=== PATIENT | female | born 1960 | race Caucasian/White ===

== ENCOUNTER 2019-12-29 14:22 | Emergency (ER) | payer MEDICARE, MEDICAID ==
[2019-12-29] MEDS ORDERED: predniSONE 20 MG Tab PO ONE (14:33)
[2019-12-29] MEDS ORDERED: Sodium Chloride 0.9% 10 ML Syringe FLUSH PRN (14:33)
[2019-12-29] MEDS ORDERED: Sodium Chloride 0.9% 1,000 ML IV SCH (14:45)
--- NOTE | 2019-12-29 16:16 | CR ---
INDICATION: Altered level of consciousness. CHEST ONE VIEW: An AP upright portable view of the chest was obtained 12/29/19 - no comparisons. The heart did not appear enlarged. Overlying EKG leads are noted. The aorta is tortuous with calcification in the arch. Somewhat heavy markings are noted at the lung bases which may be accentuated by relatively poor inspiration. No consolidating pneumonia or effusion was seen. The tortuous aorta may be responsible for density behind the heart, but makes it difficult to exclude a fixed hiatal hernia of moderate size in that area. The heavy markings at the lung bases make it difficult to entirely exclude minimal patchy bronchopneumonia. IMPRESSION: No definite acute process. When clinically possible, full inspiration PA and lateral views of the chest may be helpful for further evaluation. Report was called to Dona Morgan NP at 1602 hours. MTDD
[2019-12-29] MEDS ORDERED: Naloxone 0.4 MG/ML SDV IVPUSH STA (17:12)
--- NOTE | 2019-12-29 18:36 | EDM.PDOC ---
ED HPI GENERAL MEDICAL PROBLEM - General Chief Complaint: General Stated Complaint: CONFUSION Time Seen by Provider: 12/29/19 14:50 Source of Information: Reports: Patient, Family History Limitations: Reports: No Limitations - History of Present Illness INITIAL COMMENTS - FREE TEXT/NARRATIVE: Patient presented to the ED because of altered LOC for the past 2 days which is progressively getting worse. Ayana just stays in bed and when she wakes up she is disoriented and confused. According to her Boris, she has been complaining of more numbness, tingling, and pain recently and so she self medicate with marijuana. There is no associated, fever,chills, cough or cold symptoms. There is no focal and neurologic deficits that the noticed. - Related Data Allergies Allergy/AdvReac Type Severity Reaction Status Date / Time gabapentin Allergy Mild Cannot Verified 12/16/19 13:47 Remember ED ROS GENERAL - Review of Systems Review Of Systems: See Below Constitutional: Reports: No Symptoms HEENT: Reports: No Symptoms Respiratory: Reports: No Symptoms Endocrine: Reports: No Symptoms GI/Abdominal: Reports: No Symptoms : Reports: No Symptoms Musculoskeletal: Reports: No Symptoms Skin: Reports: No Symptoms Neurological: Reports: Confusion, Paresthesia. Denies: Headache Psychiatric: Reports: No Symptoms Hematologic/Lymphatic: Reports: No Symptoms ED EXAM, GENERAL - Physical Exam Exam: See Below Exam Limited By: No Limitations General Appearance: Obtunded Ears: Normal External Exam, Normal Canal Nose: Normal Inspection, Normal Mucosa, No Blood Throat/Mouth: Normal Inspection, Normal Lips, Normal Teeth Head: Atraumatic, Normocephalic Neck: Normal Inspection, Supple, Non-Tender, Full Range of Motion Respiratory/Chest: No Respiratory Distress, Lungs Clear, Normal Breath Sounds Cardiovascular: Normal Peripheral Pulses, Regular Rate, Rhythm, No Edema, No Gallop, No JVD, No Murmur, No Rub GI/Abdominal: Normal Bowel Sounds, Soft, Non-Tender, No Organomegaly Back Exam: Normal Inspection, Full Range of Motion Extremities: Normal Inspection, Normal Range of Motion Neurological: Confused, Disoriented. No: Sensory/Motor Deficit Skin Exam: Warm Course - Vital Signs Text/Narrative:: Labs/EKG/CXR/Head Ct was discussed with patient and and her Neuro consult with Dr. Toribio who recommended for patient to be transferred for further evaluation including Video EEG Head CT-no acute changes Last Recorded V/S: Last Vital Signs Temp Pulse 70 12/29/19 14:45 Resp 16 12/29/19 14:45 BP 126/71 12/29/19 14:45 Pulse Ox - Orders/Labs/Meds Orders: Active Orders 24 hr Category Date Time Status Head wo Cont [CT] Stat Exams 12/29/19 18:09 Ordered AMMONIA, PLASMA Stat Lab 12/29/19 18:17 Ordered Sodium Chloride 0.9% [Normal Saline] 1,000 ml Med 12/29/19 14:45 Active IV ASDIRECTED Sodium Chloride 0.9% [Saline Flush] Med 12/29/19 14:33 Active 10 ml FLUSH ASDIRECTED PRN Saline Lock Insert [OM.PC] Routine Oth 12/29/19 14:33 Ordered Medication Orders Sodium Chloride (Normal Saline) 1,000 mls @ 999 mls/hr IV ASDIRECTED ESTELLA Sodium Chloride (Saline Flush) 10 ml FLUSH ASDIRECTED PRN PRN Reason: Keep Vein Open Labs: Laboratory Tests 12/29/19 12/29/19 12/29/19 Range/Units 14:44 14:44 14:44 Sodium 142 (135-145) mmol/L Potassium 3.7 (3.5-5.3) mmol/L Chloride 102 (100-110) mmol/L Carbon Dioxide 32 (21-32) mmol/L BUN 18 (7-18) mg/dL Creatinine 1.0 (0.55-1.02) mg/dL Est Cr Clr Drug Dosing TNP Estimated GFR (MDRD) 57 L (>60) BUN/Creatinine Ratio 18.0 (9-20) Glucose 91 (80-116) mg/dL Lactic Acid 1.4 (0.4-2.0) mmol/L Calcium 9.2 (8.6-10.2) mg/dL Total Bilirubin 0.6 (0.1-1.3) mg/dL AST 20 (5-25) IU/L ALT 31 (12-36) U/L Alkaline Phosphatase 104 (56-112) IU/L Total Protein 7.4 (6.0-8.0) g/dL Albumin 3.9 (3.2-4.6) g/dL Globulin 3.5 g/dL Albumin/Globulin Ratio 1.1 Urine Color (YELLOW) Urine Appearance (CLEAR) Urine pH (5.0-6.5) Ur Specific [place] (1.010-1.025) Urine Protein (NEGATIVE) mg/dL Urine Glucose (UA) (NORMAL) mg/dL Urine Ketones (NEGATIVE) mg/dL Urine Occult Blood (NEGATIVE) Urine Nitrite (NEGATIVE) Urine Bilirubin (NEGATIVE) Urine Urobilinogen (NEGATIVE) mg/dL Ur Leukocyte Esterase (NEGATIVE) Urine RBC (0-5) Urine WBC (0-5) Ur Squamous Epith Cells (NS,R,O) Urine Bacteria (NS) Urine Opiates Screen (NEGATIVE) Ur Oxycodone Screen (NEGATIVE) Ur Propoxyphene Screen (NEGATIVE) Ur Barbituates Screen (NEGATIVE) Ur Tricyclics Screen (NEGATIVE) Ur Phencyclidine Scrn (NEGATIVE) Ur Amphetamine Screen (NEGATIVE) Urine MDMA Screen (NEGATIVE) U Benzodiazepines Scrn (NEGATIVE) U Cocaine Metab Screen (NEGATIVE) U Marijuana (THC) Screen (NEGATIVE) Ethyl Alcohol < 0.03 (<0.03) % 12/29/19 12/29/19 Range/Units 15:50 15:50 Sodium (135-145) mmol/L Potassium (3.5-5.3) mmol/L Chloride (100-110) mmol/L Carbon Dioxide (21-32) mmol/L BUN (7-18) mg/dL Creatinine (0.55-1.02) mg/dL Est Cr Clr Drug Dosing Estimated GFR (MDRD) (>60) BUN/Creatinine Ratio (9-20) Glucose (80-116) mg/dL Lactic Acid (0.4-2.0) mmol/L Calcium (8.6-10.2) mg/dL Total Bilirubin (0.1-1.3) mg/dL AST (5-25) IU/L ALT (12-36) U/L Alkaline Phosphatase (56-112) IU/L Total Protein (6.0-8.0) g/dL Albumin (3.2-4.6) g/dL Globulin g/dL Albumin/Globulin Ratio Urine Color Yellow (YELLOW) Urine Appearance Clear (CLEAR) Urine pH 6.5 (5.0-6.5) Ur Specific [place] 1.010 (1.010-1.025) Urine Protein Negative (NEGATIVE) mg/dL Urine Glucose (UA) Normal (NORMAL) mg/dL Urine Ketones 15 H (NEGATIVE) mg/dL Urine Occult Blood Moderate H (NEGATIVE) Urine Nitrite Negative (NEGATIVE) Urine Bilirubin Negative (NEGATIVE) Urine Urobilinogen Normal (NEGATIVE) mg/dL Ur Leukocyte Esterase Negative (NEGATIVE) Urine RBC 5-10 H (0-5) Urine WBC 0-5 (0-5) Ur Squamous Epith Cells Few H (NS,R,O) Urine Bacteria Few H (NS) Urine Opiates Screen Negative (NEGATIVE) Ur Oxycodone Screen Negative (NEGATIVE) Ur Propoxyphene Screen Negative (NEGATIVE) Ur Barbituates Screen Negative (NEGATIVE) Ur Tricyclics Screen Positive H (NEGATIVE) Ur Phencyclidine Scrn Negative (NEGATIVE) Ur Amphetamine Screen Negative (NEGATIVE) Urine MDMA Screen Negative (NEGATIVE) U Benzodiazepines Scrn Negative (NEGATIVE) U Cocaine Metab Screen Negative (NEGATIVE) U Marijuana (THC) Screen Negative (NEGATIVE) Ethyl Alcohol (<0.03) % Meds: Medications Generic Name Dose Route Start Last Admin Trade Name Freq PRN Reason Stop Dose Admin Sodium Chloride 1,000 mls @ 999 mls/hr 12/29/19 14:45 Normal Saline IV ASDIRECTED ESTELLA Sodium Chloride 10 ml 12/29/19 14:33 Saline Flush FLUSH ASDIRECTED PRN Keep Vein Open Discontinued Medications Generic Name Dose Route Start Last Admin Trade Name Freq PRN Reason Stop Dose Admin Naloxone HCl 0.4 mg 12/29/19 17:12 12/29/19 17:32 Narcan IVPUSH 12/29/19 17:13 0.4 mg NOW STA Administration Prednisone 40 mg 12/29/19 14:33 Prednisone PO 12/29/19 14:34 ONETIME ONE Departure - Departure Time of Disposition: 19:30 Disposition: DC/Tfer to Acute Hospital 02 Condition: Good Clinical Impression: Altered level of consciousness, Encephalopathy acute, Multiple sclerosis, Sarcoidosis - Discharge Information Referrals: Tarsha Putnam NP [Primary Care Provider] - Forms: ED Department Discharge Sepsis Event Note (ED) - Evaluation Sepsis Screening Result: No Definite Risk - Focused Exam Vital Signs: Vital Signs Pulse Resp BP 12/29/19 14:45 70 16 126/71 - My Orders Last 24 Hours: My Active Orders 12/29/19 14:33 Sodium Chloride 0.9% [Saline Flush] 10 ml FLUSH ASDIRECTED PRN Saline Lock Insert [OM.PC] Routine 12/29/19 14:45 Sodium Chloride 0.9% [Normal Saline] 1,000 ml IV ASDIRECTED 12/29/19 18:09 Head wo Cont [CT] Stat 12/29/19 18:17 AMMONIA, PLASMA Stat - Assessment/Plan Last 24 Hours: My Active Orders 12/29/19 14:33 Sodium Chloride 0.9% [Saline Flush] 10 ml FLUSH ASDIRECTED PRN Saline Lock Insert [OM.PC] Routine 12/29/19 14:45 Sodium Chloride 0.9% [Normal Saline] 1,000 ml IV ASDIRECTED 12/29/19 18:09 Head wo Cont [CT] Stat 12/29/19 18:17 AMMONIA, PLASMA Stat
--- NOTE | 2019-12-29 19:36 | CT ---
INDICATION: Altered level of consciousness. CT HEAD WITHOUT CONTRAST: Spiral 3.75 mm axial sections were obtained through the brain without contrast with axial, sagittal and coronal reconstructions 12/29/19 - no comparisons. Total exam DLP was 1270.76 mGy-cm. Moderate degenerative changes are noted at the odontoatlantian joint. Mastoid air cells were well aerated. Small retention cyst is noted in the right maxillary antrum with paranasal sinuses otherwise well aerated. No cranial abnormality was identified. The orbits appear to be intact. No shift of midline structures, ventricular abnormalities, or definite acute intracranial abnormality could be identified - no bleeding site or hematoma was seen. There is some minimal low-density abnormality in the white matter, compatible with minimal microvascular disease, slightly more prominent in the left frontal area where an ongoing thrombotic process could be present. Other cause of leukoencephalopathy cannot be excluded, especially in this patient with history of MS. No old examinations are available for comparison. IMPRESSION: 1. No definite acute intracranial abnormality. No bleeding site or hematoma. 2. However, there are some areas of decreased density in the white matter and 1 is indistinctly marginated and could represent an evolving thrombotic CVA, which appears to be almost entirely in the white matter in the right frontal area. It should be correlated clinically. Follow-up studies may be helpful in 3-5 days versus MRI for that area. Report was called to Dr. Rivas at 1852 hours. [facility]
== END 2019-12-29 20:20 ==
LOC: FB.ED 14:22
DX: R40.0 Somnolence (principal); G35 Multiple sclerosis; G93.40 Encephalopathy, unspecified; D86.9 Sarcoidosis, unspecified; Z88.8 Allergy status to other drugs, medicaments and biological substances
CPT/HCPCS: 36415; 70450; 71045; 80053; 80305-QW; 80307; 81001; 83605; 96374; 99285; 99285-25; J2310

== ENCOUNTER 2020-02-08 08:29 | Observation (INO) | payer MEDICARE, MEDICAID ==
[2020-02-08] MEDS ORDERED: Sodium Chloride 0.9% 10 ML Syringe FLUSH PRN (08:56)
[2020-02-08] MEDS ORDERED: Dextrose 5%-Lactated Ringers 1,000 ML IV SCH (09:00)
--- NOTE | 2020-02-08 09:18 | EDM.PDOC ---
ED HPI GENERAL MEDICAL PROBLEM - General Chief Complaint: Neuro Symptoms/Deficits Stated Complaint: POSS OVERDOSE Time Seen by Provider: 02/08/20 09:00 Source of Information: Reports: Patient, Family, Old Records History Limitations: Reports: Altered Mental Status - History of Present Illness INITIAL COMMENTS - FREE TEXT/NARRATIVE: Ayana arrives by POV with spouse who reports confusional state, lethargy, labored breathing, weakness, and concerns she may have OD on Baclofen 20 mg tabs which she takes for MS and spasticity. He found 2 tabs in her hand, but reports he did not believe the pill bottle had been emptied. There was no reported drug or alcohol use, statements with suicidal ideation, messaging, or injury. There is no PMH of suicidal attempt, but patient seems more depressed lately. Upon arrival, GCS 11 ([id number]). There is some brief periods of apnea, 02 sats 97% on RA. She denies drug OD. - Related Data Allergies Allergy/AdvReac Type Severity Reaction Status Date / Time gabapentin Allergy Mild Cannot Verified 12/16/19 13:47 Remember Past Medical History HEENT History: Reports: None Cardiovascular History: Reports: Hypertension Respiratory History: Reports: Sleep Apnea Gastrointestinal History: Reports: None Musculoskeletal History: Reports: Arthritis Neurological History: Reports: MS Psychiatric History: Reports: Suicide Attempt (spouse reported Baclofen OD in [place] about a year ago.) ED ROS GENERAL - Review of Systems Review Of Systems: Unable To Obtain Reason Not Obtained: lethargic - Physical Exam Exam: See Below Exam Limited By: Altered Mental Status General Appearance: Alert, WD/WN, Lethargic Eye Exam: Bilateral Eye: EOMI, Normal Inspection, PERRL Ears: Normal External Exam Nose: Normal Inspection Throat/Mouth: No Airway Compromise Head Exam: Atraumatic Neck: Normal Inspection, Supple, Non-Tender Respiratory/Chest: Chest Non-Tender, Decreased Breath Sounds, Crackles, Other (periodic breathing) Cardiovascular: Normal Peripheral Pulses, Regular Rate, Rhythm, No JVD, No Murmur, No Rub GI/Abdominal: Normal Bowel Sounds, Soft, Non-Tender, No Organomegaly, No Distention, No Mass (Female) Exam: Deferred Rectal (Female) Exam: Deferred Neuro Exam (Abbreviated): Inattentive, Confused, Slow to Respond, Sensory/Motor Deficit (spasticity) Back Exam: Normal Inspection Extremities: Limited Range of Motion (spasticity) Psychiatric: Flat Affect Skin Exam: Dry, Cool, Other (dependent edema) Course - Vital Signs Text/Narrative:: Following initial assessment, supportive measures including monitoring, IV D5LR bolus and 12 lead ekg obtained. Screening labs were obtained including portable CXR, cultures, and drug screens. Spouse retrieved home meds for review. Periodic breathing was observed without drop in 02 sats, consistent with home observations long standing. A alston cath was placed. CBC notes Hgb 16.4 gm, WBC 12,800, plts adequate: cmp notes mild elevations of LFTs, UA baseline, drug screen pos for tricyclics (prescription), chest x ray no change. Case discussed with Hospitalist, and she will be admitted to Observation. At this time, a drug OD is not suspected. - Orders/Labs/Meds Orders: Active Orders 24 hr Category Date Time Status Patient Status Manage Transfer [TRANSFER] Routine ADT 02/08/20 10:56 Ordered Insert Urinary Catheter [OM.PC] Q24H Care 02/08/20 09:00 Ordered Urinary Catheter Assessment [RC] QSHIFT Care 02/08/20 08:57 Active CULTURE BLOOD [BC] Urgent Lab 02/08/20 08:50 Received CULTURE BLOOD [BC] Urgent Lab 02/08/20 08:50 Received CULTURE URINE [RM] Stat Lab 02/08/20 08:56 Received Dextrose 5%-Lactated Ringers 1,000 ml Med 02/08/20 09:00 Active IV ASDIRECTED Dextrose 5%-Lactated Ringers 1,000 ml Med 02/08/20 10:30 Active IV ASDIRECTED Sodium Chloride 0.9% [Saline Flush] Med 02/08/20 08:56 Active 10 ml FLUSH ASDIRECTED PRN Blood Culture x2 Reflex Set [OM.PC] Urgent Oth 02/08/20 08:56 Ordered Peripheral IV Insertion Adult [OM.PC] Routine Oth 02/08/20 08:56 Ordered Medication Orders Dextrose/Lactated Ringer's (Dextrose 5%-Lactated Ringers) 1,000 mls @ 999 mls/hr IV ASDIRECTED ESTELLA Last Admin: 02/08/20 09:10 Dose: 999 mls/hr Documented by: DIFFCAL Dextrose/Lactated Ringer's (Dextrose 5%-Lactated Ringers) 1,000 mls @ 250 mls/hr IV ASDIRECTED ESTELLA Last Admin: 02/08/20 10:18 Dose: 250 mls/hr Documented by: DIFFCAL Sodium Chloride (Saline Flush) 10 ml FLUSH ASDIRECTED PRN PRN Reason: Keep Vein Open Labs: Laboratory Tests 02/08/20 02/08/20 02/08/20 Range/Units 08:50 08:50 08:50 WBC 12.8 H (4.5-12.0) X10-3/uL RBC 5.25 H (3.23-5.20) x10(6)uL Hgb 16.4 H (11.5-15.5) g/dL Hct 47.4 (30.0-51.3) % MCV 90.3 (80-96) fL MCH 31.3 (27.7-33.6) pg MCHC 34.7 (32.2-35.4) g/dL RDW 13.5 (11.5-15.5) % Plt Count 197 (125-369) X10(3)uL MPV 8.4 (7.4-10.4) fL Neut % (Auto) 78.1 (46-82) % Lymph % (Auto) 12.3 L (13-37) % [place] % (Auto) 6.8 (4-12) % Eos % (Auto) 2 (1.0-5.0) % Baso % (Auto) 1 (0-2) % Neut # (Auto) 9.9 H (1.6-8.3) # Lymph # (Auto) 1.6 (0.6-5.0) # Irion # (Auto) 0.9 (0.0-1.3) # Eos # (Auto) 0.3 (0.0-0.8) # Baso # (Auto) 0.1 (0.0-0.2) # Sodium 141 (135-145) mmol/L Potassium 3.8 (3.5-5.3) mmol/L Chloride 103 (100-110) mmol/L Carbon Dioxide 28 (21-32) mmol/L BUN 16 (7-18) mg/dL Creatinine 0.9 (0.55-1.02) mg/dL Est Cr Clr Drug Dosing TNP Estimated GFR (MDRD) > 60 (>60) BUN/Creatinine Ratio 17.8 (9-20) Glucose 101 (80-116) mg/dL Lactic Acid (0.4-2.0) mmol/L Calcium 9.5 (8.6-10.2) mg/dL Total Bilirubin 0.6 (0.1-1.3) mg/dL AST 29 H D (5-25) IU/L ALT 39 H D (12-36) U/L Alkaline Phosphatase 100 (56-112) IU/L Troponin I 15.3 (4.0-60.3) pg/mL C-Reactive Protein 0.2 L (0.5-0.9) mg/dL Total Protein 7.6 (6.0-8.0) g/dL Albumin 3.6 (3.2-4.6) g/dL Globulin 4.0 g/dL Albumin/Globulin Ratio 0.9 Urine Color (YELLOW) Urine Appearance (CLEAR) Urine pH (5.0-6.5) Ur Specific [place] (1.010-1.025) Urine Protein (NEGATIVE) mg/dL Urine Glucose (UA) (NORMAL) mg/dL Urine Ketones (NEGATIVE) mg/dL Urine Occult Blood (NEGATIVE) Urine Nitrite (NEGATIVE) Urine Bilirubin (NEGATIVE) Urine Urobilinogen (NEGATIVE) mg/dL Ur Leukocyte Esterase (NEGATIVE) Urine WBC (0-5) Ur Squamous Epith Cells (NS,R,O) Urine Bacteria (NS) Salicylates (<2.8) mg/dL Urine Opiates Screen (NEGATIVE) Ur Oxycodone Screen (NEGATIVE) Ur Propoxyphene Screen (NEGATIVE) Acetaminophen (<2) ug/mL Ur Barbituates Screen (NEGATIVE) Ur Tricyclics Screen (NEGATIVE) Ur Phencyclidine Scrn (NEGATIVE) Ur Amphetamine Screen (NEGATIVE) Urine MDMA Screen (NEGATIVE) U Benzodiazepines Scrn (NEGATIVE) U Cocaine Metab Screen (NEGATIVE) U Marijuana (THC) Screen (NEGATIVE) Ethyl Alcohol < 0.03 (<0.03) % SARS-CoV-2 RNA (VINCENT) (NEGATIVE) 02/08/20 02/08/20 02/08/20 Range/Units 08:50 08:50 08:56 WBC (4.5-12.0) X10-3/uL RBC (3.23-5.20) x10(6)uL Hgb (11.5-15.5) g/dL Hct (30.0-51.3) % MCV (80-96) fL MCH (27.7-33.6) pg MCHC (32.2-35.4) g/dL RDW (11.5-15.5) % Plt Count (125-369) X10(3)uL MPV (7.4-10.4) fL Neut % (Auto) (46-82) % Lymph % (Auto) (13-37) % [place] % (Auto) (4-12) % Eos % (Auto) (1.0-5.0) % Baso % (Auto) (0-2) % Neut # (Auto) (1.6-8.3) # Lymph # (Auto) (0.6-5.0) # Irion # (Auto) (0.0-1.3) # Eos # (Auto) (0.0-0.8) # Baso # (Auto) (0.0-0.2) # Sodium (135-145) mmol/L Potassium (3.5-5.3) mmol/L Chloride (100-110) mmol/L Carbon Dioxide (21-32) mmol/L BUN (7-18) mg/dL Creatinine (0.55-1.02) mg/dL Est Cr Clr Drug Dosing Estimated GFR (MDRD) (>60) BUN/Creatinine Ratio (9-20) Glucose (80-116) mg/dL Lactic Acid 1.1 (0.4-2.0) mmol/L Calcium (8.6-10.2) mg/dL Total Bilirubin (0.1-1.3) mg/dL AST (5-25) IU/L ALT (12-36) U/L Alkaline Phosphatase (56-112) IU/L Troponin I (4.0-60.3) pg/mL C-Reactive Protein (0.5-0.9) mg/dL Total Protein (6.0-8.0) g/dL Albumin (3.2-4.6) g/dL Globulin g/dL Albumin/Globulin Ratio Urine Color Yellow (YELLOW) Urine Appearance Clear (CLEAR) Urine pH 6.0 (5.0-6.5) Ur Specific [place] 1.015 (1.010-1.025) Urine Protein Negative (NEGATIVE) mg/dL Urine Glucose (UA) Normal (NORMAL) mg/dL Urine Ketones 15 H (NEGATIVE) mg/dL Urine Occult Blood Negative (NEGATIVE) Urine Nitrite Negative (NEGATIVE) Urine Bilirubin Negative (NEGATIVE) Urine Urobilinogen Normal (NEGATIVE) mg/dL Ur Leukocyte Esterase Negative (NEGATIVE) Urine WBC 0-5 (0-5) Ur Squamous Epith Cells Few H (NS,R,O) Urine Bacteria Few H (NS) Salicylates 9.7 (<2.8) mg/dL Urine Opiates Screen (NEGATIVE) Ur Oxycodone Screen (NEGATIVE) Ur Propoxyphene Screen (NEGATIVE) Acetaminophen < 2 L (<2) ug/mL Ur Barbituates Screen (NEGATIVE) Ur Tricyclics Screen (NEGATIVE) Ur Phencyclidine Scrn (NEGATIVE) Ur Amphetamine Screen (NEGATIVE) Urine MDMA Screen (NEGATIVE) U Benzodiazepines Scrn (NEGATIVE) U Cocaine Metab Screen (NEGATIVE) U Marijuana (THC) Screen (NEGATIVE) Ethyl Alcohol (<0.03) % SARS-CoV-2 RNA (VINCENT) (NEGATIVE) 02/08/20 02/08/20 Range/Units 08:56 09:30 WBC (4.5-12.0) X10-3/uL RBC (3.23-5.20) x10(6)uL Hgb (11.5-15.5) g/dL Hct (30.0-51.3) % MCV (80-96) fL MCH (27.7-33.6) pg MCHC (32.2-35.4) g/dL RDW (11.5-15.5) % Plt Count (125-369) X10(3)uL MPV (7.4-10.4) fL Neut % (Auto) (46-82) % Lymph % (Auto) (13-37) % [place] % (Auto) (4-12) % Eos % (Auto) (1.0-5.0) % Baso % (Auto) (0-2) % Neut # (Auto) (1.6-8.3) # Lymph # (Auto) (0.6-5.0) # Irion # (Auto) (0.0-1.3) # Eos # (Auto) (0.0-0.8) # Baso # (Auto) (0.0-0.2) # Sodium (135-145) mmol/L Potassium (3.5-5.3) mmol/L Chloride (100-110) mmol/L Carbon Dioxide (21-32) mmol/L BUN (7-18) mg/dL Creatinine (0.55-1.02) mg/dL Est Cr Clr Drug Dosing Estimated GFR (MDRD) (>60) BUN/Creatinine Ratio (9-20) Glucose (80-116) mg/dL Lactic Acid (0.4-2.0) mmol/L Calcium (8.6-10.2) mg/dL Total Bilirubin (0.1-1.3) mg/dL AST (5-25) IU/L ALT (12-36) U/L Alkaline Phosphatase (56-112) IU/L Troponin I (4.0-60.3) pg/mL C-Reactive Protein (0.5-0.9) mg/dL Total Protein (6.0-8.0) g/dL Albumin (3.2-4.6) g/dL Globulin g/dL Albumin/Globulin Ratio Urine Color (YELLOW) Urine Appearance (CLEAR) Urine pH (5.0-6.5) Ur Specific [place] (1.010-1.025) Urine Protein (NEGATIVE) mg/dL Urine Glucose (UA) (NORMAL) mg/dL Urine Ketones (NEGATIVE) mg/dL Urine Occult Blood (NEGATIVE) Urine Nitrite (NEGATIVE) Urine Bilirubin (NEGATIVE) Urine Urobilinogen (NEGATIVE) mg/dL Ur Leukocyte Esterase (NEGATIVE) Urine WBC (0-5) Ur Squamous Epith Cells (NS,R,O) Urine Bacteria (NS) Salicylates (<2.8) mg/dL Urine Opiates Screen Negative (NEGATIVE) Ur Oxycodone Screen Negative (NEGATIVE) Ur Propoxyphene Screen Negative (NEGATIVE) Acetaminophen (<2) ug/mL Ur Barbituates Screen Negative (NEGATIVE) Ur Tricyclics Screen Positive H (NEGATIVE) Ur Phencyclidine Scrn Negative (NEGATIVE) Ur Amphetamine Screen Negative (NEGATIVE) Urine MDMA Screen Negative (NEGATIVE) U Benzodiazepines Scrn Negative (NEGATIVE) U Cocaine Metab Screen Negative (NEGATIVE) U Marijuana (THC) Screen Negative (NEGATIVE) Ethyl Alcohol (<0.03) % SARS-CoV-2 RNA (VINCENT) Negative (NEGATIVE) Meds: Medications Generic Name Dose Route Start Last Admin Trade Name Freq PRN Reason Stop Dose Admin Dextrose/Lactated Ringer's 1,000 mls @ 999 mls/hr 02/08/20 09:00 02/08/20 09:10 Dextrose 5%-Lactated Ringers IV 999 mls/hr ASDIRECTED ESTELLA Administration Dextrose/Lactated Ringer's 1,000 mls @ 250 mls/hr 02/08/20 10:30 02/08/20 10:18 Dextrose 5%-Lactated Ringers IV 250 mls/hr ASDIRECTED ESTELLA Administration Sodium Chloride 10 ml 02/08/20 08:56 Saline Flush FLUSH ASDIRECTED PRN Keep Vein Open Departure - Departure Time of Disposition: 11:01 Disposition: Refer to Observation Condition: Fair Clinical Impression: Multiple sclerosis Altered mental status, unspecified Qualifiers: Altered mental status type: unspecified Qualified Code(s): R41.82 - Altered mental status, unspecified - Discharge Information *PRESCRIPTION DRUG MONITORING PROGRAM REVIEWED*: Not Applicable *COPY OF PRESCRIPTION DRUG MONITORING REPORT IN PATIENT DAMON: Not Applicable Referrals: Sara Calixto PA-C [Primary Care Provider] - Forms: ED Department Discharge - Problem List & Annotations (1) Altered mental status, unspecified SNOMED Code(s): 688589816 Code(s): R41.82 - ALTERED MENTAL STATUS, UNSPECIFIED Status: Acute Current Visit: Yes Annotation/Comment:: An OD is not suspected at this time. She will be admitted to Observation. Qualifiers: Altered mental status type: unspecified Qualified Code(s): R41.82 - Altered mental status, unspecified (2) Multiple sclerosis SNOMED Code(s): 11101603 Code(s): G35 - MULTIPLE SCLEROSIS Status: Acute Current Visit: Yes Annotation/Comment:: Chronic MS. - Problem List Review Problem List Initiated/Reviewed/Updated: Yes - My Orders Last 24 Hours: My Active Orders 02/08/20 08:50 CULTURE BLOOD [BC] Urgent CULTURE BLOOD [BC] Urgent 02/08/20 08:56 CULTURE URINE [RM] Stat Sodium Chloride 0.9% [Saline Flush] 10 ml FLUSH ASDIRECTED PRN Blood Culture x2 Reflex Set [OM.PC] Urgent Peripheral IV Insertion Adult [OM.PC] Routine 02/08/20 08:57 Urinary Catheter Assessment [RC] QSHIFT 02/08/20 09:00 Insert Urinary Catheter [OM.PC] Q24H Dextrose 5%-Lactated Ringers 1,000 ml IV ASDIRECTED 02/08/20 10:30 Dextrose 5%-Lactated Ringers 1,000 ml IV ASDIRECTED 02/08/20 10:56 Patient Status Manage Transfer [TRANSFER] Routine - Assessment/Plan Last 24 Hours: My Active Orders 02/08/20 08:50 CULTURE BLOOD [BC] Urgent CULTURE BLOOD [BC] Urgent 02/08/20 08:56 CULTURE URINE [RM] Stat Sodium Chloride 0.9% [Saline Flush] 10 ml FLUSH ASDIRECTED PRN Blood Culture x2 Reflex Set [OM.PC] Urgent Peripheral IV Insertion Adult [OM.PC] Routine 02/08/20 08:57 Urinary Catheter Assessment [RC] QSHIFT 02/08/20 09:00 Insert Urinary Catheter [OM.PC] Q24H Dextrose 5%-Lactated Ringers 1,000 ml IV ASDIRECTED 02/08/20 10:30 Dextrose 5%-Lactated Ringers 1,000 ml IV ASDIRECTED 02/08/20 10:56 Patient Status Manage Transfer [TRANSFER] Routine Plan: Per Hospitalist.
[2020-02-08 09:53] LABS: ACETAMINOPHEN < 2 ug/mL (<2)
[2020-02-08] MEDS: Dextrose 5%-Lactated Ringers 1,000 ML IV SCH ×2 (10:18→14:28)
--- NOTE | 2020-02-08 10:32 | CR ---
CHEST ONE VIEW INDICATION: Altered mental status. AP portable upright view of the chest 02/08/2020 was compared with 12/29/2019 and again revealed heart to be normal in size. The aorta is tortuous with calcification in the arch. Overlying EKG leads are noted. An active infiltrate or effusion was not identified. IMPRESSION: No acute process--overall fairly stable appearance of the chest. Report was given in person to Dr. Siegel at approximately 1015 hours. [facility]
[2020-02-08] MEDS ORDERED: Lactated Ringers 1,000 ML IV SCH (12:00)
[2020-02-08] MEDS: Enoxaparin 30 MG/0.3 ML Syringe SUBCUT SCH (13:28)
--- NOTE | 2020-02-08 14:33 | HP ---
ADMISSION DATE: 02/08/2020 REASON FOR VISIT: Altered mental status. HISTORY OF PRESENT ILLNESS: Ayana Benitez is a 59-year-old female from [place], was seen at [facility] ER on 02/08/2020. She was seen by Dr. Juan C Juarez. Upon admission, brought by , increased confusion, lethargy, labored breathing, weakness, and a concern about overuse of her baclofen. Presently on baclofen 20 mg t.i.d. for spasm for MS. She reports not taking excessively but symptoms and clinical findings strongly suspicious. O2 saturations were satisfactory, breathing was comfortable, denied overdosing intervention. MEDICATIONS: Daily medications include, 1. Baclofen 20 mg 1 p.o. t.i.d. 2. Amitriptyline 10 mg for at bedtime sleep enhancement. 3. Arava 20 mg one daily, MS. 4. Prednisone 7.5 mg one daily, MS. 5. Cymbalta 60 mg 1 p.o. daily, mood stabilizer. 6. Atorvastatin 40 mg 1 p.o. daily, hyperlipidemia. 7. Colace 100 mg 1 p.o. daily, constipation. 8. vitamin 1 daily, nutrition. 9. Vitamin D 5000 units daily, bone health. 10.Diprivan 5 mg 1 p.o. b.i.d., bladder control. 11.Ibuprofen 800 mg t.i.d. p.r.n. for pain. 12.Verapamil 80 mg 1 p.o. b.i.d., heart rate control. ALLERGIES: None. PAST MEDICAL HISTORY: Significant for bilateral bunionectomy and previous section x2. Chronic illnesses include treated MS, complicated insomnia, mood disorder, hyperlipidemia, and hypertension. CONTACT REPRESENTATIVE HISTORY: 2, para 2, postmenopausal female. SOCIAL HISTORY: Lives with in [place]. Two sons, two grandchildren. 2 pack per day smoker. Moderate alcohol consumption. No illicit drug use. FAMILY HISTORY: Negative for early heart disease, diabetes mellitus, or inheritable cancer. REVIEW OF SYSTEMS: The patient is unawakeful to obtain any particular appropriate review of systems. No particular issues noted. PHYSICAL EXAMINATION: VITAL SIGNS: To the ER noted and stable. GENERAL: Middle-aged female, appears appropriate to age. Difficult conversation due to lethargy, but is awakeful and appropriate. HEENT: Funduscopic benign. Bright TMs. Clear nasal discharge. Mouth and oropharynx, poor dentition. Tongue midline. Good gag reflex. NECK: Benign. Thyroid small. CHEST: On auscultation, clear in all lung crook. HEART: On auscultation, no ectopy or murmur. ABDOMEN: Benign. Moderate distention. Lower abdominal scar. AND RECTAL: Appropriately deferred. EXTREMITIES: Well perfused. NEUROMUSCULAR: Intact. LABORATORY STUDIES: CBC revealed white count 12,800, hemoglobin 16.4. Normal electrolytes. Mildly elevated AST and ALT. CRP low at 0.2. Urinalysis normal. Positive tricyclics due to amitriptyline. COVID negative. Ethyl alcohol less than 0.3. ASSESSMENT: 1. Med overdose, strong suspicion for baclofen. 2. Secondary diagnosis, please see HPI. PLAN: We will admit to hospital. IV fluids. Intervention and care. We will maintain at telemetry and O2 saturations. Proceed accordingly. /[id number] /ERNIE
[2020-02-08] MEDS: Sodium Chloride 0.9% 1,000 ML IV SCH (18:00)
[2020-02-09] MEDS: Sodium Chloride 0.9% 1,000 ML IV SCH (01:46)
--- NOTE | 2020-02-09 12:58 | DISCH ---
DISCHARGE DATE: 02/09/2020 DIAGNOSES: Acute confusional weakness and lethargic state secondary to combination of medication issues. HISTORY OF PRESENT ILLNESS: Ayana Benitez is a 59-year-old female admitted with acute confusional stage, lethargy, decreased wakefulness, and some suspicion for interaction between her amitriptyline 40 mg at bedtime and her baclofen. Concern about more than prescribed amount was under review. Urine drug screen revealed tricyclics only consistent with her amitriptyline. Seen in the ER, evaluated, given fluids. Tenorio catheter was placed. Laboratory studies revealed white count 12,800, hemoglobin 16.4, normal indices. Electrolytes satisfactory. Mildly elevated AST and ALT, CRP of 0.2, and urine with unremarkable issues except for ketonuria. Drug screen positive for tricyclics only. SARS COVID negative. On admission, she was really lethargic and withdrawn, was awakeable. It was little bit disoriented. Exam otherwise stable other than MS related changes. HOSPITAL COURSE: The patient was maintained on O2 monitor and telemetry and make sure cardiac status and respiratory status were complementary. She became increasingly more wakeful for the day. Diet was advanced. The evening prior to discharge was more awake. Morning of discharge, she was awake, alert, and appropriate. Pain in lower extremities under review. Intolerant of gabapentin. Will make followup visit with Sara Calixto, provider of record. No repeat laboratory studies were performed. PHYSICAL EXAMINATION: VITAL SIGNS: 36.6, 111, 142/83, 16, and 94%. GENERAL: Wakeful, appropriate, and soft spoken. NECK: Benign. Thyroid small. CHEST: Clear in all lung crook. HEART: No ectopy or murmur. ABDOMEN: Benign. EXTREMITIES: Upper extremity and lower extremity spasticity noted. PLAN: Discharge to home, reduce amitriptyline to 10 mg at bedtime. Take her baclofen later in the morning. Will have a followup appointment with Neurology provider of record, on Arava therapy, Sara Calixto, her primary. SURGICAL PROCEDURES: None. CONSULTATIONS: None. /[id number] /ERNIE
[2020-02-09] MEDS: Enoxaparin 30 MG/0.3 ML Syringe SUBCUT SCH (15:04)
== END 2020-02-09 12:00 | disposition home or self-care (01) ==
LOC: FB.ED 08:29 → FB.MS 10:56 → UNDOADMOB 10:56
PROVIDERS: ADMIT Family Medicine; ATTEND Family Medicine
DX: T42.8X1A Poisoning by antiparkinsonism drugs and other central muscle-tone depressants, accidental (unintentional), initial encounter (principal); T43.011A Poisoning by tricyclic antidepressants, accidental (unintentional), initial encounter; R41.82 Altered mental status, unspecified; R53.83 Other fatigue; I10 Essential (primary) hypertension; E78.5 Hyperlipidemia, unspecified; Z20.828 Contact with and (suspected) exposure to other viral communicable diseases; G35 Multiple sclerosis; G47.00 Insomnia, unspecified; Z88.8 Allergy status to other drugs, medicaments and biological substances
CPT/HCPCS: 36415; 71045; 80053; 80305-QW; 80307; 81001; 83605; 84484; 85025; 86140; 87040; 87086; 93005; 99285-25; J1650; J7030; J7121; U0002

== ENCOUNTER 2020-02-24 16:35 | Observation (INO) | payer MEDICARE, MEDICAID ==
[2020-02-24] MEDS ORDERED: Sodium Chloride 0.9% 10 ML Syringe FLUSH PRN (16:53)
[2020-02-24] MEDS ORDERED: methylPREDNISolone Sodium Succinate 125 MG/2 ML SDV IVPUSH ONE (16:56)
[2020-02-24] MEDS: Sodium Chloride 0.9% 1,000 ML IV SCH (17:13)
[2020-02-24] MEDS ORDERED: Ketorolac 30 MG/ML SDV IVPUSH ONE (17:50)
--- NOTE | 2020-02-24 18:04 | CT ---
INDICATION: Altered level of consciousness. CT HEAD WITHOUT CONTRAST: Spiral 3.75 mm axial sections were obtained through the brain without contrast with axial, sagittal and coronal reconstructions 02/24/20 and compared with 12/29/19. Total exam DLP was 1373.85 mGy-cm. Moderate degenerative changes are noted at the odontoatlantian joint. Small retention cysts are noted in the base of the maxillary antra bilaterally with paranasal sinuses otherwise appearing adequately aerated. Mastoid air cells appear to be adequately aerated. No significant cranial abnormality was identified. There appears to be minimal calcification in the internal carotid artery on the right. The orbits appear to be grossly intact. No shift of midline structures, ventricular abnormalities or bleeding site or hematoma was identified. There is some white matter change, periventricular right and left in the parietal and frontal areas. These stable areas of decreased density may represent subcortical infarcts on the basis of microvascular disease, but should be correlated clinically, as other cause of leukoencephalopathy cannot be excluded. No other abnormal areas of density were identified - no finding to strongly suggest an acute intracranial abnormality was seen. IMPRESSION: 1. No acute intracranial abnormalities. 2. Minimal low-density abnormality in white matter likely representing minimal microvascular disease. There is also some minimal calcification in the right internal carotid artery. Report was called to Dr. Rivas at 1741 hours. [facility]
--- NOTE | 2020-02-24 19:27 | EDM.PDOC ---
ED HPI GENERAL MEDICAL PROBLEM - General Chief Complaint: Neuro Symptoms/Deficits Time Seen by Provider: 02/24/20 16:35 Source of Information: Reports: Patient History Limitations: Reports: No Limitations - History of Present Illness INITIAL COMMENTS - FREE TEXT/NARRATIVE: Patient presented to the ED because of altered LOC, lethargy, confusion and feeling weak for the past several days. Last night she went to the bathroom and fell. Ayana has been on several occasions presenting with the same problems and her neurologist thought that she might be abusing her Baclofen for muscle spasms due to her MS. There is no associated fever, chills, cough/cold. NO N/V/D. 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 - Related Data Allergies Allergy/AdvReac Type Severity Reaction Status Date / Time gabapentin Allergy Mild Cannot Verified 02/24/20 17:01 Remember Home Meds: Home Meds Amitriptyline [Elavil] 40 mg PO BEDTIME 02/08/20 [History] Baclofen 20 mg PO TID 02/08/20 [History] Cholecalciferol (Vitamin D3) [Vitamin D3] 125 mcg PO DAILY 02/08/20 [History] DULoxetine [Cymbalta] 60 mg PO DAILY 02/08/20 [History] Docusate Sodium 100 mg PO TID 02/08/20 [History] Folic Acid 1 mg PO DAILY 02/08/20 [History] Ibuprofen 800 mg PO TID 02/08/20 [History] Leflunomide 20 mg PO DAILY 02/08/20 [History] Oxybutynin 5 mg PO BID 02/08/20 [History] Pnv No.95/Ferrous Fum/Folic AC [ Caplet] 1 tab PO DAILY 02/08/20 [History] Verapamil [Calan] 80 mg PO BID 02/08/20 [History] atorvaSTATin [Lipitor] 40 mg PO BEDTIME 02/08/20 [History] predniSONE [Prednisone] 2.5 mg PO DAILY 02/08/20 [History] predniSONE [Prednisone] 5 mg PO DAILY 02/08/20 [History] Past Medical History HEENT History: Reports: None Cardiovascular History: Reports: Arrhythmia, Hypertension Respiratory History: Reports: Sleep Apnea Gastrointestinal History: Reports: None Musculoskeletal History: Reports: Arthritis Neurological History: Reports: MS Psychiatric History: Reports: Suicide Attempt - Infectious Disease History Infectious Disease History: Reports: Chicken Pox, Measles, Meningitis Social & Family History - Family History Family Medical History: Noncontributory - Tobacco Use Tobacco Use Status *Q: Current Every Day Tobacco User Years of Tobacco use: 45 Packs/Tins Daily: 1 - Caffeine Use Caffeine Use: Reports: None - Recreational Drug Use Recreational Drug Use: No ED ROS GENERAL - Review of Systems Review Of Systems: See Below Constitutional: Reports: Weakness HEENT: Reports: No Symptoms Respiratory: Reports: No Symptoms Cardiovascular: Reports: No Symptoms Endocrine: Reports: No Symptoms GI/Abdominal: Reports: No Symptoms : Reports: No Symptoms Musculoskeletal: Reports: No Symptoms Skin: Reports: No Symptoms Neurological: Reports: No Symptoms Psychiatric: Reports: No Symptoms ED EXAM, GENERAL - Physical Exam Exam: See Below Exam Limited By: No Limitations General Appearance: Alert, No Apparent Distress Eye Exam: Bilateral Eye: PERRL Nose: Normal Inspection, Normal Mucosa Throat/Mouth: Normal Inspection, Normal Lips Head: Atraumatic, Normocephalic Neck: Normal Inspection, Supple, Non-Tender, Full Range of Motion Respiratory/Chest: No Respiratory Distress, Lungs Clear, Normal Breath Sounds Cardiovascular: Normal Peripheral Pulses, Regular Rate, Rhythm, No Edema, No Gallop GI/Abdominal: Normal Bowel Sounds, Soft, Non-Tender, No Organomegaly, No Distention Back Exam: Normal Inspection, Full Range of Motion Extremities: Normal Inspection, Normal Range of Motion, Non-Tender, No Pedal Edema Course - Vital Signs Last Recorded V/S: Last Vital Signs Temp 36.2 C 02/24/20 16:35 Pulse 108 H 02/24/20 16:35 Resp 16 02/24/20 16:35 BP 178/104 H 02/24/20 16:35 Pulse Ox 93 L 02/24/20 16:35 - Orders/Labs/Meds Orders: Active Orders 24 hr Category Date Time Status EKG Documentation Completion [RC] ASDIRECTED Care 02/24/20 16:54 Active Chest 1V Frontal [CR] Stat Exams 02/24/20 16:53 Taken Hip Min 2V w Pelvis Bi [CR] Stat Exams 02/24/20 17:35 Taken AMMONIA, PLASMA Stat Lab 02/24/20 17:12 Received CORONAVIRUS COVID-19 PCR PH[facility] Stat Lab 02/24/20 17:42 Ordered Sodium Chloride 0.9% [Normal Saline] 1,000 ml Med 02/24/20 17:00 Active IV ASDIRECTED Sodium Chloride 0.9% [Saline Flush] Med 02/24/20 16:53 Active 10 ml FLUSH ASDIRECTED PRN Saline Lock Insert [OM.PC] Routine Oth 02/24/20 16:53 Ordered EKG 12 Lead [EK] Routine Ther 02/24/20 16:53 Ordered Medication Orders Sodium Chloride (Normal Saline) 1,000 mls @ 999 mls/hr IV ASDIRECTED ESTELLA Last Admin: 02/24/20 17:13 Dose: 999 mls/hr Documented by: DANNIE Sodium Chloride (Saline Flush) 10 ml FLUSH ASDIRECTED PRN PRN Reason: Keep Vein Open Labs: Laboratory Tests 02/24/20 02/24/20 02/24/20 Range/Units 16:58 16:58 17:12 WBC 11.8 (4.5-12.0) X10-3/uL RBC 5.13 (3.23-5.20) x10(6)uL Hgb 16.0 H (11.5-15.5) g/dL Hct 47.1 (30.0-51.3) % MCV 91.8 (80-96) fL MCH 31.1 (27.7-33.6) pg MCHC 33.9 (32.2-35.4) g/dL RDW 13.3 (11.5-15.5) % Plt Count 192 (125-369) X10(3)uL MPV 8.1 (7.4-10.4) fL Neut % (Auto) 78.0 (46-82) % Lymph % (Auto) 12.0 L (13-37) % Craig % (Auto) 6.1 (4-12) % Eos % (Auto) 3 (1.0-5.0) % Baso % (Auto) 1 (0-2) % Neut # (Auto) 9.1 H (1.6-8.3) # Lymph # (Auto) 1.4 (0.6-5.0) # Craig # (Auto) 0.7 (0.0-1.3) # Eos # (Auto) 0.4 (0.0-0.8) # Baso # (Auto) 0.1 (0.0-0.2) # Sodium (135-145) mmol/L Potassium (3.5-5.3) mmol/L Chloride (100-110) mmol/L Carbon Dioxide (21-32) mmol/L BUN (7-18) mg/dL Creatinine (0.55-1.02) mg/dL Est Cr Clr Drug Dosing Estimated GFR (MDRD) (>60) BUN/Creatinine Ratio (9-20) Glucose (80-116) mg/dL Calcium (8.6-10.2) mg/dL Total Bilirubin (0.1-1.3) mg/dL AST (5-25) IU/L ALT (12-36) U/L Alkaline Phosphatase (56-112) IU/L Troponin I (4.0-60.3) pg/mL Total Protein (6.0-8.0) g/dL Albumin (3.2-4.6) g/dL Globulin g/dL Albumin/Globulin Ratio Urine Color Yellow (YELLOW) Urine Appearance Clear (CLEAR) Urine pH 7.0 H (5.0-6.5) Ur Specific [place] 1.015 (1.010-1.025) Urine Protein Negative (NEGATIVE) mg/dL Urine Glucose (UA) Normal (NORMAL) mg/dL Urine Ketones Negative (NEGATIVE) mg/dL Urine Occult Blood Negative (NEGATIVE) Urine Nitrite Negative (NEGATIVE) Urine Bilirubin Negative (NEGATIVE) Urine Urobilinogen Normal (NEGATIVE) mg/dL Ur Leukocyte Esterase Negative (NEGATIVE) Urine RBC 0-5 (0-5) Urine WBC 0-5 (0-5) Ur Squamous Epith Cells Few H (NS,R,O) Urine Bacteria Few H (NS) Urine Opiates Screen Negative (NEGATIVE) Ur Oxycodone Screen Negative (NEGATIVE) Ur Propoxyphene Screen Negative (NEGATIVE) Ur Barbituates Screen Negative (NEGATIVE) Ur Tricyclics Screen Positive H (NEGATIVE) Ur Phencyclidine Scrn Negative (NEGATIVE) Ur Amphetamine Screen Negative (NEGATIVE) Urine MDMA Screen Negative (NEGATIVE) U Benzodiazepines Scrn Negative (NEGATIVE) U Cocaine Metab Screen Negative (NEGATIVE) U Marijuana (THC) Screen Negative (NEGATIVE) Ethyl Alcohol (<0.03) % 02/24/20 02/24/20 Range/Units 17:12 17:12 WBC (4.5-12.0) X10-3/uL RBC (3.23-5.20) x10(6)uL Hgb (11.5-15.5) g/dL Hct (30.0-51.3) % MCV (80-96) fL MCH (27.7-33.6) pg MCHC (32.2-35.4) g/dL RDW (11.5-15.5) % Plt Count (125-369) X10(3)uL MPV (7.4-10.4) fL Neut % (Auto) (46-82) % Lymph % (Auto) (13-37) % Craig % (Auto) (4-12) % Eos % (Auto) (1.0-5.0) % Baso % (Auto) (0-2) % Neut # (Auto) (1.6-8.3) # Lymph # (Auto) (0.6-5.0) # Craig # (Auto) (0.0-1.3) # Eos # (Auto) (0.0-0.8) # Baso # (Auto) (0.0-0.2) # Sodium 142 (135-145) mmol/L Potassium 3.8 (3.5-5.3) mmol/L Chloride 104 (100-110) mmol/L Carbon Dioxide 29 (21-32) mmol/L BUN 13 (7-18) mg/dL Creatinine 0.8 (0.55-1.02) mg/dL Est Cr Clr Drug Dosing TNP Estimated GFR (MDRD) > 60 (>60) BUN/Creatinine Ratio 16.3 (9-20) Glucose 88 (80-116) mg/dL Calcium 9.4 (8.6-10.2) mg/dL Total Bilirubin 0.6 (0.1-1.3) mg/dL AST 22 D (5-25) IU/L ALT 32 D (12-36) U/L Alkaline Phosphatase 119 H (56-112) IU/L Troponin I 11.0 (4.0-60.3) pg/mL Total Protein 7.4 (6.0-8.0) g/dL Albumin 3.6 (3.2-4.6) g/dL Globulin 3.8 g/dL Albumin/Globulin Ratio 1.0 Urine Color (YELLOW) Urine Appearance (CLEAR) Urine pH (5.0-6.5) Ur Specific [place] (1.010-1.025) Urine Protein (NEGATIVE) mg/dL Urine Glucose (UA) (NORMAL) mg/dL Urine Ketones (NEGATIVE) mg/dL Urine Occult Blood (NEGATIVE) Urine Nitrite (NEGATIVE) Urine Bilirubin (NEGATIVE) Urine Urobilinogen (NEGATIVE) mg/dL Ur Leukocyte Esterase (NEGATIVE) Urine RBC (0-5) Urine WBC (0-5) Ur Squamous Epith Cells (NS,R,O) Urine Bacteria (NS) Urine Opiates Screen (NEGATIVE) Ur Oxycodone Screen (NEGATIVE) Ur Propoxyphene Screen (NEGATIVE) Ur Barbituates Screen (NEGATIVE) Ur Tricyclics Screen (NEGATIVE) Ur Phencyclidine Scrn (NEGATIVE) Ur Amphetamine Screen (NEGATIVE) Urine MDMA Screen (NEGATIVE) U Benzodiazepines Scrn (NEGATIVE) U Cocaine Metab Screen (NEGATIVE) U Marijuana (THC) Screen (NEGATIVE) Ethyl Alcohol < 0.03 (<0.03) % Meds: Medications Generic Name Dose Route Start Last Admin Trade Name Freq PRN Reason Stop Dose Admin Sodium Chloride 1,000 mls @ 999 mls/hr 02/24/20 17:00 02/24/20 17:13 Normal Saline IV 999 mls/hr ASDIRECTED ESTELLA Administration Sodium Chloride 10 ml 02/24/20 16:53 Saline Flush FLUSH ASDIRECTED PRN Keep Vein Open Discontinued Medications Generic Name Dose Route Start Last Admin Trade Name Freq PRN Reason Stop Dose Admin Ketorolac Tromethamine 30 mg 02/24/20 17:50 02/24/20 18:10 Toradol IVPUSH 02/24/20 17:51 30 mg ONETIME ONE Administration Methylprednisolone Sodium Succinate 250 mg 02/24/20 16:56 02/24/20 17:13 Solu-Medrol IVPUSH 02/24/20 16:57 250 mg ONETIME ONE Administration Departure - Departure Time of Disposition: 19:00 Disposition: Refer to Observation Condition: Good Clinical Impression: Medication overdose, Multiple sclerosis - Discharge Information Referrals: Sara Calixto PA-C [Primary Care Provider] - Sepsis Event Note (ED) - Evaluation Sepsis Screening Result: No Definite Risk - Focused Exam Vital Signs: Vital Signs Temp Pulse Resp BP Pulse Ox 02/24/20 16:35 36.2 C 108 H 16 178/104 H 93 L - My Orders Last 24 Hours: My Active Orders 02/24/20 16:53 Chest 1V Frontal [CR] Stat Sodium Chloride 0.9% [Saline Flush] 10 ml FLUSH ASDIRECTED PRN Saline Lock Insert [OM.PC] Routine EKG 12 Lead [EK] Routine 02/24/20 16:54 EKG Documentation Completion [RC] ASDIRECTED 02/24/20 17:00 Sodium Chloride 0.9% [Normal Saline] 1,000 ml IV ASDIRECTED 02/24/20 17:12 AMMONIA, PLASMA Stat 02/24/20 17:35 Hip Min 2V w Pelvis Bi [CR] Stat 02/24/20 17:42 CORONAVIRUS COVID-19 PCR PHL Stat - Assessment/Plan Last 24 Hours: My Active Orders 02/24/20 16:53 Chest 1V Frontal [CR] Stat Sodium Chloride 0.9% [Saline Flush] 10 ml FLUSH ASDIRECTED PRN Saline Lock Insert [OM.PC] Routine EKG 12 Lead [EK] Routine 02/24/20 16:54 EKG Documentation Completion [RC] ASDIRECTED 02/24/20 17:00 Sodium Chloride 0.9% [Normal Saline] 1,000 ml IV ASDIRECTED 02/24/20 17:12 AMMONIA, PLASMA Stat 02/24/20 17:35 Hip Min 2V w Pelvis Bi [CR] Stat 02/24/20 17:42 CORONAVIRUS COVID-19 PCR PHL Stat
[2020-02-24] MEDS ORDERED: Ondansetron 4 MG/2 ML SDV IV PRN (19:39)
[2020-02-24] MEDS ORDERED: Enoxaparin 40 MG/0.4 ML Syringe SUBCUT SCH (19:45)
--- NOTE | 2020-02-24 20:04 | CR ---
CHEST ONE VIEW INDICATION: Altered level of consciousness--fell. An AP upright view of the chest was obtained 02/24/2020 and compared with 12/29/2019. The heart appears to be at the upper limits of normal in size or within normal limits dependent upon the presence of an epicardial fat pad on the left. The aorta is tortuous with calcification in the arch. Overlying EKG leads and snaps are noted. A definite active infiltrate or effusion was not identified. Somewhat demineralized appearance suggests osteoporosis but should be correlated clinically. IMPRESSION: No acute process. MTDD
--- NOTE | 2020-02-24 20:08 | CR ---
BILATERAL HIPS AND PELVIS INDICATION: Fall. Hip pain. Frontal view of the pelvis with frontal and lateral views of the right and left hip were obtained 02/24/2020--no comparison. Somewhat amorphous appearing calcifications are noted overlying the lower pelvis which may represent calcified enlarged lymph nodes. An acute fracture, dislocation, or other acute bone or joint abnormality was not identified. There may be a mild degree of demineralization. IMPRESSION: No acute fracture or dislocation. [facility]
[2020-02-24] MEDS ORDERED: Oxybutynin 5 MG Tab PO SCH (21:00)
[2020-02-24] MEDS ORDERED: atorvaSTATin 40 MG Tab PO SCH (21:00)
[2020-02-24] MEDS ORDERED: Docusate Sodium 100 MG Cap PO SCH (21:00)
[2020-02-24] MEDS ORDERED: VERAPAMIL 80 MG PO SCH (21:00)
[2020-02-24] MEDS ORDERED: Ibuprofen 800 MG Tab PO SCH (21:00)
[2020-02-24] MEDS: ATORVASTATIN 40 MG PO ONE ×2 (22:39→23:12)
[2020-02-24] MEDS ORDERED: DOCUSATE SODIUM 100 MG PO ONE (22:45)
[2020-02-24] MEDS ORDERED: ATORVASTATIN 40 MG PO ONE (22:45)
[2020-02-24] MEDS ORDERED: OXYBUTYNIN 5 MG PO ONE (22:45)
[2020-02-25] MEDS: Sodium Chloride 0.9% 1,000 ML IV SCH ×3 (00:08→08:47)
[2020-02-25] MEDS: DOCUSATE SODIUM 100 MG PO SCH ×2 (08:44→14:51)
--- NOTE | 2020-02-25 08:52 | PCM.HP.2 ---
H&P History of Present Illness - General Date of Service: 02/25/20 Admit Problem/Dx: Admission Diagnosis/Problem Admission Diagnosis/Problem Altered level of consciousness Source of Information: Other History Limitations: Reports: Other (Patient does not remember) - History of Present Illness Initial Comments - Free Text/Narative: This is a 59-year-old female patient that presented the ER lethargic and very weak. She has a history of MS. She does not remember why she came in. Try to call her sniff to get other who did not answer. The ER doc told me that she's been there 3 times before and even in [place] and usually is because he is overusing her baclofen. He states she was very lethargic and barely open her eyes. She is awake today. But she does not know her regular doctor where she is at. She knows the day only because she read on the the board. She denies fevers, chills, headache, runny nose, chest pain, shortness of breath. She says because of her MS she's been wheelchair and sometimes uses a walker. She says her legs are very weak and arms are normal. She states she has incontinence from her MS and that's ongoing. No dysuria, pyuria, hematuria - Related Data Allergies/Adverse Reactions: Allergies Allergy/AdvReac Type Severity Reaction Status Date / Time gabapentin Allergy Mild Cannot Verified 02/24/20 17:01 Remember Home Medications: Home Meds Amitriptyline [Elavil] 40 mg PO BEDTIME 02/08/20 [History] Baclofen 20 mg PO TID 02/08/20 [History] DULoxetine [Cymbalta] 60 mg PO DAILY 02/08/20 [History] Docusate Sodium 100 mg PO TID 02/08/20 [History] Folic Acid 1 mg PO DAILY 02/08/20 [History] Oxybutynin 5 mg PO BID 02/08/20 [History] Pnv No.95/Ferrous Fum/Folic AC [ Caplet] 1 tab PO DAILY 02/08/20 [History] Verapamil [Calan] 80 mg PO BID 02/08/20 [History] atorvaSTATin [Lipitor] 40 mg PO BEDTIME 02/08/20 [History] predniSONE [Prednisone] 2.5 mg PO DAILY 02/08/20 [History] predniSONE [Prednisone] 5 mg PO DAILY 02/08/20 [History] Famotidine 20 mg PO BID 02/24/20 [History] Leflunomide 10 mg PO DAILY 02/24/20 [History] Meloxicam 15 mg PO DAILY 02/24/20 [History] Vitamin D3/Folic Acid [Folixapure Tablet] 5,000 unit PO DAILY 02/24/20 [History] Albuterol Sulfate [Albuterol Sulfate Hfa] 2 puff IH Q4H PRN 02/25/20 [History] Umeclidinium [place] [Incruse Ellipta*] 62.5 mcg INH DAILY 02/25/20 [History] Past Medical History HEENT History: Reports: None Cardiovascular History: Reports: Arrhythmia, Hypertension Respiratory History: Reports: Sleep Apnea Gastrointestinal History: Reports: None Musculoskeletal History: Reports: Arthritis Neurological History: Reports: MS Psychiatric History: Reports: Suicide Attempt - Infectious Disease History Infectious Disease History: Reports: Chicken Pox, Measles, Meningitis Social & Family History - Family History Family Medical History: Noncontributory - Tobacco Use Tobacco Use Status *Q: Current Every Day Tobacco User Years of Tobacco use: 45 Packs/Tins Daily: 2 - Caffeine Use Caffeine Use: Reports: None - Recreational Drug Use Recreational Drug Use: No H&P Review of Systems - Review of Systems: Review Of Systems: See Below General: Reports: Weakness, Other HEENT: Reports: No Symptoms Pulmonary: Reports: No Symptoms Cardiovascular: Reports: No Symptoms Gastrointestinal: Reports: No Symptoms, Other Genitourinary: Reports: Other (Urinary incontinence from MS) Musculoskeletal: Reports: Other (Week legs from MS) Skin: Reports: No Symptoms Psychiatric: Reports: No Symptoms Neurological: Reports: No Symptoms Hematologic/Lymphatic: Reports: No Symptoms Immunologic: Reports: No Symptoms Exam - Exam Exam: See Below - Vital Signs Vital Signs: Last Vital Signs Temp 98.2 F 02/25/20 05:00 Pulse 109 H 02/25/20 05:00 Resp 18 02/25/20 05:00 BP 162/100 H 02/25/20 05:00 Pulse Ox 95 02/25/20 05:00 Weight: 177 lb 7 oz - Exam General: Alert, Cooperative. No: Oriented HEENT: Hearing Intact, Posterior Pharynx Clear, TMs Clear Neck: Supple, Trachea Midline Lungs: Clear to Auscultation, Normal Respiratory Effort Cardiovascular: Regular Rate, Regular Rhythm GI/Abdominal Exam: Normal Bowel Sounds, Soft, Non-Tender, No Organomegaly, No Distention, No Mass Back Exam: Normal Inspection Extremities: No Pedal Edema, Other (Arm strength is normal. Leg strength is weak bilateral.) Skin: Warm, Dry, Intact Neuro Extensive - Mental Status: Alert, Normal Mood/Affect - Patient Data Lab Results Last 24 hrs: Laboratory Results - last 24 hr 02/24/20 02/24/20 02/24/20 Range/Units 16:58 16:58 17:12 WBC 11.8 (4.5-12.0) X10-3/uL RBC 5.13 (3.23-5.20) x10(6)uL Hgb 16.0 H (11.5-15.5) g/dL Hct 47.1 (30.0-51.3) % MCV 91.8 (80-96) fL MCH 31.1 (27.7-33.6) pg MCHC 33.9 (32.2-35.4) g/dL RDW 13.3 (11.5-15.5) % Plt Count 192 (125-369) X10(3)uL MPV 8.1 (7.4-10.4) fL Neut % (Auto) 78.0 (46-82) % Lymph % (Auto) 12.0 L (13-37) % Scott % (Auto) 6.1 (4-12) % Eos % (Auto) 3 (1.0-5.0) % Baso % (Auto) 1 (0-2) % Neut # (Auto) 9.1 H (1.6-8.3) # Lymph # (Auto) 1.4 (0.6-5.0) # Scott # (Auto) 0.7 (0.0-1.3) # Eos # (Auto) 0.4 (0.0-0.8) # Baso # (Auto) 0.1 (0.0-0.2) # Add Manual Diff Neutrophils % (Manual) (46-82) % Lymphocytes % (Manual) (13-37) % Monocytes % (Manual) (4-12) % Sodium (135-145) mmol/L Potassium (3.5-5.3) mmol/L Chloride (100-110) mmol/L Carbon Dioxide (21-32) mmol/L BUN (7-18) mg/dL Creatinine (0.55-1.02) mg/dL Est Cr Clr Drug Dosing Estimated GFR (MDRD) (>60) BUN/Creatinine Ratio (9-20) Glucose (80-116) mg/dL Calcium (8.6-10.2) mg/dL Total Bilirubin (0.1-1.3) mg/dL AST (5-25) IU/L ALT (12-36) U/L Alkaline Phosphatase (56-112) IU/L Troponin I (4.0-60.3) pg/mL Total Protein (6.0-8.0) g/dL Albumin (3.2-4.6) g/dL Globulin g/dL Albumin/Globulin Ratio Urine Color Yellow (YELLOW) Urine Appearance Clear (CLEAR) Urine pH 7.0 H (5.0-6.5) Ur Specific [place] 1.015 (1.010-1.025) Urine Protein Negative (NEGATIVE) mg/dL Urine Glucose (UA) Normal (NORMAL) mg/dL Urine Ketones Negative (NEGATIVE) mg/dL Urine Occult Blood Negative (NEGATIVE) Urine Nitrite Negative (NEGATIVE) Urine Bilirubin Negative (NEGATIVE) Urine Urobilinogen Normal (NEGATIVE) mg/dL Ur Leukocyte Esterase Negative (NEGATIVE) Urine RBC 0-5 (0-5) Urine WBC 0-5 (0-5) Ur Squamous Epith Cells Few H (NS,R,O) Urine Bacteria Few H (NS) Urine Opiates Screen Negative (NEGATIVE) Ur Oxycodone Screen Negative (NEGATIVE) Ur Propoxyphene Screen Negative (NEGATIVE) Ur Barbituates Screen Negative (NEGATIVE) Ur Tricyclics Screen Positive H (NEGATIVE) Ur Phencyclidine Scrn Negative (NEGATIVE) Ur Amphetamine Screen Negative (NEGATIVE) Urine MDMA Screen Negative (NEGATIVE) U Benzodiazepines Scrn Negative (NEGATIVE) U Cocaine Metab Screen Negative (NEGATIVE) U Marijuana (THC) Screen Negative (NEGATIVE) Ethyl Alcohol (<0.03) % SARS-CoV-2 RNA (VINCENT) (NEGATIVE) 02/24/20 02/24/20 02/24/20 Range/Units 17:12 17:12 19:05 WBC (4.5-12.0) X10-3/uL RBC (3.23-5.20) x10(6)uL Hgb (11.5-15.5) g/dL Hct (30.0-51.3) % MCV (80-96) fL MCH (27.7-33.6) pg MCHC (32.2-35.4) g/dL RDW (11.5-15.5) % Plt Count (125-369) X10(3)uL MPV (7.4-10.4) fL Neut % (Auto) (46-82) % Lymph % (Auto) (13-37) % Scott % (Auto) (4-12) % Eos % (Auto) (1.0-5.0) % Baso % (Auto) (0-2) % Neut # (Auto) (1.6-8.3) # Lymph # (Auto) (0.6-5.0) # Scott # (Auto) (0.0-1.3) # Eos # (Auto) (0.0-0.8) # Baso # (Auto) (0.0-0.2) # Add Manual Diff Neutrophils % (Manual) (46-82) % Lymphocytes % (Manual) (13-37) % Monocytes % (Manual) (4-12) % Sodium 142 (135-145) mmol/L Potassium 3.8 (3.5-5.3) mmol/L Chloride 104 (100-110) mmol/L Carbon Dioxide 29 (21-32) mmol/L BUN 13 (7-18) mg/dL Creatinine 0.8 (0.55-1.02) mg/dL Est Cr Clr Drug Dosing TNP Estimated GFR (MDRD) > 60 (>60) BUN/Creatinine Ratio 16.3 (9-20) Glucose 88 (80-116) mg/dL Calcium 9.4 (8.6-10.2) mg/dL Total Bilirubin 0.6 (0.1-1.3) mg/dL AST 22 D (5-25) IU/L ALT 32 D (12-36) U/L Alkaline Phosphatase 119 H (56-112) IU/L Troponin I 11.0 (4.0-60.3) pg/mL Total Protein 7.4 (6.0-8.0) g/dL Albumin 3.6 (3.2-4.6) g/dL Globulin 3.8 g/dL Albumin/Globulin Ratio 1.0 Urine Color (YELLOW) Urine Appearance (CLEAR) Urine pH (5.0-6.5) Ur Specific [place] (1.010-1.025) Urine Protein (NEGATIVE) mg/dL Urine Glucose (UA) (NORMAL) mg/dL Urine Ketones (NEGATIVE) mg/dL Urine Occult Blood (NEGATIVE) Urine Nitrite (NEGATIVE) Urine Bilirubin (NEGATIVE) Urine Urobilinogen (NEGATIVE) mg/dL Ur Leukocyte Esterase (NEGATIVE) Urine RBC (0-5) Urine WBC (0-5) Ur Squamous Epith Cells (NS,R,O) Urine Bacteria (NS) Urine Opiates Screen (NEGATIVE) Ur Oxycodone Screen (NEGATIVE) Ur Propoxyphene Screen (NEGATIVE) Ur Barbituates Screen (NEGATIVE) Ur Tricyclics Screen (NEGATIVE) Ur Phencyclidine Scrn (NEGATIVE) Ur Amphetamine Screen (NEGATIVE) Urine MDMA Screen (NEGATIVE) U Benzodiazepines Scrn (NEGATIVE) U Cocaine Metab Screen (NEGATIVE) U Marijuana (THC) Screen (NEGATIVE) Ethyl Alcohol < 0.03 (<0.03) % SARS-CoV-2 RNA (VINCENT) Negative (NEGATIVE) 02/25/20 02/25/20 Range/Units 06:15 06:15 WBC 9.6 (4.5-12.0) X10-3/uL RBC 5.56 H (3.23-5.20) x10(6)uL Hgb 16.2 H (11.5-15.5) g/dL Hct 50.5 (30.0-51.3) % MCV 90.7 (80-96) fL MCH 29.2 (27.7-33.6) pg MCHC 32.1 L (32.2-35.4) g/dL RDW 12.8 (11.5-15.5) % Plt Count 208 (125-369) X10(3)uL MPV 8.5 (7.4-10.4) fL Neut % (Auto) (46-82) % Lymph % (Auto) (13-37) % Scott % (Auto) (4-12) % Eos % (Auto) (1.0-5.0) % Baso % (Auto) (0-2) % Neut # (Auto) (1.6-8.3) # Lymph # (Auto) (0.6-5.0) # Scott # (Auto) (0.0-1.3) # Eos # (Auto) (0.0-0.8) # Baso # (Auto) (0.0-0.2) # Add Manual Diff Yes Neutrophils % (Manual) 89 H (46-82) % Lymphocytes % (Manual) 10 L (13-37) % Monocytes % (Manual) 1 L (4-12) % Sodium 140 (135-145) mmol/L Potassium 3.7 (3.5-5.3) mmol/L Chloride 104 (100-110) mmol/L Carbon Dioxide 25 (21-32) mmol/L BUN 12 (7-18) mg/dL Creatinine 0.6 (0.55-1.02) mg/dL Est Cr Clr Drug Dosing 93.34 Estimated GFR (MDRD) > 60 (>60) BUN/Creatinine Ratio 20.0 (9-20) Glucose 123 H (80-116) mg/dL Calcium 9.4 (8.6-10.2) mg/dL Total Bilirubin (0.1-1.3) mg/dL AST (5-25) IU/L ALT (12-36) U/L Alkaline Phosphatase (56-112) IU/L Troponin I (4.0-60.3) pg/mL Total Protein (6.0-8.0) g/dL Albumin (3.2-4.6) g/dL Globulin g/dL Albumin/Globulin Ratio Urine Color (YELLOW) Urine Appearance (CLEAR) Urine pH (5.0-6.5) Ur Specific [place] (1.010-1.025) Urine Protein (NEGATIVE) mg/dL Urine Glucose (UA) (NORMAL) mg/dL Urine Ketones (NEGATIVE) mg/dL Urine Occult Blood (NEGATIVE) Urine Nitrite (NEGATIVE) Urine Bilirubin (NEGATIVE) Urine Urobilinogen (NEGATIVE) mg/dL Ur Leukocyte Esterase (NEGATIVE) Urine RBC (0-5) Urine WBC (0-5) Ur Squamous Epith Cells (NS,R,O) Urine Bacteria (NS) Urine Opiates Screen (NEGATIVE) Ur Oxycodone Screen (NEGATIVE) Ur Propoxyphene Screen (NEGATIVE) Ur Barbituates Screen (NEGATIVE) Ur Tricyclics Screen (NEGATIVE) Ur Phencyclidine Scrn (NEGATIVE) Ur Amphetamine Screen (NEGATIVE) Urine MDMA Screen (NEGATIVE) U Benzodiazepines Scrn (NEGATIVE) U Cocaine Metab Screen (NEGATIVE) U Marijuana (THC) Screen (NEGATIVE) Ethyl Alcohol (<0.03) % SARS-CoV-2 RNA (VINCENT) (NEGATIVE) Result Diagrams: 02/25/20 06:15 02/25/20 06:15 Sepsis Event Note - Evaluation Sepsis Screening Result: No Definite Risk - Focused Exam Vital Signs: Vital Signs Temp Pulse Resp BP Pulse Ox 02/25/20 05:00 98.2 F 109 H 18 162/100 H 95 02/25/20 01:00 97.8 F 108 H 16 140/97 H 96 02/24/20 23:00 108 H 16 154/104 H 94 L 02/24/20 21:30 97.4 F 104 H 16 174/108 H 90 L 02/24/20 21:00 95 - Problem List (1) Palliative care status SNOMED Code(s): 674599443 ICD Code: Z51.5 - ENCOUNTER FOR PALLIATIVE CARE Status: Acute Current Visit: Yes (2) Medication overdose SNOMED Code(s): 73778293 ICD Code: T50.901A - POISONING BY UNSP DRUG/MEDS/BIOL SUBST, ACCIDENTAL, INIT Status: Acute Current Visit: Yes (3) Multiple sclerosis SNOMED Code(s): 23270757 ICD Code: G35 - MULTIPLE SCLEROSIS Status: Acute Current Visit: Yes Problem Details: Chronic MS. (4) Altered level of consciousness SNOMED Code(s): 2389160 ICD Code: R40.4 - TRANSIENT ALTERATION OF AWARENESS Status: Acute Current Visit: No (5) Altered mental status, unspecified SNOMED Code(s): 428302191 ICD Code: R41.82 - ALTERED MENTAL STATUS, UNSPECIFIED Status: Acute Current Visit: No Problem Details: An OD is not suspected at this time. She will be admitted to Observation. Qualifiers: Altered mental status type: unspecified Qualified Code(s): R41.82 - Altered mental status, unspecified Problem List Initiated/Reviewed/Updated: Yes Orders Last 24hrs: Active Orders 24 hr Category Date Time Status Patient Status [ADT] Routine ADT 02/24/20 19:39 Active EKG Documentation Completion [RC] ASDIRECTED Care 02/24/20 16:54 Active Oxygen Therapy [RC] .PRN Care 02/24/20 19:39 Active Pulse Oximetry [] .PRN Care 02/24/20 19:42 Active VTE/DVT Education [] 08 Care 02/24/20 19:39 Active Vital Signs [RC] 08,12,16,20,00,04 Care 02/24/20 19:39 Active AMMONIA, PLASMA Stat Lab 02/24/20 17:12 Received Amitriptyline [Elavil] Med 02/25/20 21:00 Active 40 mg PO BEDTIME Cholecalciferol (Vitamin D3) [Vitamin D3] Med 02/25/20 09:00 Active 125 mcg PO DAILY DULoxetine [Cymbalta] Med 02/25/20 09:00 Active 60 mg PO DAILY Docusate Sodium [Colace] Med 02/25/20 09:00 Active 100 mg PO TID Docusate Sodium/Sennosides [Senna Plus] Med 02/24/20 19:39 Active 1 tab PO BID PRN Enoxaparin [Lovenox] Med 02/24/20 19:45 Active 40 mg SUBCUT Q24H Famotidine [Pepcid] Med 02/25/20 09:00 Active 20 mg PO BID Folic Acid Med 02/25/20 09:00 Active 1 mg PO DAILY Meloxicam [Mobic] Med 02/25/20 09:00 Active 15 mg PO DAILY Non-Formulary Medication [NF Drug] Med 02/25/20 09:00 Active 0 each INH DAILY Non-Formulary Medication [NF Drug] Med 02/25/20 09:00 Active 0 each PO DAILY Ondansetron [Zofran] Med 02/24/20 19:39 Active 4 mg IV Q4H PRN Oxybutynin Med 02/25/20 09:00 Active 5 mg PO BID Pnv No.95/Ferrous Fum/Folic AC [ Caplet] Med 02/25/20 09:00 Active 1 tab PO DAILY Sodium Chloride 0.9% [Normal Saline] 1,000 ml Med 02/24/20 17:00 Active IV ASDIRECTED Sodium Chloride 0.9% [Normal Saline] 1,000 ml Med 02/24/20 20:00 Active IV ASDIRECTED Sodium Chloride 0.9% [Saline Flush] Med 02/24/20 16:53 Active 10 ml FLUSH ASDIRECTED PRN Verapamil [Calan] Med 02/24/20 22:34 Active 80 mg PO BID atorvaSTATin [Lipitor] Med 02/25/20 21:00 Active 40 mg PO BEDTIME predniSONE Med 02/25/20 09:00 Active 2.5 mg PO DAILY predniSONE Med 02/25/20 09:00 Active 5 mg PO DAILY Saline Lock Insert [OM.PC] Routine Oth 02/24/20 16:53 Ordered Sequential Compression Device [OM.PC] Per Unit Routine Oth 02/24/20 19:42 Ordered Resuscitation Status Routine Resus Stat 02/24/20 19:39 Ordered EKG 12 Lead [EK] Routine Ther 02/24/20 16:53 Ordered Medication Orders Amitriptyline HCl (Elavil) 40 mg PO BEDTIME ESTELLA Atorvastatin Calcium (Lipitor) 40 mg PO BEDTIME ESTELLA Docusate Sodium (Colace) 100 mg PO TID [facility] Last Admin: 02/25/20 08:44 Dose: 100 mg Documented by: CAMILO Duloxetine HCl (Cymbalta) 60 mg PO DAILY [facility] Last Admin: 02/25/20 08:44 Dose: 60 mg Documented by: CAMILO Enoxaparin Sodium (Lovenox) 40 mg SUBCUT Q24H [facility] Last Admin: 02/24/20 21:45 Dose: 40 mg Documented by: RAYMOND Famotidine (Pepcid) 20 mg PO BID [facility] Last Admin: 02/25/20 08:42 Dose: 20 mg Documented by: CAMILO Folic Acid (Folic Acid) 1 mg PO DAILY [facility] Last Admin: 02/25/20 08:42 Dose: 1 mg Documented by: [id number] Sodium Chloride (Normal Saline) 1,000 mls @ 999 mls/hr IV ASDIRECTED [facility] Last Admin: 02/25/20 08:46 Dose: 999 mls/hr Documented by: [id number] Infusion: 02/24/20 18:14 Dose: 999 mls/hr Documented by: [id number] Admin: 02/24/20 17:13 Dose: 999 mls/hr Documented by: DANNIE Sodium Chloride (Normal Saline) 1,000 mls @ 125 mls/hr IV ASDIRECTED [facility] Last Admin: 02/25/20 00:08 Dose: 125 mls/hr Documented by: DALILA Meloxicam (Mobic) 15 mg PO DAILY [facility] Last Admin: 02/25/20 08:42 Dose: 15 mg Documented by: CAMILO (Cholecalciferol ( Vitamin D3) [Vitamin D3] 125 Mcg) *Ptom 125 mcg PO DAILY [facility] Last Admin: 02/25/20 08:43 Dose: 125 mcg Documented by: CAMILO (Pnv No.95/Ferrous Fum/Folic Ac [ Caplet] 1 Tab) *Ptom 1 tab PO DAILY [facility] Last Admin: 02/25/20 08:42 Dose: 1 tab Documented by: CAMILO (Verapamil [Calan] (80 Mg) Own Med) 80 mg PO BID [facility] Last Admin: 02/25/20 08:41 Dose: 80 mg Documented by: CAMILO Leflunomide 10mg * (Ptom) 0 each PO DAILY [facility] Incruse Ellipta * (Ptom) 0 each INH DAILY [facility] Ondansetron HCl (Zofran) 4 mg IV Q4H PRN PRN Reason: Nausea/Vomiting Oxybutynin Chloride (Oxybutynin) 5 mg PO BID [facility] Last Admin: 02/25/20 08:43 Dose: 5 mg Documented by: [id number] Prednisone (Prednisone) 2.5 mg PO DAILY [facility] Last Admin: 02/25/20 08:43 Dose: 2.5 mg Documented by: [id number] Prednisone (Prednisone) 5 mg PO DAILY [facility] Last Admin: 02/25/20 08:43 Dose: 5 mg Documented by: [id number] Senna/Docusate Sodium (Senna Plus) 1 tab PO BID PRN PRN Reason: Constipation Sodium Chloride (Saline Flush) 10 ml FLUSH ASDIRECTED PRN PRN Reason: Keep Vein Open Assessment/Plan Comment:: 1. Admit for observation. 2. Continue her medications but hold the baclofen 3. Regular diet. 4. Up in wheelchair with assist 5. No repeated labs at this time. 6. Full code 7. Clot prophylaxis Lovenox. - Mortality Measure Prognosis:: Good
[2020-02-25] MEDS ORDERED: Leflunomide 20 MG Tab PO SCH (09:00)
[2020-02-25] MEDS ORDERED: Folic Acid 1 MG Tab *PTOM PO SCH (09:00)
[2020-02-25] MEDS ORDERED: LEFLUNOMIDE 10 MG PO SCH (09:00)
[2020-02-25] MEDS ORDERED: predniSONE 5 MG Tab *PTOM PO SCH (09:00)
[2020-02-25] MEDS ORDERED: PREDNISONE 2.5 MG PO SCH (09:00)
[2020-02-25] MEDS ORDERED: DULoxetine 60 MG Cap *PTOM PO SCH (09:00)
[2020-02-25] MEDS ORDERED: OXYBUTYNIN 5 MG PO SCH (09:00)
[2020-02-25] MEDS ORDERED: INCRUSE ELLIPTA *PTOM INH SCH (09:00)
[2020-02-25] MEDS ORDERED: CHOLECALCIFEROL 125 MCG PO SCH (09:00)
[2020-02-25] MEDS ORDERED: [UNRECOGNIZED DRUG - REMARK] PO SCH (09:00)
[2020-02-25] MEDS ORDERED: MELOXICAM 15 MG PO SCH (09:00)
--- NOTE | 2020-02-25 18:05 | PCM.DCSUM1 ---
Discharge Summary - Hospital Course Free Text/Narrative:: Hospital course-patient was observed overnight. By the next morning she was talking and at the end of the day very appropriate. The ongoing thought is is from her baclofen. Discussed this with her significant other. He says he been trying to wean down the baclofen. The neurologist thinks this is the reason. They've tried Flexeril but it doesn't seem to help her but it didn't seem to help. We will discharge her to home in for follow-up with her primary provider in a week. Brief History: This is a 59-year-old female patient that presented the ER lethargic and very weak. She has a history of MS. She does not remember why she came in. Try to call her sniff to get other who did not answer. The ER doc told me that she's been there 3 times before and even in [place] and usually is because he is overusing her baclofen. He states she was very lethargic and barely open her eyes. She is awake today. But she does not know her regular doctor where she is at. She knows the day only because she read on the the board. She denies fevers, chills, headache, runny nose, chest pain, shortness of breath. She says because of her MS she's been wheelchair and sometimes uses a walker. She says her legs are very weak and arms are normal. She states she has incontinence from her MS and that's ongoing. No dysuria, pyuria, hematuria Diagnosis: Stroke: No - Discharge Data Discharge Date: 02/25/20 Discharge Disposition: Home, Self-Care 01 Condition: Good - Referral to Home Health Primary Care Physician: Sara Calixto PA-C - Discharge Diagnosis/Problem(s) (1) Palliative care status SNOMED Code(s): 447538734 ICD Code: Z51.5 - ENCOUNTER FOR PALLIATIVE CARE Status: Acute Current Visit: Yes (2) Medication overdose SNOMED Code(s): 36372011 ICD Code: T50.901A - POISONING BY UNSP DRUG/MEDS/BIOL SUBST, ACCIDENTAL, INIT Status: Acute Current Visit: Yes (3) Multiple sclerosis SNOMED Code(s): 34837838 ICD Code: G35 - MULTIPLE SCLEROSIS Status: Acute Current Visit: Yes Problem Details: Chronic MS. (4) Altered level of consciousness SNOMED Code(s): 8500783 ICD Code: R40.4 - TRANSIENT ALTERATION OF AWARENESS Status: Acute Current Visit: No (5) Altered mental status, unspecified SNOMED Code(s): 354942937 ICD Code: R41.82 - ALTERED MENTAL STATUS, UNSPECIFIED Status: Acute Current Visit: No Problem Details: An OD is not suspected at this time. She will be admitted to Observation. Qualifiers: Altered mental status type: unspecified Qualified Code(s): R41.82 - Altered mental status, unspecified - Patient Instructions Diet: Regular Diet as Tolerated Activity: Non Weight Bearing Driving: Do Not Drive Showering/Bathing: May Shower Other/Special Instructions: 1. Recheck in 1 week At [facility] - Discharge Plan Home Medications: Home Meds Amitriptyline [Elavil] 40 mg PO BEDTIME 02/08/20 [History] Baclofen 20 mg PO TID 02/08/20 [History] DULoxetine [Cymbalta] 60 mg PO DAILY 02/08/20 [History] Docusate Sodium 100 mg PO TID 02/08/20 [History] Folic Acid 1 mg PO DAILY 02/08/20 [History] Oxybutynin 5 mg PO BID 02/08/20 [History] Pnv No.95/Ferrous Fum/Folic AC [ Caplet] 1 tab PO DAILY 02/08/20 [History] Verapamil [Calan] 80 mg PO BID 02/08/20 [History] atorvaSTATin [Lipitor] 40 mg PO BEDTIME 02/08/20 [History] predniSONE [Prednisone] 2.5 mg PO DAILY 02/08/20 [History] predniSONE [Prednisone] 5 mg PO DAILY 02/08/20 [History] Famotidine 20 mg PO BID 02/24/20 [History] Leflunomide 10 mg PO DAILY 02/24/20 [History] Meloxicam 15 mg PO DAILY 02/24/20 [History] Vitamin D3/Folic Acid [Folixapure Tablet] 5,000 unit PO DAILY 02/24/20 [History] Albuterol Sulfate [Albuterol Sulfate Hfa] 2 puff IH Q4H PRN 02/25/20 [History] Umeclidinium [place] [Incruse Ellipta*] 62.5 mcg INH DAILY 02/25/20 [History] Forms: ED Department Discharge Referrals: Sara Calixto PA-C [Primary Care Provider] - - Discharge Summary/Plan Comment DC Time >30 min.: No - Patient Data Vitals - Most Recent: Last Vital Signs Temp 97.8 F 02/25/20 16:00 Pulse 102 H 02/25/20 16:00 Resp 18 02/25/20 16:00 BP 132/83 02/25/20 16:00 Pulse Ox 93 L 02/25/20 16:00 Weight - Most Recent: 177 lb 7 oz I&O - Last 24 hours: Intake & Output 02/25/20 02/25/20 02/25/20 06:59 14:59 22:59 Intake Total 1620 Balance 1620 Lab Results - Last 24 hrs: Laboratory Results - last 24 hr 02/24/20 02/25/20 02/25/20 Range/Units 19:05 06:15 06:15 WBC 9.6 (4.5-12.0) X10-3/uL RBC 5.56 H (3.23-5.20) x10(6)uL Hgb 16.2 H (11.5-15.5) g/dL Hct 50.5 (30.0-51.3) % MCV 90.7 (80-96) fL MCH 29.2 (27.7-33.6) pg MCHC 32.1 L (32.2-35.4) g/dL RDW 12.8 (11.5-15.5) % Plt Count 208 (125-369) X10(3)uL MPV 8.5 (7.4-10.4) fL Add Manual Diff Yes Neutrophils % (Manual) 89 H (46-82) % Lymphocytes % (Manual) 10 L (13-37) % Monocytes % (Manual) 1 L (4-12) % Sodium 140 (135-145) mmol/L Potassium 3.7 (3.5-5.3) mmol/L Chloride 104 (100-110) mmol/L Carbon Dioxide 25 (21-32) mmol/L BUN 12 (7-18) mg/dL Creatinine 0.6 (0.55-1.02) mg/dL Est Cr Clr Drug Dosing 93.34 mL/min Estimated GFR (MDRD) > 60 (>60) BUN/Creatinine Ratio 20.0 (9-20) Glucose 123 H (80-116) mg/dL Calcium 9.4 (8.6-10.2) mg/dL SARS-CoV-2 RNA (VINCENT) Negative (NEGATIVE) Med Orders - Current: Current Medications Amitriptyline HCl (Elavil) 40 mg PO BEDTIME [facility] Atorvastatin Calcium (Lipitor) 40 mg PO BEDTIME [facility] Docusate Sodium (Colace) 100 mg PO TID [facility] Last Admin: 02/25/20 14:51 Dose: 100 mg Documented by: Duloxetine HCl (Cymbalta) 60 mg PO DAILY [facility] Last Admin: 02/25/20 08:44 Dose: 60 mg Documented by: Enoxaparin Sodium (Lovenox) 40 mg SUBCUT Q24H [facility] Last Admin: 02/24/20 21:45 Dose: 40 mg Documented by: Famotidine (Pepcid) 20 mg PO BID [facility] Last Admin: 02/25/20 08:42 Dose: 20 mg Documented by: Folic Acid (Folic Acid) 1 mg PO DAILY [facility] Last Admin: 02/25/20 08:42 Dose: 1 mg Documented by: Sodium Chloride (Normal Saline) 1,000 mls @ 999 mls/hr IV ASDIRECTED [facility] Last Infusion: 02/24/20 18:14 Dose: Infused Documented by: Sodium Chloride (Normal Saline) 1,000 mls @ 125 mls/hr IV ASDIRECTED [facility] Last Admin: 02/25/20 08:47 Dose: 125 mls/hr Documented by: Meloxicam (Mobic) 15 mg PO DAILY [facility] Last Admin: 02/25/20 08:42 Dose: 15 mg Documented by: (Cholecalciferol ( Vitamin D3) [Vitamin D3] 125 Mcg) *Ptom 125 mcg PO DAILY [facility] Last Admin: 02/25/20 08:43 Dose: 125 mcg Documented by: (Pnv No.95/Ferrous Fum/Folic Ac [ Caplet] 1 Tab) *Ptom 1 tab PO DAILY [facility] Last Admin: 02/25/20 08:42 Dose: 1 tab Documented by: (Verapamil [Calan] (80 Mg) Own Med) 80 mg PO BID [facility] Last Admin: 02/25/20 08:41 Dose: 80 mg Documented by: Leflunomide 10mg * (Ptom) 0 each PO DAILY [facility] Last Admin: 02/25/20 08:50 Dose: 1 each Documented by: Jodi Ellipta * (Ptom) 0 each INH DAILY [facility] Last Admin: 02/25/20 08:49 Dose: 1 each Documented by: Ondansetron HCl (Zofran) 4 mg IV Q4H PRN PRN Reason: Nausea/Vomiting Oxybutynin Chloride (Oxybutynin) 5 mg PO BID [facility] Last Admin: 02/25/20 08:43 Dose: 5 mg Documented by: Prednisone (Prednisone) 2.5 mg PO DAILY [facility] Last Admin: 02/25/20 08:43 Dose: 2.5 mg Documented by: Prednisone (Prednisone) 5 mg PO DAILY [facility] Last Admin: 02/25/20 08:43 Dose: 5 mg Documented by: Senna/Docusate Sodium (Senna Plus) 1 tab PO BID PRN PRN Reason: Constipation Sodium Chloride (Saline Flush) 10 ml FLUSH ASDIRECTED PRN PRN Reason: Keep Vein Open Discontinued Medications Amitriptyline HCl (Elavil) 40 mg PO BEDTIME [facility] Last Admin: 02/24/20 23:09 Dose: Not Given Documented by: Amitriptyline HCl (Elavil) 40 mg PO ONETIME ONE Stop: 02/24/20 22:46 Last Admin: 02/24/20 22:39 Dose: 40 mg Documented by: Atorvastatin Calcium (Lipitor) 40 mg PO BEDTIME [facility] Last Admin: 02/24/20 23:09 Dose: Not Given Documented by: Atorvastatin Calcium (Lipitor) 40 mg PO ONETIME ONE Stop: 02/24/20 22:46 Last Admin: 02/24/20 23:12 Dose: Not Given Documented by: Atorvastatin Calcium (Lipitor) 40 mg PO ONETIME ONE Stop: 02/24/20 22:46 Last Admin: 02/24/20 22:54 Dose: 40 mg Documented by: Docusate Sodium (Colace) 100 mg PO TID [facility] Last Admin: 02/24/20 23:08 Dose: Not Given Documented by: Docusate Sodium (Colace) 100 mg PO ONETIME ONE Stop: 02/24/20 22:46 Last Admin: 02/24/20 22:38 Dose: 100 mg Documented by: Ibuprofen (Motrin) 800 mg PO TID [facility] Last Admin: 02/24/20 22:37 Dose: 800 mg Documented by: Ketorolac Tromethamine (Toradol) 30 mg IVPUSH ONETIME ONE Stop: 02/24/20 17:51 Last Admin: 02/24/20 18:10 Dose: 30 mg Documented by: Leflunomide (Arava) 20 mg PO DAILY [facility] Methylprednisolone Sodium Succinate (Solu-Medrol) 250 mg IVPUSH ONETIME ONE Stop: 02/24/20 16:57 Last Admin: 02/24/20 17:13 Dose: 250 mg Documented by: Non-Formulary Medication (Verapamil [Calan]) 80 mg PO BID [facility] Last Admin: 02/24/20 23:10 Dose: Not Given Documented by: (Verapamil [Calan] (80 Mg) Own Med) 80 mg PO ONETIME ONE Stop: 02/24/20 22:46 Last Admin: 02/24/20 22:50 Dose: 80 mg Documented by: Oxybutynin Chloride (Oxybutynin) 5 mg PO BID [facility] Last Admin: 02/24/20 23:10 Dose: Not Given Documented by: Oxybutynin Chloride (Oxybutynin) 5 mg PO ONETIME ONE Stop: 02/24/20 22:46 Last Admin: 02/24/20 22:50 Dose: 5 mg Documented by:
[2020-02-25] MEDS ORDERED: ATORVASTATIN 40 MG PO SCH (21:00)
== END 2020-02-25 19:00 | disposition home or self-care (01) ==
LOC: FB.ED 16:35 → FB.MS 20:57
PROVIDERS: ADMIT Emergency Medicine; ATTEND Family Medicine
DX: T42.8X2A Poisoning by antiparkinsonism drugs and other central muscle-tone depressants, intentional self-harm, initial encounter (principal); G35 Multiple sclerosis; R40.4 Transient alteration of awareness; F17.210 Nicotine dependence, cigarettes, uncomplicated; Z20.828 Contact with and (suspected) exposure to other viral communicable diseases; Z88.8 Allergy status to other drugs, medicaments and biological substances; Z51.5 Encounter for palliative care; Z79.899 Other long term (current) drug therapy
CPT/HCPCS: 36415; 70450; 71045; 73521; 80048; 80053; 80305-QW; 80307; 81001; 82140; 84484; 85025; 93005; 96372; 96374; 96375; 99285-25; A9270-GY; G0378; J1650; J1885; J2930; J7030; J7512; U0002

== ENCOUNTER 2020-11-14 20:47 | Observation (INO) | payer MEDICARE, MEDICAID ==
--- NOTE | 2020-11-14 21:21 | EDM.PDOC ---
ED HPI GENERAL MEDICAL PROBLEM - General Chief Complaint: General Stated Complaint: PATIENT ARRIVED VIA AMBULANCE Time Seen by Provider: 11/14/20 21:00 Source of Information: Reports: Patient, EMS, Old Records - History of Present Illness INITIAL COMMENTS - FREE TEXT/NARRATIVE: 60-year-old lady with past medical history significant for diagnosis and treatment of multiple sclerosis, alcoholism, tobacco abuse. She came to the emergency department today because of a sudden onset of inability to stand up. She states that she was diagnosed with multiple sclerosis in about 2015. Over the last 2 to 3 years she has only been able to walk 6-10 steps at a time and may be 15-20 steps in a day. However, starting today, she has not been able to even have the strength to stand up. She also complains of numbness and tingling in her feet. She does not have any complaint of fever, chills, nausea, vomiting, change in bowel or bladder habits. She does have occasional difficulty getting to the bathroom on time and has some incontinence but she does know when she has to have a bowel or bladder movement and she does not have a reported loss of sensation. Headache Pain Score (Numeric/FACES): 8 - Related Data Allergies Allergy/AdvReac Type Severity Reaction Status Date / Time gabapentin Allergy Mild Cannot Verified 11/14/20 21:21 Remember Home Meds: Home Meds Amitriptyline [Elavil] 20 mg PO BEDTIME 02/08/20 [History] Baclofen 20 mg PO TID 02/08/20 [History] DULoxetine [Cymbalta] 60 mg PO DAILY 02/08/20 [History] Docusate Sodium 100 mg PO TID 02/08/20 [History] Folic Acid 1 mg PO DAILY 02/08/20 [History] Oxybutynin 5 mg PO TID 02/08/20 [History] Pnv No.95/Ferrous Fum/Folic AC [ Caplet] 1 tab PO DAILY 02/08/20 [History] Verapamil [Calan] 80 mg PO TID 02/08/20 [History] Famotidine 20 mg PO BID 02/24/20 [History] Meloxicam 15 mg PO DAILY 02/24/20 [History] Vitamin D3/Folic Acid [Folixapure Tablet] 5,000 unit PO DAILY 02/24/20 [History] Albuterol Sulfate [Albuterol Sulfate Hfa] 2 puff IH Q4H PRN 02/25/20 [History] Umeclidinium [place] [Incruse Ellipta*] 1 puff INH DAILY 02/25/20 [History] Clotrimazole [Clotrimazole 1%] 1 dose TOP BID 11/14/20 [History] Hydrocodone/Acetaminophen [Lorcet 5-325 mg Tablet] 1 each PO DAILY 11/14/20 [History] Leflunomide 20 mg PO DAILY 11/14/20 [History] Pregabalin [Lyrica] 150 mg PO TID 11/14/20 [History] Varenicline [Chantix] 1 tab PO BID 11/14/20 [History] predniSONE [Prednisone] 1 mg PO DAILY 11/14/20 [History] Past Medical History HEENT History: Reports: None Cardiovascular History: Reports: Arrhythmia, Hypertension Respiratory History: Reports: Sleep Apnea Gastrointestinal History: Reports: None Musculoskeletal History: Reports: Arthritis Neurological History: Reports: MS Psychiatric History: Reports: Suicide Attempt - Infectious Disease History Infectious Disease History: Reports: Chicken Pox, Measles, Meningitis Social & Family History - Family History Family Medical History: No Pertinent Family History - Tobacco Use Tobacco Use Status *Q: Current Every Day Tobacco User Years of Tobacco use: 48 Packs/Tins Daily: 1 - Caffeine Use Caffeine Use: Reports: Coffee, Tea - Recreational Drug Use Recreational Drug Use: Yes Drug Use in Last 12 Months: Yes Recreational Drug Type: Reports: Marijuana/Hashish Recreational Drug Use Frequency: Socially ED ROS GENERAL - Review of Systems Review Of Systems: See Below Constitutional: Reports: Weakness HEENT: Reports: No Symptoms Respiratory: Reports: No Symptoms Cardiovascular: Reports: No Symptoms Endocrine: Reports: No Symptoms GI/Abdominal: Reports: No Symptoms : Reports: No Symptoms Musculoskeletal: Reports: No Symptoms Skin: Reports: No Symptoms Neurological: Reports: Numbness, Paresthesia, Pre-Existing Deficit, Tingling, Difficulty Walking, Weakness, Gait Disturbance Psychiatric: Reports: Depression Hematologic/Lymphatic: Reports: No Symptoms Immunologic: Reports: No Symptoms ED EXAM, GENERAL - Physical Exam Exam: See Below Exam Limited By: No Limitations General Appearance: Alert, No Apparent Distress, Anxious Head: Atraumatic, Normocephalic Respiratory/Chest: No Respiratory Distress, Crackles. No: Wheezing Cardiovascular: Regular Rate, Rhythm, No Murmur Peripheral Pulses: 1+: Dorsalis Pedis (L), Dorsalis Pedis (R), 2+: Radial (L), Radial (R) Back Exam: Normal Inspection Neurological: Alert, Oriented, Sensory/Motor Deficit Psychiatric: Anxious Skin Exam: Cool Course - Vital Signs Text/Narrative:: Review of his chest x-ray shows no obvious acute process. Review of urinalysis shows likely urinary tract infection. Review of lab work shows mild leukocytosis, chronic thrombocytosis. Review of medical record with B[facility] and consultation with neurologist on-call shows that the patient has been diagnosed with primary progressive multiple sclerosis and therefore this is not an exacerbation but part of her disease process. Patient will be admitted to observation for IV antibiotics and weakness. Please contact the patient's primary neurologist tomorrow for further instructions regarding infection and multiple sclerosis progression. Consider OT/PT evaluation and treatment. Consider discharge with home health. Last Recorded V/S: Last Vital Signs Temp 37.1 C 11/14/20 21:57 Pulse 91 11/14/20 21:57 Resp 18 11/14/20 21:57 BP 107/65 11/14/20 21:57 Pulse Ox 91 L 11/14/20 21:57 - Orders/Labs/Meds Orders: Active Orders 24 hr Category Date Time Status Oxygen Therapy Adult [Oxygen Therapy, ED] [] Care 11/14/20 21:06 Active ASDIRECTED Urinary Catheter Assessment [] QSHIFT Care 11/14/20 21:44 Active Urinary Catheter Insertion [Insert Urinary Catheter] [ Care 11/14/20 21:40 Ordered OM.PC] Q24H CXR [Chest 2V] [CR] Stat Exams 11/14/20 21:11 Taken CULTURE URINE [RM] Stat Lab 11/14/20 21:40 Received Labs: Laboratory Tests 11/14/20 11/14/20 11/14/20 Range/Units 21:17 21:17 21:40 WBC 11.9 H (3.0-10.3) x10-3/uL RBC 4.81 (3.60-5.20) x10(6)uL Hgb 14.1 (11.4-15.5) g/dL Hct 42.7 (34.2-48.2) % MCV 88.7 (76.7-100.5) fL MCH 29.4 (23.9-33.9) pg MCHC 33.1 (31.9-34.8) g/dL RDW 15.0 (12.3-16.5) % Plt Count 150 L (151-488) x10(3)uL MPV 8.6 (7.1-12.4) fL Neut % (Auto) 79.8 H (30.8-76.2) % Lymph % (Auto) 9.3 L (18.4-52.1) % [place] % (Auto) 9.3 (4.4-15.7) % Eos % (Auto) 0.7 (0.6-8.1) % Baso % (Auto) 0.9 (0.2-1.5) % Neut # (Auto) 9.5 H (1.5-6.3) x10-3/uL Lymph # (Auto) 1.1 (1.0-4.4) x10-3/uL [place] # (Auto) 1.1 H (0.3-1.0) x10-3/uL Eos # (Auto) 0.1 (0.0-0.8) x10-3/uL Baso # (Auto) 0.1 (0.0-0.1) x10-3/uL Sodium 144 (135-145) mmol/L Potassium 3.7 (3.5-5.3) mmol/L Chloride 107 (100-110) mmol/L Carbon Dioxide 24 (21-32) mmol/L BUN 19 H (7-18) mg/dL Creatinine 0.8 (0.55-1.02) mg/dL Est Cr Clr Drug Dosing 69.13 mL/min Estimated GFR (MDRD) > 60 (>60) BUN/Creatinine Ratio 23.8 H (9-20) Glucose 120 H (80-116) mg/dL Lactic Acid (0.4-2.0) mmol/L Calcium 8.8 (8.6-10.2) mg/dL Total Bilirubin 0.6 (0.1-1.3) mg/dL AST 14 D (5-25) IU/L ALT 19 D (12-36) U/L Alkaline Phosphatase 110 (56-112) IU/L Total Protein 6.7 (6.0-8.0) g/dL Albumin 3.3 (3.2-4.6) g/dL Globulin 3.4 g/dL Albumin/Globulin Ratio 1.0 Urine Color Yellow (YELLOW) Urine Appearance Slightly cloudy (CLEAR) Urine pH 5.0 (5.0-6.5) Ur Specific [place] 1.020 (1.010-1.025) Urine Protein Negative (NEGATIVE) mg/dL Urine Glucose (UA) Normal (NORMAL) mg/dL Urine Ketones 15 H (NEGATIVE) mg/dL Urine Occult Blood Negative (NEGATIVE) Urine Nitrite Negative (NEGATIVE) Urine Bilirubin Small H (NEGATIVE) Urine Urobilinogen 1 H (NEGATIVE) mg/dL Ur Leukocyte Esterase Large H (NEGATIVE) Urine RBC 0-5 (0-5) Urine WBC 30-40 H (0-5) Ur Squamous Epith Cells Few H (NS,R,O) Urine Bacteria Moderate H (NS) SARS-CoV-2 RNA (VINCENT) (NEGATIVE) 11/14/20 11/14/20 Range/Units 21:43 22:18 WBC (3.0-10.3) x10-3/uL RBC (3.60-5.20) x10(6)uL Hgb (11.4-15.5) g/dL Hct (34.2-48.2) % MCV (76.7-100.5) fL MCH (23.9-33.9) pg MCHC (31.9-34.8) g/dL RDW (12.3-16.5) % Plt Count (151-488) x10(3)uL MPV (7.1-12.4) fL Neut % (Auto) (30.8-76.2) % Lymph % (Auto) (18.4-52.1) % [place] % (Auto) (4.4-15.7) % Eos % (Auto) (0.6-8.1) % Baso % (Auto) (0.2-1.5) % Neut # (Auto) (1.5-6.3) x10-3/uL Lymph # (Auto) (1.0-4.4) x10-3/uL [place] # (Auto) (0.3-1.0) x10-3/uL Eos # (Auto) (0.0-0.8) x10-3/uL Baso # (Auto) (0.0-0.1) x10-3/uL Sodium (135-145) mmol/L Potassium (3.5-5.3) mmol/L Chloride (100-110) mmol/L Carbon Dioxide (21-32) mmol/L BUN (7-18) mg/dL Creatinine (0.55-1.02) mg/dL Est Cr Clr Drug Dosing mL/min Estimated GFR (MDRD) (>60) BUN/Creatinine Ratio (9-20) Glucose (80-116) mg/dL Lactic Acid 0.7 (0.4-2.0) mmol/L Calcium (8.6-10.2) mg/dL Total Bilirubin (0.1-1.3) mg/dL AST (5-25) IU/L ALT (12-36) U/L Alkaline Phosphatase (56-112) IU/L Total Protein (6.0-8.0) g/dL Albumin (3.2-4.6) g/dL Globulin g/dL Albumin/Globulin Ratio Urine Color (YELLOW) Urine Appearance (CLEAR) Urine pH (5.0-6.5) Ur Specific [place] (1.010-1.025) Urine Protein (NEGATIVE) mg/dL Urine Glucose (UA) (NORMAL) mg/dL Urine Ketones (NEGATIVE) mg/dL Urine Occult Blood (NEGATIVE) Urine Nitrite (NEGATIVE) Urine Bilirubin (NEGATIVE) Urine Urobilinogen (NEGATIVE) mg/dL Ur Leukocyte Esterase (NEGATIVE) Urine RBC (0-5) Urine WBC (0-5) Ur Squamous Epith Cells (NS,R,O) Urine Bacteria (NS) SARS-CoV-2 RNA (VINCENT) Negative (NEGATIVE) Meds: Medications Discontinued Medications Generic Name Dose Route Start Last Admin Trade Name Freq PRN Reason Stop Dose Admin Ceftriaxone Sodium 1 gm/ 50 mls @ 200 mls/hr 11/14/20 22:05 11/14/20 22:14 Sodium Chloride IV 11/14/20 22:19 200 mls/hr ONETIME ONE Administration Nicotine 21 mg 11/14/20 22:54 Nicotine 21 Mg/24 Hr Patch TRDERM 11/14/20 22:55 ONETIME ONE Departure - Departure Time of Disposition: 23:36 Disposition: Refer to Observation Clinical Impression: Urinary tract infection, Multiple sclerosis - Discharge Information *PRESCRIPTION DRUG MONITORING PROGRAM REVIEWED*: Not Applicable *COPY OF PRESCRIPTION DRUG MONITORING REPORT IN PATIENT DAMON: Not Applicable Sepsis Event Note (ED) - Evaluation Sepsis Screening Result: Possible Sepsis Risk - Focused Exam Vital Signs: Vital Signs Temp Pulse Resp BP Pulse Ox Pulse Ox 11/14/20 21:57 37.1 C 91 18 107/65 91 L 11/14/20 21:00 90 L 11/14/20 20:50 38.2 C H 104 H 20 96/63 87 L - My Orders Last 24 Hours: My Active Orders 11/14/20 21:06 Oxygen Therapy Adult [Oxygen Therapy, ED] [RC] ASDIRECTED 11/14/20 21:11 CXR [Chest 2V] [CR] Stat 11/14/20 21:40 Urinary Catheter Insertion [Insert Urinary Catheter] [OM.PC] Q24H CULTURE URINE [RM] Stat 11/14/20 21:44 Urinary Catheter Assessment [RC] QSHIFT - Assessment/Plan Last 24 Hours: My Active Orders 11/14/20 21:06 Oxygen Therapy Adult [Oxygen Therapy, ED] [RC] ASDIRECTED 11/14/20 21:11 CXR [Chest 2V] [CR] Stat 11/14/20 21:40 Urinary Catheter Insertion [Insert Urinary Catheter] [OM.PC] Q24H CULTURE URINE [RM] Stat 11/14/20 21:44 Urinary Catheter Assessment [RC] QSHIFT
[2020-11-14] MEDS ORDERED: cefTRIAXone 1 GM in Sodium Chloride 0.9% 50 ML IV ONE (22:05)
[2020-11-14] MEDS ORDERED: Nicotine 21 MG/24 Hr Patch TRDERM ONE (22:54)
[2020-11-15] MEDS: OXYBUTYNIN 5 MG PO SCH ×3 (11:12→21:02)
[2020-11-15] MEDS: VITAMIN D 5000 UNIT PO SCH (11:12)
[2020-11-15] MEDS: MELOXICAM 15 MG PO SCH (11:13)
[2020-11-15] MEDS: PREDNISONE 1 MG PO SCH (11:13)
[2020-11-15] MEDS: LEFLUNOMIDE 20 MG PO SCH (11:14)
[2020-11-15] MEDS: BACLOFEN 20 MG PO SCH ×3 (11:15→20:58)
[2020-11-15] MEDS: Famotidine 20 MG Tab *PTOM PO SCH ×2 (11:15→21:02)
[2020-11-15] MEDS: [UNRECOGNIZED DRUG - OTHER] PO SCH (11:16)
[2020-11-15] MEDS: FERROUS FUMARATE PO SCH (11:16)
[2020-11-15] MEDS: CALCIUM PO SCH (11:16)
[2020-11-15] MEDS: FOLIC ACID PO SCH (11:16)
[2020-11-15] MEDS: DULoxetine 60 MG Cap *PTOM PO SCH (11:17)
[2020-11-15] MEDS: Folic Acid 1 MG Tab *PTOM PO SCH (11:17)
[2020-11-15] MEDS: Menthol/Methyl Salicylate 85 GM Tube TOP SCH ×3 (11:19→21:00)
[2020-11-15] MEDS: Acetaminophen/HYDROcodone 325-5 MG Tab PO SCH (11:27)
[2020-11-15] MEDS: Pregabalin 75 MG Cap PO SCH ×3 (11:28→21:10)
[2020-11-15] MEDS ORDERED: Sodium Chloride 0.9% 10 ML Syringe FLUSH PRN (11:51)
--- NOTE | 2020-11-15 15:43 | PCM.HP.2 ---
H&P History of Present Illness - General Date of Service: 11/15/20 Admit Problem/Dx: Admission Diagnosis/Problem Admission Diagnosis/Problem Urinary tract infection Source of Information: Patient, Old Records (ER), Provider History Limitations: Reports: No Limitations - History of Present Illness Initial Comments - Free Text/Narative: Ayana presented to ER yesterday evening for inability to ambulate. History of Multiple sclerosis(MS) since 2016, recurrent UTIs. Denies any dysuria, frequency or hematuria. She is incontinent of urine, changes brief about 6 times a day. Aretha francis does not self-cath at this time for her MS. States only sign she has infection is that she can't walk. No fevers, chills, cough, chest pain, nausea, vomiting, constipation. She has had 3 days of diarrhea prior to coming to ER. She take Hydrocodone-APAP 1 daily and Baclofen tid for neck pain and also takes Colace 3 times a day as she had been constipated before and did not want to do that again. Denies any rashes, had been using Clotrimazole under left breast and groin but her partner stated that he doesn't know if its cleared as she won't let him look. She also reports that she had some mucus in her stools past few days. She is on oxygen normally at home, prescribed Incruse once daily but doesn't take it. Has COPD, long history of smoking since age 12, has been on Chantix to try to quit smoking as she cannot have neck surgery until she has quit tobacco for a year. She is due to have MRI brain with/without contrast for Dr Encarnacion at [facility], orders found in [place] chart, will get done while here, she has appt with him to review results on Nov 28. Neuropsychiatry testing on Apr 03. She reported to Dr Zelaya that she walks about 6-10 steps at a time and may walk 15-20 steps a day; she does not have a motorized wheelchair at home. She has a walker but usually doesn't use it because she uses furniture and she is not going very far. Headache Pain Score (Numeric/FACES): 1 - Related Data Allergies/Adverse Reactions: Allergies Allergy/AdvReac Type Severity Reaction Status Date / Time gabapentin Allergy Mild Cannot Verified 11/14/20 21:21 Remember Home Medications: Home Meds Amitriptyline [Elavil] 20 mg PO BEDTIME 02/08/20 [History] Baclofen 20 mg PO TID 02/08/20 [History] DULoxetine [Cymbalta] 60 mg PO DAILY 02/08/20 [History] Docusate Sodium 100 mg PO TID 02/08/20 [History] Folic Acid 1 mg PO DAILY 02/08/20 [History] Oxybutynin 5 mg PO TID 02/08/20 [History] Pnv No.95/Ferrous Fum/Folic AC [ [place]] 1 tab PO DAILY 02/08/20 [History] Verapamil [Calan] 80 mg PO TID 02/08/20 [History] Famotidine 20 mg PO BID 02/24/20 [History] Meloxicam 15 mg PO DAILY 02/24/20 [History] Albuterol Sulfate [Albuterol Sulfate Hfa] 2 puff IH Q4H PRN 02/25/20 [History] Umeclidinium [place] [Incruse Ellipta*] 1 puff INH DAILY 02/25/20 [History] Clotrimazole [Clotrimazole 1%] 1 dose TOP BID 11/14/20 [History] Hydrocodone/Acetaminophen [[place] 5-325 mg Tablet] 1 each PO DAILY 11/14/20 [History] Leflunomide 20 mg PO DAILY 11/14/20 [History] Pregabalin [Lyrica] 150 mg PO TID 11/14/20 [History] Varenicline [Chantix] 1 tab PO BID 11/14/20 [History] predniSONE [Prednisone] 1 mg PO DAILY 11/14/20 [History] Cholecalciferol (Vitamin D3) [Vitamin D3] 125 mcg PO DAILY 11/15/20 [History] Ibuprofen 800 mg PO BID@11/15/20 [History] Past Medical History HEENT History: Reports: None Cardiovascular History: Reports: Arrhythmia, Hypertension Respiratory History: Reports: Sleep Apnea Gastrointestinal History: Reports: None Musculoskeletal History: Reports: Arthritis Neurological History: Reports: MS Psychiatric History: Reports: Suicide Attempt - Infectious Disease History Infectious Disease History: Reports: Chicken Pox, Measles, Meningitis Social & Family History - Family History Family Medical History: No Pertinent Family History - Tobacco Use Tobacco Use Status *Q: Heavy Tobacco User Years of Tobacco use: 40 Packs/Tins Daily: 1 Used Tobacco, but Quit: No Tobacco Use Comment: patch to be applied Second Hand Smoke Exposure: No - Caffeine Use Caffeine Use: Reports: Coffee Caffeine Use Comment: up to 3 large mugs daily - Recreational Drug Use Recreational Drug Use: Yes Drug Use in Last 12 Months: Yes Recreational Drug Type: Reports: Marijuana/Hashish Recreational Drug Use Frequency: Socially H&P Review of Systems - Review of Systems: Review Of Systems: Comprehensive ROS is negative, except as noted in HPI. Exam - Exam Exam: See Below - Vital Signs Vital Signs: Last Vital Signs Temp 97.9 F 11/15/20 14:00 Pulse 87 11/15/20 14:00 Resp 18 11/15/20 14:00 BP 105/70 11/15/20 14:00 Pulse Ox 92 L 11/15/20 14:32 Weight: 182 lb - Exam Quality Assessment: Supplemental Oxygen General: Alert, Oriented, Cooperative. No: Mild Distress HEENT: PERRLA, Conjunctiva Clear, EOMI, Hearing Intact, Mucosa Moist & [place] Neck: Trachea Midline Lungs: Clear to Auscultation, Normal Respiratory Effort, Wheezing (throughout) Cardiovascular: Regular Rate, Regular Rhythm GI/Abdominal Exam: Normal Bowel Sounds, Soft, Non-Tender, Distended (suprapubic) Extremities: Normal Capillary Refill, Pedal Edema (trace BLE) Peripheral Pulses: 2+: Radial (L), Radial (R), Posterior Tibial (L), Posterior Tibial (R), Dorsalis Pedis (L), Dorsalis Pedis (R) Skin: Warm, Dry, Intact. No: Rash (under breast or intertrignous folds) Neurological: Cranial Nerves Intact, Normal Speech, Normal Tone - Patient Data Lab Results Last 24 hrs: Laboratory Results - last 24 hr 11/14/20 11/14/20 11/14/20 Range/Units 21:17 21:17 21:40 WBC 11.9 H (3.0-10.3) x10-3/uL RBC 4.81 (3.60-5.20) x10(6)uL Hgb 14.1 (11.4-15.5) g/dL Hct 42.7 (34.2-48.2) % MCV 88.7 (76.7-100.5) fL MCH 29.4 (23.9-33.9) pg MCHC 33.1 (31.9-34.8) g/dL RDW 15.0 (12.3-16.5) % Plt Count 150 L (151-488) x10(3)uL MPV 8.6 (7.1-12.4) fL Neut % (Auto) 79.8 H (30.8-76.2) % Lymph % (Auto) 9.3 L (18.4-52.1) % [place] % (Auto) 9.3 (4.4-15.7) % Eos % (Auto) 0.7 (0.6-8.1) % Baso % (Auto) 0.9 (0.2-1.5) % Neut # (Auto) 9.5 H (1.5-6.3) x10-3/uL Lymph # (Auto) 1.1 (1.0-4.4) x10-3/uL [place] # (Auto) 1.1 H (0.3-1.0) x10-3/uL Eos # (Auto) 0.1 (0.0-0.8) x10-3/uL Baso # (Auto) 0.1 (0.0-0.1) x10-3/uL Sodium 144 (135-145) mmol/L Potassium 3.7 (3.5-5.3) mmol/L Chloride 107 (100-110) mmol/L Carbon Dioxide 24 (21-32) mmol/L BUN 19 H (7-18) mg/dL Creatinine 0.8 (0.55-1.02) mg/dL Est Cr Clr Drug Dosing 69.13 mL/min Estimated GFR (MDRD) > 60 (>60) BUN/Creatinine Ratio 23.8 H (9-20) Glucose 120 H (80-116) mg/dL Lactic Acid (0.4-2.0) mmol/L Calcium 8.8 (8.6-10.2) mg/dL Total Bilirubin 0.6 (0.1-1.3) mg/dL AST 14 D (5-25) IU/L ALT 19 D (12-36) U/L Alkaline Phosphatase 110 (56-112) IU/L Total Protein 6.7 (6.0-8.0) g/dL Albumin 3.3 (3.2-4.6) g/dL Globulin 3.4 g/dL Albumin/Globulin Ratio 1.0 Urine Color Yellow (YELLOW) Urine Appearance Slightly cloudy (CLEAR) Urine pH 5.0 (5.0-6.5) Ur Specific [place] 1.020 (1.010-1.025) Urine Protein Negative (NEGATIVE) mg/dL Urine Glucose (UA) Normal (NORMAL) mg/dL Urine Ketones 15 H (NEGATIVE) mg/dL Urine Occult Blood Negative (NEGATIVE) Urine Nitrite Negative (NEGATIVE) Urine Bilirubin Small H (NEGATIVE) Urine Urobilinogen 1 H (NEGATIVE) mg/dL Ur Leukocyte Esterase Large H (NEGATIVE) Urine RBC 0-5 (0-5) Urine WBC 30-40 H (0-5) Ur Squamous Epith Cells Few H (NS,R,O) Urine Bacteria Moderate H (NS) SARS-CoV-2 RNA (VINCENT) (NEGATIVE) 11/14/20 11/14/20 Range/Units 21:43 22:18 WBC (3.0-10.3) x10-3/uL RBC (3.60-5.20) x10(6)uL Hgb (11.4-15.5) g/dL Hct (34.2-48.2) % MCV (76.7-100.5) fL MCH (23.9-33.9) pg MCHC (31.9-34.8) g/dL RDW (12.3-16.5) % Plt Count (151-488) x10(3)uL MPV (7.1-12.4) fL Neut % (Auto) (30.8-76.2) % Lymph % (Auto) (18.4-52.1) % [place] % (Auto) (4.4-15.7) % Eos % (Auto) (0.6-8.1) % Baso % (Auto) (0.2-1.5) % Neut # (Auto) (1.5-6.3) x10-3/uL Lymph # (Auto) (1.0-4.4) x10-3/uL [place] # (Auto) (0.3-1.0) x10-3/uL Eos # (Auto) (0.0-0.8) x10-3/uL Baso # (Auto) (0.0-0.1) x10-3/uL Sodium (135-145) mmol/L Potassium (3.5-5.3) mmol/L Chloride (100-110) mmol/L Carbon Dioxide (21-32) mmol/L BUN (7-18) mg/dL Creatinine (0.55-1.02) mg/dL Est Cr Clr Drug Dosing mL/min Estimated GFR (MDRD) (>60) BUN/Creatinine Ratio (9-20) Glucose (80-116) mg/dL Lactic Acid 0.7 (0.4-2.0) mmol/L Calcium (8.6-10.2) mg/dL Total Bilirubin (0.1-1.3) mg/dL AST (5-25) IU/L ALT (12-36) U/L Alkaline Phosphatase (56-112) IU/L Total Protein (6.0-8.0) g/dL Albumin (3.2-4.6) g/dL Globulin g/dL Albumin/Globulin Ratio Urine Color (YELLOW) Urine Appearance (CLEAR) Urine pH (5.0-6.5) Ur Specific [place] (1.010-1.025) Urine Protein (NEGATIVE) mg/dL Urine Glucose (UA) (NORMAL) mg/dL Urine Ketones (NEGATIVE) mg/dL Urine Occult Blood (NEGATIVE) Urine Nitrite (NEGATIVE) Urine Bilirubin (NEGATIVE) Urine Urobilinogen (NEGATIVE) mg/dL Ur Leukocyte Esterase (NEGATIVE) Urine RBC (0-5) Urine WBC (0-5) Ur Squamous Epith Cells (NS,R,O) Urine Bacteria (NS) SARS-CoV-2 RNA (VINCENT) Negative (NEGATIVE) Result Diagrams: 11/14/20 21:17 11/14/20 21:17 Sepsis Event Note - Evaluation Sepsis Screening Result: No Definite Risk - Focused Exam Vital Signs: Vital Signs Temp Temp Pulse Resp BP Pulse Ox Pulse Ox 11/15/20 14:32 92 L 11/15/20 14:00 97.9 F 87 18 105/70 92 L 11/15/20 07:35 98.4 F 98.4 F 98 18 110/62 92 L 11/15/20 07:30 92 L 11/15/20 06:00 97.8 F 92 18 125/72 93 L *Q Meaningful Use (ADM) - VTE *Q VTE Mechanical Contraindications *Q: At Risk for Falls - VTE Risk Assess *Q Each Risk Factor Represents 1 Point: None Total Score 1 Point Risk Factors: 0 Each Risk Factor Represents 2 Points: Age 60 - 74 Years Total Score 2 Point Risk Factors: 2 Each Risk Factor Represents 3 Points: None Total Score 3 Point Risk Factors: 0 Each Risk Factor Represents 5 Points: None Total Score 5 Point Risk Factors: 0 Venous Thromboembolism Risk Factor Score *Q: 2 - Problem List (1) Urinary tract infection SNOMED Code(s): 41211246 ICD Code: N39.0 - URINARY TRACT INFECTION, SITE NOT SPECIFIED Status: Acute Current Visit: Yes Qualifiers: Urinary tract infection type: acute cystitis Hematuria presence: without hematuria Qualified Code(s): N30.00 - Acute cystitis without hematuria (2) Multiple sclerosis SNOMED Code(s): 06097804 ICD Code: G35 - MULTIPLE SCLEROSIS Status: Chronic Current Visit: Yes Onset Date: ~2015 Problem Details: Chronic MS, sees Dr Encarnacion at [place]. She did not receive call from Radiology to set up appt time, radiology could not get ahold of them to set up, she is due to Dr Encarnacion on Nov 28 so ordered for and will have them PACS images up to Dr Encarnacion. They asked about getting neuropsychiatry testing done, advised we have TelePsych services but not neuropsych, advised to keep Apr 03 appt, they are on cancellation list. (3) Weakness SNOMED Code(s): 15713691 ICD Code: R53.1 - WEAKNESS Status: Acute Current Visit: Yes (4) Unable to ambulate SNOMED Code(s): 203226076 ICD Code: R26.2 - DIFFICULTY IN WALKING, NOT ELSEWHERE CLASSIFIED Status: Acute Current Visit: Yes Problem List Initiated/Reviewed/Updated: Yes Orders Last 24hrs: Active Orders 24 hr Category Date Time Status Patient Status [ADT] Routine ADT 11/14/20 22:30 Active Antiembolic Devices [RC] .Routine Care 11/14/20 22:31 Active Bladder Scan [RC] ASDIRECTED Care 11/15/20 09:55 Active Oxygen Therapy [RC] PRN Care 11/15/20 07:50 Active Up With Assistance [RC] ASDIRECTED Care 11/15/20 07:50 Active Up to Chair [RC] ASDIRECTED Care 11/15/20 07:50 Active Urinary Catheter Insertion [Insert Urinary Catheter] [ Care 11/14/20 21:40 Ordered OM.PC] Q24H VTE/DVT Education [RC] Click to Edit Care 11/14/20 22:31 Active Vital Signs [RC] Q4HWA Care 11/14/20 22:30 Active PT Evaluation and Treatment [CONS] Routine Cons 11/15/20 09:46 Active Regular Diet [DIET] Diet 11/15/20 Breakfast Ordered Brain w wo Cont [MR] Routine Exams 11/16/20 07:00 Ordered CXR [Chest 2V] [CR] Stat Exams 11/14/20 21:11 Taken BASIC METABOLIC PANEL,BMP [CHEM] Routine Lab 11/16/20 06:00 Ordered CBC WITH AUTO DIFF [HEME] Routine Lab 11/16/20 06:00 Ordered CULTURE URINE [RM] Stat Lab 11/14/20 21:40 Received Acetaminophen [Tylenol Extra Strength] Med 11/15/20 16:00 Active 1,000 mg PO BID@1600,2100 Acetaminophen/HYDROcodone [[place] 325-5 MG] Med 11/15/20 10:15 Active 1 tab PO DAILY Amitriptyline [Elavil] Med 11/15/20 21:00 Active 20 mg PO BEDTIME Baclofen [Baclofen] Med 11/15/20 10:15 Active 20 mg PO TID DULoxetine [Cymbalta] Med 11/15/20 10:15 Active 60 mg PO DAILY Docusate Sodium [Colace] Med 11/16/20 09:00 Active 100 mg PO DAILY Famotidine [Pepcid] Med 11/15/20 10:15 Active 20 mg PO BID Folic Acid Med 11/15/20 10:15 Active 1 mg PO DAILY Leflunomide [Arava] Med 11/15/20 10:15 Active 20 mg PO DAILY Meloxicam [Mobic] Med 11/15/20 10:15 Active 15 mg PO DAILY Menthol/Methyl Salicylate [[place] Hot Cream] Med 11/15/20 11:00 Active 0 gm TOP QID Oxybutynin Med 11/15/20 10:15 Active 5 mg PO TID Pregabalin [Lyrica] Med 11/15/20 10:30 Active 150 mg PO TID Vit/FA/Fe Fumarate [-U] Med 11/15/20 10:15 Active 1 each PO DAILY Sodium Chloride 0.9% [Saline Flush] Med 11/15/20 11:51 Active 10 ml FLUSH ASDIRECTED PRN Varenicline [Chantix] Med 11/15/20 10:00 Active 1 mg PO BID Verapamil [Calan] Med 11/15/20 10:15 Active 80 mg PO TID Vitamin D3/Folic Acid [Folixapure Tablet] Med 11/15/20 10:15 Active 5,000 unit PO DAILY cefTRIAXone [Rocephin] Med 11/15/20 22:00 Active 1 gm IVPUSH Q24H predniSONE Med 11/15/20 10:15 Active 1 mg PO DAILY DVT/VTE Prophylaxis Reflex [OM.PC] Per Unit Routine Oth 11/14/20 22:30 Ordered Resuscitation Status Routine Resus Stat 11/14/20 22:28 Ordered Medication Orders Acetaminophen (Acetaminophen 500 Mg Tab) 1,000 mg PO BID@1600,2100 [facility] Hydrocodone Bitart/Acetaminophen (Acetaminophen/Hydrocodone 325-5 Mg Tab) 1 tab PO DAILY [facility] Last Admin: 11/15/20 11:27 Dose: 1 tab Documented by: LUPE Amitriptyline HCl (Amitriptyline 10 Mg Tab *Ptom) 20 mg PO BEDTIME [facility] Ceftriaxone Sodium (Ceftriaxone 1 Gm Vial) 1 gm IVPUSH Q24H [facility] Docusate Sodium (Docusate Sodium 100 Mg Cap *Ptom) 100 mg PO DAILY [facility] Duloxetine HCl (Duloxetine 60 Mg Cap *Ptom) 60 mg PO DAILY [facility] Last Admin: 11/15/20 11:17 Dose: 60 mg Documented by: JORDYN Famotidine (Famotidine 20 Mg Tab *Ptom) 20 mg PO BID [facility] Last Admin: 11/15/20 11:15 Dose: 20 mg Documented by: JORDYN Folic Acid (Folic Acid 1 Mg Tab *Ptom) 1 mg PO DAILY [facility] Last Admin: 11/15/20 11:17 Dose: 1 mg Documented by: JORDYN Leflunomide (Leflunomide 20 Mg Tab *Ptom) 20 mg PO DAILY [facility] Last Admin: 11/15/20 11:14 Dose: 20 mg Documented by: JORDYN Meloxicam (Meloxicam 15 Mg Tab *Ptom) 15 mg PO DAILY [facility] Last Admin: 11/15/20 11:13 Dose: 15 mg Documented by: JORDYN Methyl Salicylate (Menthol/Methyl Salicylate 85 Gm Tube) 0 gm TOP QID [facility] Last Admin: 11/15/20 11:19 Dose: Not Given Documented by: JORDYN (Baclofen [Baclofen] (20 Mg Tablet) *Ptom) 20 mg PO TID [facility] Last Admin: 11/15/20 11:15 Dose: 20 mg Documented by: JORDYN (Verapamil [Calan] (80 Mg Tablet) *Ptom) 80 mg PO TID [facility] Last Admin: 11/15/20 11:15 Dose: 80 mg Documented by: JORDYN Vitamin D 5000 Units (*Ptom) 5,000 unit PO DAILY [facility] Last Admin: 11/15/20 11:12 Dose: 5,000 unit Documented by: JORDYN Oxybutynin Chloride (Oxybutynin 5 Mg Tab *Ptom) 5 mg PO TID [facility] Last Admin: 11/15/20 11:12 Dose: 5 mg Documented by: JORDYN Prednisone (Prednisone 1 Mg Tab *Ptom) 1 mg PO DAILY [facility] Last Admin: 11/15/20 11:13 Dose: 1 mg Documented by: JORDYN Pregabalin (Pregabalin 75 Mg Cap) 150 mg PO TID [facility] Last Admin: 11/15/20 11:28 Dose: 150 mg Documented by: LUPE Multivit/Folic Acid/Iron ( Multivitamin With Calcium/Folic Acid/Fe Fumarate Cap *Ptom) 1 each PO DAILY [facility] Last Admin: 11/15/20 11:16 Dose: 1 each Documented by: JORDYN Sodium Chloride (Sodium Chloride 0.9% 10 Ml Syringe) 10 ml FLUSH ASDIRECTED PRN PRN Reason: IV Use Varenicline (Varenicline 1 Mg Tab *Ptom) 1 mg PO BID [facility] Last Admin: 11/15/20 11:20 Dose: 1 mg Documented by: JORDYN Assessment/Plan Comment:: 1. Admit for observation for UTI, complicated by multiple sclerosis. 2. UTI: Rocephin 1 g IV q24h, urine culture pending. Lactic acid 0.7. UA positive LE, 30-40 WBCs, few epithelial cells, many bacteria. Will need at least 2 days of IV Rocephin before switching to orals, should have preliminary culture results back by then. Repeat labs tomorrow. 3. Urinary retention 2/2 multiple sclerosis: bladder scan prn for residual, straight cath as needed residual >300 ml. 4. Multiple sclerosis/unable to ambulate: MRI brain with/without contrast tomorrow am, images sent to Dr Encarnacion via PACs, will be read by [place] [facility] as Dr David does not read MRIs. Continue home medications. PT evaluate and treat and depending on their evaluation may need to add OT as well. 5. Diet: Regular. 6. Activity: up to chair and with assistance. 7. DVT prophylaxis: SCDs in bed. 8. CODE STATUS: DNR/DNI. 9. Discharge planning: anticipate 24-48 hours of IV antibiotics, if she is unable to ambulate will need to change to inpatient status for further treatment. - Mortality Measure Prognosis:: Poor
[2020-11-15] MEDS: Acetaminophen 500 MG Tab PO SCH ×2 (16:49→21:03)
[2020-11-15] MEDS ORDERED: Amitriptyline 10 MG Tab *PTOM PO SCH (21:00)
[2020-11-15] MEDS ORDERED: cefTRIAXone 1 GM Vial IVPUSH SCH (22:00)
[2020-11-15] MEDS ORDERED: cefTRIAXone 1 GM in Sodium Chloride 0.9% 50 ML IV SCH (22:00)
[2020-11-16] MEDS: Acetaminophen/HYDROcodone 325-5 MG Tab PO SCH (08:43)
[2020-11-16] MEDS: CALCIUM PO SCH (08:49)
[2020-11-16] MEDS: LEFLUNOMIDE 20 MG PO SCH (08:49)
[2020-11-16] MEDS: [UNRECOGNIZED DRUG - OTHER] PO SCH (08:49)
[2020-11-16] MEDS: BACLOFEN 20 MG PO SCH ×2 (08:49→13:24)
[2020-11-16] MEDS: PREDNISONE 1 MG PO SCH (08:49)
[2020-11-16] MEDS: FOLIC ACID PO SCH (08:49)
[2020-11-16] MEDS: OXYBUTYNIN 5 MG PO SCH ×2 (08:49→13:25)
[2020-11-16] MEDS: FERROUS FUMARATE PO SCH (08:49)
[2020-11-16] MEDS: MELOXICAM 15 MG PO SCH (08:49)
[2020-11-16] MEDS: Folic Acid 1 MG Tab *PTOM PO SCH (08:49)
[2020-11-16] MEDS: Famotidine 20 MG Tab *PTOM PO SCH (08:49)
[2020-11-16] MEDS: DULoxetine 60 MG Cap *PTOM PO SCH (08:49)
[2020-11-16] MEDS: VITAMIN D 5000 UNIT PO SCH (08:50)
[2020-11-16] MEDS ORDERED: Docusate Sodium 100 MG Cap *PTOM PO SCH (09:00)
[2020-11-16] MEDS ORDERED: Gadoteridol 279.3 MG/ML 20 ML SDV IV ONE (09:30)
[2020-11-16] MEDS: Menthol/Methyl Salicylate 85 GM Tube TOP SCH ×2 (10:34→13:24)
[2020-11-16] MEDS: Pregabalin 75 MG Cap PO SCH ×2 (11:20→16:12)
[2020-11-16] MEDS ORDERED: cefTRIAXone 1 GM Vial IVPUSH ONE (14:30)
--- NOTE | 2020-11-16 15:28 | PCM.DCSUM1 ---
Discharge Summary - Hospital Course HPI Initial Comments: Ayana presented to ER yesterday evening for inability to ambulate. History of Multiple sclerosis(MS) since 2016, recurrent UTIs. Denies any dysuria, frequency or hematuria. She is incontinent of urine, changes brief about 6 times a day. She does not self-cath at this time for her MS. States only sign she has infection is that she can't walk. No fevers, chills, cough, chest pain, nausea, vomiting, constipation. She has had 3 days of diarrhea prior to coming to ER. She take Hydrocodone-APAP 1 daily and Baclofen tid for neck pain and also takes Colace 3 times a day as she had been constipated before and did not want to do that again. Denies any rashes, had been using Clotrimazole under left breast and groin but her partner stated that he doesn't know if its cleared as she won't let him look. She also reports that she had some mucus in her stools past few days. She is on oxygen normally at home, prescribed Incruse once daily but doesn't take it. Has COPD, long history of smoking since age 12, has been on Chantix to try to quit smoking as she cannot have neck surgery until she has quit tobacco for a year. She is due to have MRI brain with/without contrast for Dr Encarnacion at [facility], orders found in [facility] chart, will get done while here, she has appt with him to review results on Nov 28. Neuropsychiatry testing on Apr 03. She reported to Dr Zelaya that she walks about 6-10 steps at a time and may walk 15-20 steps a day; she does not have a motorized wheelchair at home. She has a walker but usually doesn't use it because she uses furniture and she is not going very far. Diagnosis: Stroke: No - Discharge Data Discharge Date: 11/16/20 Discharge Disposition: Home, W Home Health Agency 06 Condition: Stable - Referral to Home Health Date of Face to Face Encounter: 11/16/20 Reason for Homebound Status: limited mobility due to multiple sclerosis Primary Care Physician: Jero Barron MD Skilled Need: [facility], PT/OT - Discharge Diagnosis/Problem(s) (1) Urinary tract infection SNOMED Code(s): 60241057 ICD Code: N39.0 - URINARY TRACT INFECTION, SITE NOT SPECIFIED Status: Acute Current Visit: Yes Qualifiers: Urinary tract infection type: acute cystitis Hematuria presence: without hematuria Qualified Code(s): N30.00 - Acute cystitis without hematuria (2) Multiple sclerosis SNOMED Code(s): 30742440 ICD Code: G35 - MULTIPLE SCLEROSIS Status: Chronic Current Visit: Yes Onset Date: ~2015 Problem Details: Chronic MS, sees Dr Encarnacion at [facility]. Unable to get MRI brain done today, too much movement and she had pain on laying on MRI table even with padding. She may need conscious sedation for MRI to get images. (3) Weakness SNOMED Code(s): 46759318 ICD Code: R53.1 - WEAKNESS Status: Chronic Current Visit: Yes (4) Unable to ambulate SNOMED Code(s): 849422383 ICD Code: R26.2 - DIFFICULTY IN WALKING, NOT ELSEWHERE CLASSIFIED Status: Chronic Current Visit: Yes Problem Details: Back to baseline, able to do transfers to bed and wheelchair. - Patient Summary/Data Consults: Consultations 11/15/20 09:46 PT Evaluation and Treatment [CONS] Routine Please Evaluate and Treat. PT Reason for Consult: Ambulation This query below is only for informational purposes and is not editable. Admission Diagnosis/Problem: Urinary tract infection Hospital Course: Started on Rocephin 1 gram in ER and 2 doses during hospitalization. Urine culture had no growth to date. Blood culture no growth to date. WBC 6.4. Cr 0.9. She was requiring 2-3 person assist to ambulate on admission; PT evaluated today she was able to transfer and ambulate at her baseline. Unable to get MRI today due to unable to lay still due to pain on the table even with padding and holding her breath, will need conscious sedation with MRI to get images done. Discussed may need motorized wheelchair at home. She will go home with [facility], Homemaker services and Meals on Wheels. - Patient Instructions Diet: Usual Diet as Tolerated Activity: As Tolerated Driving: Do Not Drive Showering/Bathing: May Shower Notify Provider of: Fever (unable to do transfers to bed/wheelchair), Increased Pain, Nausea and/or Vomiting Other/Special Instructions: Follow up with Dr Barron /Saturday this week for hospital recheck. - Discharge Plan *PRESCRIPTION DRUG MONITORING PROGRAM REVIEWED*: Not Applicable *COPY OF PRESCRIPTION DRUG MONITORING REPORT IN PATIENT DAMON: Not Applicable Prescriptions/Med Rec: Acetaminophen [Tylenol Extra Strength] 1,000 mg PO BID@1599,2099 30 Days #60 tablet Home Medications: Home Meds Amitriptyline [Elavil] 20 mg PO BEDTIME 02/08/20 [History] Baclofen 20 mg PO TID 02/08/20 [History] DULoxetine [Cymbalta] 60 mg PO DAILY 02/08/20 [History] Folic Acid 1 mg PO DAILY 02/08/20 [History] Oxybutynin 5 mg PO TID 02/08/20 [History] Pnv No.95/Ferrous Fum/Folic AC [ Caplet] 1 tab PO DAILY 02/08/20 [History] Verapamil [Calan] 80 mg PO TID 02/08/20 [History] Famotidine 20 mg PO BID 02/24/20 [History] Meloxicam 15 mg PO DAILY 02/24/20 [History] Albuterol Sulfate [Albuterol Sulfate Hfa] 2 puff IH Q4H PRN 02/25/20 [History] Umeclidinium Bradley [Incruse Ellipta*] 1 puff INH DAILY 02/25/20 [History] Hydrocodone/Acetaminophen [Lorcet 5-325 mg Tablet] 1 each PO DAILY 11/14/20 [History] Leflunomide 20 mg PO DAILY 11/14/20 [History] Pregabalin [Lyrica] 150 mg PO TID 11/14/20 [History] Varenicline [Chantix] 1 tab PO BID 11/14/20 [History] predniSONE [Prednisone] 1 mg PO DAILY 11/14/20 [History] Cholecalciferol (Vitamin D3) [Vitamin D3] 125 mcg PO DAILY 11/15/20 [History] Acetaminophen [Tylenol Extra Strength] 1,000 mg PO BID@1600,2100 30 Days #60 tablet 11/16/20 [Rx] Docusate Sodium 100 mg PO BID #0 11/16/20 [Rx] Oxygen Therapy Mode: Nasal Cannula Oxygen Flow Rate (L/min): 2 Maintain SPO2% less than: 97 Maintain SpO2% greater than: 88 Patient Handouts: Urinary Tract Infection, Adult, Fall Prevention in Hospitals, Adult, Venous Thromboembolism Prevention, Multiple Sclerosis Forms: ED Department Discharge Referrals: Jero Barron MD [Primary Care Provider] - - Discharge Summary/Plan Comment DC Time >30 min.: No - General Info Date of Service: 11/16/20 Subjective Update: Slept well, woke up with some hip pain but had not been out of bed yet. Once in the chair, hip pain was improved. No fevers, able to do transfers as she does at home. Attempted to do MRI brain today but unable to get comfortable on table with padded to lay still and was holding her breath due to pain from table, to much movement artifact so MRI was not completed. Will likely have to conscious sedation with MRI to get completed prior to Nov [address] Encarnacion. Functional Status: Reports: Pain Controlled, Tolerating Diet, Urinating - Patient Data Vitals - Most Recent: Last Vital Signs Temp 97.9 F 11/15/20 21:00 Pulse 78 11/15/20 21:00 Resp 20 11/15/20 21:00 BP 100/61 11/15/20 21:00 Pulse Ox 93 L 11/16/20 00:49 Weight - Most Recent: 182 lb I&O - Last 24 hours: Intake & Output 11/16/20 11/16/20 11/16/20 06:59 14:59 22:59 Intake Total 400 Balance 400 Lab Results - Last 24 hrs: Laboratory Results - last 24 hr 11/16/20 11/16/20 Range/Units 06:15 06:15 WBC 6.4 (3.0-10.3) x10-3/uL RBC 4.45 (3.60-5.20) x10(6)uL Hgb 13.1 (11.4-15.5) g/dL Hct 39.8 (34.2-48.2) % MCV 89.4 (76.7-100.5) fL MCH 29.4 (23.9-33.9) pg MCHC 32.9 (31.9-34.8) g/dL RDW 15.2 (12.3-16.5) % Plt Count 112 L (151-488) x10(3)uL MPV 8.8 (7.1-12.4) fL Neut % (Auto) 72.2 (30.8-76.2) % Lymph % (Auto) 12.1 L (18.4-52.1) % [place] % (Auto) 11.1 (4.4-15.7) % Eos % (Auto) 3.8 (0.6-8.1) % Baso % (Auto) 0.8 (0.2-1.5) % Neut # (Auto) 4.6 (1.5-6.3) x10-3/uL Lymph # (Auto) 0.8 L (1.0-4.4) x10-3/uL [place] # (Auto) 0.7 (0.3-1.0) x10-3/uL Eos # (Auto) 0.2 (0.0-0.8) x10-3/uL Baso # (Auto) 0.1 (0.0-0.1) x10-3/uL Sodium 144 (135-145) mmol/L Potassium 4.0 (3.5-5.3) mmol/L Chloride 106 (100-110) mmol/L Carbon Dioxide 28 (21-32) mmol/L BUN 18 (7-18) mg/dL Creatinine 0.9 (0.55-1.02) mg/dL Est Cr Clr Drug Dosing 61.45 mL/min Estimated GFR (MDRD) > 60 (>60) BUN/Creatinine Ratio 20.0 (9-20) Glucose 84 (80-116) mg/dL Calcium 8.9 (8.6-10.2) mg/dL SHIRA Results - Last 24 hrs: Microbiology 11/14/20 21:40 Urine Culture - Preliminary Urine, Catheterized NO GROWTH AFTER 1 DAY Med Orders - Current: Current Medications Acetaminophen (Acetaminophen 500 Mg Tab) 1,000 mg PO BID@1600,2100 [facility] Last Admin: 11/15/20 21:03 Dose: 1,000 mg Documented by: Hydrocodone Bitart/Acetaminophen (Acetaminophen/Hydrocodone 325-5 Mg Tab) 1 tab PO DAILY [facility] Last Admin: 11/16/20 08:43 Dose: 1 tab Documented by: Amitriptyline HCl (Amitriptyline 10 Mg Tab *Ptom) 20 mg PO BEDTIME [facility] Last Admin: 11/15/20 20:59 Dose: 20 mg Documented by: Docusate Sodium (Docusate Sodium 100 Mg Cap *Ptom) 100 mg PO DAILY [facility] Last Admin: 11/16/20 08:49 Dose: 100 mg Documented by: Duloxetine HCl (Duloxetine 60 Mg Cap *Ptom) 60 mg PO DAILY [facility] Last Admin: 11/16/20 08:49 Dose: 60 mg Documented by: Famotidine (Famotidine 20 Mg Tab *Ptom) 20 mg PO BID [facility] Last Admin: 11/16/20 08:49 Dose: 20 mg Documented by: Folic Acid (Folic Acid 1 Mg Tab *Ptom) 1 mg PO DAILY [facility] Last Admin: 11/16/20 08:49 Dose: 1 mg Documented by: Leflunomide (Leflunomide 20 Mg Tab *Ptom) 20 mg PO DAILY [facility] Last Admin: 11/16/20 08:49 Dose: 20 mg Documented by: Meloxicam (Meloxicam 15 Mg Tab *Ptom) 15 mg PO DAILY [facility] Last Admin: 11/16/20 08:49 Dose: 15 mg Documented by: Methyl Salicylate (Menthol/Methyl Salicylate 85 Gm Tube) 0 gm TOP QID [facility] Last Admin: 11/16/20 13:24 Dose: 1 applic Documented by: (Baclofen [Baclofen] (20 Mg Tablet) *Ptom) 20 mg PO TID [facility] Last Admin: 11/16/20 13:24 Dose: 20 mg Documented by: (Verapamil [Calan] (80 Mg Tablet) *Ptom) 80 mg PO TID [facility] Last Admin: 11/16/20 13:25 Dose: 80 mg Documented by: Vitamin D 5000 Units (*Ptom) 5,000 unit PO DAILY [facility] Last Admin: 11/16/20 08:50 Dose: 5,000 unit Documented by: Oxybutynin Chloride (Oxybutynin 5 Mg Tab *Ptom) 5 mg PO TID [facility] Last Admin: 11/16/20 13:25 Dose: 5 mg Documented by: Prednisone (Prednisone 1 Mg Tab *Ptom) 1 mg PO DAILY [facility] Last Admin: 11/16/20 08:49 Dose: 1 mg Documented by: Pregabalin (Pregabalin 75 Mg Cap) 150 mg PO TID [facility] Last Admin: 11/16/20 11:20 Dose: 150 mg Documented by: Multivit/Folic Acid/Iron ( Multivitamin With Calcium/Folic Acid/Fe Fumarate Cap *Ptom) 1 each PO DAILY [facility] Last Admin: 11/16/20 08:49 Dose: 1 each Documented by: Sodium Chloride (Sodium Chloride 0.9% 10 Ml Syringe) 10 ml FLUSH ASDIRECTED PRN PRN Reason: IV Use Varenicline (Varenicline 1 Mg Tab *Ptom) 1 mg PO BID [facility] Last Admin: 11/16/20 10:34 Dose: 1 mg Documented by: Discontinued Medications Ceftriaxone Sodium (Ceftriaxone 1 Gm Vial) 1 gm IVPUSH Q24H [facility] Last Admin: 11/15/20 21:04 Dose: 1 gm Documented by: Ceftriaxone Sodium (Ceftriaxone 1 Gm Vial) 1 gm IVPUSH ONETIME ONE Stop: 11/16/20 14:31 Last Admin: 11/16/20 14:57 Dose: 1 gm Documented by: Gadoteridol (Gadoteridol 279.3 Mg/Ml 20 Ml Sdv) 16 ml IV . DIRECTED ONE Stop: 11/16/20 09:31 Ceftriaxone Sodium 1 gm/ (Sodium Chloride) 50 mls @ 200 mls/hr IV ONETIME ONE Stop: 11/14/20 22:19 Last Admin: 11/14/20 22:14 Dose: 200 mls/hr Documented by: Miscellaneous Information (Remove Patch) 1 ea TRDERM ONETIME ONE Stop: 11/15/20 09:46 Last Admin: 11/15/20 11:11 Dose: 1 ea Documented by: Nicotine (Nicotine 21 Mg/24 Hr Patch) 21 mg TRDERM ONETIME ONE Stop: 11/14/20 22:55 Last Admin: 11/15/20 00:31 Dose: 21 mg Documented by: - Exam General: Reports: Alert, Oriented, Cooperative, No Acute Distress Neck: Reports: Trachea Midline Lungs: Reports: Clear to Auscultation, Normal Respiratory Effort Cardiovascular: Reports: Regular Rate, Regular Rhythm GI/Abdominal Exam: Normal Bowel Sounds, Soft, Non-Tender, No Distention (Female) Exam: Deferred Rectal (Female) Exam: Deferred Back Exam: Reports: Other Extremities: No Pedal Edema, Normal Capillary Refill *Q Meaningful Use (DIS) - VTE *Q VTE Mechanical Contraindications *Q: At Risk for Falls
[2020-11-16] MEDS: Acetaminophen 500 MG Tab PO SCH (17:39)
== END 2020-11-16 17:00 | disposition home health service (06) ==
LOC: FB.ED 20:47 → FB.MS 22:23
PROVIDERS: ADMIT Family Medicine; ATTEND Family Medicine
DX: R26.2 Difficulty in walking, not elsewhere classified (principal); N39.0 Urinary tract infection, site not specified; R53.1 Weakness; G35 Multiple sclerosis; I10 Essential (primary) hypertension; G47.30 Sleep apnea, unspecified; Z88.8 Allergy status to other drugs, medicaments and biological substances; Z79.899 Other long term (current) drug therapy; Z20.822 Contact with and (suspected) exposure to COVID-19
CPT/HCPCS: 36415; 51798; 71046; 80048; 80053; 81001; 83605; 85025; 87086; 96374; 97161; 99285; A9270; J0696; J7512; U0002; 96376; G0378

== ENCOUNTER 2020-11-16 20:47 | Inpatient (IN) | payer MEDICARE, MEDICAID ==
[2020-11-16] MEDS ORDERED: Ketorolac 30 MG/ML SDV IVPUSH PRN (21:04)
[2020-11-16] MEDS ORDERED: Albuterol/Ipratropium 3.0-0.5 MG/3 ML Neb Soln NEB PRN (21:09)
--- NOTE | 2020-11-16 21:14 | EDM.PDOC ---
ED HPI GENERAL MEDICAL PROBLEM - General Chief Complaint: General Time Seen by Provider: 11/16/20 21:09 Source of Information: Reports: Patient History Limitations: Reports: No Limitations - History of Present Illness INITIAL COMMENTS - FREE TEXT/NARRATIVE: Ayana is a readmission for MS exacerbation,weakness and a UTI. She was discharged earlier today but returns due to inability to move her legs,and un ability to move or ambulate. She also has COPD,tobacco abuse and chronic pain. Bilateral Lower Extremities Pain Score (Numeric/FACES): 8 - Related Data Allergies Allergy/AdvReac Type Severity Reaction Status Date / Time gabapentin Allergy Mild Cannot Verified 11/16/20 21:10 Remember Home Meds: Home Meds Amitriptyline [Elavil] 20 mg PO BEDTIME 02/08/20 [History] Baclofen 20 mg PO TID 02/08/20 [History] DULoxetine [Cymbalta] 60 mg PO DAILY 02/08/20 [History] Folic Acid 1 mg PO DAILY 02/08/20 [History] Oxybutynin 5 mg PO TID 02/08/20 [History] Pnv No.95/Ferrous Fum/Folic AC [ Caplet] 1 tab PO DAILY 02/08/20 [History] Verapamil [Calan] 80 mg PO TID 02/08/20 [History] Famotidine 20 mg PO BID 02/24/20 [History] Meloxicam 15 mg PO DAILY 02/24/20 [History] Albuterol Sulfate [Albuterol Sulfate Hfa] 2 puff IH Q4H PRN 02/25/20 [History] Umeclidinium [place] [Incruse Ellipta*] 1 puff INH DAILY 02/25/20 [History] Hydrocodone/Acetaminophen [Lorcet 5-325 mg Tablet] 1 each PO DAILY 11/14/20 [History] Leflunomide 20 mg PO DAILY 11/14/20 [History] Pregabalin [Lyrica] 150 mg PO TID 11/14/20 [History] Varenicline [Chantix] 1 tab PO BID 11/14/20 [History] predniSONE [Prednisone] 1 mg PO DAILY 11/14/20 [History] Cholecalciferol (Vitamin D3) [Vitamin D3] 125 mcg PO DAILY 11/15/20 [History] Acetaminophen [Tylenol Extra Strength] 1,000 mg PO BID@1600,2100 30 Days #60 tablet 11/16/20 [Rx] Docusate Sodium 100 mg PO BID #0 11/16/20 [Rx] Past Medical History HEENT History: Reports: None Cardiovascular History: Reports: Arrhythmia, Hypertension Respiratory History: Reports: Sleep Apnea Gastrointestinal History: Reports: None Musculoskeletal History: Reports: Arthritis Neurological History: Reports: MS Psychiatric History: Reports: Suicide Attempt - Infectious Disease History Infectious Disease History: Reports: Chicken Pox, Measles, Meningitis Social & Family History - Family History Family Medical History: No Pertinent Family History - Tobacco Use Tobacco Use Status *Q: Current Every Day Tobacco User Years of Tobacco use: 48 Packs/Tins Daily: 1 - Caffeine Use Caffeine Use: Reports: Coffee, Tea Caffeine Use Comment: up to 3 large mugs daily - Recreational Drug Use Recreational Drug Use: Yes Drug Use in Last 12 Months: Yes Recreational Drug Type: Reports: Marijuana/Hashish Recreational Drug Use Frequency: Socially ED ROS GENERAL - Review of Systems Review Of Systems: Comprehensive ROS is negative, except as noted in HPI. ED EXAM, GENERAL - Physical Exam Exam: See Below Exam Limited By: No Limitations General Appearance: Alert Ears: Normal External Exam, Normal Canal, Hearing Grossly Normal, Normal TMs Respiratory/Chest: No Respiratory Distress, Decreased Breath Sounds Cardiovascular: Normal Peripheral Pulses, No JVD Back Exam: Normal Inspection Extremities: Pedal Edema Neurological: Alert, CN II-XII Intact, Sensory/Motor Deficit (lower ext 3/5 muscle strength). No: Disoriented Psychiatric: Normal Affect Skin Exam: Warm Course - Vital Signs Last Recorded V/S: Last Vital Signs Temp 98 F 11/17/20 21:19 Pulse 85 11/17/20 21:19 Resp 18 11/17/20 21:19 BP 140/80 11/17/20 21:19 Pulse Ox 92 L 11/17/20 21:19 - Orders/Labs/Meds Orders: Medication Orders Acetaminophen (Acetaminophen 500 Mg Tab) 1,000 mg PO BID@1600,2100 [facility] Last Admin: 11/17/20 20:27 Dose: 1,000 mg Documented by: Admin: 11/17/20 15:02 Dose: 1,000 mg Documented by: MACK Hydrocodone Bitart/Acetaminophen (Acetaminophen/Hydrocodone 325-5 Mg Tab) 1 tab PO DAILY [facility] Last Admin: 11/17/20 09:43 Dose: 1 tab Documented by: KELVIN Albuterol/Ipratropium (Albuterol/Ipratropium 3.0-0.5 Mg/3 Ml Neb Soln) 3 ml NEB Q6H PRN PRN Reason: Dyspnea Amitriptyline HCl (Amitriptyline 10 Mg Tab) 20 mg PO BEDTIME [facility] Last Admin: 11/17/20 20:28 Dose: 20 mg Documented by: HUNG Baclofen (Baclofen 10 Mg Tab) 20 mg PO TID [facility] Last Admin: 11/17/20 20:28 Dose: 20 mg Documented by: Admin: 11/17/20 13:28 Dose: 20 mg Documented by: Admin: 11/17/20 09:26 Dose: 20 mg Documented by: KELVIN Cholecalciferol (Cholecalciferol (Vitamin D3) 25 Mcg Tab) 125 mcg PO DAILY [facility] Last Admin: 11/17/20 09:26 Dose: 125 mcg Documented by: KELVIN Dextrose/Water (50% Dextrose In Water 50 Ml Syringe) 50 ml IVPUSH ASDIRECTED PRN PRN Reason: Hypoglycemia Docusate Sodium (Docusate Sodium 100 Mg Cap) 100 mg PO BID [facility] Last Admin: 11/17/20 20:28 Dose: 100 mg Documented by: Admin: 11/17/20 09:30 Dose: 100 mg Documented by: KELVIN Duloxetine HCl (Duloxetine 60 Mg Cap) 60 mg PO DAILY [facility] Last Admin: 11/17/20 09:29 Dose: 60 mg Documented by: KELVIN Famotidine (Famotidine 20 Mg Tab) 20 mg PO BID [facility] Last Admin: 11/17/20 20:28 Dose: 20 mg Documented by: Admin: 11/17/20 09:28 Dose: 20 mg Documented by: KELVIN Folic Acid (Folic Acid 1 Mg Tab) 1 mg PO DAILY [facility] Last Admin: 11/17/20 09:29 Dose: 1 mg Documented by: KELVIN Glucagon (Glucagon,Human Recombinant 1 Mg Vial) 1 mg IM ASDIRECTED PRN PRN Reason: Hypoglycemia Methylprednisolone Sodium Succinate 1,000 mg/ Sodium Chloride 250 mls @ 250 mls/hr IV DAILY@1000 [facility] Stop: 11/19/20 10:59 Insulin Human Lispro (Insulin Lispro 100 Unit/Ml 3 Ml Kwikpen) 0 unit SUBCUT QIDACANDBED [facility]; Protocol Last Admin: 11/17/20 20:43 Dose: 1 units Documented by: HUNG Cosigned by: ZAY Admin: 11/17/20 18:28 Dose: 2 units Documented by: KELVIN Cosigned by: MACK Admin: 11/17/20 12:10 Dose: 1 unit Documented by: KELVIN Cosigned by: HAYDEE Ketorolac Tromethamine (Ketorolac 30 Mg/Ml Sdv) 30 mg IVPUSH Q6H PRN PRN Reason: Pain (moderate 4-6) Leflunomide (Leflunomide 20 Mg Tab) 20 mg PO DAILY [facility] Last Admin: 11/17/20 09:24 Dose: 20 mg Documented by: KELVIN Magnesium Oxide (Magnesium Oxide 400 Mg Tab) 400 mg PO BEDTIME [facility] Last Admin: 11/17/20 20:28 Dose: 400 mg Documented by: HUNG Oxybutynin Chloride (Oxybutynin 5 Mg Tab) 5 mg PO TID [facility] Last Admin: 11/17/20 20:28 Dose: 5 mg Documented by: Admin: 11/17/20 13:29 Dose: 5 mg Documented by: Admin: 11/17/20 09:24 Dose: 5 mg Documented by: KELVIN Prednisone (Prednisone 20 Mg Tab) 60 mg PO DAILY [facility] Stop: 11/23/20 09:01 Prednisone (Prednisone 20 Mg Tab) 40 mg PO DAILY [facility] Stop: 11/27/20 09:01 Prednisone (Prednisone 20 Mg Tab) 20 mg PO DAILY [facility] Stop: 12/01/20 09:01 Prednisone (Prednisone 1 Mg Tab) 1 mg PO DAILY [facility] Pregabalin (Pregabalin 75 Mg Cap) 150 mg PO TID [facility] Last Admin: 11/17/20 20:27 Dose: 150 mg Documented by: Admin: 11/17/20 13:35 Dose: 150 mg Documented by: Admin: 11/17/20 09:42 Dose: 150 mg Documented by: KELVIN Multivit/Folic Acid/Iron ( Multivitamin With Calcium/Folic Acid/Fe Fumarate Cap) 1 each PO DAILY [facility] Last Admin: 11/17/20 09:23 Dose: 1 each Documented by: KELVIN Sodium Chloride (Sodium Chloride 0.9% 10 Ml Syringe) 10 ml FLUSH ASDIRECTED PRN PRN Reason: Keep Vein Open Last Admin: 11/17/20 10:00 Dose: 10 ml Documented by: Admin: 11/17/20 05:05 Dose: 10 ml Documented by: Admin: 11/16/20 21:32 Dose: 10 ml Documented by: Admin: 11/16/20 21:23 Dose: 10 ml Documented by: JORDYN Tiotropium [place] (Tiotropium [place] 4 Gm Inhalation [place] (2.5mcg/1 Dose; 10 Doses)) 0 gm INH DAILY [facility] Last Admin: 11/17/20 09:32 Dose: 2 puff Documented by: KELVIN Varenicline (Varenicline 1 Mg Tab) 1 mg PO BID [facility] Last Admin: 11/17/20 20:27 Dose: 1 mg Documented by: Admin: 11/17/20 09:28 Dose: 1 mg Documented by: KELVIN Verapamil HCl (Verapamil 40 Mg Tab) 80 mg PO TID [facility] Last Admin: 11/17/20 20:27 Dose: 80 mg Documented by: Admin: 11/17/20 13:28 Dose: 80 mg Documented by: Admin: 11/17/20 09:24 Dose: 80 mg Documented by: KELVIN Meds: Medications Generic Name Dose Route Start Last Admin Trade Name Freq PRN Reason Stop Dose Admin Acetaminophen 1,000 mg 11/17/20 16:00 11/17/20 20:27 Acetaminophen 500 Mg Tab PO 1,000 mg BID@1600,2100 [facility] Administration Hydrocodone Bitart/Acetaminophen 1 tab 11/17/20 09:00 11/17/20 09:43 Acetaminophen/Hydrocodone 325-5 Mg Tab PO 1 tab DAILY [facility] Administration Albuterol/Ipratropium 3 ml 11/16/20 21:09 Albuterol/Ipratropium 3.0-0.5 Mg/3 Ml Neb Soln NEB Q6H PRN Dyspnea Amitriptyline HCl 20 mg 11/17/20 21:00 11/17/20 20:28 Amitriptyline 10 Mg Tab PO 20 mg BEDTIME ESTELLA Administration Baclofen 20 mg 11/17/20 09:00 11/17/20 20:28 Baclofen 10 Mg Tab PO 20 mg TID ESTELLA Administration Cholecalciferol 125 mcg 11/17/20 09:00 11/17/20 09:26 Cholecalciferol (Vitamin D3) 25 Mcg Tab PO 125 mcg DAILY [facility] Administration Dextrose/Water 50 ml 11/17/20 11:03 50% Dextrose In Water 50 Ml Syringe IVPUSH ASDIRECTED PRN Hypoglycemia Docusate Sodium 100 mg 11/17/20 09:00 11/17/20 20:28 Docusate Sodium 100 Mg Cap PO 100 mg BID [facility]ELL[facility] Administration Duloxetine HCl 60 mg 11/17/20 09:00 11/17/20 09:29 Duloxetine 60 Mg Cap PO 60 mg DAILY [facility] Administration Famotidine 20 mg 11/17/20 09:00 11/17/20 20:28 Famotidine 20 Mg Tab PO 20 mg BID [facility] Administration Folic Acid 1 mg 11/17/20 09:00 11/17/20 09:29 Folic Acid 1 Mg Tab PO 1 mg DAILY [facility] Administration Glucagon 1 mg 11/17/20 11:03 Glucagon,Human Recombinant 1 Mg Vial IM ASDIRECTED PRN Hypoglycemia Methylprednisolone Sodium 250 mls @ 250 mls/hr 11/18/20 10:00 Succinate 1,000 mg/ Sodium IV 11/19/20 10:59 Chloride DAILY@1000 [facility] Insulin Human Lispro 0 unit 11/17/20 11:30 11/17/20 20:43 Insulin Lispro 100 Unit/Ml 3 Ml Kwikpen SUBCUT 1 units QIDACANDBED [facility] Administration Protocol Ketorolac Tromethamine 30 mg 11/16/20 21:04 Ketorolac 30 Mg/Ml Sdv IVPUSH Q6H PRN Pain (moderate 4-6) Leflunomide 20 mg 11/17/20 09:00 11/17/20 09:24 Leflunomide 20 Mg Tab PO 20 mg DAILY [facility] Administration Magnesium Oxide 400 mg 11/17/20 21:00 11/17/20 20:28 Magnesium Oxide 400 Mg Tab PO 400 mg BEDTIME [facility] Administration Oxybutynin Chloride 5 mg 11/17/20 09:00 11/17/20 20:28 Oxybutynin 5 Mg Tab PO 5 mg TID [facility] Administration Prednisone 60 mg 11/20/20 09:00 Prednisone 20 Mg Tab PO 11/23/20 09:01 DAILY [facility] Prednisone 40 mg 11/24/20 09:00 Prednisone 20 Mg Tab PO 11/27/20 09:01 DAILY [facility] Prednisone 20 mg 11/28/20 09:00 Prednisone 20 Mg Tab PO 12/01/20 09:01 DAILY [facility] Prednisone 1 mg 12/02/20 09:00 Prednisone 1 Mg Tab PO DAILY [facility] Pregabalin 150 mg 11/17/20 09:00 11/17/20 20:27 Pregabalin 75 Mg Cap PO 150 mg TID [facility] Administration Multivit/Folic Acid/Iron 1 each 11/17/20 09:00 11/17/20 09:23 Multivitamin With Calcium/Folic Acid/Fe Fumarate Cap PO 1 each DAILY [facility] Administration Sodium Chloride 10 ml 11/16/20 21:04 11/17/20 10:00 Sodium Chloride 0.9% 10 Ml Syringe FLUSH 10 ml ASDIRECTED PRN Administration Keep Vein Open Tiotropium [place] 0 gm 11/17/20 09:00 11/17/20 09:32 Tiotropium [place] 4 Gm Inhalation [place] (2.5mcg/1 Dose; 10 Doses) INH 2 puff DAILY [facility] Administration Varenicline 1 mg 11/17/20 09:00 11/17/20 20:27 Varenicline 1 Mg Tab PO 1 mg BID [facility] Administration Verapamil HCl 80 mg 11/17/20 09:00 11/17/20 20:27 Verapamil 40 Mg Tab PO 80 mg TID [facility] Administration Discontinued Medications Generic Name Dose Route Start Last Admin Trade Name Freq PRN Reason Stop Dose Admin Hydrocodone Bitart/Acetaminophen 1 tab 11/17/20 20:29 11/17/20 20:35 Acetaminophen/Hydrocodone 325-5 Mg Tab PO 11/17/20 20:30 1 tab ONETIME ONE Administration Ceftriaxone Sodium 1 gm 11/16/20 21:15 11/16/20 21:26 Ceftriaxone 1 Gm Vial IVPUSH 1 gm Q24H ESTELLA Administration Methylprednisolone Sodium 250 mls @ 250 mls/hr 11/17/20 10:00 11/17/20 09:50 Succinate 750 mg/ Sodium IV 11/17/20 10:59 250 mls/hr Chloride ONETIME ONE Administration Methylprednisolone Sodium Succinate 125 mg 11/16/20 21:15 11/17/20 05:00 Methylprednisolone Sodium Succinate 125 Mg/2 Ml Sdv IVPUSH 125 mg Q8H ESTELLA Administration Departure - Departure Time of Disposition: 21:34 Disposition: Admitted As Inpatient 65 Condition: Good Clinical Impression: Multiple sclerosis - Discharge Information Sepsis Event Note (ED) - Evaluation Sepsis Screening Result: No Definite Risk - Problem List & Annotations (1) Multiple sclerosis SNOMED Code(s): 05339683 Code(s): G35 - MULTIPLE SCLEROSIS Status: Chronic Current Visit: No Onset Date: ~2015 (2) Sarcoidosis SNOMED Code(s): 46996674 Code(s): D86.9 - SARCOIDOSIS, UNSPECIFIED Status: Acute Current Visit: No (3) Palliative care status SNOMED Code(s): 575871375 Code(s): Z51.5 - ENCOUNTER FOR PALLIATIVE CARE Status: Acute Current Visit: No (4) Weakness SNOMED Code(s): 95860334 Code(s): R53.1 - WEAKNESS Status: Chronic Current Visit: No (5) Unable to ambulate SNOMED Code(s): 827087056 Code(s): R26.2 - DIFFICULTY IN WALKING, NOT ELSEWHERE CLASSIFIED Status: Chronic Current Visit: No - Problem List Review Problem List Initiated/Reviewed/Updated: Yes - Assessment/Plan Plan: Admit for IV abx for UTI,IV Solu medrol for COPD/Sarcoidosis and PT.OT.
[2020-11-16] MEDS ORDERED: cefTRIAXone 1 GM Vial IVPUSH SCH (21:15)
[2020-11-16] MEDS: Sodium Chloride 0.9% 10 ML Syringe FLUSH PRN ×2 (21:23→21:32)
[2020-11-16] MEDS: methylPREDNISolone Sodium Succinate 125 MG/2 ML SDV IVPUSH SCH (21:26)
[2020-11-17] MEDS: methylPREDNISolone Sodium Succinate 125 MG/2 ML SDV IVPUSH SCH (05:00)
[2020-11-17] MEDS: Sodium Chloride 0.9% 10 ML Syringe FLUSH PRN ×2 (05:05→10:00)
[2020-11-17] MEDS: Prenatal Multivitamin with Calcium/Folic Acid/Fe Fumarate Cap PO SCH (09:23)
[2020-11-17] MEDS: Leflunomide 20 MG Tab PO SCH (09:24)
[2020-11-17] MEDS: Oxybutynin 5 MG Tab PO SCH ×3 (09:24→20:28)
[2020-11-17] MEDS: Cholecalciferol (Vitamin D3) 25 MCG Tab PO SCH (09:26)
[2020-11-17] MEDS: Baclofen 10 MG Tab PO SCH ×3 (09:26→20:28)
[2020-11-17] MEDS: Famotidine 20 MG Tab PO SCH ×2 (09:28→20:28)
[2020-11-17] MEDS: Folic Acid 1 MG Tab PO SCH (09:29)
[2020-11-17] MEDS: DULoxetine 60 MG Cap PO SCH (09:29)
[2020-11-17] MEDS: Docusate Sodium 100 MG Cap PO SCH ×2 (09:30→20:28)
[2020-11-17] MEDS: Tiotropium Bromide 4 GM Inhalation Spray (2.5mcg/1 dose; 10 doses) INH SCH (09:32)
[2020-11-17] MEDS: Pregabalin 75 MG Cap PO SCH ×3 (09:42→20:27)
[2020-11-17] MEDS: Acetaminophen/HYDROcodone 325-5 MG Tab PO SCH (09:43)
--- NOTE | 2020-11-17 10:19 | PCM.HP.2 ---
H&P History of Present Illness - General Date of Service: 11/17/20 Admit Problem/Dx: Admission Diagnosis/Problem Admission Diagnosis/Problem Weakness Source of Information: Patient, Provider - History of Present Illness Initial Comments - Free Text/Narative: Ayana came back last night after falling at home, having incontinence of stool. She had been seen by PT yesterday, had stood 3 times, walked more than what she does at home so felt she was at her baseline. UTI was ruled out as she had negative culture results, had received 3 doses of Rocephin during her observation stay. She received another dose last night though repeat UA was not done. Her partner Kolby stated that her prednisone has been tapered down by her neurologist so she can have neck surgery and has been on 1 mg daily for a few months. Once she has quit smoking at least 2 weeks then they were going to do the neck surgery and then she would have to be tobacco free for 1 year post operatively. No fevers, chills. She has persistent shortness of breath, she was not wearing her oxygen when EMS was called to her home, she also had taken off this morning on rounds. She is not taking her Incruse inhaler as prescribed. She was started on SoluMedrol 125 mg IV q8h in ER for COPD. WBC normal. Magnesium 1.7. BNP 358. She received 250 mg Solumedrol overnight. Bilateral Lower Extremities Pain Score (Numeric/FACES): 0 - Related Data Allergies/Adverse Reactions: Allergies Allergy/AdvReac Type Severity Reaction Status Date / Time gabapentin Allergy Mild Cannot Verified 11/16/20 21:10 Remember Home Medications: Home Meds Amitriptyline [Elavil] 20 mg PO BEDTIME 02/08/20 [History] Baclofen 20 mg PO TID 02/08/20 [History] DULoxetine [Cymbalta] 60 mg PO DAILY 02/08/20 [History] Folic Acid 1 mg PO DAILY 02/08/20 [History] Oxybutynin 5 mg PO TID 02/08/20 [History] Pnv No.95/Ferrous Fum/Folic AC [ Caplet] 1 tab PO DAILY 02/08/20 [History] Verapamil [Calan] 80 mg PO TID 02/08/20 [History] Famotidine 20 mg PO BID 02/24/20 [History] Meloxicam 15 mg PO DAILY 02/24/20 [History] Albuterol Sulfate [Albuterol Sulfate Hfa] 2 puff IH Q4H PRN 02/25/20 [History] Umeclidinium Mclean [Incruse Ellipta*] 1 puff INH DAILY 02/25/20 [History] Hydrocodone/Acetaminophen [Lorcet 5-325 mg Tablet] 1 each PO DAILY 11/14/20 [ History] Leflunomide 20 mg PO DAILY 11/14/20 [History] Pregabalin [Lyrica] 150 mg PO TID 11/14/20 [History] Varenicline [Chantix] 1 tab PO BID 11/14/20 [History] predniSONE [Prednisone] 1 mg PO DAILY 11/14/20 [History] Cholecalciferol (Vitamin D3) [Vitamin D3] 125 mcg PO DAILY 11/15/20 [History] Acetaminophen [Tylenol Extra Strength] 1,000 mg PO BID@1600,2100 30 Days #60 tablet 11/16/20 [Rx] Docusate Sodium 100 mg PO BID #0 11/16/20 [Rx] Past Medical History HEENT History: Reports: None Cardiovascular History: Reports: Arrhythmia, Hypertension Respiratory History: Reports: Sleep Apnea Gastrointestinal History: Reports: None Musculoskeletal History: Reports: Arthritis Neurological History: Reports: MS Psychiatric History: Reports: Suicide Attempt - Infectious Disease History Infectious Disease History: Reports: Chicken Pox, Measles, Meningitis Social & Family History - Family History Family Medical History: No Pertinent Family History - Tobacco Use Tobacco Use Status *Q: Heavy Tobacco User Years of Tobacco use: 40 Packs/Tins Daily: 1 Used Tobacco, but Quit: No Second Hand Smoke Exposure: Yes - Caffeine Use Caffeine Use: Reports: Coffee Other Caffeine Use: 2 cups /day Caffeine Use Comment: up to 3 large mugs daily - Recreational Drug Use Recreational Drug Use: No Drug Use in Last 12 Months: Yes Recreational Drug Type: Reports: Marijuana/Hashish Recreational Drug Use Frequency: Socially H&P Review of Systems - Review of Systems: Review Of Systems: Comprehensive ROS is negative, except as noted in HPI. Exam - Exam Exam: See Below - Vital Signs Vital Signs: Last Vital Signs Temp 98.3 F 11/17/20 05:00 Pulse 84 11/17/20 05:00 Resp 16 11/17/20 05:00 BP 109/66 07/29/21 05:00 Pulse Ox 94 L 11/17/20 05:00 Weight: 191 lb 7 oz - Exam Quality Assessment: No: Supplemental Oxygen (patient took off to talk on the phone) General: Alert, Oriented, Cooperative. No: Mild Distress HEENT: PERRLA, Conjunctiva Clear, Hearing Intact, Mucosa Moist & [place] Neck: Trachea Midline Lungs: Clear to Auscultation, Normal Respiratory Effort, Wheezing (throughout) Cardiovascular: Regular Rate, Regular Rhythm GI/Abdominal Exam: Normal Bowel Sounds, Soft, Non-Tender, Distended (Female) Exam: Deferred Rectal (Female) Exam: Deferred Extremities: No Pedal Edema, Normal Capillary Refill Peripheral Pulses: 2+: Radial (L), Radial (R), Posterior Tibial (L), Posterior Tibial (R) Skin: Warm, Dry, Intact Neurological: Cranial Nerves Intact. No: Sensation Intact (decreased sensation) - Patient Data Lab Results Last 24 hrs: Laboratory Results - last 24 hr 11/17/20 11/17/20 11/17/20 Range/Units 06:05 06:05 06:05 WBC 4.4 (3.0-10.3) x10-3/uL RBC 4.30 (3.60-5.20) x10(6)uL Hgb 12.7 (11.4-15.5) g/dL Hct 38.3 (34.2-48.2) % MCV 89.0 (76.7-100.5) fL MCH 29.6 (23.9-33.9) pg MCHC 33.2 (31.9-34.8) g/dL RDW 14.5 (12.3-16.5) % Plt Count 139 L (151-488) x10(3)uL MPV 8.5 (7.1-12.4) fL Add Manual Diff Yes Neutrophils % (Manual) 80 (46-82) % Band Neutrophils % 4 (0-6) % Lymphocytes % (Manual) 14 (13-37) % Monocytes % (Manual) 2 L (4-12) % Sodium 143 (135-145) mmol/L Potassium 3.9 (3.5-5.3) mmol/L Chloride 106 (100-110) mmol/L Carbon Dioxide 28 (21-32) mmol/L BUN 11 (7-18) mg/dL Creatinine 0.6 (0.55-1.02) mg/dL Est Cr Clr Drug Dosing 92.18 mL/min Estimated GFR (MDRD) > 60 (>60) BUN/Creatinine Ratio 18.3 (9-20) Glucose 157 H (80-116) mg/dL Calcium 8.6 (8.6-10.2) mg/dL Phosphorus 3.6 (2.6-4.6) mg/dL Magnesium 1.7 L (1.8-2.5) mg/dL Troponin I 5.9 (4.0-60.3) pg/mL NT-Pro-B Natriuret Pep 358 H (<=125) pg/mL Result Diagrams: 11/17/20 06:05 11/17/20 06:05 Sepsis Event Note - Evaluation Sepsis Screening Result: No Definite Risk - Focused Exam Vital Signs: Vital Signs Temp Pulse Resp BP Pulse Ox 11/17/20 05:00 98.3 F 84 16 109/66 94 L *Q Meaningful Use (ADM) - VTE *Q VTE Mechanical Contraindications *Q: At Risk for Falls VTE Pharmacological Contraindications *Q: Thrombocytopenia - Problem List (1) Multiple sclerosis exacerbation SNOMED Code(s): 398962844 ICD Code: G35 - MULTIPLE SCLEROSIS Status: Acute Current Visit: Yes (2) COPD (chronic obstructive pulmonary disease) SNOMED Code(s): 59643739 ICD Code: J44.9 - CHRONIC OBSTRUCTIVE PULMONARY DISEASE, UNSPECIFIED Status: Chronic Current Visit: Yes Qualifiers: COPD type: COPD with acute exacerbation Qualified Code(s): J44.1 - Chronic obstructive pulmonary disease with (acute) exacerbation (3) Multiple sclerosis SNOMED Code(s): 56847799 ICD Code: G35 - MULTIPLE SCLEROSIS Status: Chronic Current Visit: No Onset Date: ~2015 (4) Unable to ambulate SNOMED Code(s): 976655656 ICD Code: R26.2 - DIFFICULTY IN WALKING, NOT ELSEWHERE CLASSIFIED Status: Chronic Current Visit: No (5) Weakness SNOMED Code(s): 95299452 ICD Code: R53.1 - WEAKNESS Status: Chronic Current Visit: No (6) Rheumatoid arthritis SNOMED Code(s): 72047876 ICD Code: M06.9 - RHEUMATOID ARTHRITIS, UNSPECIFIED Status: Chronic Curr ent Visit: Yes Qualifiers: Rheumatoid arthritis location: multiple sites Problem List Initiated/Reviewed/Updated: Yes Orders Last 24hrs: Active Orders 24 hr Category Date Time Status Patient Status [ADT] Routine ADT 11/16/20 21:04 Active Height and Weight [RC] 06 Care 11/16/20 21:04 Active Oxygen Therapy [RC] PRN Care 11/16/20 21:04 Active RT Aerosol Therapy [RC] ASDIRECTED Care 11/16/20 21:09 Active Up With Assistance [RC] ASDIRECTED Care 11/16/20 21:04 Active VTE/DVT Education [RC] Per Unit Routine Care 11/16/20 21:04 Active Vital Signs [RC] 08,16,00 Care 11/16/20 21:04 Active OT Evaluation and Treatment [CONS] Routine Cons 11/16/20 21:04 Active PT Evaluation and Treatment [CONS] Routine Cons 11/16/20 21:04 Active Acetaminophen [Tylenol Extra Strength] Med 11/17/20 16:00 Active 1,000 mg PO BID@1600,2100 Acetaminophen/HYDROcodone [[place] 325-5 MG] Med 11/17/20 09:00 Active 1 tab PO DAILY Albuterol/Ipratropium [DuoNeb 3.0-0.5 MG/3 ML] Med 11/16/20 21:09 Active 3 ml NEB Q6H PRN Amitriptyline [Elavil] Med 11/17/20 21:00 Active 20 mg PO BEDTIME Baclofen [Lioresal] Med 11/17/20 09:00 Active 20 mg PO TID Cholecalciferol (Vitamin D3) [Vitamin D3] Med 11/17/20 09:00 Active 125 mcg PO DAILY DULoxetine [Cymbalta] Med 11/17/20 09:00 Active 60 mg PO DAILY Docusate Sodium [Colace] Med 11/17/20 09:00 Active 100 mg PO BID Famotidine [Pepcid] Med 11/17/20 09:00 Active 20 mg PO BID Folic Acid Med 11/17/20 09:00 Active 1 mg PO DAILY Ketorolac [Toradol] Med 11/16/20 21:04 Active 30 mg IVPUSH Q6H PRN Leflunomide [Arava] Med 11/17/20 09:00 Active 20 mg PO DAILY Magnesium Oxide Med 11/17/20 21:00 Active 400 mg PO BEDTIME Oxybutynin Med 11/17/20 09:00 Active 5 mg PO TID Pregabalin [Lyrica] Med 11/17/20 09:00 Active 150 mg PO TID Vit/FA/Fe Fumarate [-U] Med 11/17/20 09:00 Active 1 each PO DAILY Sodium Chloride 0.9% [Saline Flush] Med 11/16/20 21:04 Active 10 ml FLUSH ASDIRECTED PRN Tiotropium Mclean [Spiriva Respimat] Med 11/17/20 09:00 Active 0 gm INH DAILY Varenicline [Chantix] Med 11/17/20 09:00 Active 1 mg PO BID Verapamil [Calan] Med 11/17/20 09:00 Active 80 mg PO TID methylPREDNISolone Sod Succ [SOLU-MedroL] 1,000 mg Med 11/18/20 10:00 Active Sodium Chloride 0.9% [Normal Saline] 250 ml IV DAILY@1000 methylPREDNISolone Sod Succ [SOLU-MedroL] 750 mg Med 11/17/20 10:00 Active Sodium Chloride 0.9% [Normal Saline] 250 ml IV ONETIME Peripheral IV Insertion Adult [OM.PC] Routine Oth 11/16/20 21:04 Ordered Sequential Compression Device [OM.PC] Per Unit Routine Oth 11/16/20 21:05 Ordered Code Status [Resuscitation Status] Routine Resus Stat 11/16/20 21:36 Ordered Medication Orders Acetaminophen (Acetaminophen 500 Mg Tab) 1,000 mg PO BID@1600,2100 [facility] Hydrocodone Bitart/Acetaminophen (Acetaminophen/Hydrocodone 325-5 Mg Tab) 1 tab PO DAILY [facility] Last Admin: 11/17/20 09:43 Dose: 1 tab Documented by: KELVIN Albuterol/Ipratropium (Albuterol/Ipratropium 3.0-0.5 Mg/3 Ml Neb Soln) 3 ml NEB Q6H PRN PRN Reason: Dyspnea Amitriptyline HCl (Amitriptyline 10 Mg Tab) 20 mg PO BEDTIME [facility] Baclofen (Baclofen 10 Mg Tab) 20 mg PO TID [facility] Last Admin: 11/17/20 09:26 Dose: 20 mg Documented by: KELVIN Cholecalciferol (Cholecalciferol (Vitamin D3) 25 Mcg Tab) 125 mcg PO DAILY [facility] Last Admin: 11/17/20 09:26 Dose: 125 mcg Documented by: KELVIN Docusate Sodium (Docusate Sodium 100 Mg Cap) 100 mg PO BID [facility] Last Admin: 11/17/20 09:30 Dose: 100 mg Documented by: KELVIN Duloxetine HCl (Duloxetine 60 Mg Cap) 60 mg PO DAILY [facility] Last Admin: 11/17/20 09:29 Dose: 60 mg Documented by: KELVIN Famotidine (Famotidine 20 Mg Tab) 20 mg PO BID [facility] Last Admin: 11/17/20 09:28 Dose: 20 mg Documented by: KELVIN Folic Acid (Folic Acid 1 Mg Tab) 1 mg PO DAILY [facility] Last Admin: 11/17/20 09:29 Dose: 1 mg Documented by: KELVIN Methylprednisolone Sodium Succinate 750 mg/ Sodium Chloride 250 mls @ 250 mls/hr IV ONETIME ONE Stop: 11/17/20 10:59 Last Admin: 11/17/20 09:50 Dose: 250 mls/hr Documented by: KELVIN Methylprednisolone Sodium Succinate 1,000 mg/ Sodium Chloride 250 mls @ 250 m ls/hr IV DAILY@1000 [facility] Stop: 11/19/20 10:59 Ketorolac Tromethamine (Ketorolac 30 Mg/Ml Sdv) 30 mg IVPUSH Q6H PRN PRN Reason: Pain (moderate 4-6) Leflunomide (Leflunomide 20 Mg Tab) 20 mg PO DAILY [facility] Last Admin: 11/17/20 09:24 Dose: 20 mg Documented by: KELVIN Magnesium Oxide (Magnesium Oxide 400 Mg Tab) 400 mg PO BEDTIME [facility] Oxybutynin Chloride (Oxybutynin 5 Mg Tab) 5 mg PO TID [facility] Last Admin: 11/17/20 09:24 Dose: 5 mg Documented by: KELVIN Pregabalin (Pregabalin 75 Mg Cap) 150 mg PO TID [facility] Last Admin: 11/17/20 09:42 Dose: 150 mg Documented by: KELVIN Multivit/Folic Acid/Iron ( Multivitamin With Calcium/Folic Acid/Fe Fumarate Cap) 1 each PO DAILY [facility] Last Admin: 11/17/20 09:23 Dose: 1 each Documented by: KELVIN Sodium Chloride (Sodium Chloride 0.9% 10 Ml Syringe) 10 ml FLUSH ASDIRECTED PRN PRN Reason: Keep Vein Open Last Admin: 11/17/20 10:00 Dose: 10 ml Documented by: Admin: 11/17/20 05:05 Dose: 10 ml Documented by: Admin: 11/16/20 21:32 Dose: 10 ml Documented by: Admin: 11/16/20 21:23 Dose: 10 ml Documented by: JORDYN Tiotropium Mclean (Tiotropium Mclean 4 Gm Inhalation [place] (2.5mcg/1 Dose; 10 Doses)) 0 gm INH DAILY [facility] Last Admin: 11/17/20 09:32 Dose: 2 puff Documented by: KELVIN Varenicline (Varenicline 1 Mg Tab) 1 mg PO BID [facility] Last Admin: 11/17/20 09:28 Dose: 1 mg Documented by: KELVIN Verapamil HCl (Verapamil 40 Mg Tab) 80 mg PO TID [facility] Last Admin: 11/17/20 09:24 Dose: 80 mg Documented by: KELVIN Assessment/Plan Comment:: 1. Admit for inpatient status for MS flare, Rheumatoid arthritis, weakness/unable to ambulate. 2. MS flare: SoluMedrol 750 mg today since she received 250 mg overnight for total of 1 gram then SoluMedrol 1 gram daily x 2, total of 3 day treatment. Then prednisone taper back to home dose. PT/OT evaluate & treat, recommendations for either swing bed or NH placement. 3. COPD: will be getting SoluMedrol for MS flare, continue O2 and Spiriva(formulary substitution for Incruse) daily. 4. UTI was ruled out on observation admission, Rocephin discontinued, received 4 doses and urine culture no growth yesterday and mixed camila at 2 days which rules out infection. 5. Diet: Regular. 6. Activity: up to chair & with assistance. 6. Tobacco dependence: Chantix bid. 7. CODE STATUS: DNR/DNI. 8. Discharge planning: anticipate she will be here through weekend for IV steroids and PT/OT, may need swing bed stay or NH placement. Unable to get MRI yesterday as she would not lay still long enough to complete scan. Had discussed with optomechanical technician, they could arrange for conscious sedation but unsure if she would be able to do this as inpatient. - Mortality Measure Prognosis:: Poor
[2020-11-17] MEDS ORDERED: 50% Dextrose in Water 50 ML Syringe IVPUSH PRN (11:03)
[2020-11-17] MEDS ORDERED: Glucagon,Human Recombinant 1 MG Vial IM PRN (11:03)
[2020-11-17] MEDS ORDERED: Insulin Lispro 100 Unit/ML 3 ML KwikPen SUBCUT ONE (12:06)
[2020-11-17] MEDS: Insulin Lispro 100 Unit/ML 3 ML KwikPen SUBCUT SCH ×3 (12:10→20:43)
[2020-11-17] MEDS: Acetaminophen 500 MG Tab PO SCH ×2 (15:02→20:27)
[2020-11-17] MEDS: Amitriptyline 10 MG Tab PO SCH (20:28)
[2020-11-17] MEDS: Magnesium Oxide 400 MG Tab PO SCH (20:28)
[2020-11-17] MEDS ORDERED: Acetaminophen/HYDROcodone 325-5 MG Tab PO ONE (20:29)
[2020-11-18] MEDS: Insulin Lispro 100 Unit/ML 3 ML KwikPen SUBCUT SCH ×5 (08:12→20:37)
--- NOTE | 2020-11-18 08:42 | PCM.PN ---
- General Info Date of Service: 11/18/20 Admission Dx/Problem (Free Text): Admission Diagnosis/Problem Admission Diagnosis/Problem Weakness Subjective Update: Patient is irritable, and foul mood. She is able to transfer,pivot. No New Symptoms. Functional Status: Reports: Pain Controlled, Tolerating Diet - Review of Systems General: Reports: No Symptoms HEENT: Reports: No Symptoms Pulmonary: Reports: No Symptoms Cardiovascular: Reports: No Symptoms - Patient Data Vitals - Most Recent: Last Vital Signs Temp 98.0 F 11/18/20 00:00 Pulse 84 11/18/20 00:00 Resp 18 11/18/20 00:00 BP 136/62 11/18/20 00:00 Pulse Ox 90 L 11/18/20 00:00 Weight - Most Recent: 86.183 kg Lab Results Last 24 Hours: Laboratory Results - last 24 hr 11/17/20 11/17/20 11/17/20 Range/Units 11:52 17:31 20:40 Sodium (135-145) mmol/L Potassium (3.5-5.3) mmol/L Chloride (100-110) mmol/L Carbon Dioxide (21-32) mmol/L BUN (7-18) mg/dL Creatinine (0.55-1.02) mg/dL Est Cr Clr Drug Dosing mL/min Estimated GFR (MDRD) (>60) BUN/Creatinine Ratio (9-20) Glucose (80-116) mg/dL POC Glucose 184 H 223 H 174 H (80-116) mg/dL Calcium (8.6-10.2) mg/dL 11/18/20 11/18/20 Range/Units 06:02 06:35 Sodium 144 (135-145) mmol/L Potassium 3.9 (3.5-5.3) mmol/L Chloride 108 (100-110) mmol/L Carbon Dioxide 27 (21-32) mmol/L BUN 25 H D (7-18) mg/dL Creatinine 0.8 (0.55-1.02) mg/dL Est Cr Clr Drug Dosing 69.13 mL/min Estimated GFR (MDRD) > 60 (>60) BUN/Creatinine Ratio 31.3 H (9-20) Glucose 143 H (80-116) mg/dL POC Glucose 145 H (80-116) mg/dL Calcium 9.0 (8.6-10.2) mg/dL Med Orders - Current: Current Medications Acetaminophen (Acetaminophen 500 Mg Tab) 1,000 mg PO BID@1600,2100 [facility] Last Admin: 11/17/20 20:27 Dose: 1,000 mg Documented by: Hydrocodone Bitart/Acetaminophen (Acetaminophen/Hydrocodone 325-5 Mg Tab) 1 tab PO DAILY [facility] Last Admin: 11/17/20 09:43 Dose: 1 tab Documented by: Albuterol/Ipratropium (Albuterol/Ipratropium 3.0-0.5 Mg/3 Ml Neb Soln) 3 ml NEB Q6H PRN PRN Reason: Dyspnea Amitriptyline HCl (Amitriptyline 10 Mg Tab) 20 mg PO BEDTIME [facility] Last Admin: 11/17/20 20:28 Dose: 20 mg Documented by: Baclofen (Baclofen 10 Mg Tab) 20 mg PO TID [facility] Last Admin: 11/17/20 20:28 Dose: 20 mg Documented by: Cholecalciferol (Cholecalciferol (Vitamin D3) 25 Mcg Tab) 125 mcg PO DAILY [facility] Last Admin: 11/17/20 09:26 Dose: 125 mcg Documented by: Dextrose/Water (50% Dextrose In Water 50 Ml Syringe) 50 ml IVPUSH ASDIRECTED PRN PRN Reason: Hypoglycemia Docusate Sodium (Docusate Sodium 100 Mg Cap) 100 mg PO BID [facility] Last Admin: 11/17/20 20:28 Dose: 100 mg Documented by: Duloxetine HCl (Duloxetine 60 Mg Cap) 60 mg PO DAILY [facility] Last Admin: 11/17/20 09:29 Dose: 60 mg Documented by: Famotidine (Famotidine 20 Mg Tab) 20 mg PO BID [facility] Last Admin: 11/17/20 20:28 Dose: 20 mg Documented by: Folic Acid (Folic Acid 1 Mg Tab) 1 mg PO DAILY [facility] Last Admin: 11/17/20 09:29 Dose: 1 mg Documented by: Glucagon (Glucagon,Human Recombinant 1 Mg Vial) 1 mg IM ASDIRECTED PRN PRN Reason: Hypoglycemia Methylprednisolone Sodium Succinate 1,000 mg/ Sodium Chloride 250 mls @ 250 mls/hr IV DAILY@1000 [facility] Stop: 11/19/20 10:59 Insulin Human Lispro (Insulin Lispro 100 Unit/Ml 3 Ml Kwikpen) 0 unit SUBCUT QIDACANDBED [facility]; Protocol Last Admin: 11/18/20 08:12 Dose: Not Given Documented by: Ketorolac Tromethamine (Ketorolac 30 Mg/Ml Sdv) 30 mg IVPUSH Q6H PRN PRN Reason: Pain (moderate 4-6) Leflunomide (Leflunomide 20 Mg Tab) 20 mg PO DAILY [facility] Last Admin: 11/17/20 09:24 Dose: 20 mg Documented by: Magnesium Oxide (Magnesium Oxide 400 Mg Tab) 400 mg PO BEDTIME [facility] Last Admin: 11/17/20 20:28 Dose: 400 mg Documented by: Oxybutynin Chloride (Oxybutynin 5 Mg Tab) 5 mg PO TID [facility] Last Admin: 11/17/20 20:28 Dose: 5 mg Documented by: Prednisone (Prednisone 20 Mg Tab) 60 mg PO DAILY [facility] Stop: 11/23/20 09:01 Prednisone (Prednisone 20 Mg Tab) 40 mg PO DAILY [facility] Stop: 11/27/20 09:01 Prednisone (Prednisone 20 Mg Tab) 20 mg PO DAILY [facility] Stop: 12/01/20 09:01 Prednisone (Prednisone 1 Mg Tab) 1 mg PO DAILY [facility] Pregabalin (Pregabalin 75 Mg Cap) 150 mg PO TID [facility] Last Admin: 11/17/20 20:27 Dose: 150 mg Documented by: Multivit/Folic Acid/Iron ( Multivitamin With Calcium/Folic Acid/Fe Fumarate Cap) 1 each PO DAILY [facility] Last Admin: 11/17/20 09:23 Dose: 1 each Documented by: Sodium Chloride (Sodium Chloride 0.9% 10 Ml Syringe) 10 ml FLUSH ASDIRECTED PRN PRN Reason: Keep Vein Open Last Admin: 11/17/20 10:00 Dose: 10 ml Documented by: Tiotropium [place] (Tiotropium [place] 4 Gm Inhalation [place] (2.5mcg/1 Dose; 10 Doses)) 0 gm INH DAILY [facility] Last Admin: 11/17/20 09:32 Dose: 2 puff Documented by: Varenicline (Varenicline 1 Mg Tab) 1 mg PO BID [facility] Last Admin: 11/17/20 20:27 Dose: 1 mg Documented by: Verapamil HCl (Verapamil 40 Mg Tab) 80 mg PO TID [facility] Last Admin: 11/17/20 20:27 Dose: 80 mg Documented by: Discontinued Medications Hydrocodone Bitart/Acetaminophen (Acetaminophen/Hydrocodone 325-5 Mg Tab) 1 tab PO ONETIME ONE Stop: 11/17/20 20:30 Last Admin: 11/17/20 20:35 Dose: 1 tab Documented by: Ceftriaxone Sodium (Ceftriaxone 1 Gm Vial) 1 gm IVPUSH Q24H [facility] Last Admin: 11/16/20 21:26 Dose: 1 gm Documented by: Methylprednisolone Sodium Succinate 750 mg/ Sodium Chloride 250 mls @ 250 mls/hr IV ONETIME ONE Stop: 11/17/20 10:59 Last Admin: 11/17/20 09:50 Dose: 250 mls/hr Documented by: Methylprednisolone Sodium Succinate (Methylprednisolone Sodium Succinate 125 Mg/2 Ml Sdv) 125 mg IVPUSH Q8H [facility] Last Admin: 11/17/20 05:00 Dose: 125 mg Documented by: - Exam Quality Assessment: Supplemental Oxygen General: Alert, Oriented HEENT: Pupils Equal Neck: Supple Lungs: Clear to Auscultation Cardiovascular: Regular Rate GI/Abdominal Exam: Soft Extremities: Non-Tender Skin: Warm Wound/Incisions: Healing Well Neurological: No New Focal Deficit Psy/Mental Status: Alert, Normal Affect - Patient Data Lab Results Last 24 hrs: Laboratory Results - last 24 hr 11/17/20 11/17/20 11/17/20 Range/Units 11:52 17:31 20:40 Sodium (135-145) mmol/L Potassium (3.5-5.3) mmol/L Chloride (100-110) mmol/L Carbon Dioxide (21-32) mmol/L BUN (7-18) mg/dL Creatinine (0.55-1.02) mg/dL Est Cr Clr Drug Dosing mL/min Estimated GFR (MDRD) (>60) BUN/Creatinine Ratio (9-20) Glucose (80-116) mg/dL POC Glucose 184 H 223 H 174 H (80-116) mg/dL Calcium (8.6-10.2) mg/dL 11/18/20 11/18/20 Range/Units 06:02 06:35 Sodium 144 (135-145) mmol/L Potassium 3.9 (3.5-5.3) mmol/L Chloride 108 (100-110) mmol/L Carbon Dioxide 27 (21-32) mmol/L BUN 25 H D (7-18) mg/dL Creatinine 0.8 (0.55-1.02) mg/dL Est Cr Clr Drug Dosing 69.13 mL/min Estimated GFR (MDRD) > 60 (>60) BUN/Creatinine Ratio 31.3 H (9-20) Glucose 143 H (80-116) mg/dL POC Glucose 145 H (80-116) mg/dL Calcium 9.0 (8.6-10.2) mg/dL Result Diagrams: 11/17/20 06:05 11/18/20 06:02 Sepsis Event Note - Evaluation Sepsis Screening Result: No Definite Risk - Focused Exam Vital Signs: Vital Signs Temp Pulse Resp BP Pulse Ox 11/18/20 00:00 98.0 F 84 18 136/62 90 L 11/17/20 21:19 98 F 85 18 140/80 92 L - Problem List & Annotations (1) Multiple sclerosis SNOMED Code(s): 21062122 Code(s): G35 - MULTIPLE SCLEROSIS Status: Chronic Current Visit: Yes Onset Date: ~2015 (2) Sarcoidosis SNOMED Code(s): 99054747 Code(s): D86.9 - SARCOIDOSIS, UNSPECIFIED Status: Acute Current Visit: No (3) Palliative care status SNOMED Code(s): 332782554 Code(s): Z51.5 - ENCOUNTER FOR PALLIATIVE CARE Status: Acute Current Visit: No (4) Weakness SNOMED Code(s): 00987886 Code(s): R53.1 - WEAKNESS Status: Chronic Current Visit: No (5) Unable to ambulate SNOMED Code(s): 746421478 Code(s): R26.2 - DIFFICULTY IN WALKING, NOT ELSEWHERE CLASSIFIED Status: Chronic Current Visit: No (6) Tobacco abuse SNOMED Code(s): 678835684 Code(s): Z72.0 - TOBACCO USE Status: Acute Current Visit: Yes - Problem List Review Problem List Initiated/Reviewed/Updated: Yes - My Orders Last 24 Hours: My Active Orders 11/17/20 09:00 Acetaminophen/HYDROcodone [[place] 325-5 MG] 1 tab PO DAILY Baclofen [Lioresal] 20 mg PO TID Cholecalciferol (Vitamin D3) [Vitamin D3] 125 mcg PO DAILY DULoxetine [Cymbalta] 60 mg PO DAILY Docusate Sodium [Colace] 100 mg PO BID Famotidine [Pepcid] 20 mg PO BID Folic Acid 1 mg PO DAILY Leflunomide [Arava] 20 mg PO DAILY Oxybutynin 5 mg PO TID Pregabalin [Lyrica] 150 mg PO TID Vit/FA/Fe Fumarate [-U] 1 each PO DAILY Tiotropium [place] [Spiriva Respimat] 0 gm INH DAILY Varenicline [Chantix] 1 mg PO BID Verapamil [Calan] 80 mg PO TID 11/17/20 16:00 Acetaminophen [Tylenol Extra Strength] 1,000 mg PO BID@1600,2100 11/17/20 21:00 Amitriptyline [Elavil] 20 mg PO BEDTIME - Plan Plan:: Continue IV Solu-Medrol for possible MS flare up. Also for COPD exacerbation. Continue PT and OT rehabilitation.
[2020-11-18] MEDS: Tiotropium Bromide 4 GM Inhalation Spray (2.5mcg/1 dose; 10 doses) INH SCH (08:55)
[2020-11-18] MEDS: Cholecalciferol (Vitamin D3) 25 MCG Tab PO SCH (08:56)
[2020-11-18] MEDS: Oxybutynin 5 MG Tab PO SCH ×3 (08:56→20:18)
[2020-11-18] MEDS: Baclofen 10 MG Tab PO SCH ×3 (08:57→20:18)
[2020-11-18] MEDS: Docusate Sodium 100 MG Cap PO SCH ×2 (08:58→20:18)
[2020-11-18] MEDS: Famotidine 20 MG Tab PO SCH ×2 (08:58→20:18)
[2020-11-18] MEDS: Folic Acid 1 MG Tab PO SCH (08:58)
[2020-11-18] MEDS: DULoxetine 60 MG Cap PO SCH (08:58)
[2020-11-18] MEDS: Prenatal Multivitamin with Calcium/Folic Acid/Fe Fumarate Cap PO SCH (08:59)
[2020-11-18] MEDS: Acetaminophen/HYDROcodone 325-5 MG Tab PO SCH (09:04)
[2020-11-18] MEDS: Leflunomide 20 MG Tab PO SCH (09:06)
[2020-11-18] MEDS: Pregabalin 75 MG Cap PO SCH ×3 (09:06→20:18)
[2020-11-18] MEDS: Sodium Chloride 0.9% 10 ML Syringe FLUSH PRN (10:56)
[2020-11-18] MEDS: Acetaminophen 500 MG Tab PO SCH ×2 (17:39→20:17)
[2020-11-18] MEDS: Amitriptyline 10 MG Tab PO SCH (20:17)
[2020-11-18] MEDS: Magnesium Oxide 400 MG Tab PO SCH (20:17)
[2020-11-19] MEDS: Insulin Lispro 100 Unit/ML 3 ML KwikPen SUBCUT SCH ×4 (08:25→21:00)
[2020-11-19] MEDS: Oxybutynin 5 MG Tab PO SCH ×3 (08:27→21:06)
[2020-11-19] MEDS: Prenatal Multivitamin with Calcium/Folic Acid/Fe Fumarate Cap PO SCH (08:27)
[2020-11-19] MEDS: Leflunomide 20 MG Tab PO SCH (08:27)
[2020-11-19] MEDS: Folic Acid 1 MG Tab PO SCH (08:27)
[2020-11-19] MEDS: Tiotropium Bromide 4 GM Inhalation Spray (2.5mcg/1 dose; 10 doses) INH SCH (08:29)
[2020-11-19] MEDS: Docusate Sodium 100 MG Cap PO SCH ×2 (08:31→21:04)
[2020-11-19] MEDS: Cholecalciferol (Vitamin D3) 25 MCG Tab PO SCH (08:32)
[2020-11-19] MEDS: Baclofen 10 MG Tab PO SCH ×3 (08:32→21:04)
[2020-11-19] MEDS: DULoxetine 60 MG Cap PO SCH (08:33)
[2020-11-19] MEDS: Famotidine 20 MG Tab PO SCH ×2 (08:34→21:04)
[2020-11-19] MEDS: Acetaminophen/HYDROcodone 325-5 MG Tab PO SCH (08:41)
[2020-11-19] MEDS: Pregabalin 75 MG Cap PO SCH ×3 (08:42→21:04)
--- NOTE | 2020-11-19 09:23 | PCM.PN ---
- General Info Date of Service: 11/19/20 Subjective Update: Ayana is able to move, get up on a wheelchair, and take a few steps to the bathroom. She is still craving tobacco. Additionally, the pain is not well controlled. Functional Status: Reports: Tolerating Diet - Review of Systems General: Reports: Weakness HEENT: Reports: No Symptoms Pulmonary: Reports: No Symptoms Cardiovascular: Reports: No Symptoms - Patient Data Vitals - Most Recent: Last Vital Signs Temp 97.8 F 11/18/20 20:30 Pulse 88 11/18/20 20:30 Resp 18 11/18/20 20:30 BP 136/85 11/18/20 20:30 Pulse Ox 93 L 11/18/20 20:30 Weight - Most Recent: 86.183 kg Lab Results Last 24 Hours: Laboratory Results - last 24 hr 11/18/20 11/18/20 11/18/20 Range/Units 14:27 17:41 20:25 POC Glucose 142 H 132 H 236 H D (80-116) mg/dL 11/19/20 Range/Units 06:51 POC Glucose 121 H D (80-116) mg/dL Med Orders - Current: Current Medications Acetaminophen (Acetaminophen 500 Mg Tab) 1,000 mg PO BID@1600,2100 [facility] Last Admin: 11/18/20 20:17 Dose: 1,000 mg Documented by: Hydrocodone Bitart/Acetaminophen (Acetaminophen/Hydrocodone 325-5 Mg Tab) 1 tab PO DAILY [facility] Last Admin: 11/19/20 08:41 Dose: 1 tab Documented by: Albuterol/Ipratropium (Albuterol/Ipratropium 3.0-0.5 Mg/3 Ml Neb Soln) 3 ml NEB Q6H PRN PRN Reason: Dyspnea Amitriptyline HCl (Amitriptyline 10 Mg Tab) 20 mg PO BEDTIME [facility] Last Admin: 11/18/20 20:17 Dose: 20 mg Documented by: Baclofen (Baclofen 10 Mg Tab) 20 mg PO TID [facility] Last Admin: 11/19/20 08:32 Dose: 20 mg Documented by: Cholecalciferol (Cholecalciferol (Vitamin D3) 25 Mcg Tab) 125 mcg PO DAILY [facility] Last Admin: 11/19/20 08:32 Dose: 125 mcg Documented by: Dextrose/Water (50% Dextrose In Water 50 Ml Syringe) 50 ml IVPUSH ASDIRECTED PRN PRN Reason: Hypoglycemia Docusate Sodium (Docusate Sodium 100 Mg Cap) 100 mg PO BID [facility] Last Admin: 11/19/20 08:31 Dose: 100 mg Documented by: Duloxetine HCl (Duloxetine 60 Mg Cap) 60 mg PO DAILY [facility] Last Admin: 11/19/20 08:33 Dose: 60 mg Documented by: Famotidine (Famotidine 20 Mg Tab) 20 mg PO BID [facility] Last Admin: 11/19/20 08:34 Dose: 20 mg Documented by: Folic Acid (Folic Acid 1 Mg Tab) 1 mg PO DAILY [facility] Last Admin: 11/19/20 08:27 Dose: 1 mg Documented by: Glucagon (Glucagon,Human Recombinant 1 Mg Vial) 1 mg IM ASDIRECTED PRN PRN Reason: Hypoglycemia Methylprednisolone Sodium Succinate 1,000 mg/ Sodium Chloride 250 mls @ 250 mls /hr IV DAILY@1000 [facility] Stop: 11/19/20 10:59 Last Admin: 11/18/20 10:48 Dose: 250 mls/hr Documented by: Insulin Human Lispro (Insulin Lispro 100 Unit/Ml 3 Ml Kwikpen) 0 unit SUBCUT QIDACANDBED [facility]; Protocol Last Admin: 11/19/20 08:25 Dose: Not Given Documented by: Ketorolac Tromethamine (Ketorolac 30 Mg/Ml Sdv) 30 mg IVPUSH Q6H PRN PRN Reason: Pain (moderate 4-6) Leflunomide (Leflunomide 20 Mg Tab) 20 mg PO DAILY [facility] Last Admin: 11/19/20 08:27 Dose: 20 mg Documented by: Magnesium Oxide (Magnesium Oxide 400 Mg Tab) 400 mg PO BEDTIME [facility] Last Admin: 11/18/20 20:17 Dose: 400 mg Documented by: Oxybutynin Chloride (Oxybutynin 5 Mg Tab) 5 mg PO TID [facility] Last Admin: 11/19/20 08:27 Dose: 5 mg Documented by: Prednisone (Prednisone 20 Mg Tab) 60 mg PO DAILY [facility] Stop: 11/23/20 09:01 Prednisone (Prednisone 20 Mg Tab) 40 mg PO DAILY [facility] Stop: 11/27/20 09:01 Prednisone (Prednisone 20 Mg Tab) 20 mg PO DAILY [facility] Stop: 12/01/20 09:01 Prednisone (Prednisone 1 Mg Tab) 1 mg PO DAILY [facility] Pregabalin (Pregabalin 75 Mg Cap) 150 mg PO TID [facility] Last Admin: 11/19/20 08:42 Dose: 150 mg Documented by: Multivit/Folic Acid/Iron ( Multivitamin With Calcium/Folic Acid/Fe Fumarate Cap) 1 each PO DAILY [facility] Last Admin: 11/19/20 08:27 Dose: 1 each Documented by: Sodium Chloride (Sodium Chloride 0.9% 10 Ml Syringe) 10 ml FLUSH ASDIRECTED PRN PRN Reason: Keep Vein Open Last Admin: 11/18/20 10:56 Dose: 10 ml Documented by: Tiotropium [place] (Tiotropium [place] 4 Gm Inhalation [place] (2.5mcg/1 Dose; 10 Doses)) 0 gm INH DAILY [facility] Last Admin: 11/19/20 08:29 Dose: 2 puff Documented by: Varenicline (Varenicline 1 Mg Tab) 1 mg PO BID [facility] Last Admin: 11/19/20 08:31 Dose: 1 mg Documented by: Verapamil HCl (Verapamil 40 Mg Tab) 80 mg PO TID [facility] Last Admin: 11/19/20 08:28 Dose: 80 mg Documented by: Discontinued Medications Hydrocodone Bitart/Acetaminophen (Acetaminophen/Hydrocodone 325-5 Mg Tab) 1 tab PO ONETIME ONE Stop: 11/17/20 20:30 Last Admin: 11/17/20 20:35 Dose: 1 tab Documented by: Ceftriaxone Sodium (Ceftriaxone 1 Gm Vial) 1 gm IVPUSH Q24H [facility] Last Admin: 11/16/20 21:26 Dose: 1 gm Documented by: Methylprednisolone Sodium Succinate 750 mg/ Sodium Chloride 250 mls @ 250 mls/hr IV ONETIME ONE Stop: 11/17/20 10:59 Last Admin: 11/17/20 09:50 Dose: 250 mls/hr Documented by: Methylprednisolone Sodium Succinate (Methylprednisolone Sodium Succinate 125 Mg/2 Ml Sdv) 125 mg IVPUSH Q8H [facility] Last Admin: 11/17/20 05:00 Dose: 125 mg Documented by: - Exam Quality Assessment: Supplemental Oxygen General: Alert, Oriented, Cooperative Neck: Supple Lungs: Clear to Auscultation Cardiovascular: Regular Rate GI/Abdominal Exam: Soft - Patient Data Lab Results Last 24 hrs: Laboratory Results - last 24 hr 11/18/20 11/18/20 11/18/20 Range/Units 14:27 17:41 20:25 POC Glucose 142 H 132 H 236 H D (80-116) mg/dL 11/19/20 Range/Units 06:51 POC Glucose 121 H D (80-116) mg/dL Result Diagrams: 11/17/20 06:05 11/18/20 06:02 Sepsis Event Note - Evaluation Sepsis Screening Result: No Definite Risk - Problem List & Annotations (1) Multiple sclerosis SNOMED Code(s): 34889396 Code(s): G35 - MULTIPLE SCLEROSIS Status: Chronic Current Visit: Yes Onset Date: ~2015 (2) Sarcoidosis SNOMED Code(s): 84904795 Code(s): D86.9 - SARCOIDOSIS, UNSPECIFIED Status: Acute Current Visit: No (3) Palliative care status SNOMED Code(s): 578144457 Code(s): Z51.5 - ENCOUNTER FOR PALLIATIVE CARE Status: Acute Current Visit: No (4) Weakness SNOMED Code(s): 94213450 Code(s): R53.1 - WEAKNESS Status: Chronic Current Visit: No (5) Unable to ambulate SNOMED Code(s): 465985924 Code(s): R26.2 - DIFFICULTY IN WALKING, NOT ELSEWHERE CLASSIFIED Status: Chronic Current Visit: No (6) Tobacco abuse SNOMED Code(s): 281289108 Code(s): Z72.0 - TOBACCO USE Status: Acute Current Visit: Yes - Problem List Review Problem List Initiated/Reviewed/Updated: Yes - Plan Plan:: Continue IV Solu-Medrol for possible MS flare up. Also for COPD exacerbation. Continue PT and OT rehabilitation. We'll switch to oral prednisone taper tomorrow, with the goal of discharge on Saturday
[2020-11-19] MEDS: Sodium Chloride 0.9% 10 ML Syringe FLUSH PRN (09:58)
[2020-11-19] MEDS: Acetaminophen 500 MG Tab PO SCH ×2 (16:16→21:03)
[2020-11-19] MEDS: Amitriptyline 10 MG Tab PO SCH (21:04)
[2020-11-19] MEDS: Acetaminophen/HYDROcodone 325-5 MG Tab PO PRN (21:05)
[2020-11-19] MEDS: Magnesium Oxide 400 MG Tab PO SCH (21:06)
--- NOTE | 2020-11-20 07:39 | PCM.PN ---
- General Info Date of Service: 11/20/20 Subjective Update: Ayana is able to move better,has no new complaints. Feels she may be ready return home tomorrow,with home health. Functional Status: Reports: Pain Controlled - Review of Systems General: Reports: No Symptoms HEENT: Reports: No Symptoms Pulmonary: Reports: No Symptoms Musculoskeletal: Reports: Leg Pain Skin: Reports: No Symptoms - Patient Data Vitals - Most Recent: Last Vital Signs Temp 98.1 F 11/19/20 21:00 Pulse 83 11/19/20 21:00 Resp 18 11/19/20 21:00 BP 146/87 H 11/19/20 21:00 Pulse Ox 94 L 11/19/20 21:00 Weight - Most Recent: 87.09 kg Lab Results Last 24 Hours: Laboratory Results - last 24 hr 11/19/20 11/19/20 11/19/20 Range/Units 11:24 18:12 20:38 POC Glucose 105 130 H 197 H (80-116) mg/dL 11/20/20 Range/Units 06:40 POC Glucose 116 D (80-116) mg/dL Med Orders - Current: Current Medications Acetaminophen (Acetaminophen 500 Mg Tab) 1,000 mg PO BID@1600,2100 [facility] Last Admin: 11/19/20 21:03 Dose: 1,000 mg Documented by: Hydrocodone Bitart/Acetaminophen (Acetaminophen/Hydrocodone 325-5 Mg Tab) 1 tab PO Q6H PRN PRN Reason: Pain Last Admin: 11/19/20 21:05 Dose: 1 tab Documented by: Albuterol/Ipratropium (Albuterol/Ipratropium 3.0-0.5 Mg/3 Ml Neb Soln) 3 ml NEB Q6H PRN PRN Reason: Dyspnea Amitriptyline HCl (Amitriptyline 10 Mg Tab) 20 mg PO BEDTIME [facility] Last Admin: 11/19/20 21:04 Dose: 20 mg Documented by: Baclofen (Baclofen 10 Mg Tab) 20 mg PO TID [facility] Last Admin: 11/19/20 21:04 Dose: 20 mg Documented by: Cholecalciferol (Cholecalciferol (Vitamin D3) 25 Mcg Tab) 125 mcg PO DAILY [facility] Last Admin: 11/19/20 08:32 Dose: 125 mcg Documented by: Dextrose/Water (50% Dextrose In Water 50 Ml Syringe) 50 ml IVPUSH ASDIRECTED PRN PRN Reason: Hypoglycemia Docusate Sodium (Docusate Sodium 100 Mg Cap) 100 mg PO BID [facility] Last Admin: 11/19/20 21:04 Dose: 100 mg Documented by: Duloxetine HCl (Duloxetine 60 Mg Cap) 60 mg PO DAILY [facility] Last Admin: 11/19/20 08:33 Dose: 60 mg Documented by: Famotidine (Famotidine 20 Mg Tab) 20 mg PO BID [facility] Last Admin: 11/19/20 21:04 Dose: 20 mg Documented by: Folic Acid (Folic Acid 1 Mg Tab) 1 mg PO DAILY [facility] Last Admin: 11/19/20 08:27 Dose: 1 mg Documented by: Glucagon (Glucagon,Human Recombinant 1 Mg Vial) 1 mg IM ASDIRECTED PRN PRN Reason: Hypoglycemia Insulin Human Lispro (Insulin Lispro 100 Unit/Ml 3 Ml Kwikpen) 0 unit SUBCUT QIDACANDBED [facility]; Protocol Last Admin: 11/19/20 21:00 Dose: Not Given Documented by: Ketorolac Tromethamine (Ketorolac 30 Mg/Ml Sdv) 30 mg IVPUSH Q6H PRN PRN Reason: Pain (moderate 4-6) Leflunomide (Leflunomide 20 Mg Tab) 20 mg PO DAILY [facility] Last Admin: 11/19/20 08:27 Dose: 20 mg Documented by: Magnesium Oxide (Magnesium Oxide 400 Mg Tab) 400 mg PO BEDTIME [facility] Last Admin: 11/19/20 21:06 Dose: 400 mg Documented by: Oxybutynin Chloride (Oxybutynin 5 Mg Tab) 5 mg PO TID [facility] Last Admin: 11/19/20 21:06 Dose: 5 mg Documented by: Prednisone (Prednisone 20 Mg Tab) 60 mg PO DAILY [facility] Stop: 11/23/20 09:01 Prednisone (Prednisone 20 Mg Tab) 40 mg PO DAILY [facility] Stop: 11/27/20 09:01 Prednisone (Prednisone 20 Mg Tab) 20 mg PO DAILY [facility] Stop: 12/01/20 09:01 Prednisone (Prednisone 1 Mg Tab) 1 mg PO DAILY [facility] Pregabalin (Pregabalin 75 Mg Cap) 150 mg PO TID [facility] Last Admin: 11/19/20 21:04 Dose: 150 mg Documented by: Multivit/Folic Acid/Iron ( Multivitamin With Calcium/Folic Acid/Fe Fumarate Cap) 1 each PO DAILY [facility] Last Admin: 11/19/20 08:27 Dose: 1 each Documented by: Sodium Chloride (Sodium Chloride 0.9% 10 Ml Syringe) 10 ml FLUSH ASDIRECTED PRN PRN Reason: Keep Vein Open Last Admin: 11/19/20 09:58 Dose: 10 ml Documented by: Tiotropium [place] (Tiotropium [place] 4 Gm Inhalation [place] (2.5mcg/1 Dose; 10 Doses)) 0 gm INH DAILY [facility] Last Admin: 11/19/20 08:29 Dose: 2 puff Documented by: Varenicline (Varenicline 1 Mg Tab) 1 mg PO BID [facility] Last Admin: 11/19/20 21:03 Dose: 1 mg Documented by: Verapamil HCl (Verapamil 40 Mg Tab) 80 mg PO TID [facility] Last Admin: 11/19/20 21:03 Dose: 80 mg Documented by: Discontinued Medications Hydrocodone Bitart/Acetaminophen (Acetaminophen/Hydrocodone 325-5 Mg Tab) 1 tab PO DAILY [facility] Last Admin: 11/19/20 08:41 Dose: 1 tab Documented by: Hydrocodone Bitart/Acetaminophen (Acetaminophen/Hydrocodone 325-5 Mg Tab) 1 tab PO ONETIME ONE Stop: 11/17/20 20:30 Last Admin: 11/17/20 20:35 Dose: 1 tab Documented by: Ceftriaxone Sodium (Ceftriaxone 1 Gm Vial) 1 gm IVPUSH Q24H [facility] Last Admin: 11/16/20 21:26 Dose: 1 gm Documented by: Methylprednisolone Sodium Succinate 750 mg/ Sodium Chloride 250 mls @ 250 mls/hr IV ONETIME ONE Stop: 11/17/20 10:59 Last Admin: 11/17/20 09:50 Dose: 250 mls/hr Documented by: Methylprednisolone Sodium Succinate 1,000 mg/ Sodium Chloride 250 mls @ 250 mls/hr IV DAILY@1000 [facility] Stop: 11/19/20 10:59 Last Admin: 11/19/20 09:57 Dose: 250 mls/hr Documented by: Methylprednisolone Sodium Succinate (Methylprednisolone Sodium Succinate 125 Mg/2 Ml Sdv) 125 mg IVPUSH Q8H [facility] Last Admin: 11/17/20 05:00 Dose: 125 mg Documented by: - Exam Quality Assessment: Supplemental Oxygen General: Alert HEENT: Pupils Equal Neck: Supple Lungs: Clear to Auscultation Cardiovascular: Regular Rate Neurological: Normal Speech Psy/Mental Status: Alert, Normal Affect - Patient Data Lab Results Last 24 hrs: Laboratory Results - last 24 hr 11/19/20 11/19/20 11/19/20 Range/Units 11:24 18:12 20:38 POC Glucose 105 130 H 197 H (80-116) mg/dL 11/20/20 Range/Units 06:40 POC Glucose 116 D (80-116) mg/dL Result Diagrams: 11/17/20 06:05 11/18/20 06:02 Sepsis Event Note - Evaluation Sepsis Screening Result: No Definite Risk - Focused Exam Vital Signs: Vital Signs Temp Pulse Resp BP Pulse Ox 11/19/20 21:00 98.1 F 83 18 146/87 H 94 L - Problem List & Annotations (1) Multiple sclerosis SNOMED Code(s): 03670824 Code(s): G35 - MULTIPLE SCLEROSIS Status: Chronic Current Visit: Yes Onset Date: ~2015 (2) Sarcoidosis SNOMED Code(s): 56601150 Code(s): D86.9 - SARCOIDOSIS, UNSPECIFIED Status: Acute Current Visit: No (3) Palliative care status SNOMED Code(s): 418048637 Code(s): Z51.5 - ENCOUNTER FOR PALLIATIVE CARE Status: Acute Current Visit: No (4) Weakness SNOMED Code(s): 85703028 Code(s): R53.1 - WEAKNESS Status: Chronic Current Visit: No (5) Unable to ambulate SNOMED Code(s): 167705745 Code(s): R26.2 - DIFFICULTY IN WALKING, NOT ELSEWHERE CLASSIFIED Status: Chronic Current Visit: No (6) Tobacco abuse SNOMED Code(s): 938045914 Code(s): Z72.0 - TOBACCO USE Status: Chronic Current Visit: Yes - Problem List Review Problem List Initiated/Reviewed/Updated: Yes - My Orders Last 24 Hours: My Active Orders 11/19/20 09:21 Acetaminophen/HYDROcodone [[place] 325-5 MG] 1 tab PO Q6H PRN - Plan Plan:: Transition to Oral Prednisone today,with a view of Discharge tomorrow
[2020-11-20] MEDS: Insulin Lispro 100 Unit/ML 3 ML KwikPen SUBCUT SCH ×4 (08:23→21:23)
[2020-11-20] MEDS: Tiotropium Bromide 4 GM Inhalation Spray (2.5mcg/1 dose; 10 doses) INH SCH (08:39)
[2020-11-20] MEDS: Leflunomide 20 MG Tab PO SCH (08:41)
[2020-11-20] MEDS: Prenatal Multivitamin with Calcium/Folic Acid/Fe Fumarate Cap PO SCH (08:41)
[2020-11-20] MEDS: predniSONE 20 MG Tab PO SCH (08:42)
[2020-11-20] MEDS: Oxybutynin 5 MG Tab PO SCH ×3 (08:42→21:19)
[2020-11-20] MEDS: Docusate Sodium 100 MG Cap PO SCH ×2 (08:43→21:18)
[2020-11-20] MEDS: Cholecalciferol (Vitamin D3) 25 MCG Tab PO SCH (08:44)
[2020-11-20] MEDS: Baclofen 10 MG Tab PO SCH ×3 (08:44→21:19)
[2020-11-20] MEDS: Folic Acid 1 MG Tab PO SCH (08:44)
[2020-11-20] MEDS: Famotidine 20 MG Tab PO SCH ×2 (08:45→21:19)
[2020-11-20] MEDS: DULoxetine 60 MG Cap PO SCH (08:46)
[2020-11-20] MEDS: Acetaminophen/HYDROcodone 325-5 MG Tab PO PRN ×2 (08:50→21:20)
[2020-11-20] MEDS: Pregabalin 75 MG Cap PO SCH ×3 (08:50→21:19)
[2020-11-20] MEDS: Acetaminophen 500 MG Tab PO SCH ×2 (15:20→21:18)
[2020-11-20] MEDS: Magnesium Oxide 400 MG Tab PO SCH (21:18)
[2020-11-20] MEDS: Amitriptyline 10 MG Tab PO SCH (21:19)
[2020-11-21] MEDS: Insulin Lispro 100 Unit/ML 3 ML KwikPen SUBCUT SCH ×2 (08:08→12:48)
[2020-11-21] MEDS: Leflunomide 20 MG Tab PO SCH (08:08)
[2020-11-21] MEDS: Docusate Sodium 100 MG Cap PO SCH (08:10)
[2020-11-21] MEDS: DULoxetine 60 MG Cap PO SCH (08:10)
[2020-11-21] MEDS: Folic Acid 1 MG Tab PO SCH (08:10)
[2020-11-21] MEDS: Baclofen 10 MG Tab PO SCH ×2 (08:11→13:18)
[2020-11-21] MEDS: Oxybutynin 5 MG Tab PO SCH ×2 (08:12→13:18)
[2020-11-21] MEDS: Famotidine 20 MG Tab PO SCH (08:13)
[2020-11-21] MEDS: Prenatal Multivitamin with Calcium/Folic Acid/Fe Fumarate Cap PO SCH (08:15)
[2020-11-21] MEDS: Cholecalciferol (Vitamin D3) 25 MCG Tab PO SCH (08:15)
[2020-11-21] MEDS: Tiotropium Bromide 4 GM Inhalation Spray (2.5mcg/1 dose; 10 doses) INH SCH (08:15)
[2020-11-21] MEDS: predniSONE 20 MG Tab PO SCH (08:15)
[2020-11-21] MEDS: Acetaminophen/HYDROcodone 325-5 MG Tab PO PRN (08:21)
[2020-11-21] MEDS ORDERED: LORazepam 2 MG/ML SDV IVPUSH ONE (08:26)
[2020-11-21] MEDS ORDERED: Ketorolac 30 MG/ML SDV IVPUSH ONE (08:26)
[2020-11-21] MEDS: Pregabalin 75 MG Cap PO SCH ×2 (08:57→13:21)
--- NOTE | 2020-11-21 10:51 | DISCH ---
DISCHARGE DATE: 11/21/2020 REASON FOR ADMISSION: 1. Urinary tract infection. 2. COPD. 3. Sarcoidosis. 4. Inability to ambulate. 5. MS. DISCHARGE DIAGNOSES: 1. Multiple sclerosis exacerbation. 2. Pulmonary fibrosis. 3. Sarcoidosis. 4. Weakness. 5. Tobacco abuse. BRIEF HISTORY AND HOSPITAL COURSE: This is a 60-year-old female who has MS. She was admitted because of inability to ambulate. Initially, a UTI was diagnosed, but no growth was found due to the urine culture. Antibiotics were subsequently discontinued. She was given IV Solu-Medrol 1 g daily and tapered off yesterday to oral. She also had an MRI of the brain that she could not tolerate initially, but this will be done before discharge today with preprocedure IV Lorazepam. She was advised to continue using oxygen at home. Tobacco abuse counseling was done. DISCHARGE MEDICATIONS: She will be discharged on: 1. A tapered dose of prednisone. 2. A regular dose of amitriptyline 20 mg at bedtime. 3. Baclofen 20 mg t.i.d. 4. Cymbalta 60 mg daily. 5. Pepcid 20 mg b.i.d. 6. Folic acid 1 mg daily. 7. Arava 20 mg daily. 8. Oxybutynin 5 mg t.i.d. 9. Tiotropium 1 inhalation daily. 10.Verapamil 80 mg t.i.d. 11.Albuterol inhaler as needed. FOLLOWUP: She will see Neurology this week and also see her PCP within a week.She will need HH services (PT/OT/[facility]) due to homebound status for COPD/MS. I spent more than 35 minutes in the discharge of the patient. /[id number] REY/ERNIE SPENCER
[2020-11-21] MEDS: LORazepam 2 MG/ML SDV IVPUSH ONE (10:53)
[2020-11-21] MEDS: Sodium Chloride 0.9% 10 ML Syringe FLUSH PRN (10:54)
[2020-11-21] MEDS ORDERED: Gadoteridol 279.3 MG/ML 20 ML SDV IV ONE (11:47)
[2020-11-24] MEDS ORDERED: predniSONE 20 MG Tab PO SCH (09:00)
[2020-11-28] MEDS ORDERED: predniSONE 20 MG Tab PO SCH (09:00)
[2020-12-02] MEDS ORDERED: predniSONE 1 MG Tab PO SCH (09:00)
== END 2020-11-21 15:15 | disposition home health service (06) | DRG 59 ==
LOC: FB.ED 20:47 → FB.MS 21:04
PROVIDERS: ADMIT Family Medicine; ATTEND Family Medicine
DX: N39.0 Urinary tract infection, site not specified (principal); G35 Multiple sclerosis; J44.1 Chronic obstructive pulmonary disease with (acute) exacerbation; D86.9 Sarcoidosis, unspecified; R53.1 Weakness; J84.10 Pulmonary fibrosis, unspecified; Z51.5 Encounter for palliative care; F17.210 Nicotine dependence, cigarettes, uncomplicated; I10 Essential (primary) hypertension; J44.9 Chronic obstructive pulmonary disease, unspecified; I49.9 Cardiac arrhythmia, unspecified; G47.30 Sleep apnea, unspecified; M19.90 Unspecified osteoarthritis, unspecified site; R26.2 Difficulty in walking, not elsewhere classified; M06.9 Rheumatoid arthritis, unspecified; Z86.19 Personal history of other infectious and parasitic diseases; W19.XXXA Unspecified fall, initial encounter; Z88.8 Allergy status to other drugs, medicaments and biological substances; Z79.899 Other long term (current) drug therapy; Z79.52 Long term (current) use of systemic steroids
CPT/HCPCS: 36415; 70553; 80048; 82947; 83735; 83880; 84100; 84484; 85025; 97161-GP; 97165-GO; 99285-25; A9270-GY; A9579; J0696; J1815; J1885; J2060; J2930; J7050; J7512

== ENCOUNTER 2020-12-26 17:27 | Emergency (ER) | payer MEDICARE, MEDICAID ==
--- NOTE | 2020-12-26 18:23 | EDM.PDOC ---
ED HPI GENERAL MEDICAL PROBLEM - General Chief Complaint: General Stated Complaint: FALL/CONFUSION Time Seen by Provider: 12/26/20 18:13 - History of Present Illness INITIAL COMMENTS - FREE TEXT/NARRATIVE: Three 1-year-old lady was brought to the emergency department by EMS after falling off of her bed. She has a history of multiple sclerosis and states that when she is more than normally active she will sometimes lose her strength towards end of the day. She also complains of chronic pain in her calves and feet. Admits to drinking alcohol today, 4 tall boys plus a shot of whiskey. She has given conflicting stories about threats of violence/comfort with her boyfriend. She told me that the police have been called to her house at around 11:00 in the morning every day for the last 3 days. The police were at her house this morning at approximately 11:00. After trying to get from her wheelchair to the bed she ran out of strength and could not finish getting on the bed and fell to the floor. She denies any physical injury or significant pain other than the chronic pain in her calves and feet as noted above. Bilateral calves & feet Pain Score (Numeric/FACES): 8 - Related Data Allergies Allergy/AdvReac Type Severity Reaction Status Date / Time gabapentin Allergy Mild Cannot Verified 12/26/20 17:38 Remember Home Meds: Home Meds Amitriptyline [Elavil] 40 mg PO BEDTIME 02/08/20 [History] Baclofen 20 mg PO TID 02/08/20 [History] DULoxetine [Cymbalta] 60 mg PO DAILY 02/08/20 [History] Folic Acid 1 mg PO DAILY 02/08/20 [History] Oxybutynin 5 mg PO TID 02/08/20 [History] Pnv No.95/Ferrous Fum/Folic AC [ Caplet] 1 tab PO DAILY 02/08/20 [History] Verapamil [Calan] 80 mg PO TID 02/08/20 [History] Famotidine 20 mg PO BID 02/24/20 [History] Meloxicam 15 mg PO DAILY 02/24/20 [History] Umeclidinium [place] [Incruse Ellipta*] 1 puff INH DAILY 02/25/20 [History] Leflunomide 20 mg PO DAILY 11/14/20 [History] Varenicline [Chantix] 1 tab PO BID 11/14/20 [History] Docusate Sodium 100 mg PO BID #0 11/16/20 [Rx] predniSONE 20 mg PO DAILY #18 tablet 11/21/20 [Rx] Acetaminophen [Tylenol Extra Strength] 1,000 mg PO BID 12/26/20 [History] Mv-Mn/Iron/Folic Acid/Herb 190 [Vitamin D3 Complete Caplet] 1 cap PO DAILY 12/26/20 [History] atorvaSTATin [Lipitor] 40 mg PO DAILY 12/26/20 [History] Past Medical History HEENT History: Reports: None Cardiovascular History: Reports: Arrhythmia, Hypertension Other Cardiovascular History: tachycardia Respiratory History: Reports: COPD Gastrointestinal History: Reports: None Genitourinary History: Reports: Urinary Incontinence 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: Musculoskeletal History: Reports: Arthritis, Fracture Other Musculoskeletal History: hx fx toes bilat, R gt toe, Neurological History: Reports: MS, Neuropathy, Peripheral Psychiatric History: Reports: Anxiety, Depression, Suicide Attempt - Infectious Disease History Infectious Disease History: Reports: Chicken Pox, Measles, Mumps - Past Surgical History Cardiovascular Surgical History: Reports: Cardiac Ablation Female Surgical History: Reports: Section, Tubal Ligation Other Female Surgeries/Procedures: CS x 2 Musculoskeletal Surgical History: Reports: None Social & Family History - Family History Family Medical History: No Pertinent Family History - Tobacco Use Tobacco Use Status *Q: Current Every Day Tobacco User Years of Tobacco use: 50 Packs/Tins Daily: 1 - Caffeine Use Caffeine Use: Reports: Coffee, Tea Other Caffeine Use: 2 cups /day Caffeine Use Comment: up to 3 large mugs daily - Recreational Drug Use Recreational Drug Use: Yes Recreational Drug Type: Reports: Marijuana/Hashish Recreational Drug Use Frequency: Socially ED ROS GENERAL - Review of Systems Review Of Systems: See Below Constitutional: Reports: Weakness HEENT: Reports: No Symptoms Respiratory: Reports: No Symptoms Cardiovascular: Reports: No Symptoms Endocrine: Reports: No Symptoms GI/Abdominal: Reports: No Symptoms : Reports: No Symptoms Musculoskeletal: Reports: Leg Pain, Foot Pain Skin: Reports: No Symptoms Neurological: Reports: Difficulty Walking, Other (History of multiple sclerosis) Psychiatric: Reports: Depression, Other (Substance abuse) Hematologic/Lymphatic: Reports: No Symptoms Immunologic: Reports: Other (Immune suppression therapy for multiple sclerosis) ED EXAM, GENERAL - Physical Exam Exam: See Below Exam Limited By: No Limitations General Appearance: Alert, No Apparent Distress Eye Exam: Bilateral Eye: EOMI Neck: Normal Inspection Respiratory/Chest: No Respiratory Distress, Decreased Breath Sounds, Crackles Cardiovascular: Other (Irregularly irregular rhythm) Peripheral Pulses: 2+: Radial (L), Radial (R) GI/Abdominal: Non-Tender, Distended Back Exam: No: CVA Tenderness (R), CVA Tenderness (L) Extremities: Pedal Edema, Slow Capillary Refill, Other (Patient is able to move all of her toes and flex and extend the knees and feet, note that she does have chronic weakness and limited movement secondary to multiple sclerosis) Neurological: Alert, Oriented, Normal Cognition Psychiatric: Anxious Skin Exam: Cool, Ecchymosis, Wound/Incision, Other (Minor abrasions bilateral lower extremities below the knees, left greater than right) Course - Vital Signs Text/Narrative:: Patient states that she feels well and is ready to be discharged home. Review of lab work and EKG showed no significant acute abnormalities. Last Recorded V/S: Last Vital Signs Temp 37.6 C 12/26/20 17:27 Pulse 109 H 12/26/20 17:27 Resp 18 12/26/20 17:27 BP 116/70 12/26/20 17:27 Pulse Ox 91 L 12/26/20 17:27 - Orders/Labs/Meds Orders: Active Orders 24 hr Category Date Time Status EKG 12 Lead [EK] Routine Ther 12/26/20 18:26 Ordered Labs: Laboratory Tests 12/26/20 12/26/20 12/26/20 Range/Units 18:43 18:43 18:43 WBC 8.4 (3.0-10.3) x10-3/uL RBC 4.92 (3.60-5.20) x10(6)uL Hgb 14.6 (11.4-15.5) g/dL Hct 44.2 (34.2-48.2) % MCV 89.9 (76.7-100.5) fL MCH 29.6 (23.9-33.9) pg MCHC 32.9 (31.9-34.8) g/dL RDW 15.2 (12.3-16.5) % Plt Count 190 (151-488) x10(3)uL MPV 8.1 (7.1-12.4) fL Neut % (Auto) 85.1 H (30.8-76.2) % Lymph % (Auto) 11.8 L (18.4-52.1) % Mcpherson % (Auto) 2.5 L (4.4-15.7) % Eos % (Auto) 0.1 L (0.6-8.1) % Baso % (Auto) 0.5 (0.2-1.5) % Neut # (Auto) 7.1 H (1.5-6.3) x10-3/uL Lymph # (Auto) 1.0 (1.0-4.4) x10-3/uL Mcpherson # (Auto) 0.2 L (0.3-1.0) x10-3/uL Eos # (Auto) 0.0 (0.0-0.8) x10-3/uL Baso # (Auto) 0.0 (0.0-0.1) x10-3/uL Sodium 144 (135-145) mmol/L Potassium 3.6 (3.5-5.3) mmol/L Chloride 107 (100-110) mmol/L Carbon Dioxide 22 (21-32) mmol/L BUN 11 D (7-18) mg/dL Creatinine 0.9 (0.55-1.02) mg/dL Est Cr Clr Drug Dosing 61.45 mL/min Estimated GFR (MDRD) > 60 (>60) BUN/Creatinine Ratio 12.2 (9-20) Glucose 126 H (80-116) mg/dL Calcium 9.3 (8.6-10.2) mg/dL Total Bilirubin 0.6 (0.1-1.3) mg/dL AST 14 (5-25) IU/L ALT 27 D (12-36) U/L Alkaline Phosphatase 91 (56-112) IU/L Troponin I 9.2 (4.0-60.3) pg/mL NT-Pro-B Natriuret Pep 210 H (<=125) pg/mL Total Protein 7.1 (6.0-8.0) g/dL Albumin 3.8 (3.2-4.6) g/dL Globulin 3.3 g/dL Albumin/Globulin Ratio 1.2 Amylase (25-115) U/L Lipase (73-393) U/L Urine Color (YELLOW) Urine Appearance (CLEAR) Urine pH (5.0-6.5) Ur Specific [place] (1.010-1.025) Urine Protein (NEGATIVE) mg/dL Urine Glucose (UA) (NORMAL) mg/dL Urine Ketones (NEGATIVE) mg/dL Urine Occult Blood (NEGATIVE) Urine Nitrite (NEGATIVE) Urine Bilirubin (NEGATIVE) Urine Urobilinogen (NEGATIVE) mg/dL Ur Leukocyte Esterase (NEGATIVE) Urine RBC (0-5) Urine WBC (0-5) Ur Squamous Epith Cells (NS,R,O) Urine Bacteria (NS) Ethyl Alcohol 0.04 H (<0.03) % 12/26/20 12/26/20 12/26/20 Range/Units 18:43 18:43 19:05 WBC (3.0-10.3) x10-3/uL RBC (3.60-5.20) x10(6)uL Hgb (11.4-15.5) g/dL Hct (34.2-48.2) % MCV (76.7-100.5) fL MCH (23.9-33.9) pg MCHC (31.9-34.8) g/dL RDW (12.3-16.5) % Plt Count (151-488) x10(3)uL MPV (7.1-12.4) fL Neut % (Auto) (30.8-76.2) % Lymph % (Auto) (18.4-52.1) % Mcpherson % (Auto) (4.4-15.7) % Eos % (Auto) (0.6-8.1) % Baso % (Auto) (0.2-1.5) % Neut # (Auto) (1.5-6.3) x10-3/uL Lymph # (Auto) (1.0-4.4) x10-3/uL [place]pherson # (Auto) (0.3-1.0) x10-3/uL Eos # (Auto) (0.0-0.8) x10-3/uL Baso # (Auto) (0.0-0.1) x10-3/uL Sodium (135-145) mmol/L Potassium (3.5-5.3) mmol/L Chloride (100-110) mmol/L Carbon Dioxide (21-32) mmol/L BUN (7-18) mg/dL Creatinine (0.55-1.02) mg/dL Est Cr Clr Drug Dosing mL/min Estimated GFR (MDRD) (>60) BUN/Creatinine Ratio (9-20) Glucose (80-116) mg/dL Calcium (8.6-10.2) mg/dL Total Bilirubin (0.1-1.3) mg/dL AST (5-25) IU/L ALT (12-36) U/L Alkaline Phosphatase (56-112) IU/L Troponin I (4.0-60.3) pg/mL NT-Pro-B Natriuret Pep (<=125) pg/mL Total Protein (6.0-8.0) g/dL Albumin (3.2-4.6) g/dL Globulin g/dL Albumin/Globulin Ratio Amylase 28 (25-115) U/L Lipase 29 L (73-393) U/L Urine Color Yellow (YELLOW) Urine Appearance Slightly cloudy (CLEAR) Urine pH 6.0 (5.0-6.5) Ur Specific [place] 1.020 (1.010-1.025) Urine Protein Negative (NEGATIVE) mg/dL Urine Glucose (UA) Normal (NORMAL) mg/dL Urine Ketones Negative (NEGATIVE) mg/dL Urine Occult Blood Negative (NEGATIVE) Urine Nitrite Negative (NEGATIVE) Urine Bilirubin Negative (NEGATIVE) Urine Urobilinogen Normal (NEGATIVE) mg/dL Ur Leukocyte Esterase Negative (NEGATIVE) Urine RBC 0-5 (0-5) Urine WBC 0-5 (0-5) Ur Squamous Epith Cells Few H (NS,R,O) Urine Bacteria Few H (NS) Ethyl Alcohol (<0.03) % Departure - Departure Time of Disposition: 20:12 Disposition: Home, Self-Care 01 Condition: Fair Clinical Impression: Multiple sclerosis - Discharge Information *PRESCRIPTION DRUG MONITORING PROGRAM REVIEWED*: Not Applicable *COPY OF PRESCRIPTION DRUG MONITORING REPORT IN PATIENT DAMON: Not Applicable Instructions: Multiple Sclerosis Forms: ED Department Discharge Additional Instructions: Patient advised to continue with current care and follow-up with her primary care physician. Sepsis Event Note (ED) - Evaluation Sepsis Screening Result: No Definite Risk - Focused Exam Vital Signs: Vital Signs Temp Pulse Resp BP Pulse Ox 12/26/20 17:27 37.6 C 109 H 18 116/70 91 L - My Orders Last 24 Hours: My Active Orders 12/26/20 18:26 EKG 12 Lead [EK] Routine - Assessment/Plan Last 24 Hours: My Active Orders 12/26/20 18:26 EKG 12 Lead [EK] Routine
--- NOTE | 2020-12-26 19:10 | PCM.EKG ---
#1 Interpretation EKG Date: 12/26/20 Time: 18:26 EKG Interpretation Comments: Sinus tachycardia, rate 124, normal axis, frequent PACs/couplets, possible subclinical lateral/inferior ischemia
== END 2020-12-26 21:37 | disposition home or self-care (01) ==
LOC: FB.ED 17:27
DX: G35 Multiple sclerosis (principal); J44.9 Chronic obstructive pulmonary disease, unspecified; I10 Essential (primary) hypertension; Z72.0 Tobacco use; Z88.5 Allergy status to narcotic agent; Z79.899 Other long term (current) drug therapy
CPT/HCPCS: 36415; 80053; 80307; 81001; 82150; 83690; 83880; 84484; 85025; 93005; 99285-25

== ENCOUNTER 2021-01-11 10:50 | Inpatient (IN) | payer MEDICARE, MEDICAID ==
[2021-01-11] MEDS ORDERED: Sodium Chloride 0.9% 1,000 ML IV SCH (11:30)
--- NOTE | 2021-01-11 12:11 | CT ---
CT HEAD WITHOUT CONTRAST INDICATION: Increased weakness, history of MS. No history of trauma. TECHNIQUE: Spiral 3.75 mm axial sections were obtained through the brain without contrast with axial, sagittal and coronal reconstructions 01/11/21 and compared with 02/24/20. Total exam DLP was 1244.99 mGy/cm. FINDINGS: Degenerative changes are noted at the odontoatlantian joint of a moderate to moderately severe degree. The paranasal sinuses showed some minimal thickening of the lining of the medial wall of the left maxillary antrum and two small retention cysts at the base of the right maxillary antrum. There is also thickening of the lining to a mild degree at the right frontal air cell. Otherwise, the paranasal sinuses were normally aerated. In the right mastoid air cells, there is good aeration. On the left, there is mostly good aeration with one air cell showing some thickening of the lining, which may represent a focal area of mastoiditis on the left. This is seen on axial images 7 through 9 at the left mastoid air cells. The cranium appears to be intact. The orbits appear to be intact. No shift of midline structures was identified. The ventricles are fairly normal in appearance. There is some minimal decreased density in periventricular white matter bilaterally likely on the basis of minimal microvascular disease. Other cause of leukoencephalopathy cannot be excluded, especially in this patient with history of MS. No bleeding site or hematoma was noted. There appears again to be some minimal calcification in the right internal carotid artery. IMPRESSION: 1. Relatively mild cerebrovascular disease with minimal white matter changes which may be on the basis of slightly progressive mild microvascular disease, although other cause of leukoencephalopathy cannot be excluded. 2. No definite acute intracranial abnormality. 3. Minimal findings in the paranasal sinuses and left mastoid air cell. [facility]
--- NOTE | 2021-01-11 12:15 | CR ---
CHEST ONE VIEW INDICATION: Weakness, history of CVA, denies previous stroke - has a history of MS. FINDINGS: An AP upright portable view of the chest 01/11/21 was compared with 11/14/20. The chest is rotated slightly to the left, increasing density on the right. It is difficult to exclude minimal patchy infiltrate in the right mid to lower lung field. This could be on the basis of pneumonia but should be correlated clinically. No gross consolidating pneumonia or effusion was seen. The heart did not appear grossly enlarged but was not well evaluated due to slightly elevated left hemidiaphragm and AP positioning. The aorta is tortuous with calcification in the arch. IMPRESSION: Suggestion of minimal patchy infiltrate in the right mid lung field and lower lung field which may be on the basis of pneumonia and should be correlated clinically. It did not appear to be present on 11/14/2020 examination. Report for chest x-ray and CT head were called to Dr. Rivas at 1157 hours 01/11/21. JOHANNA
[2021-01-11] MEDS: Sodium Chloride 0.9% 10 ML Syringe FLUSH PRN ×2 (12:45→22:02)
[2021-01-11] MEDS ORDERED: Codeine/guaiFENesin 10-100 MG/5 ML Syrup 5 ML Cup PO STA (13:16)
[2021-01-11] MEDS ORDERED: LORazepam 2 MG/ML SDV IVPUSH STA (13:16)
[2021-01-11] MEDS ORDERED: cefTRIAXone 1 GM in Sodium Chloride 0.9% 50 ML IV SCH (14:00)
[2021-01-11] MEDS ORDERED: Azithromycin 500 MG in Sodium Chloride 0.9% 250 ML IV SCH (14:00)
[2021-01-11] MEDS ORDERED: cefTRIAXone 1 GM Vial IVPUSH ONE (14:45)
[2021-01-11] MEDS ORDERED: Gadoteridol 279.3 MG/ML 20 ML SDV IV SCH (15:00)
[2021-01-11] MEDS ORDERED: cefTRIAXone 1 GM Vial ONE (15:40)
[2021-01-11] MEDS ORDERED: Ibuprofen 800 MG Tab PO PRN (16:34)
[2021-01-11] MEDS ORDERED: Albuterol/Ipratropium 3.0-0.5 MG/3 ML Neb Soln INH PRN (17:29)
--- NOTE | 2021-01-11 18:23 | PCM.HP.2 ---
H&P History of Present Illness - General Date of Service: 01/11/21 Admit Problem/Dx: Admission Diagnosis/Problem Admission Diagnosis/Problem Weakness Source of Information: Patient, RN History Limitations: Reports: Altered Mental Status (after sedation for MRI) - History of Present Illness Initial Comments - Free Text/Narative: Ayana presented to ER with right sided weakness which was new since yesterday, chronic left sided weakness. She fell at home, caregiver couldn't get her up, ambulance was called. She has COPD and doesn't always keep her oxygen on at home. Having wheezing. History obtained from nursing as she is still groggy from sedation for MRI: no fever, chills, shortness of breath, nausea, vomiting, diarrhea. She has had cough for a few days but usually can tell if she has pneumonia. She has history of neurogenic bladder secondary to Multiple Sclerosis(MS) and has incontinence. Sore on right ischial tuberosity noted in ER. Had BM 2 days ago. In ER: WBC 7.9, Hgb 14.0, Plt 186. Chemistry unremarkable. CRP 5.5. UA negative. Lactic acid 0.8. CT head showed hypodense area, recommended MRI/MRA. [facility] reviewed images with Dr Rivas(ER) and stated there was no new stroke, no MS flare, change more consistent with deconditioning. CXR showed RLL pneumonia. Given Rocephin 1 g IV x 1 and Azithromycin 500 mg IV x 1 in ER. Ativan given prior to MRI. Reported that she has been having more issues at home and was looking at [facility] which is a [facility], caregiver at home is having problems taking care of and likely she needs NH placement. Bilateral lower legs & feet Pain Score (Numeric/FACES): 9 - Related Data Allergies/Adverse Reactions: Allergies Allergy/AdvReac Type Severity Reaction Status Date / Time gabapentin Allergy Mild Cannot Verified 01/11/21 11:10 Remember Home Medications: Home Meds Amitriptyline [Elavil] 40 mg PO BEDTIME 02/08/20 [History] Baclofen 20 mg PO TID 02/08/20 [History] DULoxetine [Cymbalta] 60 mg PO DAILY 02/08/20 [History] Folic Acid 1 mg PO DAILY 02/08/20 [History] Oxybutynin 5 mg PO TID 02/08/20 [History] Pnv No.95/Ferrous Fum/Folic AC [ Caplet] 1 tab PO DAILY 02/08/20 [His tory] Verapamil [Calan] 80 mg PO TID 02/08/20 [History] Famotidine 20 mg PO BID 02/24/20 [History] Meloxicam 15 mg PO DAILY 02/24/20 [History] Umeclidinium Lindsay [Incruse Ellipta*] 1 puff INH DAILY 02/25/20 [History] Leflunomide 20 mg PO DAILY 11/14/20 [History] Varenicline [Chantix] 1 tab PO BID 11/14/20 [History] Docusate Sodium 100 mg PO BID #0 11/16/20 [Rx] Acetaminophen [Tylenol Extra Strength] 1,000 mg PO BID 12/26/20 [History] atorvaSTATin [Lipitor] 40 mg PO BEDTIME 12/26/20 [History] Cholecalciferol (Vitamin D3) [Vitamin D3] 125 mcg PO DAILY 01/11/21 [History] Ibuprofen 1 tab PO Q6H PRN 01/11/21 [History] Pregabalin [Lyrica] 1 cap PO TID 01/11/21 [History] predniSONE [Prednisone] 1 mg PO ASDIRECTED 01/11/21 [History] Past Medical History HEENT History: Reports: None Cardiovascular History: Reports: Arrhythmia, Hypertension Other Cardiovascular History: tachycardia Respiratory History: Reports: COPD Other Respiratory History: Has O2 @ home, but doesn't use it. Gastrointestinal History: Reports: None Genitourinary History: Reports: Urinary Incontinence DRAWING IN HAND History: Reports: Other OB/BYN History: Musculoskeletal History: Reports: Arthritis, Fracture Other Musculoskeletal History: hx fx toes bilat, R gt toe Neurological History: Reports: MS, Neuropathy, Peripheral Psychiatric History: Reports: Addiction, Anxiety, Depression, Psych Hospitalization(s), Suicide Attempt Other Psychiatric History: hx ETOH abuse, has been in tx x 3 in past - Infectious Disease History Infectious Disease History: Reports: Chicken Pox, Measles, Mumps - Past Surgical History Head Surgeries/Procedures: Reports: None Cardiovascular Surgical History: Reports: Cardiac Ablation Female Surgical History: Reports: Section, Tubal Ligation Other Female Surgeries/Procedures: CS x 2 Musculoskeletal Surgical History: Reports: None Social & Family History - Family History Family Medical History: No Pertinent Family History - Tobacco Use Tobacco Use Status *Q: Heavy Tobacco User Years of Tobacco use: 47 Packs/Tins Daily: 1 - Caffeine Use Caffeine Use: Reports: Coffee Other Caffeine Use: 2 cups /day Caffeine Use Comment: up to 3 large mugs daily - Recreational Drug Use Recreational Drug Use: Yes Drug Use in Last 12 Months: Yes Recreational Drug Type: Reports: Marijuana/Hashish Recreational Drug Use Frequency: Socially H&P Review of Systems - Review of Systems: Review Of Systems: Comprehensive ROS is negative, except as noted in HPI. Exam - Exam Exam: See Below - Vital Signs Vital Signs: Last Vital Signs Temp 98.1 F 01/11/21 10:50 Pulse 97 01/11/21 10:50 Resp 20 01/11/21 10:50 BP 112/74 01/11/21 10:50 Pulse Ox 86 L 01/11/21 10:50 Weight: 180 lb - Exam Quality Assessment: Supplemental Oxygen (89% 1L) General: Sedated Lungs: Normal Respiratory Effort, Crackles (RLL), Rhonchi (RLL), Wheezing (throughout) Cardiovascular: Regular Rate, Regular Rhythm GI/Abdominal Exam: Normal Bowel Sounds, Soft, Non-Tender, No Distention (Female) Exam: Deferred Rectal (Female) Exam: Normal Exam, Other (small 1 cm erythema on right ischial tuberosity, barrier cream applied to area by nursing) Extremities: No Pedal Edema Peripheral Pulses: 2+: Radial (L), Radial (R), Posterior Tibial (L), Posterior Tibial (R), Dorsalis Pedis (L), Dorsalis Pedis (R) Skin: Other (abrasions to bilateral knees, left dorsal foot) - Patient Data Lab Results Last 24 hrs: Laboratory Results - last 24 hr 01/11/21 01/11/21 01/11/21 Range/Units 11:25 11:25 11:27 WBC 7.9 (3.0-10.3) x10-3/uL RBC 4.65 (3.60-5.20) x10(6)uL Hgb 14.0 (11.4-15.5) g/dL Hct 41.9 (34.2-48.2) % MCV 90.0 (76.7-100.5) fL MCH 30.2 (23.9-33.9) pg MCHC 33.5 (31.9-34.8) g/dL RDW 15.4 (12.3-16.5) % Plt Count 186 (151-488) x10(3)uL MPV 8.3 (7.1-12.4) fL Neut % (Auto) 70.0 (30.8-76.2) % Lymph % (Auto) 15.0 L (18.4-52.1) % Barton % (Auto) 10.0 (4.4-15.7) % Eos % (Auto) 3.8 (0.6-8.1) % Baso % (Auto) 1.2 (0.2-1.5) % Neut # (Auto) 5.6 (1.5-6.3) x10-3/uL Lymph # (Auto) 1.2 (1.0-4.4) x10-3/uL Barton # (Auto) 0.8 (0.3-1.0) x10-3/uL Eos # (Auto) 0.3 (0.0-0.8) x10-3/uL Baso # (Auto) 0.1 (0.0-0.1) x10-3/uL Sodium (135-145) mmol/L Potassium (3.5-5.3) mmol/L Chloride (100-110) mmol/L Carbon Dioxide (21-32) mmol/L BUN (7-18) mg/dL Creatinine (0.55-1.02) mg/dL Est Cr Clr Drug Dosing mL/min Estimated GFR (MDRD) (>60) BUN/Creatinine Ratio (9-20) Glucose (80-116) mg/dL Lactic Acid (0.4-2.0) mmol/L Calcium (8.6-10.2) mg/dL Total Bilirubin (0.1-1.3) mg/dL AST (5-25) IU/L ALT (12-36) U/L Alkaline Phosphatase (56-112) IU/L Troponin I 14.8 (4.0-60.3) pg/mL C-Reactive Protein 5.5 H* (0.5-0.9) mg/dL Total Protein (6.0-8.0) g/dL Albumin (3.2-4.6) g/dL Globulin g/dL Albumin/Globulin Ratio Urine Color (YELLOW) Urine Appearance (CLEAR) Urine pH (5.0-6.5) Ur Specific [place] (1.010-1.025) Urine Protein (NEGATIVE) mg/dL Urine Glucose (UA) (NORMAL) mg/dL Urine Ketones (NEGATIVE) mg/dL Urine Occult Blood (NEGATIVE) Urine Nitrite (NEGATIVE) Urine Bilirubin (NEGATIVE) Urine Urobilinogen (NEGATIVE) mg/dL Ur Leukocyte Esterase (NEGATIVE) Urine WBC (0-5) Ur Squamous Epith Cells (NS,R,O) Urine Bacteria (NS) SARS-CoV-2 RNA (VINCENT) (NEGATIVE) 01/11/21 01/11/21 01/11/21 Range/Units 11:27 12:31 12:31 WBC (3.0-10.3) x10-3/uL RBC (3.60-5.20) x10(6)uL Hgb (11.4-15.5) g/dL Hct (34.2-48.2) % MCV (76.7-100.5) fL MCH (23.9-33.9) pg MCHC (31.9-34.8) g/dL RDW (12.3-16.5) % Plt Count (151-488) x10(3)uL MPV (7.1-12.4) fL Neut % (Auto) (30.8-76.2) % Lymph % (Auto) (18.4-52.1) % Barton % (Auto) (4.4-15.7) % Eos % (Auto) (0.6-8.1) % Baso % (Auto) (0.2-1.5) % Neut # (Auto) (1.5-6.3) x10-3/uL Lymph # (Auto) (1.0-4.4) x10-3/uL Barton # (Auto) (0.3-1.0) x10-3/uL Eos # (Auto) (0.0-0.8) x10-3/uL Baso # (Auto) (0.0-0.1) x10-3/uL Sodium 140 (135-145) mmol/L Potassium 4.1 (3.5-5.3) mmol/L Chloride 106 (100-110) mmol/L Carbon Dioxide 27 (21-32) mmol/L BUN 21 H D (7-18) mg/dL Creatinine 0.7 (0.55-1.02) mg/dL Est Cr Clr Drug Dosing 79.01 mL/min Estimated GFR (MDRD) > 60 (>60) BUN/Creatinine Ratio 30.0 H (9-20) Glucose 100 (80-116) mg/dL Lactic Acid (0.4-2.0) mmol/L Calcium 8.4 L (8.6-10.2) mg/dL Total Bilirubin 0.5 (0.1-1.3) mg/dL AST 20 D (5-25) IU/L ALT 22 D (12-36) U/L Alkaline Phosphatase 121 H (56-112) IU/L Troponin I (4.0-60.3) pg/mL C-Reactive Protein (0.5-0.9) mg/dL Total Protein 6.8 (6.0-8.0) g/dL Albumin 3.0 L (3.2-4.6) g/dL Globulin 3.8 g/dL Albumin/Globulin Ratio 0.8 Urine Color Yellow (YELLOW) Urine Appearance Clear (CLEAR) Urine pH 5.0 (5.0-6.5) Ur Specific [place] 1.020 (1.010-1.025) Urine Protein Negative (NEGATIVE) mg/dL Urine Glucose (UA) Normal (NORMAL) mg/dL Urine Ketones Negative (NEGATIVE) mg/dL Urine Occult Blood Negative (NEGATIVE) Urine Nitrite Negative (NEGATIVE) Urine Bilirubin Small H (NEGATIVE) Urine Urobilinogen 4 H (NEGATIVE) mg/dL Ur Leukocyte Esterase Negative (NEGATIVE) Urine WBC 0-5 (0-5) Ur Squamous Epith Cells Few H (NS,R,O) Urine Bacteria Few H (NS) SARS-CoV-2 RNA (VINCENT) Negative (NEGATIVE) 01/11/21 Range/Units 14:50 WBC (3.0-10.3) x10-3/uL RBC (3.60-5.20) x10(6)uL Hgb (11.4-15.5) g/dL Hct (34.2-48.2) % MCV (76.7-100.5) fL MCH (23.9-33.9) pg MCHC (31.9-34.8) g/dL RDW (12.3-16.5) % Plt Count (151-488) x10(3)uL MPV (7.1-12.4) fL Neut % (Auto) (30.8-76.2) % Lymph % (Auto) (18.4-52.1) % Barton % (Auto) (4.4-15.7) % Eos % (Auto) (0.6-8.1) % Baso % (Auto) (0.2-1.5) % Neut # (Auto) (1.5-6.3) x10-3/uL Lymph # (Auto) (1.0-4.4) x10-3/uL Barton # (Auto) (0.3-1.0) x10-3/uL Eos # (Auto) (0.0-0.8) x10-3/uL Baso # (Auto) (0.0-0.1) x10-3/uL Sodium (135-145) mmol/L Potassium (3.5-5.3) mmol/L Chloride (100-110) mmol/L Carbon Dioxide (21-32) mmol/L BUN (7-18) mg/dL Creatinine (0.55-1.02) mg/dL Est Cr Clr Drug Dosing mL/min Estimated GFR (MDRD) (>60) BUN/Creatinine Ratio (9-20) Glucose (80-116) mg/dL Lactic Acid 0.8 (0.4-2.0) mmol/L Calcium (8.6-10.2) mg/dL Total Bilirubin (0.1-1.3) mg/dL AST (5-25) IU/L ALT (12-36) U/L Alkaline Phosphatase (56-112) IU/L Troponin I (4.0-60.3) pg/mL C-Reactive Protein (0.5-0.9) mg/dL Total Protein (6.0-8.0) g/dL Albumin (3.2-4.6) g/dL Globulin g/dL Albumin/Globulin Ratio Urine Color (YELLOW) Urine Appearance (CLEAR) Urine pH (5.0-6.5) Ur Specific [place] (1.010-1.025) Urine Protein (NEGATIVE) mg/dL Urine Glucose (UA) (NORMAL) mg/dL Urine Ketones (NEGATIVE) mg/dL Urine Occult Blood (NEGATIVE) Urine Nitrite (NEGATIVE) Urine Bilirubin (NEGATIVE) Urine Urobilinogen (NEGATIVE) mg/dL Ur Leukocyte Esterase (NEGATIVE) Urine WBC (0-5) Ur Squamous Epith Cells (NS,R,O) Urine Bacteria (NS) SARS-CoV-2 RNA (VINCENT) (NEGATIVE) Result Diagrams: 01/11/21 11:27 01/11/21 11:27 Dante Results Last 24 hrs: Microbiology 01/11/21 15:05 Influenza Type A Antigen Screen - Final Nasopharyngeal Swab NEGATIVE INFLUENZA A VIRUS AG REFERENCE RANGE: NEGATIVE Influenza Type B Antigen Screen - Final NEGATIVE INFLUENZA B VIRUS AG REFERENCE RANGE: NEGATIVE Sepsis Event Note - Evaluation Sepsis Screening Result: No Definite Risk - Focused Exam Vital Signs: Vital Signs Temp Pulse Resp BP Pulse Ox 01/11/21 10:50 98.1 F 97 20 112/74 86 L *Q Meaningful Use (ADM) - VTE *Q VTE Mechanical Contraindications *Q: At Risk for Falls - VTE Risk Assess *Q Each Risk Factor Represents 1 Point: Serious lung disease including pneumonia, Abnormal Pulmonary Function (COPD) Total Score 1 Point Risk Factors: 2 Each Risk Factor Represents 2 Points: Age 60 - 74 Years Total Score 2 Point Risk Factors: 2 Each Risk Factor Represents 3 Points: None Total Score 3 Point Risk Factors: 0 Each Risk Factor Represents 5 Points: None Total Score 5 Point Risk Factors: 0 Venous Thromboembolism Risk Factor Score *Q: 4 - Problem List (1) Right lower lobe pneumonia SNOMED Code(s): 821633381 ICD Code: J18.9 - PNEUMONIA, UNSPECIFIED ORGANISM Status: Acute Current Visit: Yes (2) Weakness SNOMED Code(s): 41232025 ICD Code: R53.1 - WEAKNESS Status: Chronic Current Visit: No (3) COPD (chronic obstructive pulmonary disease) SNOMED Code(s): 82563085 ICD Code: J44.9 - CHRONIC OBSTRUCTIVE PULMONARY DISEASE, UNSPECIFIED Status: Chronic Current Visit: No Qualifiers: COPD type: COPD with acute exacerbation Qualified Code(s): J44.1 - Chronic obstructive pulmonary disease with (acute) exacerbation (4) Multiple sclerosis SNOMED Code(s): 47018034 ICD Code: G35 - MULTIPLE SCLEROSIS Status: Chronic Current Visit: No Onset Date: ~2015 (5) Rheumatoid arthritis SNOMED Code(s): 71324486 ICD Code: M06.9 - RHEUMATOID ARTHRITIS, UNSPECIFIED Status: Chronic Current Visit: No Qualifiers: Rheumatoid arthritis location: multiple sites (6) Tobacco abuse SNOMED Code(s): 626886228 ICD Code: Z72.0 - TOBACCO USE Status: Chronic Current Visit: No (7) Palliative care status SNOMED Code(s): 592370305 ICD Code: Z51.5 - ENCOUNTER FOR PALLIATIVE CARE Status: Chronic Current Visit: No Problem List Initiated/Reviewed/Updated: Yes Orders Last 24hrs: Active Orders 24 hr Category Date Time Status Patient Status [ADT] Routine ADT 01/11/21 17:29 Ordered Oxygen Therapy [RC] PRN Care 01/11/21 17:29 Ordered RT Aerosol Therapy [RC] ASDIRECTED Care 01/11/21 17:32 Ordered Up With Assistance [RC] ASDIRECTED Care 01/11/21 17:29 Ordered Up to Chair [RC] ASDIRECTED Care 01/11/21 17:29 Ordered VTE/DVT Education [RC] Per Unit Routine Care 01/11/21 17:29 Ordered Vital Signs [RC] Q4H Care 01/11/21 17:29 Ordered OT Evaluation and Treatment [CONS] Routine Cons 01/11/21 17:29 Ordered PT Evaluation and Treatment [CONS] Routine Cons 01/11/21 17:29 Ordered Regular Diet [DIET] Diet 01/11/21 Dinner Ordered Brain w wo Cont [MR] Stat Exams 01/11/21 12:42 Taken CULTURE BLOOD [BC] Urgent Lab 01/11/21 14:50 Received CULTURE BLOOD [BC] Urgent Lab 01/11/21 15:00 Received Acetaminophen [Tylenol Extra Strength] Med 01/11/21 21:00 Active 1,000 mg PO BID Albuterol/Ipratropium [DuoNeb 3.0-0.5 MG/3 ML] Med 01/11/21 17:29 Ordered 3 ml INH Q6H PRN Albuterol/Ipratropium [DuoNeb 3.0-0.5 MG/3 ML] Med 01/11/21 21:00 Ordered 3 ml NEB QIDRT Amitriptyline [Elavil] Med 01/11/21 21:00 Pending 40 mg PO BEDTIME Azithromycin [Zithromax] 500 mg Med 01/12/21 14:00 Ordered Sodium Chloride 0.9% [Normal Saline (AdvBag)] 250 ml IV Q24H Baclofen [Lioresal] Med 01/11/21 21:00 Active 20 mg PO TID DULoxetine [Cymbalta] Med 01/12/21 09:00 Active 60 mg PO DAILY Docusate Sodium [Colace] Med 01/11/21 21:00 Active 100 mg PO BID Enoxaparin [Lovenox] Med 01/11/21 17:30 Ordered 40 mg SUBCUT Q24H Famotidine [Pepcid] Med 01/11/21 21:00 Active 20 mg PO BID Folic Acid Med 01/12/21 09:00 Active 1 mg PO DAILY Ibuprofen [Motrin] Med 01/11/21 16:34 Pending 800 mg PO Q8HR PRN Leflunomide [Arava] Med 01/12/21 09:00 Active 20 mg PO DAILY Meloxicam [Mobic] Med 01/12/21 09:00 Pending 15 mg PO DAILY Oxybutynin Med 01/11/21 21:00 Active 5 mg PO TID Pregabalin [Lyrica] Med 01/11/21 21:00 Active 150 mg PO TID Vit/FA/Fe Fumarate [-U] Med 01/12/21 09:00 Active 1 each PO DAILY Sodium Chloride 0.9% [Saline Flush] Med 01/11/21 11:10 Active 10 ml FLUSH ASDIRECTED PRN Tiotropium Lindsay [Spiriva Respimat] Med 01/12/21 09:00 Active 0 gm INH DAILY Verapamil [Calan] Med 01/11/21 21:00 Active 80 mg PO TID atorvaSTATin [Lipitor] Med 01/11/21 21:00 Active 40 mg PO BEDTIME cefTRIAXone [Rocephin] 1 gm Med 01/12/21 15:00 Ordered Sodium Chloride 0.9% [Normal Saline] 50 ml IV Q24H predniSONE Med 01/12/21 09:00 Pending 1 mg PO DAILY Antiembolic Hose [OM.PC] Per Unit Routine Oth 01/11/21 17:30 Ordered Saline Lock Insert [OM.PC] Routine Oth 01/11/21 17:29 Ordered Resuscitation Status Routine Resus Stat 01/11/21 17:29 Ordered EKG 12 Lead [EK] Routine Ther 01/11/21 11:10 Stop Req Medication Orders Acetaminophen (Acetaminophen 500 Mg Tab) 1,000 mg PO BID ESTELLA Albuterol/Ipratropium (Albuterol/Ipratropium 3.0-0.5 Mg/3 Ml Neb Soln) 3 ml NEB QIDRT ESTELLA Albuterol/Ipratropium (Albuterol/Ipratropium 3.0-0.5 Mg/3 Ml Neb Soln) 3 ml INH Q6H PRN PRN Reason: Shortness Of Breath/wheezing Amitriptyline HCl (Amitriptyline 10 Mg Tab) 40 mg PO BEDTIME ESTELLA Atorvastatin Calcium (Atorvastatin 40 Mg Tab) 40 mg PO BEDTIME ESTELLA Baclofen (Baclofen 10 Mg Tab) 20 mg PO TID ESTELLA Docusate Sodium (Docusate Sodium 100 Mg Cap) 100 mg PO BID ESTELLA Duloxetine HCl (Duloxetine 60 Mg Cap) 60 mg PO DAILY [facility] Enoxaparin Sodium (Enoxaparin 40 Mg/0.4 Ml Syringe) 40 mg SUBCUT Q24H ESTELLA Famotidine (Famotidine 20 Mg Tab) 20 mg PO BID [facility] Folic Acid (Folic Acid 1 Mg Tab) 1 mg PO DAILY [facility] Azithromycin 500 mg/ Sodium (Chloride) 250 mls @ 250 mls/hr IV Q24H ESTELLA Ceftriaxone Sodium 1 gm/ (Sodium Chloride) 50 mls @ 200 mls/hr IV Q24H ESTELLA Ibuprofen (Ibuprofen 800 Mg Tab) 800 mg PO Q8HR PRN PRN Reason: Moderate Pain Leflunomide (Leflunomide 20 Mg Tab) 20 mg PO DAILY ESTELLA Meloxicam (Meloxicam 15 Mg Tab) 15 mg PO DAILY [facility] Oxybutynin Chloride (Oxybutynin 5 Mg Tab) 5 mg PO TID ESTELLA Prednisone (Prednisone 20 Mg Tab) 1 mg PO DAILY ESTELLA Pregabalin (Pregabalin 75 Mg Cap) 150 mg PO TID ESTELLA Multivit/Folic Acid/Iron ( Multivitamin With Calcium/Folic Acid/Fe Fumarate Cap) 1 each PO DAILY [facility] Sodium Chloride (Sodium Chloride 0.9% 10 Ml Syringe) 10 ml FLUSH ASDIRECTED PRN PRN Reason: Keep Vein Open Last Admin: 01/11/21 12:45 Dose: 10 ml Documented by: SARWAT Tiotropium Lindsay (Tiotropium Lindsay 4 Gm Inhalation [place] (2.5mcg/1 Dose; 10 Doses)) 0 gm INH DAILY ESTELLA Verapamil HCl (Verapamil 40 Mg Tab) 80 mg PO TID ESTELLA Assessment/Plan Comment:: 1. Admit for inpatient treatment of RLL pneumonia, weakness. 2. RLL pneumonia: Rocephin 1 g IV q24h and Azithromycin 500 mg IV q24h ordered for tomorrow afternoon. BC pending. 3. COPD: Oxygen saturations between 88-92%, DuoNebs qid and q6h prn SOB. 4. Weakness: PT/OT evaluate & treat. 5. Diet: regular. 6. Activity: up to chair and with assistance. 7. DVT prophylaxis: Lovenox 40 mg sq daily. TEDS BLE. 8. CODE STATUS: FULL. 9. Discharge planning: anticipate 72 hours of IV antibiotics, PT/OT and discharge planning find NH placement. - Mortality Measure Prognosis:: Poor
[2021-01-11] MEDS: Enoxaparin 40 MG/0.4 ML Syringe SUBCUT SCH (18:54)
[2021-01-11] MEDS: Acetaminophen 500 MG Tab PO SCH (21:48)
[2021-01-11] MEDS: Oxybutynin 5 MG Tab PO SCH (21:49)
[2021-01-11] MEDS: Baclofen 10 MG Tab PO SCH (21:49)
[2021-01-11] MEDS: atorvaSTATin 40 MG Tab PO SCH (21:49)
[2021-01-11] MEDS: Famotidine 20 MG Tab PO SCH (21:49)
[2021-01-11] MEDS: Docusate Sodium 100 MG Cap PO SCH (21:49)
[2021-01-11] MEDS: Albuterol/Ipratropium 3.0-0.5 MG/3 ML Neb Soln NEB SCH (21:55)
[2021-01-11] MEDS: Pregabalin 75 MG Cap PO SCH (21:55)
[2021-01-12] MEDS: Albuterol/Ipratropium 3.0-0.5 MG/3 ML Neb Soln NEB SCH ×4 (06:02→21:20)
[2021-01-12] MEDS: Folic Acid 1 MG Tab PO SCH (09:10)
[2021-01-12] MEDS: Baclofen 10 MG Tab PO SCH ×3 (09:10→21:23)
[2021-01-12] MEDS: Prenatal Multivitamin with Calcium/Folic Acid/Fe Fumarate Cap PO SCH (09:10)
[2021-01-12] MEDS: Acetaminophen 500 MG Tab PO SCH ×2 (09:10→21:26)
[2021-01-12] MEDS: Famotidine 20 MG Tab PO SCH ×2 (09:11→21:26)
[2021-01-12] MEDS: Leflunomide 20 MG Tab PO SCH (09:11)
[2021-01-12] MEDS: Docusate Sodium 100 MG Cap PO SCH ×2 (09:11→21:23)
[2021-01-12] MEDS: DULoxetine 60 MG Cap PO SCH (09:11)
[2021-01-12] MEDS: Oxybutynin 5 MG Tab PO SCH ×3 (09:12→21:25)
[2021-01-12] MEDS: Pregabalin 75 MG Cap PO SCH ×3 (09:14→21:29)
[2021-01-12] MEDS: Meloxicam 7.5 MG Tab PO SCH (09:16)
[2021-01-12] MEDS: predniSONE 1 MG Tab PO SCH (09:16)
[2021-01-12] MEDS: Tiotropium Bromide 4 GM Inhalation Spray (2.5mcg/1 dose; 10 doses) INH SCH (09:17)
--- NOTE | 2021-01-12 11:26 | PCM.PN ---
- General Info Date of Service: 01/12/21 Subjective Update: Ayana states that oxygen tubing makes her break out and that's why she doesn't like wearing at home or here. She is wheezing this morning. She has been looking at assisted living centers but has been told she is too much cares for them to take, feels she needs to go to residential. Doesn't remember much of yesterday. She has been coughing but didn't think she had pneumonia, homebound so has not had any sick contacts. - Patient Data Vitals - Most Recent: Last Vital Signs Temp 97.7 F 01/12/21 05:00 Pulse 92 01/12/21 05:00 Resp 18 01/12/21 05:00 BP 108/70 01/12/21 05:00 Pulse Ox 90 L 01/12/21 05:00 Weight - Most Recent: 180 lb Lab Results Last 24 Hours: Laboratory Results - last 24 hr 01/11/21 01/11/21 01/11/21 Range/Units 11:25 11:25 11:27 WBC 7.9 (3.0-10.3) x10-3/uL RBC 4.65 (3.60-5.20) x10(6)uL Hgb 14.0 (11.4-15.5) g/dL Hct 41.9 (34.2-48.2) % MCV 90.0 (76.7-100.5) fL MCH 30.2 (23.9-33.9) pg MCHC 33.5 (31.9-34.8) g/dL RDW 15.4 (12.3-16.5) % Plt Count 186 (151-488) x10(3)uL MPV 8.3 (7.1-12.4) fL Neut % (Auto) 70.0 (30.8-76.2) % Lymph % (Auto) 15.0 L (18.4-52.1) % Nelson % (Auto) 10.0 (4.4-15.7) % Eos % (Auto) 3.8 (0.6-8.1) % Baso % (Auto) 1.2 (0.2-1.5) % Neut # (Auto) 5.6 (1.5-6.3) x10-3/uL Lymph # (Auto) 1.2 (1.0-4.4) x10-3/uL Nelson # (Auto) 0.8 (0.3-1.0) x10-3/uL Eos # (Auto) 0.3 (0.0-0.8) x10-3/uL Baso # (Auto) 0.1 (0.0-0.1) x10-3/uL Sodium (135-145) mmol/L Potassium (3.5-5.3) mmol/L Chloride (100-110) mmol/L Carbon Dioxide (21-32) mmol/L BUN (7-18) mg/dL Creatinine (0.55-1.02) mg/dL Est Cr Clr Drug Dosing mL/min Estimated GFR (MDRD) (>60) BUN/Creatinine Ratio (9-20) Glucose (80-116) mg/dL Lactic Acid (0.4-2.0) mmol/L Calcium (8.6-10.2) mg/dL Total Bilirubin (0.1-1.3) mg/dL AST (5-25) IU/L ALT (12-36) U/L Alkaline Phosphatase (56-112) IU/L Troponin I 14.8 (4.0-60.3) pg/mL C-Reactive Protein 5.5 H* (0.5-0.9) mg/dL Total Protein (6.0-8.0) g/dL Albumin (3.2-4.6) g/dL Globulin g/dL Albumin/Globulin Ratio Urine Color (YELLOW) Urine Appearance (CLEAR) Urine pH (5.0-6.5) Ur Specific [place] (1.010-1.025) Urine Protein (NEGATIVE) mg/dL Urine Glucose (UA) (NORMAL) mg/dL Urine Ketones (NEGATIVE) mg/dL Urine Occult Blood (NEGATIVE) Urine Nitrite (NEGATIVE) Urine Bilirubin (NEGATIVE) Urine Urobilinogen (NEGATIVE) mg/dL Ur Leukocyte Esterase (NEGATIVE) Urine WBC (0-5) Ur Squamous Epith Cells (NS,R,O) Urine Bacteria (NS) SARS-CoV-2 RNA (VINCENT) (NEGATIVE) 01/11/21 01/11/21 01/11/21 Range/Units 11:27 12:31 12:31 WBC (3.0-10.3) x10-3/uL RBC (3.60-5.20) x10(6)uL Hgb (11.4-15.5) g/dL Hct (34.2-48.2) % MCV (76.7-100.5) fL MCH (23.9-33.9) pg MCHC (31.9-34.8) g/dL RDW (12.3-16.5) % Plt Count (151-488) x10(3)uL MPV (7.1-12.4) fL Neut % (Auto) (30.8-76.2) % Lymph % (Auto) (18.4-52.1) % Nelson % (Auto) (4.4-15.7) % Eos % (Auto) (0.6-8.1) % Baso % (Auto) (0.2-1.5) % Neut # (Auto) (1.5-6.3) x10-3/uL Lymph # (Auto) (1.0-4.4) x10-3/uL Nelson # (Auto) (0.3-1.0) x10-3/uL Eos # (Auto) (0.0-0.8) x10-3/uL Baso # (Auto) (0.0-0.1) x10-3/uL Sodium 140 (135-145) mmol/L Potassium 4.1 (3.5-5.3) mmol/L Chloride 106 (100-110) mmol/L Carbon Dioxide 27 (21-32) mmol/L BUN 21 H D (7-18) mg/dL Creatinine 0.7 (0.55-1.02) mg/dL Est Cr Clr Drug Dosing 79.01 mL/min Estimated GFR (MDRD) > 60 (>60) BUN/Creatinine Ratio 30.0 H (9-20) Glucose 100 (80-116) mg/dL Lactic Acid (0.4-2.0) mmol/L Calcium 8.4 L (8.6-10.2) mg/dL Total Bilirubin 0.5 (0.1-1.3) mg/dL AST 20 D (5-25) IU/L ALT 22 D (12-36) U/L Alkaline Phosphatase 121 H (56-112) IU/L Troponin I (4.0-60.3) pg/mL C-Reactive Protein (0.5-0.9) mg/dL Total Protein 6.8 (6.0-8.0) g/dL Albumin 3.0 L (3.2-4.6) g/dL Globulin 3.8 g/dL Albumin/Globulin Ratio 0.8 Urine Color Yellow (YELLOW) Urine Appearance Clear (CLEAR) Urine pH 5.0 (5.0-6.5) Ur Specific [place] 1.020 (1.010-1.025) Urine Protein Negative (NEGATIVE) mg/dL Urine Glucose (UA) Normal (NORMAL) mg/dL Urine Ketones Negative (NEGATIVE) mg/dL Urine Occult Blood Negative (NEGATIVE) Urine Nitrite Negative (NEGATIVE) Urine Bilirubin Small H (NEGATIVE) Urine Urobilinogen 4 H (NEGATIVE) mg/dL Ur Leukocyte Esterase Negative (NEGATIVE) Urine WBC 0-5 (0-5) Ur Squamous Epith Cells Few H (NS,R,O) Urine Bacteria Few H (NS) SARS-CoV-2 RNA (VINCENT) Negative (NEGATIVE) 01/11/21 Range/Units 14:50 WBC (3.0-10.3) x10-3/uL RBC (3.60-5.20) x10(6)uL Hgb (11.4-15.5) g/dL Hct (34.2-48.2) % MCV (76.7-100.5) fL MCH (23.9-33.9) pg MCHC (31.9-34.8) g/dL RDW (12.3-16.5) % Plt Count (151-488) x10(3)uL MPV (7.1-12.4) fL Neut % (Auto) (30.8-76.2) % Lymph % (Auto) (18.4-52.1) % Nelson % (Auto) (4.4-15.7) % Eos % (Auto) (0.6-8.1) % Baso % (Auto) (0.2-1.5) % Neut # (Auto) (1.5-6.3) x10-3/uL Lymph # (Auto) (1.0-4.4) x10-3/uL Nelson # (Auto) (0.3-1.0) x10-3/uL Eos # (Auto) (0.0-0.8) x10-3/uL Baso # (Auto) (0.0-0.1) x10-3/uL Sodium (135-145) mmol/L Potassium (3.5-5.3) mmol/L Chloride (100-110) mmol/L Carbon Dioxide (21-32) mmol/L BUN (7-18) mg/dL Creatinine (0.55-1.02) mg/dL Est Cr Clr Drug Dosing mL/min Estimated GFR (MDRD) (>60) BUN/Creatinine Ratio (9-20) Glucose (80-116) mg/dL Lactic Acid 0.8 (0.4-2.0) mmol/L Calcium (8.6-10.2) mg/dL Total Bilirubin (0.1-1.3) mg/dL AST (5-25) IU/L ALT (12-36) U/L Alkaline Phosphatase (56-112) IU/L Troponin I (4.0-60.3) pg/mL C-Reactive Protein (0.5-0.9) mg/dL Total Protein (6.0-8.0) g/dL Albumin (3.2-4.6) g/dL Globulin g/dL Albumin/Globulin Ratio Urine Color (YELLOW) Urine Appearance (CLEAR) Urine pH (5.0-6.5) Ur Specific [place] (1.010-1.025) Urine Protein (NEGATIVE) mg/dL Urine Glucose (UA) (NORMAL) mg/dL Urine Ketones (NEGATIVE) mg/dL Urine Occult Blood (NEGATIVE) Urine Nitrite (NEGATIVE) Urine Bilirubin (NEGATIVE) Urine Urobilinogen (NEGATIVE) mg/dL Ur Leukocyte Esterase (NEGATIVE) Urine WBC (0-5) Ur Squamous Epith Cells (NS,R,O) Urine Bacteria (NS) SARS-CoV-2 RNA (VINCENT) (NEGATIVE) Dante Results Last 24 Hours: Microbiology 01/11/21 15:05 Influenza Type A Antigen Screen - Final Nasopharyngeal Swab NEGATIVE INFLUENZA A VIRUS AG REFERENCE RANGE: NEGATIVE Influenza Type B Antigen Screen - Final NEGATIVE INFLUENZA B VIRUS AG REFERENCE RANGE: NEGATIVE Med Orders - Current: Current Medications Acetaminophen (Acetaminophen 500 Mg Tab) 1,000 mg PO BID ESTELLA Last Admin: 01/12/21 09:10 Dose: 1,000 mg Documented by: Albuterol/Ipratropium (Albuterol/Ipratropium 3.0-0.5 Mg/3 Ml Neb Soln) 3 ml NEB QIDRT [facility] Last Admin: 01/12/21 06:02 Dose: 3 ml Documented by: Albuterol/Ipratropium (Albuterol/Ipratropium 3.0-0.5 Mg/3 Ml Neb Soln) 3 ml INH Q6H PRN PRN Reason: Shortness Of Breath/wheezing Amitriptyline HCl (Amitriptyline 10 Mg Tab) 40 mg PO BEDTIME [facility] Atorvastatin Calcium (Atorvastatin 40 Mg Tab) 40 mg PO BEDTIME [facility] Last Admin: 01/11/21 21:49 Dose: 40 mg Documented by: Baclofen (Baclofen 10 Mg Tab) 20 mg PO TID [facility] Last Admin: 01/12/21 09:10 Dose: 20 mg Documented by: Ceftriaxone Sodium (Ceftriaxone 1 Gm Vial) 1 gm IVPUSH Q24H [facility] Docusate Sodium (Docusate Sodium 100 Mg Cap) 100 mg PO BID [facility] Last Admin: 01/12/21 09:11 Dose: 100 mg Documented by: Duloxetine HCl (Duloxetine 60 Mg Cap) 60 mg PO DAILY [facility] Last Admin: 01/12/21 09:11 Dose: 60 mg Documented by: Enoxaparin Sodium (Enoxaparin 40 Mg/0.4 Ml Syringe) 40 mg SUBCUT Q24H [facility] Last Admin: 01/11/21 18:54 Dose: 40 mg Documented by: Famotidine (Famotidine 20 Mg Tab) 20 mg PO BID [facility] Last Admin: 01/12/21 09:11 Dose: 20 mg Documented by: Folic Acid (Folic Acid 1 Mg Tab) 1 mg PO DAILY [facility] Last Admin: 01/12/21 09:10 Dose: 1 mg Documented by: Azithromycin 500 mg/ Sodium (Chloride) 250 mls @ 250 mls/hr IV Q24H [facility] Leflunomide (Leflunomide 20 Mg Tab) 20 mg PO DAILY [facility] Last Admin: 01/12/21 09:11 Dose: 20 mg Documented by: Meloxicam (Meloxicam 7.5 Mg Tab) 15 mg PO DAILY [facility] Last Admin: 01/12/21 09:16 Dose: 15 mg Documented by: Oxybutynin Chloride (Oxybutynin 5 Mg Tab) 5 mg PO TID [facility] Last Admin: 01/12/21 09:12 Dose: 5 mg Documented by: Prednisone (Prednisone 1 Mg Tab) 3 mg PO DAILY [facility] Last Admin: 01/12/21 09:16 Dose: 3 mg Documented by: Pregabalin (Pregabalin 75 Mg Cap) 150 mg PO TID [facility] Last Admin: 01/12/21 09:14 Dose: 150 mg Documented by: Multivit/Folic Acid/Iron ( Multivitamin With Calcium/Folic Acid/Fe Fumarate Cap) 1 each PO DAILY [facility] Last Admin: 01/12/21 09:10 Dose: 1 each Documented by: Sodium Chloride (Sodium Chloride 0.9% 10 Ml Syringe) 10 ml FLUSH ASDIRECTED PRN PRN Reason: Keep Vein Open Last Admin: 01/11/21 22:02 Dose: 10 ml Documented by: Tiotropium [place] (Tiotropium [place] 4 Gm Inhalation [place] (2.5mcg/1 Dose; 10 Doses)) 0 gm INH DAILY [facility] Last Admin: 01/12/21 09:17 Dose: 2 puff Documented by: Verapamil HCl (Verapamil 40 Mg Tab) 80 mg PO TID [facility] Last Admin: 01/12/21 09:09 Dose: 80 mg Documented by: Discontinued Medications Ceftriaxone Sodium (Ceftriaxone 1 Gm Vial) Confirm Administered Dose 1 gm .ROUTE .STK-MED ONE Stop: 01/11/21 15:41 Last Admin: 01/11/21 16:10 Dose: Not Given Documented by: Ceftriaxone Sodium (Ceftriaxone 1 Gm Vial) 1 gm IVPUSH ONETIME ONE Stop: 01/11/21 14:46 Last Admin: 01/11/21 15:45 Dose: 1 gm Documented by: Gadoteridol (Gadoteridol 279.3 Mg/Ml 20 Ml Sdv) 17 ml IV . DIRECTED [facility] Last Admin: 01/11/21 15:15 Dose: 17 ml Documented by: Guaifenesin/Codeine Phosphate (Codeine/Guaifenesin 10-100 Mg/5 Ml Syrup 5 Ml Cup) 10 ml PO NOW STA Stop: 01/11/21 13:17 Last Admin: 01/11/21 13:20 Dose: 10 ml Documented by: Sodium Chloride (Normal Saline) 1,000 mls @ 999 mls/hr IV ASDIRECTED [facility] Azithromycin 500 mg/ Sodium (Chloride) 250 mls @ 250 mls/hr IV Q24H [facility] Last Admin: 01/11/21 15:50 Dose: 250 mls/hr Documented by: Ibuprofen (Ibuprofen 800 Mg Tab) 800 mg PO Q8HR PRN PRN Reason: Moderate Pain Lorazepam (Lorazepam 2 Mg/Ml Sdv) 1 mg IVPUSH NOW STA Stop: 01/11/21 13:17 Last Admin: 01/11/21 13:18 Dose: 1 mg Documented by: Meloxicam (Meloxicam 15 Mg Tab) 15 mg PO DAILY [facility] - Exam General: Alert, Oriented, Cooperative, No Acute Distress Lungs: Normal Respiratory Effort, Rhonchi (R>L), Wheezing (throughout) Cardiovascular: Regular Rate, Regular Rhythm GI/Abdominal Exam: Normal Bowel Sounds, Soft, Non-Tender, No Distention, Other (obese) Extremities: No Pedal Edema, Normal Capillary Refill Peripheral Pulses: 2+: Radial (L), Radial (R) Skin: Other (abrasions to knees and left foot) - Patient Data Lab Results Last 24 hrs: Laboratory Results - last 24 hr 01/11/21 01/11/21 01/11/21 Range/Units 11:25 11:25 11:27 WBC 7.9 (3.0-10.3) x10-3/uL RBC 4.65 (3.60-5.20) x10(6)uL Hgb 14.0 (11.4-15.5) g/dL Hct 41.9 (34.2-48.2) % MCV 90.0 (76.7-100.5) fL MCH 30.2 (23.9-33.9) pg MCHC 33.5 (31.9-34.8) g/dL RDW 15.4 (12.3-16.5) % Plt Count 186 (151-488) x10(3)uL MPV 8.3 (7.1-12.4) fL Neut % (Auto) 70.0 (30.8-76.2) % Lymph % (Auto) 15.0 L (18.4-52.1) % Nelson % (Auto) 10.0 (4.4-15.7) % Eos % (Auto) 3.8 (0.6-8.1) % Baso % (Auto) 1.2 (0.2-1.5) % Neut # (Auto) 5.6 (1.5-6.3) x10-3/uL Lymph # (Auto) 1.2 (1.0-4.4) x10-3/uL Nelson # (Auto) 0.8 (0.3-1.0) x10-3/uL Eos # (Auto) 0.3 (0.0-0.8) x10-3/uL Baso # (Auto) 0.1 (0.0-0.1) x10-3/uL Sodium (135-145) mmol/L Potassium (3.5-5.3) mmol/L Chloride (100-110) mmol/L Carbon Dioxide (21-32) mmol/L BUN (7-18) mg/dL Creatinine (0.55-1.02) mg/dL Est Cr Clr Drug Dosing mL/min Estimated GFR (MDRD) (>60) BUN/Creatinine Ratio (9-20) Glucose (80-116) mg/dL Lactic Acid (0.4-2.0) mmol/L Calcium (8.6-10.2) mg/dL Total Bilirubin (0.1-1.3) mg/dL AST (5-25) IU/L ALT (12-36) U/L Alkaline Phosphatase (56-112) IU/L Troponin I 14.8 (4.0-60.3) pg/mL C-Reactive Protein 5.5 H* (0.5-0.9) mg/dL Total Protein (6.0-8.0) g/dL Albumin (3.2-4.6) g/dL Globulin g/dL Albumin/Globulin Ratio Urine Color (YELLOW) Urine Appearance (CLEAR) Urine pH (5.0-6.5) Ur Specific [place] (1.010-1.025) Urine Protein (NEGATIVE) mg/dL Urine Glucose (UA) (NORMAL) mg/dL Urine Ketones (NEGATIVE) mg/dL Urine Occult Blood (NEGATIVE) Urine Nitrite (NEGATIVE) Urine Bilirubin (NEGATIVE) Urine Urobilinogen (NEGATIVE) mg/dL Ur Leukocyte Esterase (NEGATIVE) Urine WBC (0-5) Ur Squamous Epith Cells (NS,R,O) Urine Bacteria (NS) SARS-CoV-2 RNA (VINCENT) (NEGATIVE) 01/11/21 01/11/21 01/11/21 Range/Units 11:27 12:31 12:31 WBC (3.0-10.3) x10-3/uL RBC (3.60-5.20) x10(6)uL Hgb (11.4-15.5) g/dL Hct (34.2-48.2) % MCV (76.7-100.5) fL MCH (23.9-33.9) pg MCHC (31.9-34.8) g/dL RDW (12.3-16.5) % Plt Count (151-488) x10(3)uL MPV (7.1-12.4) fL Neut % (Auto) (30.8-76.2) % Lymph % (Auto) (18.4-52.1) % Nelson % (Auto) (4.4-15.7) % Eos % (Auto) (0.6-8.1) % Baso % (Auto) (0.2-1.5) % Neut # (Auto) (1.5-6.3) x10-3/uL Lymph # (Auto) (1.0-4.4) x10-3/uL Nelson # (Auto) (0.3-1.0) x10-3/uL Eos # (Auto) (0.0-0.8) x10-3/uL Baso # (Auto) (0.0-0.1) x10-3/uL Sodium 140 (135-145) mmol/L Potassium 4.1 (3.5-5.3) mmol/L Chloride 106 (100-110) mmol/L Carbon Dioxide 27 (21-32) mmol/L BUN 21 H D (7-18) mg/dL Creatinine 0.7 (0.55-1.02) mg/dL Est Cr Clr Drug Dosing 79.01 mL/min Estimated GFR (MDRD) > 60 (>60) BUN/Creatinine Ratio 30.0 H (9-20) Glucose 100 (80-116) mg/dL Lactic Acid (0.4-2.0) mmol/L Calcium 8.4 L (8.6-10.2) mg/dL Total Bilirubin 0.5 (0.1-1.3) mg/dL AST 20 D (5-25) IU/L ALT 22 D (12-36) U/L Alkaline Phosphatase 121 H (56-112) IU/L Troponin I (4.0-60.3) pg/mL C-Reactive Protein (0.5-0.9) mg/dL Total Protein 6.8 (6.0-8.0) g/dL Albumin 3.0 L (3.2-4.6) g/dL Globulin 3.8 g/dL Albumin/Globulin Ratio 0.8 Urine Color Yellow (YELLOW) Urine Appearance Clear (CLEAR) Urine pH 5.0 (5.0-6.5) Ur Specific [place] 1.020 (1.010-1.025) Urine Protein Negative (NEGATIVE) mg/dL Urine Glucose (UA) Normal (NORMAL) mg/dL Urine Ketones Negative (NEGATIVE) mg/dL Urine Occult Blood Negative (NEGATIVE) Urine Nitrite Negative (NEGATIVE) Urine Bilirubin Small H (NEGATIVE) Urine Urobilinogen 4 H (NEGATIVE) mg/dL Ur Leukocyte Esterase Negative (NEGATIVE) Urine WBC 0-5 (0-5) Ur Squamous Epith Cells Few H (NS,R,O) Urine Bacteria Few H (NS) SARS-CoV-2 RNA (VINCENT) Negative (NEGATIVE) 01/11/21 Range/Units 14:50 WBC (3.0-10.3) x10-3/uL RBC (3.60-5.20) x10(6)uL Hgb (11.4-15.5) g/dL Hct (34.2-48.2) % MCV (76.7-100.5) fL MCH (23.9-33.9) pg MCHC (31.9-34.8) g/dL RDW (12.3-16.5) % Plt Count (151-488) x10(3)uL MPV (7.1-12.4) fL Neut % (Auto) (30.8-76.2) % Lymph % (Auto) (18.4-52.1) % Nelson % (Auto) (4.4-15.7) % Eos % (Auto) (0.6-8.1) % Baso % (Auto) (0.2-1.5) % Neut # (Auto) (1.5-6.3) x10-3/uL Lymph # (Auto) (1.0-4.4) x10-3/uL Nelson # (Auto) (0.3-1.0) x10-3/uL Eos # (Auto) (0.0-0.8) x10-3/uL Baso # (Auto) (0.0-0.1) x10-3/uL Sodium (135-145) mmol/L Potassium (3.5-5.3) mmol/L Chloride (100-110) mmol/L Carbon Dioxide (21-32) mmol/L BUN (7-18) mg/dL Creatinine (0.55-1.02) mg/dL Est Cr Clr Drug Dosing mL/min Estimated GFR (MDRD) (>60) BUN/Creatinine Ratio (9-20) Glucose (80-116) mg/dL Lactic Acid 0.8 (0.4-2.0) mmol/L Calcium (8.6-10.2) mg/dL Total Bilirubin (0.1-1.3) mg/dL AST (5-25) IU/L ALT (12-36) U/L Alkaline Phosphatase (56-112) IU/L Troponin I (4.0-60.3) pg/mL C-Reactive Protein (0.5-0.9) mg/dL Total Protein (6.0-8.0) g/dL Albumin (3.2-4.6) g/dL Globulin g/dL Albumin/Globulin Ratio Urine Color (YELLOW) Urine Appearance (CLEAR) Urine pH (5.0-6.5) Ur Specific [place] (1.010-1.025) Urine Protein (NEGATIVE) mg/dL Urine Glucose (UA) (NORMAL) mg/dL Urine Ketones (NEGATIVE) mg/dL Urine Occult Blood (NEGATIVE) Urine Nitrite (NEGATIVE) Urine Bilirubin (NEGATIVE) Urine Urobilinogen (NEGATIVE) mg/dL Ur Leukocyte Esterase (NEGATIVE) Urine WBC (0-5) Ur Squamous Epith Cells (NS,R,O) Urine Bacteria (NS) SARS-CoV-2 RNA (VINCENT) (NEGATIVE) Result Diagrams: 01/11/21 11:27 01/11/21 11:27 Dante Results Last 24 hrs: Microbiology 01/11/21 15:05 Influenza Type A Antigen Screen - Final Nasopharyngeal Swab NEGATIVE INFLUENZA A VIRUS AG REFERENCE RANGE: NEGATIVE Influenza Type B Antigen Screen - Final NEGATIVE INFLUENZA B VIRUS AG REFERENCE RANGE: NEGATIVE Sepsis Event Note - Evaluation Sepsis Screening Result: No Definite Risk - Focused Exam Vital Signs: Vital Signs Temp Pulse Resp BP Pulse Ox Pulse Ox 01/12/21 05:00 97.7 F 92 18 108/70 90 L 01/12/21 01:00 97.8 F 92 16 95/65 90 L 90 L - Problem List & Annotations (1) Right lower lobe pneumonia SNOMED Code(s): 454302007 Code(s): J18.9 - PNEUMONIA, UNSPECIFIED ORGANISM Status: Acute Current Visit: Yes (2) Weakness SNOMED Code(s): 26259243 Code(s): R53.1 - WEAKNESS Status: Chronic Current Visit: No (3) COPD (chronic obstructive pulmonary disease) SNOMED Code(s): 09226108 Code(s): J44.9 - CHRONIC OBSTRUCTIVE PULMONARY DISEASE, UNSPECIFIED Status: Chronic Current Visit: No Qualifiers: COPD type: COPD with acute exacerbation Qualified Code(s): J44.1 - Chronic obstructive pulmonary disease with (acute) exacerbation (4) Multiple sclerosis SNOMED Code(s): 52362505 Code(s): G35 - MULTIPLE SCLEROSIS Status: Chronic Current Visit: No Onset Date: ~2015 (5) Rheumatoid arthritis SNOMED Code(s): 07555973 Code(s): M06.9 - RHEUMATOID ARTHRITIS, UNSPECIFIED Status: Chronic Current Visit: No Qualifiers: Rheumatoid arthritis location: multiple sites (6) Tobacco abuse SNOMED Code(s): 437258105 Code(s): Z72.0 - TOBACCO USE Status: Chronic Current Visit: No (7) Palliative care status SNOMED Code(s): 058207834 Code(s): Z51.5 - ENCOUNTER FOR PALLIATIVE CARE Status: Chronic Current Visit: No - Problem List Review Problem List Initiated/Reviewed/Updated: Yes - My Orders Last 24 Hours: My Active Orders 01/11/21 Dinner Regular Diet [DIET] 01/11/21 17:29 Patient Status [ADT] Routine Oxygen Therapy [RC] .PRN Up With Assistance [RC] .PRN Up to Chair [RC] .PRN Vital Signs [RC] Q4H OT Evaluation and Treatment [CONS] Routine PT Evaluation and Treatment [CONS] Routine Albuterol/Ipratropium [DuoNeb 3.0-0.5 MG/3 ML] 3 ml INH Q6H PRN Saline Lock Insert [OM.PC] Routine Resuscitation Status Routine 01/11/21 17:30 Antiembolic Hose [OM.PC] Per Unit Routine 01/11/21 17:32 RT Aerosol Therapy [RC] ASDIRECTED 01/11/21 18:00 Enoxaparin [Lovenox] 40 mg SUBCUT Q24H 01/11/21 21:00 Albuterol/Ipratropium [DuoNeb 3.0-0.5 MG/3 ML] 3 ml NEB QIDRT 01/12/21 14:00 Azithromycin [Zithromax] 500 mg Sodium Chloride 0.9% [Normal Saline (AdvBag)] 250 ml IV Q24H 01/13/21 06:00 BASIC METABOLIC PANEL,BMP [CHEM] Routine CBC WITH AUTO DIFF [HEME] Routine - Plan Plan:: 1. RLL pneumonia: Rocephin 1 g IV q24h and Azithromycin 500 mg IV q24h day 2. Covid & Influenza negative. BC pending. 2. COPD: Oxygen saturations between 88-92%, DuoNebs qid and q6h prn SOB. 3. Weakness: PT/OT evaluate & treat. 4. Discharge planning: anticipate 72 hours of IV antibiotics, PT/OT and discharge planning find NH placement.
[2021-01-12] MEDS: Azithromycin 500 MG in Sodium Chloride 0.9% 250 ML IV SCH (13:59)
[2021-01-12] MEDS ORDERED: cefTRIAXone 1 GM in Sodium Chloride 0.9% 50 ML IV SCH (15:00)
--- NOTE | 2021-01-12 16:18 | PCM.EKG ---
#1 Interpretation EKG Date: 01/11/21 Time: 11:55 Rhythm: NSR Rate (Beats/Min): 93 [place]: Normal P-Wave: Present QRS: Normal ST-T: Normal QT: Normal VA/PQ Interval: 142 Comparison: No Change EKG Interpretation Comments: NSR PVC's
[2021-01-12] MEDS: cefTRIAXone 1 GM Vial IVPUSH SCH (16:39)
[2021-01-12] MEDS: Sodium Chloride 0.9% 10 ML Syringe FLUSH PRN (16:43)
[2021-01-12] MEDS: Enoxaparin 40 MG/0.4 ML Syringe SUBCUT SCH (18:29)
[2021-01-12] MEDS: Amitriptyline 10 MG Tab PO SCH (21:22)
[2021-01-12] MEDS: atorvaSTATin 40 MG Tab PO SCH (21:24)
[2021-01-13] MEDS: Albuterol/Ipratropium 3.0-0.5 MG/3 ML Neb Soln NEB SCH ×4 (06:22→20:27)
[2021-01-13] MEDS: Leflunomide 20 MG Tab PO SCH (07:59)
[2021-01-13] MEDS: Baclofen 10 MG Tab PO SCH ×3 (07:59→20:34)
[2021-01-13] MEDS: Famotidine 20 MG Tab PO SCH ×2 (07:59→20:31)
[2021-01-13] MEDS: DULoxetine 60 MG Cap PO SCH (07:59)
[2021-01-13] MEDS: Prenatal Multivitamin with Calcium/Folic Acid/Fe Fumarate Cap PO SCH (07:59)
[2021-01-13] MEDS: predniSONE 1 MG Tab PO SCH (07:59)
[2021-01-13] MEDS: Docusate Sodium 100 MG Cap PO SCH ×2 (07:59→20:33)
[2021-01-13] MEDS: Folic Acid 1 MG Tab PO SCH (07:59)
[2021-01-13] MEDS: Oxybutynin 5 MG Tab PO SCH ×3 (07:59→20:35)
[2021-01-13] MEDS: Meloxicam 7.5 MG Tab PO SCH (07:59)
[2021-01-13] MEDS: Tiotropium Bromide 4 GM Inhalation Spray (2.5mcg/1 dose; 10 doses) INH SCH (08:00)
[2021-01-13] MEDS: Acetaminophen 500 MG Tab PO SCH ×2 (08:00→20:39)
[2021-01-13] MEDS: Pregabalin 75 MG Cap PO SCH ×3 (08:05→20:30)
--- NOTE | 2021-01-13 10:45 | PCM.PN ---
- General Info Date of Service: 01/13/21 Admission Dx/Problem (Free Text): Admission Diagnosis/Problem Admission Diagnosis/Problem Weakness Subjective Update: Patient states that she feels very tired. She states that she slept well last night but still feels very sleepy. She denied any specific pain except for her bilateral feet/ankles. She thinks that the SHANICE hose may be too tight. Functional Status: Reports: Pain Controlled - Review of Systems General: Reports: Fatigue HEENT: Reports: No Symptoms Pulmonary: Reports: No Symptoms Cardiovascular: Reports: No Symptoms Gastrointestinal: Reports: No Symptoms Genitourinary: Reports: No Symptoms Musculoskeletal: Reports: Foot Pain Skin: Reports: No Symptoms Neurological: Reports: Weakness Psychiatric: Reports: No Symptoms - Patient Data Vitals - Most Recent: Last Vital Signs Temp 36.6 C 01/13/21 07:48 Pulse 92 01/13/21 07:48 Resp 18 01/13/21 07:48 BP 128/76 01/13/21 07:48 Pulse Ox 92 L 01/13/21 07:48 Weight - Most Recent: 81.647 kg I&O - Last 24 Hours: Intake & Output 01/12/21 01/13/21 01/13/21 22:59 06:59 14:59 Intake Total 0 0 Balance 0 0 Lab Results Last 24 Hours: Laboratory Results - last 24 hr 01/13/21 01/13/21 Range/Units 06:40 06:40 WBC 7.6 (3.0-10.3) x10-3/uL RBC 4.15 (3.60-5.20) x10(6)uL Hgb 12.3 (11.4-15.5) g/dL Hct 37.7 (34.2-48.2) % MCV 90.9 (76.7-100.5) fL MCH 29.5 (23.9-33.9) pg MCHC 32.5 (31.9-34.8) g/dL RDW 15.4 (12.3-16.5) % Plt Count 168 (151-488) x10(3)uL MPV 8.2 (7.1-12.4) fL Neut % (Auto) 66.5 (30.8-76.2) % Lymph % (Auto) 20.0 (18.4-52.1) % Barber % (Auto) 9.0 (4.4-15.7) % Eos % (Auto) 3.8 (0.6-8.1) % Baso % (Auto) 0.7 (0.2-1.5) % Neut # (Auto) 5.1 (1.5-6.3) x10-3/uL Lymph # (Auto) 1.5 (1.0-4.4) x10-3/uL [place] # (Auto) 0.7 (0.3-1.0) x10-3/uL Eos # (Auto) 0.3 (0.0-0.8) x10-3/uL Baso # (Auto) 0.1 (0.0-0.1) x10-3/uL Sodium 144 (135-145) mmol/L Potassium 4.2 (3.5-5.3) mmol/L Chloride 107 (100-110) mmol/L Carbon Dioxide 30 (21-32) mmol/L BUN 21 H (7-18) mg/dL Creatinine 0.8 (0.55-1.02) mg/dL Est Cr Clr Drug Dosing 69.13 mL/min Estimated GFR (MDRD) > 60 (>60) BUN/Creatinine Ratio 26.3 H (9-20) Glucose 95 (80-116) mg/dL Calcium 9.3 (8.6-10.2) mg/dL Dante Results Last 24 Hours: Microbiology 01/11/21 14:50 Aerobic Blood Culture - Preliminary Blood - Venous NO GROWTH AFTER 1 DAY Anaerobic Blood Culture - Preliminary NO GROWTH AFTER 1 DAY 01/11/21 15:00 Aerobic Blood Culture - Preliminary Blood - Venous - Lab Draw NO GROWTH AFTER 1 DAY Anaerobic Blood Culture - Preliminary NO GROWTH AFTER 1 DAY Med Orders - Current: Current Medications Acetaminophen (Acetaminophen 500 Mg Tab) 1,000 mg PO BID [facility] Last Admin: 01/13/21 08:00 Dose: 1,000 mg Documented by: Albuterol/Ipratropium (Albuterol/Ipratropium 3.0-0.5 Mg/3 Ml Neb Soln) 3 ml NEB QIDRT [facility] Last Admin: 01/13/21 06:22 Dose: 3 ml Documented by: Albuterol/Ipratropium (Albuterol/Ipratropium 3.0-0.5 Mg/3 Ml Neb Soln) 3 ml INH Q6H PRN PRN Reason: Shortness Of Breath/wheezing Amitriptyline HCl (Amitriptyline 10 Mg Tab) 40 mg PO BEDTIME [facility] Last Admin: 01/12/21 21:22 Dose: 40 mg Documented by: Atorvastatin Calcium (Atorvastatin 40 Mg Tab) 40 mg PO BEDTIME [facility] Last Admin: 01/12/21 21:24 Dose: 40 mg Documented by: Baclofen (Baclofen 10 Mg Tab) 20 mg PO TID [facility] Last Admin: 01/13/21 07:59 Dose: 20 mg Documented by: Ceftriaxone Sodium (Ceftriaxone 1 Gm Vial) 1 gm IVPUSH Q24H [facility] Last Admin: 01/12/21 16:39 Dose: 1 gm Documented by: Docusate Sodium (Docusate Sodium 100 Mg Cap) 100 mg PO BID [facility] Last Admin: 01/13/21 07:59 Dose: 100 mg Documented by: Duloxetine HCl (Duloxetine 60 Mg Cap) 60 mg PO DAILY [facility] Last Admin: 01/13/21 07:59 Dose: 60 mg Documented by: Enoxaparin Sodium (Enoxaparin 40 Mg/0.4 Ml Syringe) 40 mg SUBCUT Q24H [facility] Last Admin: 01/12/21 18:29 Dose: 40 mg Documented by: Famotidine (Famotidine 20 Mg Tab) 20 mg PO BID [facility] Last Admin: 01/13/21 07:59 Dose: 20 mg Documented by: Folic Acid (Folic Acid 1 Mg Tab) 1 mg PO DAILY [facility] Last Admin: 01/13/21 07:59 Dose: 1 mg Documented by: Azithromycin 500 mg/ Sodium (Chloride) 250 mls @ 250 mls/hr IV Q24H [facility] Last Admin: 01/12/21 13:59 Dose: 250 mls/hr Documented by: Leflunomide (Leflunomide 20 Mg Tab) 20 mg PO DAILY [facility] Last Admin: 01/13/21 07:59 Dose: 20 mg Documented by: Meloxicam (Meloxicam 7.5 Mg Tab) 15 mg PO DAILY [facility] Last Admin: 01/13/21 07:59 Dose: 15 mg Documented by: Oxybutynin Chloride (Oxybutynin 5 Mg Tab) 5 mg PO TID [facility] Last Admin: 01/13/21 07:59 Dose: 5 mg Documented by: Prednisone (Prednisone 1 Mg Tab) 3 mg PO DAILY [facility] Last Admin: 01/13/21 07:59 Dose: 3 mg Documented by: Pregabalin (Pregabalin 75 Mg Cap) 150 mg PO TID [facility] Last Admin: 01/13/21 08:05 Dose: 150 mg Documented by: Multivit/Folic Acid/Iron ( Multivitamin With Calcium/Folic Acid/Fe Fumarate Cap) 1 each PO DAILY [facility] Last Admin: 01/13/21 07:59 Dose: 1 each Documented by: Sodium Chloride (Sodium Chloride 0.9% 10 Ml Syringe) 10 ml FLUSH ASDIRECTED PRN PRN Reason: Keep Vein Open Last Admin: 01/12/21 16:43 Dose: 10 ml Documented by: Tiotropium [place] (Tiotropium [place] 4 Gm Inhalation [place] (2.5mcg/1 Dose; 10 Doses)) 0 gm INH DAILY [facility] Last Admin: 01/13/21 08:00 Dose: 2 puff Documented by: Verapamil HCl (Verapamil 40 Mg Tab) 80 mg PO TID [facility] Last Admin: 01/13/21 07:59 Dose: 80 mg Documented by: Discontinued Medications Ceftriaxone Sodium (Ceftriaxone 1 Gm Vial) Confirm Administered Dose 1 gm .ROUTE .STK-MED ONE Stop: 01/11/21 15:41 Last Admin: 01/11/21 16:10 Dose: Not Given Documented by: Ceftriaxone Sodium (Ceftriaxone 1 Gm Vial) 1 gm IVPUSH ONETIME ONE Stop: 01/11/21 14:46 Last Admin: 01/11/21 15:45 Dose: 1 gm Documented by: Gadoteridol (Gadoteridol 279.3 Mg/Ml 20 Ml Sdv) 17 ml IV . DIRECTED [facility] Last Admin: 01/11/21 15:15 Dose: 17 ml Documented by: Guaifenesin/Codeine Phosphate (Codeine/Guaifenesin 10-100 Mg/5 Ml Syrup 5 Ml Cup) 10 ml PO NOW STA Stop: 01/11/21 13:17 Last Admin: 01/11/21 13:20 Dose: 10 ml Documented by: Sodium Chloride (Normal Saline) 1,000 mls @ 999 mls/hr IV ASDIRECTED [facility] Azithromycin 500 mg/ Sodium (Chloride) 250 mls @ 250 mls/hr IV Q24H [facility] Last Admin: 01/11/21 15:50 Dose: 250 mls/hr Documented by: Ibuprofen (Ibuprofen 800 Mg Tab) 800 mg PO Q8HR PRN PRN Reason: Moderate Pain Lorazepam (Lorazepam 2 Mg/Ml Sdv) 1 mg IVPUSH NOW STA Stop: 01/11/21 13:17 Last Admin: 01/11/21 13:18 Dose: 1 mg Documented by: Meloxicam (Meloxicam 15 Mg Tab) 15 mg PO DAILY [facility] Comments:: Patient was sleeping in bed with her breakfast tray in front of her. She awoke easily and was oriented and pleasant. Appeared fatigued/tired - Exam Quality Assessment: Supplemental Oxygen, DVT Prophylaxis General: Alert, Oriented, Cooperative, No Acute Distress HEENT: EOMI Lungs: Decreased Breath Sounds, Crackles Cardiovascular: Regular Rate, Regular Rhythm, No Murmurs GI/Abdominal Exam: Normal Bowel Sounds, Soft, Non-Tender Back Exam: Normal Inspection. No: CVA Tenderness (R), CVA Tenderness (L) Extremities: Normal Inspection, Other (SHANICE hose bilateral) Peripheral Pulses: 1+: Dorsalis Pedis (L), Dorsalis Pedis (R), 2+: Radial (L), Radial (R) Skin: Warm, Dry Neurological: Other (Multiple sclerosis with focal weakness) Psy/Mental Status: Alert, Depressed - Patient Data Lab Results Last 24 hrs: Laboratory Results - last 24 hr 01/13/21 01/13/21 Range/Units 06:40 06:40 WBC 7.6 (3.0-10.3) x10-3/uL RBC 4.15 (3.60-5.20) x10(6)uL Hgb 12.3 (11.4-15.5) g/dL Hct 37.7 (34.2-48.2) % MCV 90.9 (76.7-100.5) fL MCH 29.5 (23.9-33.9) pg MCHC 32.5 (31.9-34.8) g/dL RDW 15.4 (12.3-16.5) % Plt Count 168 (151-488) x10(3)uL MPV 8.2 (7.1-12.4) fL Neut % (Auto) 66.5 (30.8-76.2) % Lymph % (Auto) 20.0 (18.4-52.1) % Barber % (Auto) 9.0 (4.4-15.7) % Eos % (Auto) 3.8 (0.6-8.1) % Baso % (Auto) 0.7 (0.2-1.5) % Neut # (Auto) 5.1 (1.5-6.3) x10-3/uL Lymph # (Auto) 1.5 (1.0-4.4) x10-3/uL Barber # (Auto) 0.7 (0.3-1.0) x10-3/uL Eos # (Auto) 0.3 (0.0-0.8) x10-3/uL Baso # (Auto) 0.1 (0.0-0.1) x10-3/uL Sodium 144 (135-145) mmol/L Potassium 4.2 (3.5-5.3) mmol/L Chloride 107 (100-110) mmol/L Carbon Dioxide 30 (21-32) mmol/L BUN 21 H (7-18) mg/dL Creatinine 0.8 (0.55-1.02) mg/dL Est Cr Clr Drug Dosing 69.13 mL/min Estimated GFR (MDRD) > 60 (>60) BUN/Creatinine Ratio 26.3 H (9-20) Glucose 95 (80-116) mg/dL Calcium 9.3 (8.6-10.2) mg/dL Result Diagrams: 01/13/21 06:40 01/13/21 06:40 Dante Results Last 24 hrs: Microbiology 01/11/21 14:50 Aerobic Blood Culture - Preliminary Blood - Venous NO GROWTH AFTER 1 DAY Anaerobic Blood Culture - Preliminary NO GROWTH AFTER 1 DAY 01/11/21 15:00 Aerobic Blood Culture - Preliminary Blood - Venous - Lab Draw NO GROWTH AFTER 1 DAY Anaerobic Blood Culture - Preliminary NO GROWTH AFTER 1 DAY Sepsis Event Note - Evaluation Sepsis Screening Result: No Definite Risk - Focused Exam Vital Signs: Vital Signs Temp Pulse Resp BP Pulse Ox Pulse Ox 01/13/21 07:48 36.6 C 92 18 128/76 92 L 01/13/21 06:54 90 88 L 01/13/21 04:00 36.4 C 88 19 109/70 88 L 01/13/21 00:00 36.3 C 86 19 110/63 90 L - Problem List & Annotations (1) Right lower lobe pneumonia SNOMED Code(s): 216074567 Code(s): J18.9 - PNEUMONIA, UNSPECIFIED ORGANISM Status: Acute Current Visit: Yes (2) COPD (chronic obstructive pulmonary disease) SNOMED Code(s): 57669161 Code(s): J44.9 - CHRONIC OBSTRUCTIVE PULMONARY DISEASE, UNSPECIFIED Status: Chronic Current Visit: No Qualifiers: COPD type: COPD with acute exacerbation Qualified Code(s): J44.1 - Chronic obstructive pulmonary disease with (acute) exacerbation (3) Multiple sclerosis SNOMED Code(s): 59785335 Code(s): G35 - MULTIPLE SCLEROSIS Status: Chronic Current Visit: No Onset Date: ~2015 (4) Palliative care status SNOMED Code(s): 181531346 Code(s): Z51.5 - ENCOUNTER FOR PALLIATIVE CARE Status: Chronic Current Visit: No (5) Rheumatoid arthritis SNOMED Code(s): 98526401 Code(s): M06.9 - RHEUMATOID ARTHRITIS, UNSPECIFIED Status: Chronic Current Visit: No Qualifiers: Rheumatoid arthritis location: multiple sites (6) Tobacco abuse SNOMED Code(s): 566725214 Code(s): Z72.0 - TOBACCO USE Status: Chronic Current Visit: No (7) Unable to ambulate SNOMED Code(s): 237960526 Code(s): R26.2 - DIFFICULTY IN WALKING, NOT ELSEWHERE CLASSIFIED Status: Chronic Current Visit: No (8) Weakness SNOMED Code(s): 48213944 Code(s): R53.1 - WEAKNESS Status: Chronic Current Visit: No - Problem List Review Problem List Initiated/Reviewed/Updated: Yes - Plan Plan:: 1. RLL pneumonia: Rocephin 1 g IV q24h and Azithromycin 500 mg IV q24h day 3. Covid & Influenza negative. 2. COPD: Oxygen saturations between 88-92%, DuoNebs qid and q6h prn SOB. 3. Weakness: PT/OT evaluate & treat. 4. DVT prophylaxis: Enoxaparin 40 mg subcu daily 5. GI prophylaxis: Regular diet, famotidine 6. Discharge: planning find NH placement.
[2021-01-13] MEDS: Azithromycin 500 MG in Sodium Chloride 0.9% 250 ML IV SCH (14:12)
[2021-01-13] MEDS: Sodium Chloride 0.9% 10 ML Syringe FLUSH PRN ×3 (15:11→15:53)
[2021-01-13] MEDS: Acetaminophen/HYDROcodone 325-5 MG Tab PO PRN (15:39)
[2021-01-13] MEDS: cefTRIAXone 1 GM Vial IVPUSH SCH (15:49)
[2021-01-13] MEDS: Enoxaparin 40 MG/0.4 ML Syringe SUBCUT SCH (17:45)
[2021-01-13] MEDS: Amitriptyline 10 MG Tab PO SCH (20:34)
[2021-01-13] MEDS: atorvaSTATin 40 MG Tab PO SCH (20:35)
[2021-01-14] MEDS: Albuterol/Ipratropium 3.0-0.5 MG/3 ML Neb Soln NEB SCH ×4 (06:01→20:33)
[2021-01-14] MEDS: Leflunomide 20 MG Tab PO SCH (08:06)
[2021-01-14] MEDS: Prenatal Multivitamin with Calcium/Folic Acid/Fe Fumarate Cap PO SCH (08:07)
[2021-01-14] MEDS: Meloxicam 7.5 MG Tab PO SCH (08:07)
[2021-01-14] MEDS: predniSONE 1 MG Tab PO SCH (08:07)
[2021-01-14] MEDS: Oxybutynin 5 MG Tab PO SCH ×3 (08:07→20:32)
[2021-01-14] MEDS: Baclofen 10 MG Tab PO SCH ×3 (08:07→20:32)
[2021-01-14] MEDS: Docusate Sodium 100 MG Cap PO SCH ×2 (08:07→20:32)
[2021-01-14] MEDS: Acetaminophen 500 MG Tab PO SCH ×2 (08:07→20:31)
[2021-01-14] MEDS: DULoxetine 60 MG Cap PO SCH (08:07)
[2021-01-14] MEDS: Famotidine 20 MG Tab PO SCH ×2 (08:07→20:32)
[2021-01-14] MEDS: Folic Acid 1 MG Tab PO SCH (08:07)
[2021-01-14] MEDS: Pregabalin 75 MG Cap PO SCH ×3 (08:07→20:35)
[2021-01-14] MEDS: Tiotropium Bromide 4 GM Inhalation Spray (2.5mcg/1 dose; 10 doses) INH SCH (08:07)
--- NOTE | 2021-01-14 10:24 | PCM.PN ---
- General Info Date of Service: 01/14/21 Admission Dx/Problem (Free Text): Admission Diagnosis/Problem Admission Diagnosis/Problem Weakness Subjective Update: Patient states that she feels well today and has no new acute complaints set for sinus congestion Functional Status: Reports: Pain Controlled, Tolerating Diet, Ambulating, Urinating, New Symptoms - Review of Systems General: Reports: Weakness HEENT: Reports: Sinus Congestion Pulmonary: Reports: Shortness of Breath, Wheezing Cardiovascular: Reports: No Symptoms Gastrointestinal: Reports: No Symptoms Genitourinary: Reports: No Symptoms Neurological: Reports: Difficulty Walking, Weakness Psychiatric: Reports: No Symptoms - Patient Data Vitals - Most Recent: Last Vital Signs Temp 37.0 C 01/14/21 07:58 Pulse 90 01/14/21 07:58 Resp 20 01/14/21 07:58 BP 125/79 01/14/21 07:58 Pulse Ox 90 L 01/14/21 07:58 Weight - Most Recent: 81.647 kg Dante Results Last 24 Hours: Microbiology 01/11/21 15:00 Aerobic Blood Culture - Preliminary Blood - Venous - Lab Draw NO GROWTH AFTER 2 DAYS Anaerobic Blood Culture - Preliminary NO GROWTH AFTER 2 DAYS 01/11/21 14:50 Aerobic Blood Culture - Preliminary Blood - Venous NO GROWTH AFTER 2 DAYS Anaerobic Blood Culture - Preliminary NO GROWTH AFTER 2 DAYS Med Orders - Current: Current Medications Acetaminophen (Acetaminophen 500 Mg Tab) 1,000 mg PO BID [facility] Last Admin: 01/14/21 08:07 Dose: 1,000 mg Documented by: Hydrocodone Bitart/Acetaminophen (Acetaminophen/Hydrocodone 325-5 Mg Tab) 1 tab PO BID PRN PRN Reason: Pain Last Admin: 01/13/21 15:39 Dose: 1 tab Documented by: Albuterol/Ipratropium (Albuterol/Ipratropium 3.0-0.5 Mg/3 Ml Neb Soln) 3 ml NEB QIDRT [facility] Last Admin: 01/14/21 06:01 Dose: 3 ml Documented by: Albuterol/Ipratropium (Albuterol/Ipratropium 3.0-0.5 Mg/3 Ml Neb Soln) 3 ml INH Q6H PRN PRN Reason: Shortness Of Breath/wheezing Amitriptyline HCl (Amitriptyline 10 Mg Tab) 40 mg PO BEDTIME [facility] Last Admin: 01/13/21 20:34 Dose: 40 mg Documented by: Atorvastatin Calcium (Atorvastatin 40 Mg Tab) 40 mg PO BEDTIME [facility] Last Admin: 01/13/21 20:35 Dose: 40 mg Documented by: Baclofen (Baclofen 10 Mg Tab) 20 mg PO TID [facility] Last Admin: 01/14/21 08:07 Dose: 20 mg Documented by: Ceftriaxone Sodium (Ceftriaxone 1 Gm Vial) 1 gm IVPUSH Q24H [facility] Last Admin: 01/13/21 15:49 Dose: 1 gm Documented by: Docusate Sodium (Docusate Sodium 100 Mg Cap) 100 mg PO BID [facility] Last Admin: 01/14/21 08:07 Dose: 100 mg Documented by: Duloxetine HCl (Duloxetine 60 Mg Cap) 60 mg PO DAILY [facility] Last Admin: 01/14/21 08:07 Dose: 60 mg Documented by: Enoxaparin Sodium (Enoxaparin 40 Mg/0.4 Ml Syringe) 40 mg SUBCUT Q24H [facility] Last Admin: 01/13/21 17:45 Dose: 40 mg Documented by: Famotidine (Famotidine 20 Mg Tab) 20 mg PO BID [facility] Last Admin: 01/14/21 08:07 Dose: 20 mg Documented by: Folic Acid (Folic Acid 1 Mg Tab) 1 mg PO DAILY [facility] Last Admin: 01/14/21 08:07 Dose: 1 mg Documented by: Leflunomide (Leflunomide 20 Mg Tab) 20 mg PO DAILY [facility] Last Admin: 01/14/21 08:06 Dose: 20 mg Documented by: Meloxicam (Meloxicam 7.5 Mg Tab) 15 mg PO DAILY [facility] Last Admin: 01/14/21 08:07 Dose: 15 mg Documented by: Oxybutynin Chloride (Oxybutynin 5 Mg Tab) 5 mg PO TID [facility] Last Admin: 01/14/21 08:07 Dose: 5 mg Documented by: Prednisone (Prednisone 1 Mg Tab) 3 mg PO DAILY [facility] Last Admin: 01/14/21 08:07 Dose: 3 mg Documented by: Pregabalin (Pregabalin 75 Mg Cap) 150 mg PO TID [facility] Last Admin: 01/14/21 08:07 Dose: 150 mg Documented by: Multivit/Folic Acid/Iron ( Multivitamin With Calcium/Folic Acid/Fe Fumarate Cap) 1 each PO DAILY [facility] Last Admin: 01/14/21 08:07 Dose: 1 each Documented by: Sodium Chloride (Sodium Chloride 0.9% 10 Ml Syringe) 10 ml FLUSH ASDIRECTED PRN PRN Reason: Keep Vein Open Last Admin: 01/13/21 15:53 Dose: 10 ml Documented by: Tiotropium [place] (Tiotropium [place] 4 Gm Inhalation [place] (2.5mcg/1 Dose; 10 Doses)) 0 gm INH DAILY [facility] Last Admin: 01/14/21 08:07 Dose: 2 puff Documented by: Verapamil HCl (Verapamil 40 Mg Tab) 80 mg PO TID [facility] Last Admin: 01/14/21 08:06 Dose: 80 mg Documented by: Discontinued Medications Ceftriaxone Sodium (Ceftriaxone 1 Gm Vial) Confirm Administered Dose 1 gm .ROUTE .STK-MED ONE Stop: 01/11/21 15:41 Last Admin: 01/11/21 16:10 Dose: Not Given Documented by: Ceftriaxone Sodium (Ceftriaxone 1 Gm Vial) 1 gm IVPUSH ONETIME ONE Stop: 01/11/21 14:46 Last Admin: 01/11/21 15:45 Dose: 1 gm Documented by: Gadoteridol (Gadoteridol 279.3 Mg/Ml 20 Ml Sdv) 17 ml IV . DIRECTED [facility] Last Admin: 01/11/21 15:15 Dose: 17 ml Documented by: Guaifenesin/Codeine Phosphate (Codeine/Guaifenesin 10-100 Mg/5 Ml Syrup 5 Ml Cup) 10 ml PO NOW STA Stop: 01/11/21 13:17 Last Admin: 01/11/21 13:20 Dose: 10 ml Documented by: Sodium Chloride (Normal Saline) 1,000 mls @ 999 mls/hr IV ASDIRECTED [facility] Azithromycin 500 mg/ Sodium (Chloride) 250 mls @ 250 mls/hr IV Q24H [facility] Last Admin: 01/11/21 15:50 Dose: 250 mls/hr Documented by: Azithromycin 500 mg/ Sodium (Chloride) 250 mls @ 250 mls/hr IV Q24H [facility] Stop: 01/13/21 18:00 Last Admin: 01/13/21 14:12 Dose: 250 mls/hr Documented by: Ibuprofen (Ibuprofen 800 Mg Tab) 800 mg PO Q8HR PRN PRN Reason: Moderate Pain Lorazepam (Lorazepam 2 Mg/Ml Sdv) 1 mg IVPUSH NOW STA Stop: 01/11/21 13:17 Last Admin: 01/11/21 13:18 Dose: 1 mg Documented by: Meloxicam (Meloxicam 15 Mg Tab) 15 mg PO DAILY [facility] - Exam Quality Assessment: Supplemental Oxygen, DVT Prophylaxis General: Alert, Oriented, Cooperative, No Acute Distress HEENT: EOMI Neck: Supple Lungs: Decreased Breath Sounds, Crackles, Rhonchi GI/Abdominal Exam: Normal Bowel Sounds, Distended Extremities: Normal Inspection, Pedal Edema Peripheral Pulses: 1+: Dorsalis Pedis (L), Dorsalis Pedis (R), 2+: Radial (L), Radial (R) Skin: Warm, Dry Neurological: No: Strength Equal Bilateral Psy/Mental Status: Alert, Normal Affect - Patient Data Result Diagrams: 01/13/21 06:40 01/13/21 06:40 Dante Results Last 24 hrs: Microbiology 01/11/21 15:00 Aerobic Blood Culture - Preliminary Blood - Venous - Lab Draw NO GROWTH AFTER 2 DAYS Anaerobic Blood Culture - Preliminary NO GROWTH AFTER 2 DAYS 01/11/21 14:50 Aerobic Blood Culture - Preliminary Blood - Venous NO GROWTH AFTER 2 DAYS Anaerobic Blood Culture - Preliminary NO GROWTH AFTER 2 DAYS Sepsis Event Note - Evaluation Sepsis Screening Result: No Definite Risk - Focused Exam Vital Signs: Vital Signs Temp Temp Pulse Resp BP Pulse Ox 01/14/21 07:58 37.0 C 90 20 125/79 90 L 01/14/21 02:00 36.4 C 76 18 106/69 94 L 01/14/21 00:00 18 - Problem List & Annotations (1) Right lower lobe pneumonia SNOMED Code(s): 936690854 Code(s): J18.9 - PNEUMONIA, UNSPECIFIED ORGANISM Status: Acute Current Visit: Yes (2) COPD (chronic obstructive pulmonary disease) SNOMED Code(s): 83323092 Code(s): J44.9 - CHRONIC OBSTRUCTIVE PULMONARY DISEASE, UNSPECIFIED Status: Chronic Current Visit: No Qualifiers: COPD type: COPD with acute exacerbation Qualified Code(s): J44.1 - Chronic obstructive pulmonary disease with (acute) exacerbation (3) Multiple sclerosis SNOMED Code(s): 11773568 Code(s): G35 - MULTIPLE SCLEROSIS Status: Chronic Current Visit: No Onset Date: ~2015 (4) Palliative care status SNOMED Code(s): 882575886 Code(s): Z51.5 - ENCOUNTER FOR PALLIATIVE CARE Status: Chronic Current Visit: No (5) Rheumatoid arthritis SNOMED Code(s): 54685867 Code(s): M06.9 - RHEUMATOID ARTHRITIS, UNSPECIFIED Status: Chronic Current Visit: No Qualifiers: Rheumatoid arthritis location: multiple sites (6) Tobacco abuse SNOMED Code(s): 026229968 Code(s): Z72.0 - TOBACCO USE Status: Chronic Current Visit: No (7) Unable to ambulate SNOMED Code(s): 383740019 Code(s): R26.2 - DIFFICULTY IN WALKING, NOT ELSEWHERE CLASSIFIED Status: Chronic Current Visit: No (8) Weakness SNOMED Code(s): 95162796 Code(s): R53.1 - WEAKNESS Status: Chronic Current Visit: No - Problem List Review Problem List Initiated/Reviewed/Updated: Yes - My Orders Last 24 Hours: My Active Orders 01/13/21 15:22 Acetaminophen/HYDROcodone [[place] 325-5 MG] 1 tab PO BID PRN - Plan Plan:: 1. RLL pneumonia: Rocephin 1 g IV q24h. Covid & Influenza negative. Add cetirizine, Mucinex due to sinus congestion, we will continue this treatment if it is effective. 2. COPD: Oxygen saturations between 88-92%, DuoNebs qid and q6h prn SOB. 3. Weakness: PT/OT evaluate & treat. 4. DVT prophylaxis: Enoxaparin 40 mg subcu daily 5. GI prophylaxis: Regular diet, famotidine 6. Discharge: planning NH placement.
[2021-01-14] MEDS ORDERED: Cetirizine 10 MG Tab PO ONE (10:27)
[2021-01-14] MEDS ORDERED: guaiFENesin 600 MG Tab.ER PO ONE (10:27)
[2021-01-14] MEDS: cefTRIAXone 1 GM Vial IVPUSH SCH (16:07)
[2021-01-14] MEDS: Sodium Chloride 0.9% 10 ML Syringe FLUSH PRN (16:24)
[2021-01-14] MEDS: Enoxaparin 40 MG/0.4 ML Syringe SUBCUT SCH (17:18)
[2021-01-14] MEDS: Amitriptyline 10 MG Tab PO SCH (20:31)
[2021-01-14] MEDS: atorvaSTATin 40 MG Tab PO SCH (20:32)
[2021-01-15] MEDS: Albuterol/Ipratropium 3.0-0.5 MG/3 ML Neb Soln NEB SCH ×4 (06:30→20:45)
[2021-01-15] MEDS: Acetaminophen 500 MG Tab PO SCH ×2 (08:18→20:46)
[2021-01-15] MEDS: Meloxicam 7.5 MG Tab PO SCH (08:18)
[2021-01-15] MEDS: Baclofen 10 MG Tab PO SCH ×3 (08:18→20:45)
[2021-01-15] MEDS: Prenatal Multivitamin with Calcium/Folic Acid/Fe Fumarate Cap PO SCH (08:18)
[2021-01-15] MEDS: Folic Acid 1 MG Tab PO SCH (08:18)
[2021-01-15] MEDS: DULoxetine 60 MG Cap PO SCH (08:18)
[2021-01-15] MEDS: Docusate Sodium 100 MG Cap PO SCH ×2 (08:19→20:47)
[2021-01-15] MEDS: Leflunomide 20 MG Tab PO SCH (08:19)
[2021-01-15] MEDS: predniSONE 1 MG Tab PO SCH (08:19)
[2021-01-15] MEDS: Tiotropium Bromide 4 GM Inhalation Spray (2.5mcg/1 dose; 10 doses) INH SCH (08:20)
[2021-01-15] MEDS: Oxybutynin 5 MG Tab PO SCH ×3 (08:20→20:46)
[2021-01-15] MEDS: Pregabalin 75 MG Cap PO SCH ×3 (08:24→20:45)
[2021-01-15] MEDS: Famotidine 20 MG Tab PO SCH ×2 (08:25→20:45)
[2021-01-15] MEDS: Nicotine 21 MG/24 Hr Patch TRDERM SCH (09:51)
--- NOTE | 2021-01-15 10:23 | PCM.PN ---
- General Info Date of Service: 01/15/21 Admission Dx/Problem (Free Text): Admission Diagnosis/Problem Admission Diagnosis/Problem Weakness Subjective Update: Patient states that she feels better again today and better than yesterday. She states that the cetirizine and Mucinex that we gave her yesterday seem to help her congestion significantly. She has no new complaints. Functional Status: Reports: Pain Controlled, Tolerating Diet, Urinating - Review of Systems General: Reports: Weakness, Fatigue HEENT: Reports: No Symptoms Pulmonary: Reports: Shortness of Breath, Wheezing Cardiovascular: Reports: No Symptoms Gastrointestinal: Reports: No Symptoms Genitourinary: Reports: No Symptoms Musculoskeletal: Reports: No Symptoms Skin: Reports: No Symptoms Neurological: Reports: Difficulty Walking, Weakness Psychiatric: Reports: No Symptoms - Patient Data Vitals - Most Recent: Last Vital Signs Temp 35.9 C L 01/15/21 08:00 Pulse 91 01/15/21 08:00 Resp 19 01/15/21 08:00 BP 120/79 01/15/21 08:00 Pulse Ox 94 L 01/15/21 08:00 Weight - Most Recent: 81.647 kg Dante Results Last 24 Hours: Microbiology 01/11/21 15:00 Aerobic Blood Culture - Preliminary Blood - Venous - Lab Draw NO GROWTH AFTER 3 DAYS Anaerobic Blood Culture - Preliminary NO GROWTH AFTER 3 DAYS 01/11/21 14:50 Aerobic Blood Culture - Preliminary Blood - Venous NO GROWTH AFTER 3 DAYS Anaerobic Blood Culture - Preliminary NO GROWTH AFTER 3 DAYS Med Orders - Current: Current Medications Acetaminophen (Acetaminophen 500 Mg Tab) 1,000 mg PO BID [facility] Last Admin: 01/15/21 08:18 Dose: 1,000 mg Documented by: Hydrocodone Bitart/Acetaminophen (Acetaminophen/Hydrocodone 325-5 Mg Tab) 1 tab PO BID PRN PRN Reason: Pain Last Admin: 01/13/21 15:39 Dose: 1 tab Documented by: Albuterol/Ipratropium (Albuterol/Ipratropium 3.0-0.5 Mg/3 Ml Neb Soln) 3 ml NEB QIDRT [facility] Last Admin: 01/15/21 06:30 Dose: 3 ml Documented by: Albuterol/Ipratropium (Albuterol/Ipratropium 3.0-0.5 Mg/3 Ml Neb Soln) 3 ml INH Q6H PRN PRN Reason: Shortness Of Breath/wheezing Amitriptyline HCl (Amitriptyline 10 Mg Tab) 40 mg PO BEDTIME [facility] Last Admin: 01/14/21 20:31 Dose: 40 mg Documented by: Atorvastatin Calcium (Atorvastatin 40 Mg Tab) 40 mg PO BEDTIME [facility] Last Admin: 01/14/21 20:32 Dose: 40 mg Documented by: Baclofen (Baclofen 10 Mg Tab) 20 mg PO TID [facility] Last Admin: 01/15/21 08:18 Dose: 20 mg Documented by: Ceftriaxone Sodium (Ceftriaxone 1 Gm Vial) 1 gm IVPUSH Q24H [facility] Last Admin: 01/14/21 16:07 Dose: 1 gm Documented by: Docusate Sodium (Docusate Sodium 100 Mg Cap) 100 mg PO BID [facility] Last Admin: 01/15/21 08:19 Dose: 100 mg Documented by: Duloxetine HCl (Duloxetine 60 Mg Cap) 60 mg PO DAILY [facility] Last Admin: 01/15/21 08:18 Dose: 60 mg Documented by: Enoxaparin Sodium (Enoxaparin 40 Mg/0.4 Ml Syringe) 40 mg SUBCUT Q24H [facility] Last Admin: 01/14/21 17:18 Dose: 40 mg Documented by: Famotidine (Famotidine 20 Mg Tab) 20 mg PO BID [facility] Last Admin: 01/15/21 08:25 Dose: 20 mg Documented by: Folic Acid (Folic Acid 1 Mg Tab) 1 mg PO DAILY [facility] Last Admin: 01/15/21 08:18 Dose: 1 mg Documented by: Leflunomide (Leflunomide 20 Mg Tab) 20 mg PO DAILY [facility] Last Admin: 01/15/21 08:19 Dose: 20 mg Documented by: Meloxicam (Meloxicam 7.5 Mg Tab) 15 mg PO DAILY [facility] Last Admin: 01/15/21 08:18 Dose: 15 mg Documented by: Nicotine (Nicotine 21 Mg/24 Hr Patch) 21 mg TRDERM DAILY [facility] Last Admin: 01/15/21 09:51 Dose: 21 mg Documented by: Oxybutynin Chloride (Oxybutynin 5 Mg Tab) 5 mg PO TID [facility] Last Admin: 01/15/21 08:20 Dose: 5 mg Documented by: Prednisone (Prednisone 1 Mg Tab) 3 mg PO DAILY [facility] Last Admin: 01/15/21 08:19 Dose: 3 mg Documented by: Pregabalin (Pregabalin 75 Mg Cap) 150 mg PO TID [facility] Last Admin: 01/15/21 08:24 Dose: 150 mg Documented by: Multivit/Folic Acid/Iron ( Multivitamin With Calcium/Folic Acid/Fe Fumarate Cap) 1 each PO DAILY [facility] Last Admin: 01/15/21 08:18 Dose: 1 each Documented by: Sodium Chloride (Sodium Chloride 0.9% 10 Ml Syringe) 10 ml FLUSH ASDIRECTED PRN PRN Reason: Keep Vein Open Last Admin: 01/14/21 16:24 Dose: 10 ml Documented by: Tiotropium [place] (Tiotropium [place] 4 Gm Inhalation [place] (2.5mcg/1 Dose; 10 Doses)) 0 gm INH DAILY [facility] Last Admin: 01/15/21 08:20 Dose: 1 puff Documented by: Verapamil HCl (Verapamil 40 Mg Tab) 80 mg PO TID [facility] Last Admin: 01/15/21 08:19 Dose: 80 mg Documented by: Discontinued Medications Ceftriaxone Sodium (Ceftriaxone 1 Gm Vial) Confirm Administered Dose 1 gm .ROUTE .STK-MED ONE Stop: 01/11/21 15:41 Last Admin: 01/11/21 16:10 Dose: Not Given Documented by: Ceftriaxone Sodium (Ceftriaxone 1 Gm Vial) 1 gm IVPUSH ONETIME ONE Stop: 01/11/21 14:46 Last Admin: 01/11/21 15:45 Dose: 1 gm Documented by: Cetirizine HCl (Cetirizine 10 Mg Tab) 10 mg PO ONETIME ONE Stop: 01/14/21 10:28 Last Admin: 01/14/21 11:01 Dose: 10 mg Documented by: Gadoteridol (Gadoteridol 279.3 Mg/Ml 20 Ml Sdv) 17 ml IV . DIRECTED [facility] Last Admin: 01/11/21 15:15 Dose: 17 ml Documented by: Guaifenesin (Guaifenesin 600 Mg Tab.Er) 600 mg PO ONETIME ONE Stop: 01/14/21 10:28 Last Admin: 01/14/21 11:01 Dose: 600 mg Documented by: Guaifenesin/Codeine Phosphate (Codeine/Guaifenesin 10-100 Mg/5 Ml Syrup 5 Ml Cup) 10 ml PO NOW STA Stop: 01/11/21 13:17 Last Admin: 01/11/21 13:20 Dose: 10 ml Documented by: Sodium Chloride (Normal Saline) 1,000 mls @ 999 mls/hr IV ASDIRECTED [facility] Azithromycin 500 mg/ Sodium (Chloride) 250 mls @ 250 mls/hr IV Q24H [facility] Last Admin: 01/11/21 15:50 Dose: 250 mls/hr Documented by: Azithromycin 500 mg/ Sodium (Chloride) 250 mls @ 250 mls/hr IV Q24H [facility] Stop: 01/13/21 18:00 Last Admin: 01/13/21 14:12 Dose: 250 mls/hr Documented by: Ibuprofen (Ibuprofen 800 Mg Tab) 800 mg PO Q8HR PRN PRN Reason: Moderate Pain Lorazepam (Lorazepam 2 Mg/Ml Sdv) 1 mg IVPUSH NOW STA Stop: 01/11/21 13:17 Last Admin: 01/11/21 13:18 Dose: 1 mg Documented by: Meloxicam (Meloxicam 15 Mg Tab) 15 mg PO DAILY [facility] Comments:: Patient was sitting in a wheelchair next to the bed watching television, nasal cannula in place, no acute distress - Exam Quality Assessment: Supplemental Oxygen, DVT Prophylaxis General: Alert, Oriented, Cooperative, No Acute Distress HEENT: EOMI Lungs: Decreased Breath Sounds, Crackles, Wheezing Cardiovascular: Regular Rate, Regular Rhythm GI/Abdominal Exam: Normal Bowel Sounds, Non-Tender Back Exam: Normal Inspection. No: CVA Tenderness (R), CVA Tenderness (L) Extremities: Pedal Edema Peripheral Pulses: 2+: Radial (L), Radial (R) Skin: Warm, Dry Neurological: No New Focal Deficit Psy/Mental Status: Alert, Normal Affect, Normal Mood - Patient Data Result Diagrams: 01/13/21 06:40 01/13/21 06:40 Dante Results Last 24 hrs: Microbiology 01/11/21 15:00 Aerobic Blood Culture - Preliminary Blood - Venous - Lab Draw NO GROWTH AFTER 3 DAYS Anaerobic Blood Culture - Preliminary NO GROWTH AFTER 3 DAYS 01/11/21 14:50 Aerobic Blood Culture - Preliminary Blood - Venous NO GROWTH AFTER 3 DAYS Anaerobic Blood Culture - Preliminary NO GROWTH AFTER 3 DAYS Sepsis Event Note - Evaluation Sepsis Screening Result: No Definite Risk - Focused Exam Vital Signs: Vital Signs Temp Temp Pulse Resp BP Pulse Ox Pulse Ox 01/15/21 08:00 35.9 C L 91 19 120/79 94 L 09/26/21 06:30 92 90 L 01/15/21 01:00 36.3 C 93 20 122/80 90 L 01/15/21 00:00 90 L - Problem List & Annotations (1) Right lower lobe pneumonia SNOMED Code(s): 005127644 Code(s): J18.9 - PNEUMONIA, UNSPECIFIED ORGANISM Status: Acute Current Visit: Yes (2) COPD (chronic obstructive pulmonary disease) SNOMED Code(s): 97082573 Code(s): J44.9 - CHRONIC OBSTRUCTIVE PULMONARY DISEASE, UNSPECIFIED Status: Chronic Current Visit: No Qualifiers: COPD type: COPD with acute exacerbation Qualified Code(s): J44.1 - Chronic obstructive pulmonary disease with (acute) exacerbation (3) Multiple sclerosis SNOMED Code(s): 93170443 Code(s): G35 - MULTIPLE SCLEROSIS Status: Chronic Current Visit: No Onset Date: ~2015 (4) Palliative care status SNOMED Code(s): 329416141 Code(s): Z51.5 - ENCOUNTER FOR PALLIATIVE CARE Status: Chronic Current Visit: No (5) Rheumatoid arthritis SNOMED Code(s): 48681373 Code(s): M06.9 - RHEUMATOID ARTHRITIS, UNSPECIFIED Status: Chronic Current Visit: No Qualifiers: Rheumatoid arthritis location: multiple sites (6) Tobacco abuse SNOMED Code(s): 091132469 Code(s): Z72.0 - TOBACCO USE Status: Chronic Current Visit: No (7) Unable to ambulate SNOMED Code(s): 792309915 Code(s): R26.2 - DIFFICULTY IN WALKING, NOT ELSEWHERE CLASSIFIED Status: Chronic Current Visit: No (8) Weakness SNOMED Code(s): 37734566 Code(s): R53.1 - WEAKNESS Status: Chronic Current Visit: No - Problem List Review Problem List Initiated/Reviewed/Updated: Yes - My Orders Last 24 Hours: My Active Orders 01/15/21 09:15 Nicotine [Habitrol] 21 mg TRDERM DAILY - Plan Plan:: 1. RLL pneumonia: Rocephin 1 g IV q24h. Patient received 500 mg of azithromycin IV x3 days. Covid & Influenza negative. Add cetirizine, Mucinex due to sinus congestion. 2. COPD: Oxygen saturations between 88-92%, DuoNebs qid and q6h prn SOB. 3. Weakness: PT/OT evaluate & treat. 4. DVT prophylaxis: Enoxaparin 40 mg subcu daily 5. GI prophylaxis: Regular diet, famotidine 6. Discharge: planning NH placement.
[2021-01-15] MEDS: guaiFENesin 600 MG Tab.ER PO SCH ×2 (11:18→20:46)
[2021-01-15] MEDS: cefTRIAXone 1 GM Vial IVPUSH SCH (16:07)
[2021-01-15] MEDS: Enoxaparin 40 MG/0.4 ML Syringe SUBCUT SCH (17:23)
[2021-01-15] MEDS: Cetirizine 10 MG Tab PO SCH (20:46)
[2021-01-15] MEDS: atorvaSTATin 40 MG Tab PO SCH (20:46)
[2021-01-15] MEDS: Amitriptyline 10 MG Tab PO SCH (20:47)
[2021-01-16] MEDS: Albuterol/Ipratropium 3.0-0.5 MG/3 ML Neb Soln NEB SCH ×4 (06:46→20:21)
[2021-01-16] MEDS: Folic Acid 1 MG Tab PO SCH (08:07)
[2021-01-16] MEDS: Leflunomide 20 MG Tab PO SCH (08:07)
[2021-01-16] MEDS: DULoxetine 60 MG Cap PO SCH (08:07)
[2021-01-16] MEDS: Docusate Sodium 100 MG Cap PO SCH ×2 (08:07→20:21)
[2021-01-16] MEDS: predniSONE 1 MG Tab PO SCH (08:08)
[2021-01-16] MEDS: Meloxicam 7.5 MG Tab PO SCH (08:08)
[2021-01-16] MEDS: Baclofen 10 MG Tab PO SCH ×3 (08:08→20:22)
[2021-01-16] MEDS: Oxybutynin 5 MG Tab PO SCH ×3 (08:08→20:22)
[2021-01-16] MEDS: Acetaminophen 500 MG Tab PO SCH ×2 (08:09→20:21)
[2021-01-16] MEDS: Famotidine 20 MG Tab PO SCH ×2 (08:09→20:27)
[2021-01-16] MEDS: Prenatal Multivitamin with Calcium/Folic Acid/Fe Fumarate Cap PO SCH (08:10)
[2021-01-16] MEDS: Tiotropium Bromide 4 GM Inhalation Spray (2.5mcg/1 dose; 10 doses) INH SCH (08:10)
[2021-01-16] MEDS: guaiFENesin 600 MG Tab.ER PO SCH ×2 (08:12→20:22)
[2021-01-16] MEDS: Pregabalin 75 MG Cap PO SCH ×3 (08:12→20:40)
[2021-01-16] MEDS: Nicotine 21 MG/24 Hr Patch TRDERM SCH (08:13)
--- NOTE | 2021-01-16 10:10 | PCM.PN ---
- General Info Date of Service: 01/16/21 Admission Dx/Problem (Free Text): Admission Diagnosis/Problem Admission Diagnosis/Problem Weakness Subjective Update: Her only new concern or complaint today is continued weakness in the bilateral lower extremities. She states that she has less strength and movement in her legs then normal. Functional Status: Reports: Pain Controlled, Tolerating Diet, Urinating - Review of Systems General: Reports: Weakness HEENT: Reports: No Symptoms Pulmonary: Reports: Shortness of Breath, Cough Cardiovascular: Reports: No Symptoms Gastrointestinal: Reports: No Symptoms Genitourinary: Reports: No Symptoms Musculoskeletal: Reports: No Symptoms Skin: Reports: No Symptoms Neurological: Reports: Weakness Psychiatric: Reports: No Symptoms - Patient Data Vitals - Most Recent: Last Vital Signs Temp 36.6 C 01/15/21 21:20 Pulse 82 01/16/21 06:40 Resp 18 01/15/21 21:20 BP 120/69 01/15/21 21:20 Pulse Ox 93 L 01/16/21 06:40 Weight - Most Recent: 81.647 kg I&O - Last 24 Hours: Intake & Output 01/15/21 01/16/21 01/16/21 22:59 06:59 14:59 Intake Total 400 Balance 400 Lab Results Last 24 Hours: Laboratory Results - last 24 hr 01/16/21 01/16/21 Range/Units 06:20 06:20 WBC 6.4 (3.0-10.3) x10-3/uL RBC 4.01 (3.60-5.20) x10(6)uL Hgb 11.7 (11.4-15.5) g/dL Hct 36.6 (34.2-48.2) % MCV 91.1 (76.7-100.5) fL MCH 29.1 (23.9-33.9) pg MCHC 32.0 (31.9-34.8) g/dL RDW 15.6 (12.3-16.5) % Plt Count 190 (151-488) x10(3)uL MPV 8.6 (7.1-12.4) fL Neut % (Auto) 58.9 (30.8-76.2) % Lymph % (Auto) 21.0 (18.4-52.1) % [place] % (Auto) 12.5 (4.4-15.7) % Eos % (Auto) 6.4 (0.6-8.1) % Baso % (Auto) 1.2 (0.2-1.5) % Neut # (Auto) 3.8 (1.5-6.3) x10-3/uL Lymph # (Auto) 1.4 (1.0-4.4) x10-3/uL [place] # (Auto) 0.8 (0.3-1.0) x10-3/uL Eos # (Auto) 0.4 (0.0-0.8) x10-3/uL Baso # (Auto) 0.1 (0.0-0.1) x10-3/uL Sodium 144 (135-145) mmol/L Potassium 4.0 (3.5-5.3) mmol/L Chloride 108 (100-110) mmol/L Carbon Dioxide 29 (21-32) mmol/L BUN 21 H (7-18) mg/dL Creatinine 0.7 (0.55-1.02) mg/dL Est Cr Clr Drug Dosing 79.01 mL/min Estimated GFR (MDRD) > 60 (>60) BUN/Creatinine Ratio 30.0 H (9-20) Glucose 92 (80-116) mg/dL Calcium 8.8 (8.6-10.2) mg/dL Dante Results Last 24 Hours: Microbiology 01/11/21 14:50 Aerobic Blood Culture - Preliminary Blood - Venous NO GROWTH AFTER 4 DAYS Anaerobic Blood Culture - Preliminary NO GROWTH AFTER 4 DAYS 01/11/21 15:00 Aerobic Blood Culture - Preliminary Blood - Venous - Lab Draw NO GROWTH AFTER 4 DAYS Anaerobic Blood Culture - Preliminary NO GROWTH AFTER 4 DAYS Med Orders - Current: Current Medications Acetaminophen (Acetaminophen 500 Mg Tab) 1,000 mg PO BID [facility] Last Admin: 01/16/21 08:09 Dose: 1,000 mg Documented by: Hydrocodone Bitart/Acetaminophen (Acetaminophen/Hydrocodone 325-5 Mg Tab) 1 tab PO BID PRN PRN Reason: Pain Last Admin: 01/13/21 15:39 Dose: 1 tab Documented by: Albuterol/Ipratropium (Albuterol/Ipratropium 3.0-0.5 Mg/3 Ml Neb Soln) 3 ml NEB QIDRT [facility] Last Admin: 01/16/21 06:46 Dose: 3 ml Documented by: Albuterol/Ipratropium (Albuterol/Ipratropium 3.0-0.5 Mg/3 Ml Neb Soln) 3 ml INH Q6H PRN PRN Reason: Shortness Of Breath/wheezing Amitriptyline HCl (Amitriptyline 10 Mg Tab) 40 mg PO BEDTIME [facility] Last Admin: 01/15/21 20:47 Dose: 40 mg Documented by: Atorvastatin Calcium (Atorvastatin 40 Mg Tab) 40 mg PO BEDTIME [facility] Last Admin: 01/15/21 20:46 Dose: 40 mg Documented by: Baclofen (Baclofen 10 Mg Tab) 20 mg PO TID [facility] Last Admin: 01/16/21 08:08 Dose: 20 mg Documented by: Ceftriaxone Sodium (Ceftriaxone 1 Gm Vial) 1 gm IVPUSH Q24H [facility] Last Admin: 01/15/21 16:07 Dose: 1 gm Documented by: Cetirizine HCl (Cetirizine 10 Mg Tab) 10 mg PO BEDTIME [facility] Last Admin: 01/15/21 20:46 Dose: 10 mg Documented by: Docusate Sodium (Docusate Sodium 100 Mg Cap) 100 mg PO BID [facility] Last Admin: 01/16/21 08:07 Dose: 100 mg Documented by: Duloxetine HCl (Duloxetine 60 Mg Cap) 60 mg PO DAILY [facility] Last Admin: 01/16/21 08:07 Dose: 60 mg Documented by: Enoxaparin Sodium (Enoxaparin 40 Mg/0.4 Ml Syringe) 40 mg SUBCUT Q24H [facility] Last Admin: 01/15/21 17:23 Dose: 40 mg Documented by: Famotidine (Famotidine 20 Mg Tab) 20 mg PO BID [facility] Last Admin: 01/16/21 08:09 Dose: 20 mg Documented by: Folic Acid (Folic Acid 1 Mg Tab) 1 mg PO DAILY [facility] Last Admin: 01/16/21 08:07 Dose: 1 mg Documented by: Guaifenesin (Guaifenesin 600 Mg Tab.Er) 600 mg PO BID [facility] Last Admin: 01/16/21 08:12 Dose: 600 mg Documented by: Leflunomide (Leflunomide 20 Mg Tab) 20 mg PO DAILY [facility] Last Admin: 01/16/21 08:07 Dose: 20 mg Documented by: Meloxicam (Meloxicam 7.5 Mg Tab) 15 mg PO DAILY [facility] Last Admin: 01/16/21 08:08 Dose: 15 mg Documented by: Nicotine (Nicotine 21 Mg/24 Hr Patch) 21 mg TRDERM DAILY [facility] Last Admin: 01/16/21 08:13 Dose: 21 mg Documented by: Oxybutynin Chloride (Oxybutynin 5 Mg Tab) 5 mg PO TID [facility] Last Admin: 01/16/21 08:08 Dose: 5 mg Documented by: Prednisone (Prednisone 1 Mg Tab) 3 mg PO DAILY [facility] Last Admin: 01/16/21 08:08 Dose: 3 mg Documented by: Pregabalin (Pregabalin 75 Mg Cap) 150 mg PO TID [facility] Last Admin: 01/16/21 08:12 Dose: 150 mg Documented by: Multivit/Folic Acid/Iron ( Multivitamin With Calcium/Folic Acid/Fe Fumarate Cap) 1 each PO DAILY [facility] Last Admin: 01/16/21 08:10 Dose: 1 each Documented by: Sodium Chloride (Sodium Chloride 0.9% 10 Ml Syringe) 10 ml FLUSH ASDIRECTED PRN PRN Reason: Keep Vein Open Last Admin: 01/14/21 16:24 Dose: 10 ml Documented by: Tiotropium [place] (Tiotropium [place] 4 Gm Inhalation [place] (2.5mcg/1 Dose; 10 Doses)) 0 gm INH DAILY [facility] Last Admin: 01/16/21 08:10 Dose: 2 puff Documented by: Verapamil HCl (Verapamil 40 Mg Tab) 80 mg PO TID [facility] Last Admin: 01/16/21 08:07 Dose: 80 mg Documented by: Discontinued Medications Ceftriaxone Sodium (Ceftriaxone 1 Gm Vial) Confirm Administered Dose 1 gm .ROUTE .STK-MED ONE Stop: 01/11/21 15:41 Last Admin: 01/11/21 16:10 Dose: Not Given Documented by: Ceftriaxone Sodium (Ceftriaxone 1 Gm Vial) 1 gm IVPUSH ONETIME ONE Stop: 01/11/21 14:46 Last Admin: 01/11/21 15:45 Dose: 1 gm Documented by: Cetirizine HCl (Cetirizine 10 Mg Tab) 10 mg PO ONETIME ONE Stop: 01/14/21 10:28 Last Admin: 01/14/21 11:01 Dose: 10 mg Documented by: Gadoteridol (Gadoteridol 279.3 Mg/Ml 20 Ml Sdv) 17 ml IV . DIRECTED [facility] Last Admin: 01/11/21 15:15 Dose: 17 ml Documented by: Guaifenesin (Guaifenesin 600 Mg Tab.Er) 600 mg PO ONETIME ONE Stop: 01/14/21 10:28 Last Admin: 01/14/21 11:01 Dose: 600 mg Documented by: Guaifenesin/Codeine Phosphate (Codeine/Guaifenesin 10-100 Mg/5 Ml Syrup 5 Ml Cup) 10 ml PO NOW STA Stop: 01/11/21 13:17 Last Admin: 01/11/21 13:20 Dose: 10 ml Documented by: Sodium Chloride (Normal Saline) 1,000 mls @ 999 mls/hr IV ASDIRECTED [facility] Azithromycin 500 mg/ Sodium (Chloride) 250 mls @ 250 mls/hr IV Q24H [facility] Last Admin: 01/11/21 15:50 Dose: 250 mls/hr Documented by: Azithromycin 500 mg/ Sodium (Chloride) 250 mls @ 250 mls/hr IV Q24H [facility] Stop: 01/13/21 18:00 Last Admin: 01/13/21 14:12 Dose: 250 mls/hr Documented by: Ibuprofen (Ibuprofen 800 Mg Tab) 800 mg PO Q8HR PRN PRN Reason: Moderate Pain Lorazepam (Lorazepam 2 Mg/Ml Sdv) 1 mg IVPUSH NOW STA Stop: 01/11/21 13:17 Last Admin: 01/11/21 13:18 Dose: 1 mg Documented by: Meloxicam (Meloxicam 15 Mg Tab) 15 mg PO DAILY [facility] Comments:: Patient was lying in bed, supine, no distress - Exam Quality Assessment: Supplemental Oxygen, DVT Prophylaxis General: Alert, Oriented, Cooperative, No Acute Distress HEENT: EOMI Neck: Supple Lungs: Decreased Breath Sounds, Crackles, Rhonchi Cardiovascular: Regular Rate, Regular Rhythm, No Murmurs GI/Abdominal Exam: Normal Bowel Sounds, Non-Tender Back Exam: Normal Inspection. No: CVA Tenderness (R), CVA Tenderness (L) Extremities: Pedal Edema Peripheral Pulses: 1+: Dorsalis Pedis (L), Dorsalis Pedis (R), 2+: Radial (L), Radial (R) Skin: Warm, Dry Neurological: No New Focal Deficit Psy/Mental Status: Alert, Normal Affect, Normal Mood - Patient Data Lab Results Last 24 hrs: Laboratory Results - last 24 hr 01/16/21 01/16/21 Range/Units 06:20 06:20 WBC 6.4 (3.0-10.3) x10-3/uL RBC 4.01 (3.60-5.20) x10(6)uL Hgb 11.7 (11.4-15.5) g/dL Hct 36.6 (34.2-48.2) % MCV 91.1 (76.7-100.5) fL MCH 29.1 (23.9-33.9) pg MCHC 32.0 (31.9-34.8) g/dL RDW 15.6 (12.3-16.5) % Plt Count 190 (151-488) x10(3)uL MPV 8.6 (7.1-12.4) fL Neut % (Auto) 58.9 (30.8-76.2) % Lymph % (Auto) 21.0 (18.4-52.1) % [place] % (Auto) 12.5 (4.4-15.7) % Eos % (Auto) 6.4 (0.6-8.1) % Baso % (Auto) 1.2 (0.2-1.5) % Neut # (Auto) 3.8 (1.5-6.3) x10-3/uL Lymph # (Auto) 1.4 (1.0-4.4) x10-3/uL [place] # (Auto) 0.8 (0.3-1.0) x10-3/uL Eos # (Auto) 0.4 (0.0-0.8) x10-3/uL Baso # (Auto) 0.1 (0.0-0.1) x10-3/uL Sodium 144 (135-145) mmol/L Potassium 4.0 (3.5-5.3) mmol/L Chloride 108 (100-110) mmol/L Carbon Dioxide 29 (21-32) mmol/L BUN 21 H (7-18) mg/dL Creatinine 0.7 (0.55-1.02) mg/dL Est Cr Clr Drug Dosing 79.01 mL/min Estimated GFR (MDRD) > 60 (>60) BUN/Creatinine Ratio 30.0 H (9-20) Glucose 92 (80-116) mg/dL Calcium 8.8 (8.6-10.2) mg/dL Result Diagrams: 01/16/21 06:20 01/16/21 06:20 Dante Results Last 24 hrs: Microbiology 01/11/21 14:50 Aerobic Blood Culture - Preliminary Blood - Venous NO GROWTH AFTER 4 DAYS Anaerobic Blood Culture - Preliminary NO GROWTH AFTER 4 DAYS 01/11/21 15:00 Aerobic Blood Culture - Preliminary Blood - Venous - Lab Draw NO GROWTH AFTER 4 DAYS Anaerobic Blood Culture - Preliminary NO GROWTH AFTER 4 DAYS Sepsis Event Note - Evaluation Sepsis Screening Result: No Definite Risk - Focused Exam Vital Signs: Vital Signs Pulse Pulse Ox 01/16/21 06:40 82 93 L - Problem List & Annotations (1) Right lower lobe pneumonia SNOMED Code(s): 730239762 Code(s): J18.9 - PNEUMONIA, UNSPECIFIED ORGANISM Status: Acute Current Visit: Yes (2) COPD (chronic obstructive pulmonary disease) SNOMED Code(s): 64830584 Code(s): J44.9 - CHRONIC OBSTRUCTIVE PULMONARY DISEASE, UNSPECIFIED Status: Chronic Current Visit: No Qualifiers: COPD type: COPD with acute exacerbation Qualified Code(s): J44.1 - Chronic obstructive pulmonary disease with (acute) exacerbation (3) Multiple sclerosis SNOMED Code(s): 21794019 Code(s): G35 - MULTIPLE SCLEROSIS Status: Chronic Current Visit: No Onset Date: ~2015 (4) Palliative care status SNOMED Code(s): 152818467 Code(s): Z51.5 - ENCOUNTER FOR PALLIATIVE CARE Status: Chronic Current Visit: No (5) Rheumatoid arthritis SNOMED Code(s): 84757255 Code(s): M06.9 - RHEUMATOID ARTHRITIS, UNSPECIFIED Status: Chronic Current Visit: No Qualifiers: Rheumatoid arthritis location: multiple sites (6) Tobacco abuse SNOMED Code(s): 254476171 Code(s): Z72.0 - TOBACCO USE Status: Chronic Current Visit: No (7) Unable to ambulate SNOMED Code(s): 449621479 Code(s): R26.2 - DIFFICULTY IN WALKING, NOT ELSEWHERE CLASSIFIED Status: Chronic Current Visit: No (8) Weakness SNOMED Code(s): 98816977 Code(s): R53.1 - WEAKNESS Status: Chronic Current Visit: No - Problem List Review Problem List Initiated/Reviewed/Updated: Yes - My Orders Last 24 Hours: My Active Orders 01/15/21 09:15 Nicotine [Habitrol] 21 mg TRDERM DAILY 01/15/21 10:30 guaiFENesin [Mucinex] 600 mg PO BID 01/15/21 21:00 Cetirizine [ZyrTEC] 10 mg PO BEDTIME - Plan Plan:: 1. RLL pneumonia: Patient has had 5 days of IV Rocephin and 1500 mg, 500 mg x 3 days, azithromycin. Stop IV antibiotics and start oral doxycycline 100 mg twice daily for 5 days 2. COPD: Oxygen saturations between 88-92%, DuoNebs qid and q6h prn SOB. 3. Weakness: PT/OT evaluate & treat. 4. DVT prophylaxis: Enoxaparin 40 mg subcu daily 5. GI prophylaxis: Regular diet, famotidine 6. Discharge: planning NH placement.
[2021-01-16] MEDS: Doxycycline 100 MG Tab PO SCH ×2 (11:34→20:21)
[2021-01-16] MEDS: Enoxaparin 40 MG/0.4 ML Syringe SUBCUT SCH (17:15)
[2021-01-16] MEDS: Acetaminophen/HYDROcodone 325-5 MG Tab PO PRN (17:53)
[2021-01-16] MEDS: Amitriptyline 10 MG Tab PO SCH (20:23)
[2021-01-16] MEDS: Cetirizine 10 MG Tab PO SCH (20:26)
[2021-01-16] MEDS: atorvaSTATin 40 MG Tab PO SCH (20:29)
[2021-01-17] MEDS: Albuterol/Ipratropium 3.0-0.5 MG/3 ML Neb Soln NEB SCH ×4 (05:59→20:41)
--- NOTE | 2021-01-17 07:22 | PCM.PN ---
- General Info Date of Service: 01/17/21 Admission Dx/Problem (Free Text): Admission Diagnosis/Problem Admission Diagnosis/Problem Weakness Subjective Update: Patient states that she is feeling better today and even tried to stand up last night due to improved feeling and strength in her legs Functional Status: Reports: Pain Controlled, Tolerating Diet, Urinating - Review of Systems General: Reports: Weakness HEENT: Reports: No Symptoms Pulmonary: Reports: Shortness of Breath, Cough Cardiovascular: Reports: No Symptoms Gastrointestinal: Reports: No Symptoms Genitourinary: Reports: No Symptoms Musculoskeletal: Reports: No Symptoms Skin: Reports: No Symptoms Neurological: Reports: No Symptoms Psychiatric: Reports: No Symptoms - Patient Data Vitals - Most Recent: Last Vital Signs Temp 36.6 C 01/16/21 23:46 Pulse 91 01/17/21 06:05 Resp 18 01/16/21 23:46 BP 123/74 01/16/21 23:46 Pulse Ox 90 L 01/16/21 23:46 Weight - Most Recent: 81.647 kg Dante Results Last 24 Hours: Microbiology 01/11/21 14:50 Aerobic Blood Culture - Final Blood - Venous NO GROWTH AFTER 5 DAYS Anaerobic Blood Culture - Final NO GROWTH AFTER 5 DAYS 01/11/21 15:00 Aerobic Blood Culture - Final Blood - Venous - Lab Draw NO GROWTH AFTER 5 DAYS Anaerobic Blood Culture - Final NO GROWTH AFTER 5 DAYS Med Orders - Current: Current Medications Acetaminophen (Acetaminophen 500 Mg Tab) 1,000 mg PO BID [facility] [place] Last Admin: 01/16/21 20:21 Dose: 1,000 mg Documented by: Hydrocodone Bitart/Acetaminophen (Acetaminophen/Hydrocodone 325-5 Mg Tab) 1 tab PO BID PRN PRN Reason: Pain Last Admin: 01/16/21 17:53 Dose: 1 tab Documented by: Albuterol/Ipratropium (Albuterol/Ipratropium 3.0-0.5 Mg/3 Ml Neb Soln) 3 ml NEB QIDRT [facility] [place] Last Admin: 01/17/21 05:59 Dose: 3 ml Documented by: Albuterol/Ipratropium (Albuterol/Ipratropium 3.0-0.5 Mg/3 Ml Neb Soln) 3 ml INH Q6H PRN PRN Reason: Shortness Of Breath/wheezing Amitriptyline HCl (Amitriptyline 10 Mg Tab) 40 mg PO BEDTIME [facility] [place] Last Admin: 01/16/21 20:23 Dose: 40 mg Documented by: Atorvastatin Calcium (Atorvastatin 40 Mg Tab) 40 mg PO BEDTIME [facility] [place] Last Admin: 01/16/21 20:29 Dose: 40 mg Documented by: Baclofen (Baclofen 10 Mg Tab) 20 mg PO TID [facility] [place] Last Admin: 01/16/21 20:22 Dose: 20 mg Documented by: Cetirizine HCl (Cetirizine 10 Mg Tab) 10 mg PO BEDTIME [facility] [place] Last Admin: 01/16/21 20:26 Dose: 10 mg Documented by: Docusate Sodium (Docusate Sodium 100 Mg Cap) 100 mg PO BID [facility] [place] Last Admin: 01/16/21 20:21 Dose: 100 mg Documented by: Doxycycline Hyclate (Doxycycline 100 Mg Tab) 100 mg PO BID [facility] [place] Stop: 01/20/21 23:59 Last Admin: 01/16/21 20:21 Dose: 100 mg Documented by: Duloxetine HCl (Duloxetine 60 Mg Cap) 60 mg PO DAILY [facility] [place] Last Admin: 01/16/21 08:07 Dose: 60 mg Documented by: Enoxaparin Sodium (Enoxaparin 40 Mg/0.4 Ml Syringe) 40 mg SUBCUT Q24H [facility] [place] Last Admin: 01/16/21 17:15 Dose: 40 mg Documented by: Famotidine (Famotidine 20 Mg Tab) 20 mg PO BID [facility] [place] Last Admin: 01/16/21 20:27 Dose: 20 mg Documented by: Folic Acid (Folic Acid 1 Mg Tab) 1 mg PO DAILY [facility] [place] Last Admin: 01/16/21 08:07 Dose: 1 mg Documented by: Guaifenesin (Guaifenesin 600 Mg Tab.Er) 600 mg PO BID [facility] [place] Last Admin: 01/16/21 20:22 Dose: 600 mg Documented by: Leflunomide (Leflunomide 20 Mg Tab) 20 mg PO DAILY [facility] [place] Last Admin: 01/16/21 08:07 Dose: 20 mg Documented by: Meloxicam (Meloxicam 7.5 Mg Tab) 15 mg PO DAILY [facility] [place] Last Admin: 01/16/21 08:08 Dose: 15 mg Documented by: Nicotine (Nicotine 21 Mg/24 Hr Patch) 21 mg TRDERM DAILY [facility] [place] Last Admin: 01/16/21 08:13 Dose: 21 mg Documented by: Oxybutynin Chloride (Oxybutynin 5 Mg Tab) 5 mg PO TID [facility] [place] Last Admin: 01/16/21 20:22 Dose: 5 mg Documented by: Prednisone (Prednisone 1 Mg Tab) 3 mg PO DAILY [facility] [place] Last Admin: 01/16/21 08:08 Dose: 3 mg Documented by: Pregabalin (Pregabalin 75 Mg Cap) 150 mg PO TID [facility] [place] Last Admin: 01/16/21 20:40 Dose: 150 mg Documented by: Multivit/Folic Acid/Iron ( Multivitamin With Calcium/Folic Acid/Fe Fumarate Cap) 1 each PO DAILY@1200 [facility] [place] Sodium Chloride (Sodium Chloride 0.9% 10 Ml Syringe) 10 ml FLUSH ASDIRECTED PRN PRN Reason: Keep Vein Open Last Admin: 01/14/21 16:24 Dose: 10 ml Documented by: Tiotropium [place] (Tiotropium [place] 4 Gm Inhalation [place] (2.5mcg/1 Dose; 10 Doses)) 0 gm INH DAILY [facility] [place] Last Admin: 01/16/21 08:10 Dose: 2 puff Documented by: Verapamil HCl (Verapamil 40 Mg Tab) 80 mg PO TID [facility] [place] Last Admin: 01/16/21 20:20 Dose: 80 mg Documented by: Discontinued Medications Ceftriaxone Sodium (Ceftriaxone 1 Gm Vial) Confirm Administered Dose 1 gm .ROUTE .STK-MED ONE Stop: 01/11/21 15:41 Last Admin: 01/11/21 16:10 Dose: Not Given Documented by: Ceftriaxone Sodium (Ceftriaxone 1 Gm Vial) 1 gm IVPUSH ONETIME ONE Stop: 01/11/21 14:46 Last Admin: 01/11/21 15:45 Dose: 1 gm Documented by: Ceftriaxone Sodium (Ceftriaxone 1 Gm Vial) 1 gm IVPUSH Q24H [facility] [place] Last Admin: 01/15/21 16:07 Dose: 1 gm Documented by: Cetirizine HCl (Cetirizine 10 Mg Tab) 10 mg PO ONETIME ONE Stop: 01/14/21 10:28 Last Admin: 01/14/21 11:01 Dose: 10 mg Documented by: Gadoteridol (Gadoteridol 279.3 Mg/Ml 20 Ml Sdv) 17 ml IV . DIRECTED [facility] [place] Last Admin: 01/11/21 15:15 Dose: 17 ml Documented by: Guaifenesin (Guaifenesin 600 Mg Tab.Er) 600 mg PO ONETIME ONE Stop: 01/14/21 10:28 Last Admin: 01/14/21 11:01 Dose: 600 mg Documented by: Guaifenesin/Codeine Phosphate (Codeine/Guaifenesin 10-100 Mg/5 Ml Syrup 5 Ml Cup) 10 ml PO NOW STA Stop: 01/11/21 13:17 Last Admin: 01/11/21 13:20 Dose: 10 ml Documented by: Sodium Chloride (Normal Saline) 1,000 mls @ 999 mls/hr IV ASDIRECTED [facility] [place] Azithromycin 500 mg/ Sodium (Chloride) 250 mls @ 250 mls/hr IV Q24H [facility] [place] Last Admin: 01/11/21 15:50 Dose: 250 mls/hr Documented by: Azithromycin 500 mg/ Sodium (Chloride) 250 mls @ 250 mls/hr IV Q24H [facility] [place] Stop: 01/13/21 18:00 Last Admin: 01/13/21 14:12 Dose: 250 mls/hr Documented by: Ibuprofen (Ibuprofen 800 Mg Tab) 800 mg PO Q8HR PRN PRN Reason: Moderate Pain Lorazepam (Lorazepam 2 Mg/Ml Sdv) 1 mg IVPUSH NOW STA Stop: 01/11/21 13:17 Last Admin: 01/11/21 13:18 Dose: 1 mg Documented by: Meloxicam (Meloxicam 15 Mg Tab) 15 mg PO DAILY [facility] [place] Multivit/Folic Acid/Iron ( Multivitamin With Calcium/Folic Acid/Fe Fumarate Cap) 1 each PO DAILY [facility] [place] Last Admin: 01/16/21 08:10 Dose: 1 each Documented by: Comments:: Patient sitting in wheelchair next to the bed, awake, alert, interactive, pleasant, looks well and much stronger today - Exam Quality Assessment: Supplemental Oxygen, DVT Prophylaxis General: Alert, Oriented, Cooperative, No Acute Distress HEENT: EOMI Lungs: Decreased Breath Sounds, Crackles, Other (Improved airflow from yesterday) Cardiovascular: Regular Rate, Regular Rhythm, No Murmurs GI/Abdominal Exam: Normal Bowel Sounds, Non-Tender Back Exam: Normal Inspection. No: CVA Tenderness (R), CVA Tenderness (L) Extremities: Normal Inspection, Pedal Edema, Other (Trace edema, improved) Peripheral Pulses: 2+: Radial (L), Radial (R) Skin: Warm, Dry Neurological: No New Focal Deficit Psy/Mental Status: Alert, Normal Affect, Normal Mood - Patient Data Result Diagrams: 01/16/21 06:20 01/16/21 06:20 Dante Results Last 24 hrs: Microbiology 01/11/21 14:50 Aerobic Blood Culture - Final Blood - Venous NO GROWTH AFTER 5 DAYS Anaerobic Blood Culture - Final NO GROWTH AFTER 5 DAYS 01/11/21 15:00 Aerobic Blood Culture - Final Blood - Venous - Lab Draw NO GROWTH AFTER 5 DAYS Anaerobic Blood Culture - Final NO GROWTH AFTER 5 DAYS Sepsis Event Note - Evaluation Sepsis Screening Result: No Definite Risk - Focused Exam Vital Signs: Vital Signs Temp Pulse Resp BP Pulse Ox 01/17/21 06:05 91 01/16/21 23:46 36.6 C 91 18 123/74 90 L 01/16/21 21:10 90 - Problem List & Annotations (1) Right lower lobe pneumonia SNOMED Code(s): 148188341 Code(s): J18.9 - PNEUMONIA, UNSPECIFIED ORGANISM Status: Acute Current Visit: Yes (2) COPD (chronic obstructive pulmonary disease) SNOMED Code(s): 85019789 Code(s): J44.9 - CHRONIC OBSTRUCTIVE PULMONARY DISEASE, UNSPECIFIED Status: Chronic Current Visit: No Qualifiers: COPD type: COPD with acute exacerbation Qualified Code(s): J44.1 - Chronic obstructive pulmonary disease with (acute) exacerbation (3) Multiple sclerosis SNOMED Code(s): 90308449 Code(s): G35 - MULTIPLE SCLEROSIS Status: Chronic Current Visit: No Onset Date: ~2015 (4) Palliative care status SNOMED Code(s): 721229130 Code(s): Z51.5 - ENCOUNTER FOR PALLIATIVE CARE Status: Chronic Current Visit: No (5) Rheumatoid arthritis SNOMED Code(s): 80260215 Code(s): M06.9 - RHEUMATOID ARTHRITIS, UNSPECIFIED Status: Chronic Current Visit: No Qualifiers: Rheumatoid arthritis location: multiple sites (6) Tobacco abuse SNOMED Code(s): 818457113 Code(s): Z72.0 - TOBACCO USE Status: Chronic Current Visit: No (7) Unable to ambulate SNOMED Code(s): 142606717 Code(s): R26.2 - DIFFICULTY IN WALKING, NOT ELSEWHERE CLASSIFIED Status: Chronic Current Visit: No (8) Weakness SNOMED Code(s): 37152175 Code(s): R53.1 - WEAKNESS Status: Chronic Current Visit: No - Problem List Review Problem List Initiated/Reviewed/Updated: Yes - My Orders Last 24 Hours: My Active Orders 01/16/21 10:15 Doxycycline [Vibra-Tabs] 100 mg PO BID - Plan Plan:: 1. RLL pneumonia: Patient has had 5 days of IV Rocephin and 1500 mg, 500 mg x 3 days, azithromycin. Stop IV antibiotics and start oral doxycycline 100 mg twice daily for 5 days -day 2 of 5 2. COPD: Oxygen saturations between 88-92%, DuoNebs qid and q6h prn SOB. 3. Weakness: PT/OT evaluate & treat. 4. DVT prophylaxis: Enoxaparin 40 mg subcu daily 5. GI prophylaxis: Regular diet, famotidine 6. Discharge: planning NH placement.
[2021-01-17] MEDS: Folic Acid 1 MG Tab PO SCH (08:14)
[2021-01-17] MEDS: Leflunomide 20 MG Tab PO SCH (08:14)
[2021-01-17] MEDS: DULoxetine 60 MG Cap PO SCH (08:14)
[2021-01-17] MEDS: Pregabalin 75 MG Cap PO SCH ×3 (08:15→20:42)
[2021-01-17] MEDS: Famotidine 20 MG Tab PO SCH ×2 (08:15→20:43)
[2021-01-17] MEDS: Meloxicam 7.5 MG Tab PO SCH (08:15)
[2021-01-17] MEDS: Oxybutynin 5 MG Tab PO SCH ×3 (08:15→20:43)
[2021-01-17] MEDS: guaiFENesin 600 MG Tab.ER PO SCH ×2 (08:15→20:42)
[2021-01-17] MEDS: predniSONE 1 MG Tab PO SCH (08:16)
[2021-01-17] MEDS: Acetaminophen 500 MG Tab PO SCH ×2 (08:16→20:43)
[2021-01-17] MEDS: Tiotropium Bromide 4 GM Inhalation Spray (2.5mcg/1 dose; 10 doses) INH SCH (08:16)
[2021-01-17] MEDS: Doxycycline 100 MG Tab PO SCH ×2 (08:16→20:44)
[2021-01-17] MEDS: Baclofen 10 MG Tab PO SCH ×3 (08:20→20:42)
[2021-01-17] MEDS: Nicotine 21 MG/24 Hr Patch TRDERM SCH (08:20)
[2021-01-17] MEDS: Docusate Sodium 100 MG Cap PO SCH ×2 (08:20→20:41)
[2021-01-17] MEDS: Prenatal Multivitamin with Calcium/Folic Acid/Fe Fumarate Cap PO SCH (11:35)
[2021-01-17] MEDS: Enoxaparin 40 MG/0.4 ML Syringe SUBCUT SCH (17:37)
[2021-01-17] MEDS: Amitriptyline 10 MG Tab PO SCH (20:41)
[2021-01-17] MEDS: atorvaSTATin 40 MG Tab PO SCH (20:42)
[2021-01-17] MEDS: Cetirizine 10 MG Tab PO SCH (20:44)
[2021-01-17] MEDS: Acetaminophen/HYDROcodone 325-5 MG Tab PO PRN (20:51)
[2021-01-18] MEDS: Albuterol/Ipratropium 3.0-0.5 MG/3 ML Neb Soln NEB SCH ×4 (06:48→21:11)
[2021-01-18] MEDS: Acetaminophen 500 MG Tab PO SCH ×2 (08:13→21:11)
[2021-01-18] MEDS: Famotidine 20 MG Tab PO SCH ×2 (08:13→21:10)
[2021-01-18] MEDS: Doxycycline 100 MG Tab PO SCH ×2 (08:14→21:11)
[2021-01-18] MEDS: guaiFENesin 600 MG Tab.ER PO SCH ×2 (08:14→21:11)
[2021-01-18] MEDS: Meloxicam 7.5 MG Tab PO SCH (08:15)
[2021-01-18] MEDS: Folic Acid 1 MG Tab PO SCH (08:15)
[2021-01-18] MEDS: Leflunomide 20 MG Tab PO SCH (08:16)
[2021-01-18] MEDS: predniSONE 1 MG Tab PO SCH (08:17)
[2021-01-18] MEDS: DULoxetine 60 MG Cap PO SCH (08:17)
[2021-01-18] MEDS: Baclofen 10 MG Tab PO SCH ×3 (08:17→21:11)
[2021-01-18] MEDS: Docusate Sodium 100 MG Cap PO SCH ×2 (08:18→21:11)
[2021-01-18] MEDS: Tiotropium Bromide 4 GM Inhalation Spray (2.5mcg/1 dose; 10 doses) INH SCH (08:18)
[2021-01-18] MEDS: Nicotine 21 MG/24 Hr Patch TRDERM SCH (08:19)
[2021-01-18] MEDS: Oxybutynin 5 MG Tab PO SCH ×3 (08:19→21:10)
[2021-01-18] MEDS: Pregabalin 75 MG Cap PO SCH ×3 (08:21→21:10)
--- NOTE | 2021-01-18 08:59 | PCM.PN ---
- General Info Date of Service: 01/18/21 Admission Dx/Problem (Free Text): Admission Diagnosis/Problem Admission Diagnosis/Problem Weakness Subjective Update: Patient states she continues to feel better, no new complaints Functional Status: Reports: Pain Controlled, Tolerating Diet, Urinating - Review of Systems General: Reports: Weakness HEENT: Reports: No Symptoms Pulmonary: Reports: No Symptoms Cardiovascular: Reports: No Symptoms Gastrointestinal: Reports: No Symptoms Genitourinary: Reports: No Symptoms Musculoskeletal: Reports: No Symptoms Skin: Reports: No Symptoms Neurological: Reports: No Symptoms Psychiatric: Reports: No Symptoms - Patient Data Vitals - Most Recent: Last Vital Signs Temp 36.3 C 01/18/21 07:35 Pulse 88 01/18/21 07:35 Resp 22 H 01/18/21 07:35 BP 125/78 01/18/21 07:35 Pulse Ox 92 L 01/18/21 07:35 Weight - Most Recent: 81.647 kg Med Orders - Current: Current Medications Acetaminophen (Acetaminophen 500 Mg Tab) 1,000 mg PO BID [facility] Last Admin: 01/18/21 08:13 Dose: 1,000 mg Documented by: Hydrocodone Bitart/Acetaminophen (Acetaminophen/Hydrocodone 325-5 Mg Tab) 1 tab PO BID PRN PRN Reason: Pain Last Admin: 01/17/21 20:51 Dose: 1 tab Documented by: Albuterol/Ipratropium (Albuterol/Ipratropium 3.0-0.5 Mg/3 Ml Neb Soln) 3 ml NEB QIDRT [facility] Last Admin: 01/18/21 06:48 Dose: 3 ml Documented by: Albuterol/Ipratropium (Albuterol/Ipratropium 3.0-0.5 Mg/3 Ml Neb Soln) 3 ml INH Q6H PRN PRN Reason: Shortness Of Breath/wheezing Amitriptyline HCl (Amitriptyline 10 Mg Tab) 40 mg PO BEDTIME [facility] Last Admin: 01/17/21 20:41 Dose: 40 mg Documented by: Atorvastatin Calcium (Atorvastatin 40 Mg Tab) 40 mg PO BEDTIME [facility] Last Admin: 01/17/21 20:42 Dose: 40 mg Documented by: Baclofen (Baclofen 10 Mg Tab) 20 mg PO TID [facility] Last Admin: 01/18/21 08:17 Dose: 20 mg Documented by: Cetirizine HCl (Cetirizine 10 Mg Tab) 10 mg PO BEDTIME [facility] Last Admin: 01/17/21 20:44 Dose: 10 mg Documented by: Docusate Sodium (Docusate Sodium 100 Mg Cap) 100 mg PO BID [facility] Last Admin: 01/18/21 08:18 Dose: 100 mg Documented by: Doxycycline Hyclate (Doxycycline 100 Mg Tab) 100 mg PO BID [facility] Stop: 01/20/21 23:59 Last Admin: 01/18/21 08:14 Dose: 100 mg Documented by: Duloxetine HCl (Duloxetine 60 Mg Cap) 60 mg PO DAILY [facility] Last Admin: 01/18/21 08:17 Dose: 60 mg Documented by: Enoxaparin Sodium (Enoxaparin 40 Mg/0.4 Ml Syringe) 40 mg SUBCUT Q24H [facility] Last Admin: 01/17/21 17:37 Dose: 40 mg Documented by: Famotidine (Famotidine 20 Mg Tab) 20 mg PO BID [facility] Last Admin: 01/18/21 08:13 Dose: 20 mg Documented by: Folic Acid (Folic Acid 1 Mg Tab) 1 mg PO DAILY [facility] Last Admin: 01/18/21 08:15 Dose: 1 mg Documented by: Guaifenesin (Guaifenesin 600 Mg Tab.Er) 600 mg PO BID [facility] Last Admin: 01/18/21 08:14 Dose: 600 mg Documented by: Leflunomide (Leflunomide 20 Mg Tab) 20 mg PO DAILY [facility] Last Admin: 01/18/21 08:16 Dose: 20 mg Documented by: Meloxicam (Meloxicam 7.5 Mg Tab) 15 mg PO DAILY [facility] Last Admin: 01/18/21 08:15 Dose: 15 mg Documented by: Nicotine (Nicotine 21 Mg/24 Hr Patch) 21 mg TRDERM DAILY [facility] Last Admin: 01/18/21 08:19 Dose: 21 mg Documented by: Oxybutynin Chloride (Oxybutynin 5 Mg Tab) 5 mg PO TID [facility] Last Admin: 01/18/21 08:19 Dose: 5 mg Documented by: Prednisone (Prednisone 1 Mg Tab) 3 mg PO DAILY [facility] Last Admin: 01/18/21 08:17 Dose: 3 mg Documented by: Pregabalin (Pregabalin 75 Mg Cap) 150 mg PO TID [facility] Last Admin: 01/18/21 08:21 Dose: 150 mg Documented by: Multivit/Folic Acid/Iron ( Multivitamin With Calcium/Folic Acid/Fe Fumarate Cap) 1 each PO DAILY@1200 [facility] Last Admin: 01/17/21 11:35 Dose: 1 each Documented by: Sodium Chloride (Sodium Chloride 0.9% 10 Ml Syringe) 10 ml FLUSH ASDIRECTED PRN PRN Reason: Keep Vein Open Last Admin: 01/14/21 16:24 Dose: 10 ml Documented by: Tiotropium [place] (Tiotropium [place] 4 Gm Inhalation [place] (2.5mcg/1 Dose; 10 Doses)) 0 gm INH DAILY [facility] Last Admin: 01/18/21 08:18 Dose: 2 puff Documented by: Verapamil HCl (Verapamil 40 Mg Tab) 80 mg PO TID [facility] Last Admin: 01/18/21 08:15 Dose: 80 mg Documented by: Discontinued Medications Ceftriaxone Sodium (Ceftriaxone 1 Gm Vial) Confirm Administered Dose 1 gm .ROUTE .STK-MED ONE Stop: 01/11/21 15:41 Last Admin: 01/11/21 16:10 Dose: Not Given Documented by: Ceftriaxone Sodium (Ceftriaxone 1 Gm Vial) 1 gm IVPUSH ONETIME ONE Stop: 01/11/21 14:46 Last Admin: 01/11/21 15:45 Dose: 1 gm Documented by: Ceftriaxone Sodium (Ceftriaxone 1 Gm Vial) 1 gm IVPUSH Q24H [facility] Last Admin: 01/15/21 16:07 Dose: 1 gm Documented by: Cetirizine HCl (Cetirizine 10 Mg Tab) 10 mg PO ONETIME ONE Stop: 01/14/21 10:28 Last Admin: 01/14/21 11:01 Dose: 10 mg Documented by: Gadoteridol (Gadoteridol 279.3 Mg/Ml 20 Ml Sdv) 17 ml IV . DIRECTED [facility] Last Admin: 01/11/21 15:15 Dose: 17 ml Documented by: Guaifenesin (Guaifenesin 600 Mg Tab.Er) 600 mg PO ONETIME ONE Stop: 01/14/21 10:28 Last Admin: 01/14/21 11:01 Dose: 600 mg Documented by: Guaifenesin/Codeine Phosphate (Codeine/Guaifenesin 10-100 Mg/5 Ml Syrup 5 Ml Cup) 10 ml PO NOW STA Stop: 01/11/21 13:17 Last Admin: 01/11/21 13:20 Dose: 10 ml Documented by: Sodium Chloride (Normal Saline) 1,000 mls @ 999 mls/hr IV ASDIRECTED [facility] Azithromycin 500 mg/ Sodium (Chloride) 250 mls @ 250 mls/hr IV Q24H [facility] Last Admin: 01/11/21 15:50 Dose: 250 mls/hr Documented by: Azithromycin 500 mg/ Sodium (Chloride) 250 mls @ 250 mls/hr IV Q24H [facility] Stop: 01/13/21 18:00 Last Admin: 01/13/21 14:12 Dose: 250 mls/hr Documented by: Ibuprofen (Ibuprofen 800 Mg Tab) 800 mg PO Q8HR PRN PRN Reason: Moderate Pain Lorazepam (Lorazepam 2 Mg/Ml Sdv) 1 mg IVPUSH NOW STA Stop: 01/11/21 13:17 Last Admin: 01/11/21 13:18 Dose: 1 mg Documented by: Meloxicam (Meloxicam 15 Mg Tab) 15 mg PO DAILY [facility] Multivit/Folic Acid/Iron ( Multivitamin With Calcium/Folic Acid/Fe Fumarate Cap) 1 each PO DAILY [facility] Last Admin: 01/16/21 08:10 Dose: 1 each Documented by: Comments:: Patient was sitting in wheelchair next to the bed with breakfast, awake, alert, interactive, pleasant, smiling - Exam Quality Assessment: Supplemental Oxygen, DVT Prophylaxis General: Alert, Oriented, Cooperative, No Acute Distress HEENT: EOMI Neck: Supple Lungs: Crackles, Other (Significantly improved lung sounds from yesterday) Cardiovascular: Regular Rate, Regular Rhythm, No Murmurs GI/Abdominal Exam: Normal Bowel Sounds, Non-Tender Back Exam: Normal Inspection. No: CVA Tenderness (R), CVA Tenderness (L) Extremities: Pedal Edema Peripheral Pulses: 2+: Radial (L), Radial (R) Skin: Warm, Dry Neurological: No New Focal Deficit Psy/Mental Status: Alert, Normal Affect, Normal Mood - Patient Data Result Diagrams: 01/16/21 06:20 01/16/21 06:20 Sepsis Event Note - Evaluation Sepsis Screening Result: No Definite Risk - Focused Exam Vital Signs: Vital Signs Temp Pulse Resp BP Pulse Ox 01/18/21 07:35 36.3 C 88 22 H 125/78 92 L 01/17/21 21:00 90 - Problem List & Annotations (1) Right lower lobe pneumonia SNOMED Code(s): 133921978 Code(s): J18.9 - PNEUMONIA, UNSPECIFIED ORGANISM Status: Acute Current Visit: Yes (2) COPD (chronic obstructive pulmonary disease) SNOMED Code(s): 69703326 Code(s): J44.9 - CHRONIC OBSTRUCTIVE PULMONARY DISEASE, UNSPECIFIED Status: Chronic Current Visit: No Qualifiers: COPD type: COPD with acute exacerbation Qualified Code(s): J44.1 - Chronic obstructive pulmonary disease with (acute) exacerbation (3) Multiple sclerosis SNOMED Code(s): 87413658 Code(s): G35 - MULTIPLE SCLEROSIS Status: Chronic Current Visit: No Onset Date: ~2015 (4) Palliative care status SNOMED Code(s): 374290151 Code(s): Z51.5 - ENCOUNTER FOR PALLIATIVE CARE Status: Chronic Current Visit: No (5) Rheumatoid arthritis SNOMED Code(s): 12757746 Code(s): M06.9 - RHEUMATOID ARTHRITIS, UNSPECIFIED Status: Chronic Current Visit: No Qualifiers: Rheumatoid arthritis location: multiple sites (6) Tobacco abuse SNOMED Code(s): 024029305 Code(s): Z72.0 - TOBACCO USE Status: Chronic Current Visit: No (7) Unable to ambulate SNOMED Code(s): 630767940 Code(s): R26.2 - DIFFICULTY IN WALKING, NOT ELSEWHERE CLASSIFIED Status: Chronic Current Visit: No (8) Weakness SNOMED Code(s): 48191568 Code(s): R53.1 - WEAKNESS Status: Chronic Current Visit: No - Problem List Review Problem List Initiated/Reviewed/Updated: Yes - Plan Plan:: 1. RLL pneumonia: Patient has had 5 days of IV Rocephin and 1500 mg, 500 mg x 3 days, azithromycin. Stop IV antibiotics and start oral doxycycline 100 mg twice daily for 5 days -day 3 of 5 2. COPD: Continue breathing treatments and supplemental oxygen as needed 3. Weakness: PT/OT evaluate & treat. 4. DVT prophylaxis: Enoxaparin 40 mg subcu daily 5. GI prophylaxis: Regular diet, famotidine 6. Discharge: planning NH placement.
[2021-01-18] MEDS: Prenatal Multivitamin with Calcium/Folic Acid/Fe Fumarate Cap PO SCH (13:39)
[2021-01-18] MEDS: Enoxaparin 40 MG/0.4 ML Syringe SUBCUT SCH (17:36)
[2021-01-18] MEDS: atorvaSTATin 40 MG Tab PO SCH (21:10)
[2021-01-18] MEDS: Cetirizine 10 MG Tab PO SCH (21:11)
[2021-01-18] MEDS: Amitriptyline 10 MG Tab PO SCH (21:12)
[2021-01-19] MEDS: Albuterol/Ipratropium 3.0-0.5 MG/3 ML Neb Soln NEB SCH ×4 (06:48→21:50)
--- NOTE | 2021-01-19 08:29 | PCM.PN ---
- General Info Date of Service: 01/19/21 Admission Dx/Problem (Free Text): Admission Diagnosis/Problem Admission Diagnosis/Problem Weakness Subjective Update: Patient states she is doing well today but is having some abdominal pain from her coughing Functional Status: Reports: Pain Controlled, Tolerating Diet, Urinating - Review of Systems General: Reports: Weakness HEENT: Reports: No Symptoms Pulmonary: Reports: Cough Cardiovascular: Reports: No Symptoms Gastrointestinal: Reports: Abdominal Pain Genitourinary: Reports: No Symptoms Musculoskeletal: Reports: No Symptoms Skin: Reports: No Symptoms Neurological: Reports: No Symptoms Psychiatric: Reports: No Symptoms - Patient Data Vitals - Most Recent: Last Vital Signs Temp 36.4 C 01/18/21 21:20 Pulse 85 01/19/21 06:48 Resp 18 01/18/21 21:20 BP 107/71 01/18/21 21:20 Pulse Ox 93 L 01/18/21 21:20 Weight - Most Recent: 81.647 kg Med Orders - Current: Current Medications Acetaminophen (Acetaminophen 500 Mg Tab) 1,000 mg PO BID [facility] Last Admin: 01/18/21 21:11 Dose: 1,000 mg Documented by: Hydrocodone Bitart/Acetaminophen (Acetaminophen/Hydrocodone 325-5 Mg Tab) 1 tab PO BID PRN PRN Reason: Pain Last Admin: 01/17/21 20:51 Dose: 1 tab Documented by: Albuterol/Ipratropium (Albuterol/Ipratropium 3.0-0.5 Mg/3 Ml Neb Soln) 3 ml NEB QIDRT [facility] Last Admin: 01/19/21 06:48 Dose: 3 ml Documented by: Albuterol/Ipratropium (Albuterol/Ipratropium 3.0-0.5 Mg/3 Ml Neb Soln) 3 ml INH Q6H PRN PRN Reason: Shortness Of Breath/wheezing Amitriptyline HCl (Amitriptyline 10 Mg Tab) 40 mg PO BEDTIME [facility] Last Admin: 01/18/21 21:12 Dose: 40 mg Documented by: Atorvastatin Calcium (Atorvastatin 40 Mg Tab) 40 mg PO BEDTIME [facility] Last Admin: 01/18/21 21:10 Dose: 40 mg Documented by: Baclofen (Baclofen 10 Mg Tab) 20 mg PO TID [facility] Last Admin: 01/18/21 21:11 Dose: 20 mg Documented by: Cetirizine HCl (Cetirizine 10 Mg Tab) 10 mg PO BEDTIME [facility] Last Admin: 01/18/21 21:11 Dose: 10 mg Documented by: Docusate Sodium (Docusate Sodium 100 Mg Cap) 100 mg PO BID [facility] Last Admin: 01/18/21 21:11 Dose: 100 mg Documented by: Doxycycline Hyclate (Doxycycline 100 Mg Tab) 100 mg PO BID [facility] Stop: 01/20/21 23:59 Last Admin: 01/18/21 21:11 Dose: 100 mg Documented by: Duloxetine HCl (Duloxetine 60 Mg Cap) 60 mg PO DAILY [facility] Last Admin: 01/18/21 08:17 Dose: 60 mg Documented by: Enoxaparin Sodium (Enoxaparin 40 Mg/0.4 Ml Syringe) 40 mg SUBCUT Q24H [facility] Last Admin: 01/18/21 17:36 Dose: 40 mg Documented by: Famotidine (Famotidine 20 Mg Tab) 20 mg PO BID [facility] Last Admin: 01/18/21 21:10 Dose: 20 mg Documented by: Folic Acid (Folic Acid 1 Mg Tab) 1 mg PO DAILY [facility] Last Admin: 01/18/21 08:15 Dose: 1 mg Documented by: Guaifenesin (Guaifenesin 600 Mg Tab.Er) 600 mg PO BID [facility] Last Admin: 01/18/21 21:11 Dose: 600 mg Documented by: Leflunomide (Leflunomide 20 Mg Tab) 20 mg PO DAILY [facility] Last Admin: 01/18/21 08:16 Dose: 20 mg Documented by: Meloxicam (Meloxicam 7.5 Mg Tab) 15 mg PO DAILY [facility] Last Admin: 01/18/21 08:15 Dose: 15 mg Documented by: Nicotine (Nicotine 21 Mg/24 Hr Patch) 21 mg TRDERM DAILY [facility] Last Admin: 01/18/21 08:19 Dose: 21 mg Documented by: Oxybutynin Chloride (Oxybutynin 5 Mg Tab) 5 mg PO TID [facility] Last Admin: 01/18/21 21:10 Dose: 5 mg Documented by: Prednisone (Prednisone 1 Mg Tab) 3 mg PO DAILY [facility] Last Admin: 01/18/21 08:17 Dose: 3 mg Documented by: Pregabalin (Pregabalin 75 Mg Cap) 150 mg PO TID [facility] Last Admin: 01/18/21 21:10 Dose: 150 mg Documented by: Multivit/Folic Acid/Iron ( Multivitamin With Calcium/Folic Acid/Fe Fumarate Cap) 1 each PO DAILY@1200 [facility] Last Admin: 01/18/21 13:39 Dose: 1 each Documented by: Sodium Chloride (Sodium Chloride 0.9% 10 Ml Syringe) 10 ml FLUSH ASDIRECTED PRN PRN Reason: Keep Vein Open Last Admin: 01/14/21 16:24 Dose: 10 ml Documented by: Tiotropium [place] (Tiotropium [place] 4 Gm Inhalation [place] (2.5mcg/1 Dose; 10 Doses)) 0 gm INH DAILY [facility] Last Admin: 01/18/21 08:18 Dose: 2 puff Documented by: Verapamil HCl (Verapamil 40 Mg Tab) 80 mg PO TID [facility] Last Admin: 01/18/21 21:11 Dose: 80 mg Documented by: Discontinued Medications Ceftriaxone Sodium (Ceftriaxone 1 Gm Vial) Confirm Administered Dose 1 gm .ROUTE .STK-MED ONE Stop: 01/11/21 15:41 Last Admin: 01/11/21 16:10 Dose: Not Given Documented by: Ceftriaxone Sodium (Ceftriaxone 1 Gm Vial) 1 gm IVPUSH ONETIME ONE Stop: 01/11/21 14:46 Last Admin: 01/11/21 15:45 Dose: 1 gm Documented by: Ceftriaxone Sodium (Ceftriaxone 1 Gm Vial) 1 gm IVPUSH Q24H [facility] Last Admin: 01/15/21 16:07 Dose: 1 gm Documented by: Cetirizine HCl (Cetirizine 10 Mg Tab) 10 mg PO ONETIME ONE Stop: 01/14/21 10:28 Last Admin: 01/14/21 11:01 Dose: 10 mg Documented by: Gadoteridol (Gadoteridol 279.3 Mg/Ml 20 Ml Sdv) 17 ml IV . DIRECTED [facility] Last Admin: 01/11/21 15:15 Dose: 17 ml Documented by: Guaifenesin (Guaifenesin 600 Mg Tab.Er) 600 mg PO ONETIME ONE Stop: 01/14/21 10:28 Last Admin: 01/14/21 11:01 Dose: 600 mg Documented by: Guaifenesin/Codeine Phosphate (Codeine/Guaifenesin 10-100 Mg/5 Ml Syrup 5 Ml Cup) 10 ml PO NOW STA Stop: 01/11/21 13:17 Last Admin: 01/11/21 13:20 Dose: 10 ml Documented by: Sodium Chloride (Normal Saline) 1,000 mls @ 999 mls/hr IV ASDIRECTED [facility] Azithromycin 500 mg/ Sodium (Chloride) 250 mls @ 250 mls/hr IV Q24H [facility] Last Admin: 01/11/21 15:50 Dose: 250 mls/hr Documented by: Azithromycin 500 mg/ Sodium (Chloride) 250 mls @ 250 mls/hr IV Q24H [facility] Stop: 01/13/21 18:00 Last Admin: 01/13/21 14:12 Dose: 250 mls/hr Documented by: Ibuprofen (Ibuprofen 800 Mg Tab) 800 mg PO Q8HR PRN PRN Reason: Moderate Pain Lorazepam (Lorazepam 2 Mg/Ml Sdv) 1 mg IVPUSH NOW STA Stop: 01/11/21 13:17 Last Admin: 01/11/21 13:18 Dose: 1 mg Documented by: Meloxicam (Meloxicam 15 Mg Tab) 15 mg PO DAILY [facility] Multivit/Folic Acid/Iron ( Multivitamin With Calcium/Folic Acid/Fe Fumarate Cap) 1 each PO DAILY [facility] Last Admin: 01/16/21 08:10 Dose: 1 each Documented by: Comments:: Patient sitting in bed eating breakfast, awake, alert, smiling - Exam Quality Assessment: Supplemental Oxygen, DVT Prophylaxis General: Alert, Oriented, Cooperative, No Acute Distress HEENT: EOMI Lungs: Normal Respiratory Effort, Other (Course lung sounds bilateral lower lobes) Cardiovascular: Regular Rate, Regular Rhythm, Murmurs GI/Abdominal Exam: Normal Bowel Sounds, Non-Tender Extremities: Normal Inspection Peripheral Pulses: 2+: Radial (L), Radial (R) Skin: Warm, Dry Neurological: No New Focal Deficit Psy/Mental Status: Alert, Normal Affect, Normal Mood - Patient Data Result Diagrams: 01/16/21 06:20 01/16/21 06:20 Sepsis Event Note - Evaluation Sepsis Screening Result: No Definite Risk - Focused Exam Vital Signs: Vital Signs Temp Pulse Resp BP Pulse Ox 01/19/21 06:48 85 01/18/21 21:20 36.4 C 91 18 107/71 93 L 01/18/21 21:11 88 - Problem List & Annotations (1) Right lower lobe pneumonia SNOMED Code(s): 763345462 Code(s): J18.9 - PNEUMONIA, UNSPECIFIED ORGANISM Status: Acute Current Visit: Yes (2) COPD (chronic obstructive pulmonary disease) SNOMED Code(s): 59585030 Code(s): J44.9 - CHRONIC OBSTRUCTIVE PULMONARY DISEASE, UNSPECIFIED Status: Chronic Current Visit: No Qualifiers: COPD type: COPD with acute exacerbation Qualified Code(s): J44.1 - Chronic obstructive pulmonary disease with (acute) exacerbation (3) Multiple sclerosis SNOMED Code(s): 68091293 Code(s): G35 - MULTIPLE SCLEROSIS Status: Chronic Current Visit: No Onset Date: ~2015 (4) Palliative care status SNOMED Code(s): 408060210 Code(s): Z51.5 - ENCOUNTER FOR PALLIATIVE CARE Status: Chronic Current Visit: No (5) Rheumatoid arthritis SNOMED Code(s): 31531755 Code(s): M06.9 - RHEUMATOID ARTHRITIS, UNSPECIFIED Status: Chronic Current Visit: No Qualifiers: Rheumatoid arthritis location: multiple sites (6) Tobacco abuse SNOMED Code(s): 634846523 Code(s): Z72.0 - TOBACCO USE Status: Chronic Current Visit: No (7) Unable to ambulate SNOMED Code(s): 100221701 Code(s): R26.2 - DIFFICULTY IN WALKING, NOT ELSEWHERE CLASSIFIED Status: Chronic Current Visit: No (8) Weakness SNOMED Code(s): 73855052 Code(s): R53.1 - WEAKNESS Status: Chronic Current Visit: No - Problem List Review Problem List Initiated/Reviewed/Updated: Yes - Plan Plan:: 1. RLL pneumonia: Patient has had 5 days of IV Rocephin and 1500 mg, 500 mg x 3 days, azithromycin. Stop IV antibiotics and start oral doxycycline 100 mg twice daily for 5 days -day 4 of 5 2. COPD: Continue breathing treatments and supplemental oxygen as needed 3. Weakness: PT/OT evaluate & treat. 4. DVT prophylaxis: Enoxaparin 40 mg subcu daily 5. GI prophylaxis: Regular diet, famotidine 6. Discharge: planning NH placement.
[2021-01-19] MEDS: Meloxicam 7.5 MG Tab PO SCH (08:48)
[2021-01-19] MEDS: Folic Acid 1 MG Tab PO SCH (08:48)
[2021-01-19] MEDS: Leflunomide 20 MG Tab PO SCH (08:48)
[2021-01-19] MEDS: guaiFENesin 600 MG Tab.ER PO SCH ×2 (08:48→21:49)
[2021-01-19] MEDS: Docusate Sodium 100 MG Cap PO SCH ×2 (08:48→21:53)
[2021-01-19] MEDS: DULoxetine 60 MG Cap PO SCH (08:48)
[2021-01-19] MEDS: Baclofen 10 MG Tab PO SCH ×3 (08:48→21:49)
[2021-01-19] MEDS: Oxybutynin 5 MG Tab PO SCH ×3 (08:49→21:50)
[2021-01-19] MEDS: Doxycycline 100 MG Tab PO SCH ×2 (08:49→21:54)
[2021-01-19] MEDS: Tiotropium Bromide 4 GM Inhalation Spray (2.5mcg/1 dose; 10 doses) INH SCH (08:49)
[2021-01-19] MEDS: Nicotine 21 MG/24 Hr Patch TRDERM SCH (08:49)
[2021-01-19] MEDS: predniSONE 1 MG Tab PO SCH (08:49)
[2021-01-19] MEDS: Acetaminophen 500 MG Tab PO SCH ×2 (08:49→21:52)
[2021-01-19] MEDS: Famotidine 20 MG Tab PO SCH ×2 (08:49→21:51)
[2021-01-19] MEDS: Pregabalin 75 MG Cap PO SCH ×3 (08:54→21:51)
[2021-01-19] MEDS: Prenatal Multivitamin with Calcium/Folic Acid/Fe Fumarate Cap PO SCH (11:37)
[2021-01-19] MEDS: Acetaminophen/HYDROcodone 325-5 MG Tab PO PRN ×2 (13:10→22:01)
[2021-01-19] MEDS: Enoxaparin 40 MG/0.4 ML Syringe SUBCUT SCH (18:09)
[2021-01-19] MEDS: Amitriptyline 10 MG Tab PO SCH (21:52)
[2021-01-19] MEDS: atorvaSTATin 40 MG Tab PO SCH (21:53)
[2021-01-19] MEDS: Cetirizine 10 MG Tab PO SCH (21:56)
[2021-01-20] MEDS: Albuterol/Ipratropium 3.0-0.5 MG/3 ML Neb Soln NEB SCH ×3 (06:03→12:42)
--- NOTE | 2021-01-20 08:48 | PCM.PN ---
- General Info Date of Service: 01/20/21 Subjective Update: Ayana is admitted for pneumonia, weakness, MS. She has no new complaints today. She does have difficulty ambulating, and has been falling frequently. - Review of Systems General: Reports: No Symptoms HEENT: Reports: No Symptoms Pulmonary: Reports: Cough Cardiovascular: Reports: No Symptoms Gastrointestinal: Reports: No Symptoms - Patient Data Vitals - Most Recent: Last Vital Signs Temp 98.3 F 01/19/21 23:30 Pulse 90 01/19/21 23:30 Resp 20 01/19/21 23:30 BP 119/79 01/19/21 23:30 Pulse Ox 91 L 01/19/21 23:30 Weight - Most Recent: 81.647 kg Med Orders - Current: Current Medications Acetaminophen (Acetaminophen 500 Mg Tab) 1,000 mg PO BID [facility] Last Admin: 01/19/21 21:52 Dose: 1,000 mg Documented by: Hydrocodone Bitart/Acetaminophen (Acetaminophen/Hydrocodone 325-5 Mg Tab) 1 tab PO BID PRN PRN Reason: Pain Last Admin: 01/19/21 22:01 Dose: 1 tab Documented by: Albuterol/Ipratropium (Albuterol/Ipratropium 3.0-0.5 Mg/3 Ml Neb Soln) 3 ml NEB QIDRT [facility] Last Admin: 01/20/21 06:03 Dose: 3 ml Documented by: Albuterol/Ipratropium (Albuterol/Ipratropium 3.0-0.5 Mg/3 Ml Neb Soln) 3 ml INH Q6H PRN PRN Reason: Shortness Of Breath/wheezing Amitriptyline HCl (Amitriptyline 10 Mg Tab) 40 mg PO BEDTIME [facility] Last Admin: 01/19/21 21:52 Dose: 40 mg Documented by: Atorvastatin Calcium (Atorvastatin 40 Mg Tab) 40 mg PO BEDTIME [facility] Last Admin: 01/19/21 21:53 Dose: 40 mg Documented by: Baclofen (Baclofen 10 Mg Tab) 20 mg PO TID [facility] Last Admin: 01/19/21 21:49 Dose: 20 mg Documented by: Cetirizine HCl (Cetirizine 10 Mg Tab) 10 mg PO BEDTIME [facility] Last Admin: 01/19/21 21:56 Dose: 10 mg Documented by: Docusate Sodium (Docusate Sodium 100 Mg Cap) 100 mg PO BID [facility] Last Admin: 01/19/21 21:53 Dose: 100 mg Documented by: Doxycycline Hyclate (Doxycycline 100 Mg Tab) 100 mg PO BID [facility] Stop: 01/20/21 23:59 Last Admin: 01/19/21 21:54 Dose: 100 mg Documented by: Duloxetine HCl (Duloxetine 60 Mg Cap) 60 mg PO DAILY [facility] Last Admin: 01/19/21 08:48 Dose: 60 mg Documented by: Enoxaparin Sodium (Enoxaparin 40 Mg/0.4 Ml Syringe) 40 mg SUBCUT Q24H [facility] Last Admin: 01/19/21 18:09 Dose: 40 mg Documented by: Famotidine (Famotidine 20 Mg Tab) 20 mg PO BID [facility] Last Admin: 01/19/21 21:51 Dose: 20 mg Documented by: Folic Acid (Folic Acid 1 Mg Tab) 1 mg PO DAILY [facility] Last Admin: 01/19/21 08:48 Dose: 1 mg Documented by: Guaifenesin (Guaifenesin 600 Mg Tab.Er) 600 mg PO BID [facility] Last Admin: 01/19/21 21:49 Dose: 600 mg Documented by: Leflunomide (Leflunomide 20 Mg Tab) 20 mg PO DAILY [facility] Last Admin: 01/19/21 08:48 Dose: 20 mg Documented by: Meloxicam (Meloxicam 7.5 Mg Tab) 15 mg PO DAILY [facility] Last Admin: 01/19/21 08:48 Dose: 15 mg Documented by: Nicotine (Nicotine 21 Mg/24 Hr Patch) 21 mg TRDERM DAILY [facility] Last Admin: 01/19/21 08:49 Dose: 21 mg Documented by: Oxybutynin Chloride (Oxybutynin 5 Mg Tab) 5 mg PO TID [facility] Last Admin: 01/19/21 21:50 Dose: 5 mg Documented by: Prednisone (Prednisone 1 Mg Tab) 3 mg PO DAILY [facility] Last Admin: 01/19/21 08:49 Dose: 3 mg Documented by: Pregabalin (Pregabalin 75 Mg Cap) 150 mg PO TID [facility] Last Admin: 01/19/21 21:51 Dose: 150 mg Documented by: Multivit/Folic Acid/Iron ( Multivitamin With Calcium/Folic Acid/Fe Fumarate Cap) 1 each PO DAILY@1200 [facility] Last Admin: 01/19/21 11:37 Dose: 1 each Documented by: Sodium Chloride (Sodium Chloride 0.9% 10 Ml Syringe) 10 ml FLUSH ASDIRECTED PRN PRN Reason: Keep Vein Open Last Admin: 01/14/21 16:24 Dose: 10 ml Documented by: Tiotropium [place] (Tiotropium [place] 4 Gm Inhalation [place] (2.5mcg/1 Dose; 10 Doses)) 0 gm INH DAILY [facility] Last Admin: 01/19/21 08:49 Dose: 2 puff Documented by: Verapamil HCl (Verapamil 40 Mg Tab) 80 mg PO TID [facility] Last Admin: 01/19/21 21:48 Dose: 80 mg Documented by: Discontinued Medications Ceftriaxone Sodium (Ceftriaxone 1 Gm Vial) Confirm Administered Dose 1 gm .ROUTE .STK-MED ONE Stop: 01/11/21 15:41 Last Admin: 01/11/21 16:10 Dose: Not Given Documented by: Ceftriaxone Sodium (Ceftriaxone 1 Gm Vial) 1 gm IVPUSH ONETIME ONE Stop: 01/11/21 14:46 Last Admin: 01/11/21 15:45 Dose: 1 gm Documented by: Ceftriaxone Sodium (Ceftriaxone 1 Gm Vial) 1 gm IVPUSH Q24H [facility] Last Admin: 01/15/21 16:07 Dose: 1 gm Documented by: Cetirizine HCl (Cetirizine 10 Mg Tab) 10 mg PO ONETIME ONE Stop: 01/14/21 10:28 Last Admin: 01/14/21 11:01 Dose: 10 mg Documented by: Gadoteridol (Gadoteridol 279.3 Mg/Ml 20 Ml Sdv) 17 ml IV . DIRECTED [facility] Last Admin: 01/11/21 15:15 Dose: 17 ml Documented by: Guaifenesin (Guaifenesin 600 Mg Tab.Er) 600 mg PO ONETIME ONE Stop: 01/14/21 10:28 Last Admin: 01/14/21 11:01 Dose: 600 mg Documented by: Guaifenesin/Codeine Phosphate (Codeine/Guaifenesin 10-100 Mg/5 Ml Syrup 5 Ml Cup) 10 ml PO NOW STA Stop: 01/11/21 13:17 Last Admin: 01/11/21 13:20 Dose: 10 ml Documented by: Sodium Chloride (Normal Saline) 1,000 mls @ 999 mls/hr IV ASDIRECTED [facility] Azithromycin 500 mg/ Sodium (Chloride) 250 mls @ 250 mls/hr IV Q24H [facility] Last Admin: 01/11/21 15:50 Dose: 250 mls/hr Documented by: Azithromycin 500 mg/ Sodium (Chloride) 250 mls @ 250 mls/hr IV Q24H [facility] Stop: 01/13/21 18:00 Last Admin: 01/13/21 14:12 Dose: 250 mls/hr Documented by: Ibuprofen (Ibuprofen 800 Mg Tab) 800 mg PO Q8HR PRN PRN Reason: Moderate Pain Lorazepam (Lorazepam 2 Mg/Ml Sdv) 1 mg IVPUSH NOW STA Stop: 01/11/21 13:17 Last Admin: 01/11/21 13:18 Dose: 1 mg Documented by: Meloxicam (Meloxicam 15 Mg Tab) 15 mg PO DAILY [facility] Multivit/Folic Acid/Iron ( Multivitamin With Calcium/Folic Acid/Fe Fumarate Cap) 1 each PO DAILY [facility] Last Admin: 01/16/21 08:10 Dose: 1 each Documented by: - Exam Quality Assessment: No: Supplemental Oxygen General: Alert, Oriented HEENT: Pupils Equal Neck: Supple Lungs: Normal Respiratory Effort, Rhonchi Cardiovascular: Regular Rate GI/Abdominal Exam: Normal Bowel Sounds - Patient Data Result Diagrams: 01/16/21 06:20 01/16/21 06:20 Sepsis Event Note - Evaluation Sepsis Screening Result: No Definite Risk - Focused Exam Vital Signs: Vital Signs Temp Pulse Resp BP Pulse Ox 01/19/21 23:30 98.3 F 90 20 119/79 91 L - Problem List & Annotations (1) Right lower lobe pneumonia SNOMED Code(s): 484243907 Code(s): J18.9 - PNEUMONIA, UNSPECIFIED ORGANISM Status: Acute Current Visit: Yes Qualifiers: Pneumonia type: due to unspecified organism Qualified Code(s): J18.9 - Pneumonia, unspecified organism (2) COPD (chronic obstructive pulmonary disease) SNOMED Code(s): 22228299 Code(s): J44.9 - CHRONIC OBSTRUCTIVE PULMONARY DISEASE, UNSPECIFIED Status: Chronic Current Visit: No Qualifiers: COPD type: COPD with acute exacerbation Qualified Code(s): J44.1 - Chronic obstructive pulmonary disease with (acute) exacerbation (3) Multiple sclerosis SNOMED Code(s): 91575914 Code(s): G35 - MULTIPLE SCLEROSIS Status: Chronic Current Visit: No Onset Date: ~2015 (4) Tobacco abuse SNOMED Code(s): 468653606 Code(s): Z72.0 - TOBACCO USE Status: Chronic Current Visit: No (5) Unable to ambulate SNOMED Code(s): 451673563 Code(s): R26.2 - DIFFICULTY IN WALKING, NOT ELSEWHERE CLASSIFIED Status: Chronic Current Visit: No (6) Weakness SNOMED Code(s): 61888175 Code(s): R53.1 - WEAKNESS Status: Chronic Current Visit: No - Problem List Review Problem List Initiated/Reviewed/Updated: Yes - My Orders Last 24 Hours: My Active Orders 01/20/21 08:30 DME for Prescription [COMM] Urgent - Plan Plan:: Continue oral doxycycline, and as needed nebulized therapy of albuterol. Is my understanding that she would be ready to go in a few days once a hospital bed is secured for home use. She will need a Randal lift, and hospital bed for assistance with transfers from wheelchair to Bed and elevation of Bed 45 degrees to help with dyspnea . This would also help if she falls to be able to lift since she needs at least 2 people for lifting. I discussed this,today [id number].In the meantime,we will place her on SB status for PT/OT
[2021-01-20] MEDS: Acetaminophen 500 MG Tab PO SCH (09:19)
[2021-01-20] MEDS: Doxycycline 100 MG Tab PO SCH (09:19)
[2021-01-20] MEDS: Meloxicam 7.5 MG Tab PO SCH (09:19)
[2021-01-20] MEDS: predniSONE 1 MG Tab PO SCH (09:19)
[2021-01-20] MEDS: Leflunomide 20 MG Tab PO SCH (09:19)
[2021-01-20] MEDS: Docusate Sodium 100 MG Cap PO SCH (09:19)
[2021-01-20] MEDS: guaiFENesin 600 MG Tab.ER PO SCH (09:19)
[2021-01-20] MEDS: DULoxetine 60 MG Cap PO SCH (09:20)
[2021-01-20] MEDS: Famotidine 20 MG Tab PO SCH (09:20)
[2021-01-20] MEDS: Baclofen 10 MG Tab PO SCH (09:20)
[2021-01-20] MEDS: Tiotropium Bromide 4 GM Inhalation Spray (2.5mcg/1 dose; 10 doses) INH SCH (09:20)
[2021-01-20] MEDS: Folic Acid 1 MG Tab PO SCH (09:20)
[2021-01-20] MEDS: Oxybutynin 5 MG Tab PO SCH (09:20)
[2021-01-20] MEDS: Nicotine 21 MG/24 Hr Patch TRDERM SCH (09:23)
[2021-01-20] MEDS: Pregabalin 75 MG Cap PO SCH (09:27)
[2021-01-20] MEDS: Prenatal Multivitamin with Calcium/Folic Acid/Fe Fumarate Cap PO SCH (12:43)
--- NOTE | 2021-01-21 00:37 | DISCH ---
DISCHARGE DATE: 01/20/2021 REASON FOR ADMISSION: 1. Pneumonia. 2. COPD exacerbation. 3. MS. 4. Tobacco abuse. 5. Remote arthritis. 6. Generalized weakness. DISCHARGE DIAGNOSES: 1. Pneumonia. 2. Chronic obstructive pulmonary disease exacerbation. 3. Multiple sclerosis. 4. Tobacco abuse. 5. Remote arthritis. 6. Generalized weakness. BRIEF HISTORY: A 60-year-old female, who was admitted on the for weakness, cough. She is known to have MS. She was diagnosed with pneumonia, treated with standard care of Rocephin and azithromycin. She improved and was switched to oral antibiotics the day before discharge; however, she is still too weak and having needs of ADLs, and as no prison beds are available at this time, we will place into swing bed for rehab as we work with [employer] to obtain a Randal lift and a hospital bed for better care at home. I spent more than 35 minutes in the discharge of the patient. /[id number] REY/ERNIE
--- NOTE | 2021-01-27 08:33 | EDM.PDOC ---
ED HPI GENERAL MEDICAL PROBLEM - General Chief Complaint: Neuro Symptoms/Deficits Stated Complaint: FALL Time Seen by Provider: 01/11/21 10:55 Source of Information: Reports: Patient, EMS, Family, RN History Limitations: Reports: Altered Mental Status (after sedation for MRI) - History of Present Illness INITIAL COMMENTS - FREE TEXT/NARRATIVE: Patient is a 60 YO WF who presented to the ED via EMS because of altered LOC, weakness and fall. She fell today due to a right sided weakness although her left lower extremity weakness is somewhat chronic. There is no fever, chills ,c ough or cold symptoms. There is no N/V/D. According to family members they couldn't take care of her anymore and is planning NH placement at [facility]. Neck Pain Score (Numeric/FACES): 0 Bilateral lower legs & feet Pain Score (Numeric/FACES): 8 - Related Data Allergies Allergy/AdvReac Type Severity Reaction Status Date / Time gabapentin Allergy Mild Cannot Verified 01/20/21 13:35 Remember Home Meds: Home Meds Amitriptyline [Elavil] 40 mg PO BEDTIME 02/08/20 [History] Baclofen 20 mg PO TID 02/08/20 [History] DULoxetine [Cymbalta] 60 mg PO DAILY 02/08/20 [History] Folic Acid 1 mg PO DAILY 02/08/20 [History] Oxybutynin 5 mg PO TID 02/08/20 [History] Verapamil [Calan] 80 mg PO TID 02/08/20 [History] Famotidine 20 mg PO BID 02/24/20 [History] Meloxicam 15 mg PO DAILY 02/24/20 [History] atorvaSTATin [Lipitor] 40 mg PO BEDTIME 12/26/20 [History] Pregabalin [Lyrica] 150 mg PO TID 01/11/21 [History] Acetaminophen/HYDROcodone [HYDROcodone-Acetaminophen 5-325 MG *] 1 tab PO BID PRN 01/12/21 [History] Docusate Sodium 100 mg PO BID 01/12/21 [History] Albuterol/Ipratropium [DuoNeb 3.0-0.5 MG/3 ML] 3 ml INH QID 01/20/21 [History] Cetirizine [ZyrTEC] 10 mg PO BEDTIME 01/20/21 [History] Leflunomide [Arava] 10 mg PO DAILY 01/20/21 [History] Nicotine [Habitrol] 21 mg TD DAILY 01/20/21 [History] Vit/FA/Fe Fumarate [-U] 1 each PO 1200 01/20/21 [History] guaiFENesin [Mucinex] 600 mg PO BID 01/20/21 [History] predniSONE [Prednisone] 3 mg PO DAILY 01/20/21 [History] Acetaminophen [Tylenol Extra Strength] 500 mg PO BID tablet 01/26/21 [Rx] Cholecalciferol (Vitamin D3) [Vitamin D3] 125 mcg PO DAILY 01/26/21 [History] Methylphenidate [Ritalin] 5 mg PO DAILY 01/26/21 [History] Umeclidinium Gaylord [Incruse Ellipta*] 1 puff INH DAILY 01/26/21 [History] Past Medical History HEENT History: Reports: None Cardiovascular History: Reports: Arrhythmia, Hypertension Other Cardiovascular History: tachycardia Respiratory History: Reports: COPD Other Respiratory History: Has O2 @ home, but doesn't use it. Gastrointestinal History: Reports: None Genitourinary History: Reports: Urinary Incontinence [employer] History: Reports: Other [employer] History: Musculoskeletal History: Reports: Arthritis, Fracture Other Musculoskeletal History: hx fx toes bilat, R gt toe Neurological History: Reports: MS, Neuropathy, Peripheral Psychiatric History: Reports: Addiction, Anxiety, Depression, Psych Hospitalization(s), Suicide Attempt Other Psychiatric History: hx ETOH abuse, has been in tx x 3 in past - Infectious Disease History Infectious Disease History: Reports: Chicken Pox, Measles, Mumps - Past Surgical History Head Surgeries/Procedures: Reports: None Cardiovascular Surgical History: Reports: Cardiac Ablation Female Surgical History: Reports: Section, Tubal Ligation Other Female Surgeries/Procedures: CS x 2 Musculoskeletal Surgical History: Reports: None Social & Family History - Family History Family Medical History: No Pertinent Family History - Tobacco Use Tobacco Use Status *Q: Heavy Tobacco User Years of Tobacco use: 47 Packs/Tins Daily: 1 - Caffeine Use Caffeine Use: Reports: Coffee Other Caffeine Use: 2 cups /day Caffeine Use Comment: up to 3 large mugs daily - Recreational Drug Use Recreational Drug Use: Yes Drug Use in Last 12 Months: Yes Recreational Drug Type: Reports: Marijuana/Hashish Recreational Drug Use Frequency: Socially ED ROS GENERAL - Review of Systems Review Of Systems: See Below Constitutional: Reports: Weakness, Fatigue HEENT: Reports: No Symptoms Respiratory: Reports: No Symptoms Cardiovascular: Reports: No Symptoms Endocrine: Reports: No Symptoms GI/Abdominal: Reports: No Symptoms : Reports: No Symptoms Musculoskeletal: Reports: No Symptoms Skin: Reports: No Symptoms Neurological: Reports: No Symptoms Psychiatric: Reports: No Symptoms Hematologic/Lymphatic: Reports: No Symptoms ED EXAM, GENERAL - Physical Exam Exam: See Below Exam Limited By: No Limitations General Appearance: Alert, No Apparent Distress Eye Exam: Bilateral Eye: PERRL Ears: Normal External Exam, Normal Canal Nose: Normal Inspection, Normal Mucosa, No Blood Throat/Mouth: Normal Inspection, Normal Lips, Normal Teeth, Normal Oropharynx, Normal Voice Head: Atraumatic, Normocephalic Neck: Normal Inspection, Supple, Non-Tender, Full Range of Motion Respiratory/Chest: No Respiratory Distress, Decreased Breath Sounds, Rhonchi Cardiovascular: Normal Peripheral Pulses, Regular Rate, Rhythm, No Edema, No Gallop, No JVD, No Murmur, No Rub Peripheral Pulses: 1+: Dorsalis Pedis (L), Dorsalis Pedis (R), 2+: Radial (L), Radial (R), Posterior Tibial (L), Posterior Tibial (R) GI/Abdominal: Normal Bowel Sounds Back Exam: Normal Inspection. No: CVA Tenderness (R), CVA Tenderness (L) Extremities: Normal Inspection Neurological: Alert, Disoriented, Other (lethargic) Psychiatric: Normal Affect Skin Exam: Warm Course - Vital Signs Text/Narrative:: Lab/CXR/MRI result was reviewed and discussed with patient and his family Rocephin 1gm IV x1 Zithromax 500 mg IV x1 MRI findings no acute CVA, No flare up of MS per rads Last Recorded V/S: Last Vital Signs Temp 36.7 C 01/20/21 08:00 Pulse 100 01/20/21 08:00 Resp 19 01/20/21 08:00 BP 136/79 01/20/21 08:00 Pulse Ox 90 L 01/20/21 08:00 - Orders/Labs/Meds Labs: Laboratory Tests 01/11/21 01/11/21 01/11/21 Range/Units 11:25 11:25 11:27 WBC 7.9 (3.0-10.3) x10-3/uL RBC 4.65 (3.60-5.20) x10(6)uL Hgb 14.0 (11.4-15.5) g/dL Hct 41.9 (34.2-48.2) % MCV 90.0 (76.7-100.5) fL MCH 30.2 (23.9-33.9) pg MCHC 33.5 (31.9-34.8) g/dL RDW 15.4 (12.3-16.5) % Plt Count 186 (151-488) x10(3)uL MPV 8.3 (7.1-12.4) fL Neut % (Auto) 70.0 (30.8-76.2) % Lymph % (Auto) 15.0 L (18.4-52.1) % [place] % (Auto) 10.0 (4.4-15.7) % Eos % (Auto) 3.8 (0.6-8.1) % Baso % (Auto) 1.2 (0.2-1.5) % Neut # (Auto) 5.6 (1.5-6.3) x10-3/uL Lymph # (Auto) 1.2 (1.0-4.4) x10-3/uL [place] # (Auto) 0.8 (0.3-1.0) x10-3/uL Eos # (Auto) 0.3 (0.0-0.8) x10-3/uL Baso # (Auto) 0.1 (0.0-0.1) x10-3/uL Sodium (135-145) mmol/L Potassium (3.5-5.3) mmol/L Chloride (100-110) mmol/L Carbon Dioxide (21-32) mmol/L BUN (7-18) mg/dL Creatinine (0.55-1.02) mg/dL Est Cr Clr Drug Dosing mL/min Estimated GFR (MDRD) (>60) BUN/Creatinine Ratio (9-20) Glucose (80-116) mg/dL Lactic Acid (0.4-2.0) mmol/L Calcium (8.6-10.2) mg/dL Total Bilirubin (0.1-1.3) mg/dL AST (5-25) IU/L ALT (12-36) U/L Alkaline Phosphatase (56-112) IU/L Troponin I 14.8 (4.0-60.3) pg/mL C-Reactive Protein 5.5 H* (0.5-0.9) mg/dL Total Protein (6.0-8.0) g/dL Albumin (3.2-4.6) g/dL Globulin g/dL Albumin/Globulin Ratio Urine Color (YELLOW) Urine Appearance (CLEAR) Urine pH (5.0-6.5) Ur Specific [place] (1.010-1.025) Urine Protein (NEGATIVE) mg/dL Urine Glucose (UA) (NORMAL) mg/dL Urine Ketones (NEGATIVE) mg/dL Urine Occult Blood (NEGATIVE) Urine Nitrite (NEGATIVE) Urine Bilirubin (NEGATIVE) Urine Urobilinogen (NEGATIVE) mg/dL Ur Leukocyte Esterase (NEGATIVE) Urine WBC (0-5) Ur Squamous Epith Cells (NS,R,O) Urine Bacteria (NS) SARS-CoV-2 RNA (VINCENT) (NEGATIVE) 01/11/21 01/11/21 01/11/21 Range/Units 11:27 12:31 12:31 WBC (3.0-10.3) x10-3/uL RBC (3.60-5.20) x10(6)uL Hgb (11.4-15.5) g/dL Hct (34.2-48.2) % MCV (76.7-100.5) fL MCH (23.9-33.9) pg MCHC (31.9-34.8) g/dL RDW (12.3-16.5) % Plt Count (151-488) x10(3)uL MPV (7.1-12.4) fL Neut % (Auto) (30.8-76.2) % Lymph % (Auto) (18.4-52.1) % [place] % (Auto) (4.4-15.7) % Eos % (Auto) (0.6-8.1) % Baso % (Auto) (0.2-1.5) % Neut # (Auto) (1.5-6.3) x10-3/uL Lymph # (Auto) (1.0-4.4) x10-3/uL [place] # (Auto) (0.3-1.0) x10-3/uL Eos # (Auto) (0.0-0.8) x10-3/uL Baso # (Auto) (0.0-0.1) x10-3/uL Sodium 140 (135-145) mmol/L Potassium 4.1 (3.5-5.3) mmol/L Chloride 106 (100-110) mmol/L Carbon Dioxide 27 (21-32) mmol/L BUN 21 H D (7-18) mg/dL Creatinine 0.7 (0.55-1.02) mg/dL Est Cr Clr Drug Dosing 79.01 mL/min Estimated GFR (MDRD) > 60 (>60) BUN/Creatinine Ratio 30.0 H (9-20) Glucose 100 (80-116) mg/dL Lactic Acid (0.4-2.0) mmol/L Calcium 8.4 L (8.6-10.2) mg/dL Total Bilirubin 0.5 (0.1-1.3) mg/dL AST 20 D (5-25) IU/L ALT 22 D (12-36) U/L Alkaline Phosphatase 121 H (56-112) IU/L Troponin I (4.0-60.3) pg/mL C-Reactive Protein (0.5-0.9) mg/dL Total Protein 6.8 (6.0-8.0) g/dL Albumin 3.0 L (3.2-4.6) g/dL Globulin 3.8 g/dL Albumin/Globulin Ratio 0.8 Urine Color Yellow (YELLOW) Urine Appearance Clear (CLEAR) Urine pH 5.0 (5.0-6.5) Ur Specific [place] 1.020 (1.010-1.025) Urine Protein Negative (NEGATIVE) mg/dL Urine Glucose (UA) Normal (NORMAL) mg/dL Urine Ketones Negative (NEGATIVE) mg/dL Urine Occult Blood Negative (NEGATIVE) Urine Nitrite Negative (NEGATIVE) Urine Bilirubin Small H (NEGATIVE) Urine Urobilinogen 4 H (NEGATIVE) mg/dL Ur Leukocyte Esterase Negative (NEGATIVE) Urine WBC 0-5 (0-5) Ur Squamous Epith Cells Few H (NS,R,O) Urine Bacteria Few H (NS) SARS-CoV-2 RNA (VINCENT) Negative (NEGATIVE) 09/22/21 Range/Units 14:50 WBC (3.0-10.3) x10-3/uL RBC (3.60-5.20) x10(6)uL Hgb (11.4-15.5) g/dL Hct (34.2-48.2) % MCV (76.7-100.5) fL MCH (23.9-33.9) pg MCHC (31.9-34.8) g/dL RDW (12.3-16.5) % Plt Count (151-488) x10(3)uL MPV (7.1-12.4) fL Neut % (Auto) (30.8-76.2) % Lymph % (Auto) (18.4-52.1) % [place] % (Auto) (4.4-15.7) % Eos % (Auto) (0.6-8.1) % Baso % (Auto) (0.2-1.5) % Neut # (Auto) (1.5-6.3) x10-3/uL Lymph # (Auto) (1.0-4.4) x10-3/uL [place] # (Auto) (0.3-1.0) x10-3/uL Eos # (Auto) (0.0-0.8) x10-3/uL Baso # (Auto) (0.0-0.1) x10-3/uL Sodium (135-145) mmol/L Potassium (3.5-5.3) mmol/L Chloride (100-110) mmol/L Carbon Dioxide (21-32) mmol/L BUN (7-18) mg/dL Creatinine (0.55-1.02) mg/dL Est Cr Clr Drug Dosing mL/min Estimated GFR (MDRD) (>60) BUN/Creatinine Ratio (9-20) Glucose (80-116) mg/dL Lactic Acid 0.8 (0.4-2.0) mmol/L Calcium (8.6-10.2) mg/dL Total Bilirubin (0.1-1.3) mg/dL AST (5-25) IU/L ALT (12-36) U/L Alkaline Phosphatase (56-112) IU/L Troponin I (4.0-60.3) pg/mL C-Reactive Protein (0.5-0.9) mg/dL Total Protein (6.0-8.0) g/dL Albumin (3.2-4.6) g/dL Globulin g/dL Albumin/Globulin Ratio Urine Color (YELLOW) Urine Appearance (CLEAR) Urine pH (5.0-6.5) Ur Specific [place] (1.010-1.025) Urine Protein (NEGATIVE) mg/dL Urine Glucose (UA) (NORMAL) mg/dL Urine Ketones (NEGATIVE) mg/dL Urine Occult Blood (NEGATIVE) Urine Nitrite (NEGATIVE) Urine Bilirubin (NEGATIVE) Urine Urobilinogen (NEGATIVE) mg/dL Ur Leukocyte Esterase (NEGATIVE) Urine WBC (0-5) Ur Squamous Epith Cells (NS,R,O) Urine Bacteria (NS) SARS-CoV-2 RNA (VINCENT) (NEGATIVE) Meds: Medications Discontinued Medications Generic Name Dose Route Start Last Admin Trade Name Freq PRN Reason Stop Dose Admin Acetaminophen 1,000 mg 01/11/21 21:00 01/20/21 09:19 Acetaminophen 500 Mg Tab PO 1,000 mg BID ESTELLA Administration Hydrocodone Bitart/Acetaminophen 1 tab 01/13/21 15:22 01/19/21 22:01 Acetaminophen/Hydrocodone 325-5 Mg Tab PO 1 tab BID PRN Administration Pain Albuterol/Ipratropium 3 ml 01/11/21 21:00 01/20/21 11:00 Albuterol/Ipratropium 3.0-0.5 Mg/3 Ml Neb Soln NEB Not Given QIDRT ESTELLA Albuterol/Ipratropium 3 ml 01/11/21 17:29 Albuterol/Ipratropium 3.0-0.5 Mg/3 Ml Neb Soln INH Q6H PRN Shortness Of Breath/wheezing Amitriptyline HCl 40 mg 01/12/21 21:00 01/19/21 21:52 Amitriptyline 10 Mg Tab PO 40 mg BEDTIME ESTELLA Administration Atorvastatin Calcium 40 mg 01/11/21 21:00 01/19/21 21:53 Atorvastatin 40 Mg Tab PO 40 mg BEDTIME ESTELLA Administration Baclofen 20 mg 01/11/21 21:00 01/20/21 09:20 Baclofen 10 Mg Tab PO 20 mg TID ESTELLA Administration Ceftriaxone Sodium Confirm 01/11/21 15:40 01/11/21 16:10 Ceftriaxone 1 Gm Vial Administered 01/11/21 15:41 Not Given Dose 1 gm .ROUTE .STK-MED ONE Ceftriaxone Sodium 1 gm 01/11/21 14:45 01/11/21 15:45 Ceftriaxone 1 Gm Vial IVPUSH 01/11/21 14:46 1 gm ONETIME ONE Administration Ceftriaxone Sodium 1 gm 01/12/21 16:00 01/15/21 16:07 Ceftriaxone 1 Gm Vial IVPUSH 1 gm Q24H ESTELLA Administration Cetirizine HCl 10 mg 01/14/21 10:27 01/14/21 11:01 Cetirizine 10 Mg Tab PO 01/14/21 10:28 10 mg ONETIME ONE Administration Cetirizine HCl 10 mg 01/15/21 21:00 01/19/21 21:56 Cetirizine 10 Mg Tab PO 10 mg BEDTIME ESTELLA Administration Docusate Sodium 100 mg 01/11/21 21:00 01/20/21 09:19 Docusate Sodium 100 Mg Cap PO 100 mg BID ESTELLA Administration Doxycycline Hyclate 100 mg 01/16/21 10:15 01/20/21 09:19 Doxycycline 100 Mg Tab PO 01/20/21 23:59 100 mg BID ESTELLA Administration Duloxetine HCl 60 mg 01/12/21 09:00 01/20/21 09:20 Duloxetine 60 Mg Cap PO 60 mg DAILY ESTELLA Administration Enoxaparin Sodium 40 mg 01/11/21 18:00 01/19/21 18:09 Enoxaparin 40 Mg/0.4 Ml Syringe SUBCUT 40 mg Q24H ESTELLA Administration Famotidine 20 mg 01/11/21 21:00 01/20/21 09:20 Famotidine 20 Mg Tab PO 20 mg BID ESTELLA Administration Folic Acid 1 mg 01/12/21 09:00 01/20/21 09:20 Folic Acid 1 Mg Tab PO 1 mg DAILY ESTELLA Administration Gadoteridol 17 ml 01/11/21 15:00 01/11/21 15:15 Gadoteridol 279.3 Mg/Ml 20 Ml Sdv IV 17 ml . DIRECTED ESTELLA Administration Guaifenesin 600 mg 01/14/21 10:27 01/14/21 11:01 Guaifenesin 600 Mg Tab.Er PO 01/14/21 10:28 600 mg ONETIME ONE Administration Guaifenesin 600 mg 01/15/21 10:30 01/20/21 09:19 Guaifenesin 600 Mg Tab.Er PO 600 mg BID ESTELLA Administration Guaifenesin/Codeine Phosphate 10 ml 01/11/21 13:16 01/11/21 13:20 Codeine/Guaifenesin 10-100 Mg/5 Ml Syrup 5 Ml Cup PO 01/11/21 13:17 10 ml NOW STA Administration Sodium Chloride 1,000 mls @ 999 mls/hr 01/11/21 11:30 Normal Saline IV ASDIRECTED ESTELLA Azithromycin 500 mg/ Sodium 250 mls @ 250 mls/hr 01/11/21 14:00 01/11/21 15:50 Chloride IV 250 mls/hr Q24H ESTELLA Administration Azithromycin 500 mg/ Sodium 250 mls @ 250 mls/hr 01/12/21 14:00 01/13/21 14:12 Chloride IV 01/13/21 18:00 250 mls/hr Q24H ESTELLA Administration Ibuprofen 800 mg 01/11/21 16:34 Ibuprofen 800 Mg Tab PO Q8HR PRN Moderate Pain Influenza Virus Vaccine 60 mcg 01/20/21 09:00 01/20/21 09:35 Flu Vacc [id number](6mos Up)/Pf 60 Mcg/0.5 Ml Syringe IM 01/20/21 09:01 60 mcg .ONCE ONE Administration Leflunomide 20 mg 01/12/21 09:00 01/20/21 09:19 Leflunomide 20 Mg Tab PO 20 mg DAILY ESTELLA Administration Lorazepam 1 mg 01/11/21 13:16 01/11/21 13:18 Lorazepam 2 Mg/Ml Sdv IVPUSH 01/11/21 13:17 1 mg NOW STA Administration Meloxicam 15 mg 01/12/21 09:00 Meloxicam 15 Mg Tab PO DAILY ESTELLA Meloxicam 15 mg 01/12/21 09:00 01/20/21 09:19 Meloxicam 7.5 Mg Tab PO 15 mg DAILY ESTELLA Administration Nicotine 21 mg 01/15/21 09:15 01/20/21 09:23 Nicotine 21 Mg/24 Hr Patch TRDERM 21 mg DAILY ESTELLA Administration Oxybutynin Chloride 5 mg 01/11/21 21:00 01/20/21 09:20 Oxybutynin 5 Mg Tab PO 5 mg TID ESTELLA Administration Prednisone 3 mg 01/12/21 09:00 01/20/21 09:19 Prednisone 1 Mg Tab PO 3 mg DAILY ESTELLA Administration Pregabalin 150 mg 01/11/21 21:00 01/20/21 09:27 Pregabalin 75 Mg Cap PO 150 mg TID ESTELLA Administration Multivit/Folic Acid/Iron 1 each 01/12/21 09:00 01/16/21 08:10 Multivitamin With Calcium/Folic Acid/Fe Fumarate Cap PO 1 each DAILY ESTELLA Administration Multivit/Folic Acid/Iron 1 each 01/17/21 12:00 01/20/21 12:43 Multivitamin With Calcium/Folic Acid/Fe Fumarate Cap PO 1 each DAILY@1200 ESTELLA Administration Sodium Chloride 10 ml 01/11/21 11:10 01/14/21 16:24 Sodium Chloride 0.9% 10 Ml Syringe FLUSH 10 ml ASDIRECTED PRN Administration Keep Vein Open Tiotropium Gaylord 0 gm 01/12/21 09:00 01/20/21 09:20 Tiotropium Gaylord 4 Gm Inhalation Macy (2.5mcg/1 Dose; 10 Doses) INH 1 puff DAILY ESTELLA Administration Verapamil HCl 80 mg 01/11/21 21:00 01/20/21 09:19 Verapamil 40 Mg Tab PO 80 mg TID ESTELLA Administration Departure - Departure Time of Disposition: 13:00 Disposition: Admitted As Inpatient 65 Condition: Good Clinical Impression: Pneumonia, Weakness, Multiple sclerosis Rheumatoid arthritis Qualifiers: Rheumatoid arthritis location: multiple sites - Discharge Information Sepsis Event Note (ED) - Evaluation Sepsis Screening Result: No Definite Risk
== END 2021-01-20 12:39 | disposition swing bed (61) | DRG 194 ==
LOC: FB.ED 10:50 → FB.MS 16:24
PROVIDERS: ADMIT Emergency Medicine; ATTEND Student in an Organized Health Care Education/Training Program
DX: J18.9 Pneumonia, unspecified organism (principal); R53.1 Weakness; J44.1 Chronic obstructive pulmonary disease with (acute) exacerbation; M06.9 Rheumatoid arthritis, unspecified; G62.9 Polyneuropathy, unspecified; G35 Multiple sclerosis; I49.9 Cardiac arrhythmia, unspecified; I10 Essential (primary) hypertension; J44.0 Chronic obstructive pulmonary disease with (acute) lower respiratory infection; Z51.5 Encounter for palliative care; R32 Unspecified urinary incontinence; F32.9 Major depressive disorder, single episode, unspecified; F41.9 Anxiety disorder, unspecified; F17.200 Nicotine dependence, unspecified, uncomplicated; Z88.8 Allergy status to other drugs, medicaments and biological substances; Z79.52 Long term (current) use of systemic steroids; Z79.899 Other long term (current) drug therapy; Z20.822 Contact with and (suspected) exposure to COVID-19
CPT/HCPCS: 36415; 70450; 70553; 71045; 80053; 81001; 83605; 84484; 85025; 86140; 87040 ×2; 87804 ×2; 93005; 96365; 96375; 99285; A9270; A9579; J0456; J0696; J2060; J7050; U0002; 80048; 90686; 94640; 94760; 97110-GO; 97161-GP; 97165-GO; 97530-GO; 97530-GP; 97535-GO; 97542-GO; J1650; J7030; J7512; J7620-GY

== ENCOUNTER 2021-01-20 12:43 | Inpatient (IN) | payer MEDICARE, MEDICAID ==
--- NOTE | 2021-01-20 14:55 | PCM.HP.2 ---
H&P History of Present Illness - General Date of Service: 01/20/21 Admit Problem/Dx: Admission Diagnosis/Problem Admission Diagnosis/Problem Weakness Source of Information: Patient, Old Records - History of Present Illness Initial Comments - Free Text/Narative: Ayana is a 60-year-old female who has MS. She was admitted in the acute setting for pneumonia, COPD exacerbation, and generalized weakness. She's had recurrent admissions for similar presentation in the last few months. She is unable to take care of herself safely at home, and as such she's been admitted to swing bed for rehabilitation. She will need a Randal lift, a bedside commode and hospital bed to be able to safely transfer from bed to back and to lift. neck Pain Score (Numeric/FACES): 5 Bilateral Feet Pain Score (Numeric/FACES): 5 - Related Data Allergies/Adverse Reactions: Allergies Allergy/AdvReac Type Severity Reaction Status Date / Time gabapentin Allergy Mild Cannot Verified 01/20/21 13:35 Remember Home Medications: Home Meds Amitriptyline [Elavil] 40 mg PO BEDTIME 02/08/20 [History] Baclofen 20 mg PO TID 02/08/20 [History] DULoxetine [Cymbalta] 60 mg PO DAILY 02/08/20 [History] Folic Acid 1 mg PO DAILY 02/08/20 [History] Oxybutynin 5 mg PO TID 02/08/20 [History] Verapamil [Calan] 80 mg PO TID 02/08/20 [History] Famotidine 20 mg PO BID 02/24/20 [History] Meloxicam 15 mg PO DAILY 02/24/20 [History] atorvaSTATin [Lipitor] 40 mg PO BEDTIME 12/26/20 [History] Pregabalin [Lyrica] 150 mg PO TID 01/11/21 [History] Acetaminophen/HYDROcodone [HYDROcodone-Acetaminophen 5-325 MG *] 1 tab PO BID PRN 01/12/21 [History] Docusate Sodium 100 mg PO BID 01/12/21 [History] Acetaminophen [Tylenol Extra Strength] 1,000 mg PO BID 01/20/21 [History] Albuterol/Ipratropium [DuoNeb 3.0-0.5 MG/3 ML] 3 ml INH QID 01/20/21 [History] Cetirizine [ZyrTEC] 10 mg PO BEDTIME 01/20/21 [History] Doxycycline [Vibra-Tabs] 100 mg PO BID 01/20/21 [History] Enoxaparin [Lovenox] 40 mg SUBCUT DAILY 01/20/21 [History] Leflunomide [Arava] 10 mg PO DAILY 01/20/21 [History] Nicotine [Habitrol] 21 mg TD DAILY 01/20/21 [History] Vit/FA/Fe Fumarate [-U] 1 each PO 1200 01/20/21 [History] Tiotropium [place] [Spiriva Respimat] 2 puff INH DAILY 01/20/21 [History] guaiFENesin [Mucinex] 600 mg PO BID 01/20/21 [History] predniSONE [Prednisone] 3 mg PO DAILY 01/20/21 [History] Past Medical History HEENT History: Reports: None Cardiovascular History: Reports: Arrhythmia, Hypertension Other Cardiovascular History: tachycardia Respiratory History: Reports: COPD Other Respiratory History: Has O2 @ home, but doesn't use it. Gastrointestinal History: Reports: None Genitourinary History: Reports: Urinary Incontinence [employer] History: Reports: Other OB/BYN History: Musculoskeletal History: Reports: Arthritis, Fracture Other Musculoskeletal History: hx fx toes bilat, R gt toe Neurological History: Reports: MS, Neuropathy, Peripheral Psychiatric History: Reports: Addiction, Anxiety, Depression, Psych Hospitalization(s), Suicide Attempt Other Psychiatric History: hx ETOH abuse, has been in tx x 3 in past - Infectious Disease History Infectious Disease History: Reports: Chicken Pox, Measles, Mumps - Past Surgical History Head Surgeries/Procedures: Reports: None Cardiovascular Surgical History: Reports: Cardiac Ablation Female Surgical History: Reports: Section, Tubal Ligation Other Female Surgeries/Procedures: CS x 2 Musculoskeletal Surgical History: Reports: None Social & Family History - Family History Family Medical History: No Pertinent Family History - Tobacco Use Tobacco Use Status *Q: Current Every Day Tobacco User Years of Tobacco use: 47 Packs/Tins Daily: 1 Used Tobacco, but Quit: Yes Month/Year Tobacco Last Used: 01/10 - Caffeine Use Caffeine Use: Reports: Coffee, Tea Other Caffeine Use: 2 cups /day Caffeine Use Comment: up to 3 large mugs daily - Recreational Drug Use Recreational Drug Use: Yes Drug Use in Last 12 Months: Yes Recreational Drug Type: Reports: Marijuana/Hashish Recreational Drug Use Frequency: Rarely H&P Review of Systems - Review of Systems: Review Of Systems: Comprehensive ROS is negative, except as noted in HPI. Exam - Exam Exam: See Below - Vital Signs Weight: 81.647 kg - Exam Quality Assessment: Supplemental Oxygen General: Alert, Oriented HEENT: PERRLA Neck: Supple Lungs: Rales, Rhonchi Cardiovascular: Regular Rate GI/Abdominal Exam: Normal Bowel Sounds Extremities: Normal Inspection Skin: Warm Neurological: Cranial Nerves Intact Neuro Extensive - Mental Status: Alert, Oriented x3 Psychiatric: Alert, Normal Affect Sepsis Event Note - Evaluation Sepsis Screening Result: No Definite Risk - Problem List (1) Right lower lobe pneumonia SNOMED Code(s): 631939151 ICD Code: J18.9 - PNEUMONIA, UNSPECIFIED ORGANISM Status: Acute Current Visit: No Qualifiers: Pneumonia type: due to unspecified organism Qualified Code(s): J18.9 - Pneumonia, unspecified organism (2) COPD (chronic obstructive pulmonary disease) SNOMED Code(s): 90689774 ICD Code: J44.9 - CHRONIC OBSTRUCTIVE PULMONARY DISEASE, UNSPECIFIED Status: Chronic Current Visit: No Qualifiers: COPD type: COPD with acute exacerbation Qualified Code(s): J44.1 - Chronic obstructive pulmonary disease with (acute) exacerbation (3) Multiple sclerosis SNOMED Code(s): 22132627 ICD Code: G35 - MULTIPLE SCLEROSIS Status: Chronic Current Visit: No Onset Date: ~2015 (4) Palliative care status SNOMED Code(s): 646966080 ICD Code: Z51.5 - ENCOUNTER FOR PALLIATIVE CARE Status: Chronic Current Visit: No (5) Tobacco abuse SNOMED Code(s): 838317443 ICD Code: Z72.0 - TOBACCO USE Status: Chronic Current Visit: No (6) Unable to ambulate SNOMED Code(s): 615121928 ICD Code: R26.2 - DIFFICULTY IN WALKING, NOT ELSEWHERE CLASSIFIED Status: Chronic Current Visit: No (7) Weakness SNOMED Code(s): 02212261 ICD Code: R53.1 - WEAKNESS Status: Chronic Current Visit: No Problem List Initiated/Reviewed/Updated: Yes Orders Last 24hrs: Active Orders 24 hr Category Date Time Status Admission Status [Patient Status] [ADT] Routine ADT 01/20/21 13:14 Active Height and Weight [RC] WEEKLY Care 01/20/21 14:50 Ordered Oxygen Therapy [RC] PRN Care 01/20/21 14:50 Ordered RT Aerosol Therapy [RC] ASDIRECTED Care 01/20/21 14:51 Ordered Up With Assistance [RC] ASDIRECTED Care 01/20/21 14:49 Ordered Up to Chair [RC] ASDIRECTED Care 01/20/21 14:49 Ordered VTE/DVT Education [RC] Per Unit Routine Care 01/20/21 14:50 Ordered Vital Signs [RC] PER UNIT ROUTINE Care 01/20/21 14:50 Ordered OT Evaluation and Treatment [CONS] Routine Cons 01/20/21 14:49 Ordered PT Evaluation and Treatment [CONS] Routine Cons 01/20/21 14:49 Ordered Regular Diet [DIET] Diet 01/20/21 Breakfast Ordered Acetaminophen/HYDROcodone [[place] 325-5 MG] Med 01/20/21 14:51 Ordered 1 tab PO BID PRN Albuterol/Ipratropium [DuoNeb 3.0-0.5 MG/3 ML] Med 01/20/21 17:00 Ordered 3 ml INH QID Amitriptyline [Elavil] Med 01/20/21 21:00 Ordered 40 mg PO BEDTIME Baclofen [Baclofen] Med 01/20/21 21:00 Ordered 20 mg PO TID DULoxetine [Cymbalta] Med 01/21/21 09:00 Ordered 60 mg PO DAILY Docusate Sodium [Colace] Med 01/20/21 21:00 Ordered 100 mg PO BID Enoxaparin [Lovenox] Med 01/21/21 09:00 Ordered 40 mg SUBCUT DAILY Famotidine [Pepcid] Med 01/20/21 21:00 Ordered 20 mg PO BID Folic Acid Med 01/21/21 09:00 Ordered 1 mg PO DAILY Meloxicam [Mobic] Med 01/21/21 09:00 Ordered 15 mg PO DAILY Nicotine [Habitrol] Med 01/21/21 09:00 Ordered 21 mg TOP DAILY Oxybutynin Med 01/20/21 21:00 Ordered 5 mg PO TID Pregabalin [Lyrica] Med 01/20/21 21:00 Ordered 150 mg PO TID Verapamil [Calan] Med 01/20/21 21:00 Ordered 80 mg PO TID atorvaSTATin [Lipitor] Med 01/20/21 21:00 Ordered 40 mg PO BEDTIME guaiFENesin [Mucinex] Med 01/20/21 21:00 Ordered 600 mg PO BID DME for Prescription [COMM] Urgent Oth 01/20/21 13:20 Ordered Code Status [Resuscitation Status] Routine Resus Stat 01/20/21 14:43 Ordered Medication Orders Hydrocodone Bitart/Acetaminophen (Acetaminophen/Hydrocodone 325-5 Mg Tab) 1 tab PO BID PRN PRN Reason: SEVERE PAIN Albuterol/Ipratropium (Albuterol/Ipratropium 3.0-0.5 Mg/3 Ml Neb Soln) 3 ml INH QID [facility] Amitriptyline HCl (Amitriptyline 10 Mg Tab) 40 mg PO BEDTIME [facility]A Atorvastatin Calcium (Atorvastatin 40 Mg Tab) 40 mg PO BEDTIME ESTELLA Docusate Sodium (Docusate Sodium 100 Mg Cap) 100 mg PO BID [facility] Duloxetine HCl (Duloxetine 60 Mg Cap) 60 mg PO DAILY [facility] Enoxaparin Sodium (Enoxaparin 40 Mg/0.4 Ml Syringe) 40 mg SUBCUT DAILY [facility] Famotidine (Famotidine 20 Mg Tab) 20 mg PO BID [facility] Folic Acid (Folic Acid 1 Mg Tab) 1 mg PO DAILY [facility] Guaifenesin (Guaifenesin 600 Mg Tab.Er) 600 mg PO BID [facility] Meloxicam (Meloxicam 15 Mg Tab) 15 mg PO DAILY [facility] Nicotine (Nicotine 21 Mg/24 Hr Patch) 21 mg TOP DAILY [facility] Non-Formulary Medication (Baclofen [Baclofen]) 20 mg PO TID [facility] Non-Formulary Medication (Pregabalin [Lyrica]) 150 mg PO TID [facility] Non-Formulary Medication (Verapamil [Calan]) 80 mg PO TID [facility] Oxybutynin Chloride (Oxybutynin 5 Mg Tab) 5 mg PO TID ESTELLA Assessment/Plan Comment:: Admit to swing bed, consult physical and occupational therapy. Continue current medications including doxycycline 100 mg by mouth twice a day. The social worker health services is working with her insurance,for the DMEs mentioned in history of present illness so she could safely return home
[2021-01-20] MEDS: Enoxaparin 40 MG/0.4 ML Syringe SUBCUT SCH (17:02)
[2021-01-20] MEDS: Albuterol/Ipratropium 3.0-0.5 MG/3 ML Neb Soln INH SCH ×2 (17:02→22:03)
[2021-01-20] MEDS: Docusate Sodium 100 MG Cap PO SCH (22:00)
[2021-01-20] MEDS: Amitriptyline 10 MG Tab PO SCH (22:01)
[2021-01-20] MEDS: atorvaSTATin 40 MG Tab PO SCH (22:01)
[2021-01-20] MEDS: guaiFENesin 600 MG Tab.ER PO SCH (22:02)
[2021-01-20] MEDS: Oxybutynin 5 MG Tab PO SCH (22:05)
[2021-01-20] MEDS: Famotidine 20 MG Tab PO SCH (22:05)
[2021-01-20] MEDS: Baclofen 10 MG Tab PO SCH (22:06)
[2021-01-20] MEDS: Pregabalin 75 MG Cap PO SCH (22:35)
[2021-01-20] MEDS: Acetaminophen 500 MG Tab PO SCH (22:35)
[2021-01-20] MEDS: Cetirizine 10 MG Tab PO SCH (22:36)
[2021-01-20] MEDS: Doxycycline 100 MG Tab PO SCH (22:36)
[2021-01-20] MEDS: Acetaminophen/HYDROcodone 325-5 MG Tab PO PRN (23:53)
[2021-01-21] MEDS: Docusate Sodium 100 MG Cap PO SCH ×2 (09:13→21:02)
[2021-01-21] MEDS: Folic Acid 1 MG Tab PO SCH (09:15)
[2021-01-21] MEDS: Albuterol/Ipratropium 3.0-0.5 MG/3 ML Neb Soln INH SCH ×4 (09:15→21:03)
[2021-01-21] MEDS: DULoxetine 60 MG Cap PO SCH (09:16)
[2021-01-21] MEDS: Nicotine 21 MG/24 Hr Patch TOP SCH (09:17)
[2021-01-21] MEDS: Baclofen 10 MG Tab PO SCH ×3 (09:18→21:04)
[2021-01-21] MEDS: Pregabalin 75 MG Cap PO SCH ×3 (09:19→21:10)
[2021-01-21] MEDS: Oxybutynin 5 MG Tab PO SCH ×3 (09:19→21:05)
[2021-01-21] MEDS: Meloxicam 7.5 MG Tab PO SCH (09:19)
[2021-01-21] MEDS: guaiFENesin 600 MG Tab.ER PO SCH ×2 (09:19→21:05)
[2021-01-21] MEDS: Famotidine 20 MG Tab PO SCH ×2 (09:20→21:06)
[2021-01-21] MEDS: Tiotropium Bromide 4 GM Inhalation Spray (2.5mcg/1 dose; 10 doses) INH SCH (09:21)
[2021-01-21] MEDS: Doxycycline 100 MG Tab PO SCH ×2 (09:31→21:11)
[2021-01-21] MEDS: Acetaminophen 500 MG Tab PO SCH ×2 (09:31→21:10)
[2021-01-21] MEDS: Acetaminophen/HYDROcodone 325-5 MG Tab PO PRN ×2 (09:31→21:21)
[2021-01-21] MEDS: predniSONE 1 MG Tab PO SCH (09:32)
[2021-01-21] MEDS: Leflunomide 20 MG Tab PO SCH (10:39)
[2021-01-21] MEDS: Prenatal Multivitamin with Calcium/Folic Acid/Fe Fumarate Cap PO SCH (13:00)
[2021-01-21] MEDS: Enoxaparin 40 MG/0.4 ML Syringe SUBCUT SCH (18:33)
[2021-01-21] MEDS: Amitriptyline 10 MG Tab PO SCH (21:03)
[2021-01-21] MEDS: atorvaSTATin 40 MG Tab PO SCH (21:04)
[2021-01-21] MEDS: Cetirizine 10 MG Tab PO SCH (21:11)
[2021-01-22] MEDS: predniSONE 1 MG Tab PO SCH (07:38)
[2021-01-22] MEDS: Nicotine 21 MG/24 Hr Patch TOP SCH (08:59)
[2021-01-22] MEDS: Albuterol/Ipratropium 3.0-0.5 MG/3 ML Neb Soln INH SCH ×4 (09:00→21:27)
[2021-01-22] MEDS: Docusate Sodium 100 MG Cap PO SCH ×2 (09:02→21:26)
[2021-01-22] MEDS: DULoxetine 60 MG Cap PO SCH (09:05)
[2021-01-22] MEDS: Folic Acid 1 MG Tab PO SCH (09:07)
[2021-01-22] MEDS: Baclofen 10 MG Tab PO SCH ×3 (09:08→21:27)
[2021-01-22] MEDS: Pregabalin 75 MG Cap PO SCH ×3 (09:09→21:33)
[2021-01-22] MEDS: Meloxicam 7.5 MG Tab PO SCH (09:10)
[2021-01-22] MEDS: guaiFENesin 600 MG Tab.ER PO SCH ×2 (09:11→21:28)
[2021-01-22] MEDS: Famotidine 20 MG Tab PO SCH ×2 (09:11→21:29)
[2021-01-22] MEDS: Oxybutynin 5 MG Tab PO SCH ×3 (09:11→21:29)
[2021-01-22] MEDS: Prenatal Multivitamin with Calcium/Folic Acid/Fe Fumarate Cap PO SCH (09:12)
[2021-01-22] MEDS: Tiotropium Bromide 4 GM Inhalation Spray (2.5mcg/1 dose; 10 doses) INH SCH (09:13)
[2021-01-22] MEDS: Acetaminophen 500 MG Tab PO SCH ×2 (09:16→21:33)
[2021-01-22] MEDS: Doxycycline 100 MG Tab PO SCH ×2 (09:16→22:15)
[2021-01-22] MEDS: Leflunomide 20 MG Tab PO SCH (09:20)
[2021-01-22] MEDS: Acetaminophen/HYDROcodone 325-5 MG Tab PO PRN ×2 (13:24→22:06)
[2021-01-22] MEDS: Enoxaparin 40 MG/0.4 ML Syringe SUBCUT SCH (18:00)
[2021-01-22] MEDS: Amitriptyline 10 MG Tab PO SCH (21:27)
[2021-01-22] MEDS: atorvaSTATin 40 MG Tab PO SCH (21:28)
[2021-01-22] MEDS: Cetirizine 10 MG Tab PO SCH (21:33)
[2021-01-23] MEDS: predniSONE 1 MG Tab PO SCH (08:30)
[2021-01-23] MEDS: Leflunomide 20 MG Tab PO SCH (09:52)
[2021-01-23] MEDS: DULoxetine 60 MG Cap PO SCH (09:54)
[2021-01-23] MEDS: Albuterol/Ipratropium 3.0-0.5 MG/3 ML Neb Soln INH SCH ×4 (09:54→20:48)
[2021-01-23] MEDS: Folic Acid 1 MG Tab PO SCH (09:54)
[2021-01-23] MEDS: Docusate Sodium 100 MG Cap PO SCH ×2 (09:54→20:48)
[2021-01-23] MEDS: Famotidine 20 MG Tab PO SCH ×2 (09:55→20:48)
[2021-01-23] MEDS: Tiotropium Bromide 4 GM Inhalation Spray (2.5mcg/1 dose; 10 doses) INH SCH (09:55)
[2021-01-23] MEDS: Nicotine 21 MG/24 Hr Patch TOP SCH (09:56)
[2021-01-23] MEDS: Baclofen 10 MG Tab PO SCH ×3 (09:56→20:48)
[2021-01-23] MEDS: guaiFENesin 600 MG Tab.ER PO SCH ×2 (09:57→20:48)
[2021-01-23] MEDS: Pregabalin 75 MG Cap PO SCH ×3 (09:57→20:53)
[2021-01-23] MEDS: Prenatal Multivitamin with Calcium/Folic Acid/Fe Fumarate Cap PO SCH (09:58)
[2021-01-23] MEDS: Oxybutynin 5 MG Tab PO SCH ×3 (09:58→20:55)
[2021-01-23] MEDS: Meloxicam 7.5 MG Tab PO SCH (09:58)
[2021-01-23] MEDS: Acetaminophen 500 MG Tab PO SCH ×2 (09:59→20:49)
[2021-01-23] MEDS: Doxycycline 100 MG Tab PO SCH (10:01)
[2021-01-23] MEDS: Acetaminophen/HYDROcodone 325-5 MG Tab PO PRN (10:07)
[2021-01-23] MEDS: Enoxaparin 40 MG/0.4 ML Syringe SUBCUT SCH (18:47)
[2021-01-23] MEDS: Amitriptyline 10 MG Tab PO SCH (20:48)
[2021-01-23] MEDS: atorvaSTATin 40 MG Tab PO SCH (20:48)
[2021-01-23] MEDS: Cetirizine 10 MG Tab PO SCH (20:55)
[2021-01-24] MEDS: predniSONE 1 MG Tab PO SCH (07:21)
[2021-01-24] MEDS: Leflunomide 20 MG Tab PO SCH (08:00)
[2021-01-24] MEDS: Folic Acid 1 MG Tab PO SCH (08:01)
[2021-01-24] MEDS: Docusate Sodium 100 MG Cap PO SCH ×2 (08:01→20:56)
[2021-01-24] MEDS: Nicotine 21 MG/24 Hr Patch TOP SCH (08:01)
[2021-01-24] MEDS: Albuterol/Ipratropium 3.0-0.5 MG/3 ML Neb Soln INH SCH ×4 (08:01→20:56)
[2021-01-24] MEDS: DULoxetine 60 MG Cap PO SCH (08:01)
[2021-01-24] MEDS: Baclofen 10 MG Tab PO SCH ×3 (08:02→20:57)
[2021-01-24] MEDS: Oxybutynin 5 MG Tab PO SCH ×3 (08:03→20:57)
[2021-01-24] MEDS: Famotidine 20 MG Tab PO SCH ×2 (08:03→20:58)
[2021-01-24] MEDS: Meloxicam 7.5 MG Tab PO SCH (08:03)
[2021-01-24] MEDS: guaiFENesin 600 MG Tab.ER PO SCH ×2 (08:03→20:57)
[2021-01-24] MEDS: Prenatal Multivitamin with Calcium/Folic Acid/Fe Fumarate Cap PO SCH (08:03)
[2021-01-24] MEDS: Tiotropium Bromide 4 GM Inhalation Spray (2.5mcg/1 dose; 10 doses) INH SCH (08:04)
[2021-01-24] MEDS: Acetaminophen 500 MG Tab PO SCH ×2 (08:04→20:58)
[2021-01-24] MEDS: Pregabalin 75 MG Cap PO SCH ×3 (08:07→21:04)
[2021-01-24] MEDS: Acetaminophen/HYDROcodone 325-5 MG Tab PO PRN ×2 (08:11→21:20)
[2021-01-24] MEDS: Enoxaparin 40 MG/0.4 ML Syringe SUBCUT SCH (17:25)
[2021-01-24] MEDS: atorvaSTATin 40 MG Tab PO SCH (20:57)
[2021-01-24] MEDS: Amitriptyline 10 MG Tab PO SCH (20:57)
[2021-01-24] MEDS: Cetirizine 10 MG Tab PO SCH (20:58)
[2021-01-25] MEDS: predniSONE 1 MG Tab PO SCH (07:05)
[2021-01-25] MEDS: Docusate Sodium 100 MG Cap PO SCH ×2 (08:28→21:08)
[2021-01-25] MEDS: Folic Acid 1 MG Tab PO SCH (08:29)
[2021-01-25] MEDS: Nicotine 21 MG/24 Hr Patch TOP SCH (08:29)
[2021-01-25] MEDS: DULoxetine 60 MG Cap PO SCH (08:29)
[2021-01-25] MEDS: Baclofen 10 MG Tab PO SCH ×3 (08:30→21:10)
[2021-01-25] MEDS: Albuterol/Ipratropium 3.0-0.5 MG/3 ML Neb Soln INH SCH ×4 (08:30→21:08)
[2021-01-25] MEDS: guaiFENesin 600 MG Tab.ER PO SCH ×2 (08:31→21:11)
[2021-01-25] MEDS: Meloxicam 7.5 MG Tab PO SCH (08:31)
[2021-01-25] MEDS: Prenatal Multivitamin with Calcium/Folic Acid/Fe Fumarate Cap PO SCH (08:32)
[2021-01-25] MEDS: Tiotropium Bromide 4 GM Inhalation Spray (2.5mcg/1 dose; 10 doses) INH SCH (08:32)
[2021-01-25] MEDS: Acetaminophen 500 MG Tab PO SCH ×2 (08:32→21:11)
[2021-01-25] MEDS: Famotidine 20 MG Tab PO SCH ×2 (08:32→21:11)
[2021-01-25] MEDS: Oxybutynin 5 MG Tab PO SCH ×3 (08:32→21:11)
[2021-01-25] MEDS: Leflunomide 20 MG Tab PO SCH (08:33)
[2021-01-25] MEDS: Pregabalin 75 MG Cap PO SCH ×3 (08:41→21:13)
[2021-01-25] MEDS ORDERED: Tuberculin, PPD 5 Units/0.1 ML 1 ML MDV IDERM ONE (10:30)
[2021-01-25] MEDS: Enoxaparin 40 MG/0.4 ML Syringe SUBCUT SCH (17:30)
[2021-01-25] MEDS: Amitriptyline 10 MG Tab PO SCH (21:09)
[2021-01-25] MEDS: atorvaSTATin 40 MG Tab PO SCH (21:11)
[2021-01-25] MEDS: Cetirizine 10 MG Tab PO SCH (21:11)
[2021-01-26] MEDS: predniSONE 1 MG Tab PO SCH (08:07)
[2021-01-26] MEDS: Leflunomide 20 MG Tab PO SCH (08:07)
[2021-01-26] MEDS: DULoxetine 60 MG Cap PO SCH (08:08)
[2021-01-26] MEDS: Docusate Sodium 100 MG Cap PO SCH (08:08)
[2021-01-26] MEDS: guaiFENesin 600 MG Tab.ER PO SCH (08:09)
[2021-01-26] MEDS: Baclofen 10 MG Tab PO SCH (08:09)
[2021-01-26] MEDS: Oxybutynin 5 MG Tab PO SCH (08:09)
[2021-01-26] MEDS: Albuterol/Ipratropium 3.0-0.5 MG/3 ML Neb Soln INH SCH (08:09)
[2021-01-26] MEDS: Famotidine 20 MG Tab PO SCH (08:10)
[2021-01-26] MEDS: Prenatal Multivitamin with Calcium/Folic Acid/Fe Fumarate Cap PO SCH (08:10)
[2021-01-26] MEDS: Acetaminophen 500 MG Tab PO SCH (08:10)
[2021-01-26] MEDS: Tiotropium Bromide 4 GM Inhalation Spray (2.5mcg/1 dose; 10 doses) INH SCH (08:10)
[2021-01-26] MEDS: Folic Acid 1 MG Tab PO SCH (08:11)
[2021-01-26] MEDS: Nicotine 21 MG/24 Hr Patch TOP SCH (08:12)
[2021-01-26] MEDS: Meloxicam 7.5 MG Tab PO SCH (08:13)
[2021-01-26] MEDS: Pregabalin 75 MG Cap PO SCH (08:19)
--- NOTE | 2021-01-27 02:53 | DISCH ---
DISCHARGE DATE: 01/26/2021 REASON FOR ADMISSION: 1. Weakness. 2. Multiple sclerosis. 3. Chronic obstructive pulmonary disease exacerbation. 4. Pneumonia. DISCHARGE DIAGNOSES: 1. Weakness. 2. Multiple sclerosis. 3. Chronic obstructive pulmonary disease exacerbation. 4. Pneumonia. BRIEF HISTORY AND HOSPITAL COURSE: A 60-year-old female admitted from the acute care after she had pneumonia and COPD exacerbation. She also has multiple sclerosis and is unable to ambulate. She was admitted for strengthening and rehab and also to find an appropriate disposition for her. She has attended physical therapy, and she is ready to be discharged to the [facility]. She will go home on her usual home medications. She has just finished a recent dose of 100 mg of doxycycline twice a day. Please note that I spent more than 35 minutes in the discharge of the patient. /[id number] REY/ERNIE
== END 2021-01-26 10:40 | disposition home health service (06) | DRG 948 ==
LOC: FB.MS 12:43
PROVIDERS: ADMIT Emergency Medicine; ATTEND Family Medicine
DX: R53.1 Weakness (principal); F41.9 Anxiety disorder, unspecified; F32.A Depression, unspecified; F17.200 Nicotine dependence, unspecified, uncomplicated; G35 Multiple sclerosis; Z20.822 Contact with and (suspected) exposure to COVID-19; J44.9 Chronic obstructive pulmonary disease, unspecified; Z88.8 Allergy status to other drugs, medicaments and biological substances; Z79.899 Other long term (current) drug therapy; Z79.52 Long term (current) use of systemic steroids; Z51.5 Encounter for palliative care
CPT/HCPCS: 86580; 94640; 97530-GO; 97530-GP; 97535-GO; A9270-GY; J1650; J7512; J7620-GY; U0002

== ENCOUNTER 2022-06-11 01:48 | Emergency (ER) | payer MEDICARE, MEDICAID ==
[2022-06-11] MEDS ORDERED: Ondansetron 4 MG/2 ML SDV IVPUSH ONE (02:32)
[2022-06-11] MEDS ORDERED: Sodium Chloride 0.9% 500 ML IV ONE ×2 (02:32→04:39)
[2022-06-11] MEDS ORDERED: Sodium Chloride 0.9% 10 ML Syringe FLUSH PRN (02:32)
[2022-06-11 02:50] LABS: ESTIMATED GFR 46 mL/min (>60)
[2022-06-11] MEDS ORDERED: Albuterol/Ipratropium 3.0-0.5 MG/3 ML Neb Soln NEB ONE (04:39)
[2022-06-11] MEDS ORDERED: cefTRIAXone 1 GM Vial IVPUSH ONE (05:19)
[2022-06-11] MEDS ORDERED: Sodium Chloride 0.9% 1,000 ML IV SCH ×2 (05:30→09:00)
== END 2022-06-11 12:23 ==
LOC: FB.ED 01:48
DX: E86.0 Dehydration (principal); K56.609 Unspecified intestinal obstruction, unspecified as to partial versus complete obstruction; N17.9 Acute kidney failure, unspecified; I10 Essential (primary) hypertension; J44.9 Chronic obstructive pulmonary disease, unspecified; M19.90 Unspecified osteoarthritis, unspecified site; E66.9 Obesity, unspecified; Z68.38 Body mass index [BMI] 38.0-38.9, adult; Z87.891 Personal history of nicotine dependence; Z88.8 Allergy status to other drugs, medicaments and biological substances; Z79.899 Other long term (current) drug therapy
CPT/HCPCS: 36415; 74176; 80053; 81001; 83605; 83735; 84484; 85025; 86140; 87040; 87086; 87088; 87186; 93005; 94640; 96374; 96375; 99284-25; J0696; J2405; J7030; J7040; J7620

== ENCOUNTER 2022-06-24 19:13 | Emergency (ER) | payer MEDICARE, MEDICAID ==
[2022-06-24] MEDS ORDERED: Ondansetron 4 MG Tab.DIS PO ONE (20:06)
[2022-06-24] MEDS ORDERED: LORazepam 0.5 MG Tab PO ONE (22:11)
[2022-06-24] MEDS ORDERED: Bisacodyl 5 MG Tab PO ONE (23:15)
== END 2022-06-25 01:20 | disposition home or self-care (01) ==
LOC: FB.ED 19:13
DX: K56.0 Paralytic ileus (principal); E78.00 Pure hypercholesterolemia, unspecified; I10 Essential (primary) hypertension; J44.9 Chronic obstructive pulmonary disease, unspecified; E66.9 Obesity, unspecified; Z88.8 Allergy status to other drugs, medicaments and biological substances; Z79.899 Other long term (current) drug therapy; Z87.891 Personal history of nicotine dependence; Z68.34 Body mass index [BMI] 34.0-34.9, adult
CPT/HCPCS: 74019; 99284; A9270-GY; Q0162

== ENCOUNTER 2022-09-14 13:01 | Inpatient (IN) | payer MEDICARE, MEDICAID ==
[2022-09-14 13:48] LABS: HEMATOCRIT 40.5 % (34.2-48.2); HEMOGLOBIN 12.9 g/dL (11.4-15.5); MEAN CORPUSCULAR HEMOGLOBIN 26.2 pg (23.9-33.9); MEAN CORPUSCULAR HGB CONC 31.8 g/dL (31.9-34.8); MEAN CORPUSCULAR VOLUME 82.5 fL (76.7-100.5); RED BLOOD CELL COUNT 4.91 x10(6)uL (3.60-5.20); RED CELL DISTRIBUTION WIDTH 19.4 % (12.3-16.5); WHITE BLOOD CELL COUNT,WBC 7.6 x10-3/uL (3.0-10.3)
[2022-09-14 13:50] LABS: CARBON DIOXIDE,CO2 29 mmol/L (21-32); CHLORIDE,CL 100 mmol/L (100-110); GLUCOSE RANDOM 103 mg/dL (80-116); POTASSIUM,K 3.9 mmol/L (3.5-5.3); SODIUM,NA 135 mmol/L (135-145)
[2022-09-14 13:51] LABS: BLOOD UREA NITROGEN,BUN 18 mg/dL (7-18); BUN/CREATININE RATIO 25.7 (9-20); CALCIUM 9.2 mg/dL (8.6-10.2); CREATININE 0.7 mg/dL (0.55-1.02); ESTIMATED GFR 98 mL/min (>60)
[2022-09-14 13:57] LABS: A/G RATIO 0.9; ALANINE AMINOTRANSFERASE,ALT 38 U/L (12-36); ALBUMIN 3.3 g/dL (3.2-4.6); ALKALINE PHOSPHATASE 116 IU/L (56-112); ASPARTATE AMNIOTRANSFERASE,AST 48 IU/L (5-25); BILIRUBIN TOTAL 0.5 mg/dL (0.1-1.3); PROTEIN TOTAL,TP 7.1 g/dL (6.0-8.0)
[2022-09-14] MEDS ORDERED: Iopamidol 755 Mg/ML 100 ML Bottle IV ONE (14:03)
[2022-09-14] MEDS: Sodium Phosphate,Monobasic/Sodium Phosphate,Dibasic Enema 133 ML Bottle RECTAL ONE ×2 (14:41→15:02)
[2022-09-14 14:46] LABS: APPEARANCE,URINE CLEAR (CLEAR); BILIRUBIN,URINE NEGATIVE (NEGATIVE); COLOR,URINE YELLOW (YELLOW); GLUCOSE,URINE NORMAL (NORMAL); KETONES,URINE NEGATIVE (NEGATIVE); LEUKOCYTE ESTERASE,URINE NEGATIVE (NEGATIVE); NITRITE,URINE NEGATIVE (NEGATIVE); OCCULT BLOOD,URINE NEGATIVE (NEGATIVE); PROTEIN,URINE NEGATIVE (NEGATIVE); UROBILINOGEN,URINE NORMAL (NEGATIVE)
[2022-09-14] MEDS ORDERED: Dextrose 5%-Lactated Ringers 1,000 ML IV STA (15:31)
[2022-09-14] MEDS ORDERED: Albuterol/Ipratropium 3.0-0.5 MG/3 ML Neb Soln INH PRN (16:32)
[2022-09-14] MEDS ORDERED: Lactated Ringers 1,000 ML IV SCH (17:00)
[2022-09-14] MEDS ORDERED: Pantoprazole 40 MG Vial IVPUSH SCH (18:00)
[2022-09-14] MEDS ORDERED: Enoxaparin 40 MG/0.4 ML Syringe SUBCUT SCH (18:00)
[2022-09-15 06:17] LABS: BASOPHILS ABSOLUTE AUTO 0.1 x10-3/uL (0.0-0.1); BASOPHILS PERCENT AUTO 0.9 % (0.2-1.5); EOSINOPHILS ABSOLUTE AUTO 0.2 x10-3/uL (0.0-0.8); EOSINOPHILS PERCENT AUTO 3.4 % (0.6-8.1); HEMATOCRIT 40.1 % (34.2-48.2); LYMPHOCYTES ABSOLUTE AUTO 1.6 x10-3/uL (1.0-4.4); MEAN CORPUSCULAR HEMOGLOBIN 26.5 pg (23.9-33.9); MEAN CORPUSCULAR HGB CONC 32.3 g/dL (31.9-34.8); MEAN CORPUSCULAR VOLUME 82.1 fL (76.7-100.5); MEAN PLATELET VOLUME 9.3 fL (7.1-12.4); MONOCYTES ABSOLUTE AUTO 0.7 x10-3/uL (0.3-1.0); MONOCYTES PERCENT AUTO 10.6 % (4.4-15.7); NEUTROPHILS ABSOLUTE AUTO 4.3 x10-3/uL (1.5-6.3); NEUTROPHILS PERCENT AUTO 62.1 % (30.8-76.2); PLATELET COUNT,PLT 163 x10(3)uL (151-488); RED BLOOD CELL COUNT 4.89 x10(6)uL (3.60-5.20); RED CELL DISTRIBUTION WIDTH 19.3 % (12.3-16.5)
[2022-09-15 06:26] LABS: BLOOD UREA NITROGEN,BUN 10 mg/dL (7-18); BUN/CREATININE RATIO 14.3 (9-20); CALCIUM 9.4 mg/dL (8.6-10.2); CARBON DIOXIDE,CO2 32 mmol/L (21-32); CHLORIDE,CL 104 mmol/L (100-110); CREATININE 0.7 mg/dL (0.55-1.02); EST CRCL DRUG DOSING (CG) 62.88 mL/min; ESTIMATED GFR 98 mL/min (>60); GLUCOSE RANDOM 90 mg/dL (80-116); MAGNESIUM 1.4 mg/dL (1.8-2.5); SODIUM,NA 145 mmol/L (135-145)
[2022-09-15] MEDS ORDERED: Tiotropium Bromide 4 GM Inhalation Spray (2.5mcg/1 dose; 10 doses) INH SCH (09:00)
[2022-09-15] MEDS ORDERED: Furosemide 20 MG/2 ML VIAL IVPUSH SCH (09:00)
[2022-09-15] MEDS ORDERED: Potassium Chloride 20 MEQ in Premix Bag 1 BAG IV ONE (09:27)
[2022-09-15] MEDS ORDERED: Magnesium Sulfate/Water 2 GM in Premix Bag 1 BAG IV ONE (09:52)
== END 2022-09-15 10:36 | DRG 389 ==
LOC: FB.ED 13:01 → FB.MS 16:01
PROVIDERS: ADMIT Student in an Organized Health Care Education/Training Program; ATTEND Student in an Organized Health Care Education/Training Program
DX: K56.600 Partial intestinal obstruction, unspecified as to cause (principal); I50.32 Chronic diastolic (congestive) heart failure; Z68.41 Body mass index [BMI] 40.0-44.9, adult; G35 Multiple sclerosis; J44.9 Chronic obstructive pulmonary disease, unspecified; F41.9 Anxiety disorder, unspecified; F32.A Depression, unspecified; K56.0 Paralytic ileus; I10 Essential (primary) hypertension; K59.09 Other constipation; E78.00 Pure hypercholesterolemia, unspecified; M19.90 Unspecified osteoarthritis, unspecified site; G62.9 Polyneuropathy, unspecified; Z98.890 Other specified postprocedural states; M06.9 Rheumatoid arthritis, unspecified; E78.2 Mixed hyperlipidemia; G47.33 Obstructive sleep apnea (adult) (pediatric); I27.20 Pulmonary hypertension, unspecified; G47.34 Idiopathic sleep related nonobstructive alveolar hypoventilation; Z88.8 Allergy status to other drugs, medicaments and biological substances; E66.9 Obesity, unspecified; Z79.52 Long term (current) use of systemic steroids; Z79.899 Other long term (current) drug therapy
CPT/HCPCS: 36415; 74018; 74177; 80053; 81003; 83605; 83690; 85027; 86140; 96360; 99285; J7121; Q9967; 80048; 83735; 85025; 99223; 99239; A9270-GY; C9113; J1650; J1940; J3475; J7120

== ENCOUNTER 2023-01-11 10:38 | Emergency (ER) | payer MEDICARE, MEDICAID ==
[2023-01-11] MEDS ORDERED: Albuterol/Ipratropium 3.0-0.5 MG/3 ML Neb Soln NEB ONE (10:58)
[2023-01-11] MEDS: Sodium Chloride 0.9% 10 ML Syringe FLUSH PRN ×3 (11:05→11:55)
[2023-01-11] MEDS ORDERED: methylPREDNISolone Sodium Succinate 125 MG/2 ML SDV IVPUSH STA (11:16)
[2023-01-11 11:20] LABS: BASE EXCESS VENOUS,POC -1 mmol/L (-2 - 3+); PCO2 VENOUS,POC 45 mmHg (41-51); PH VENOUS,POC 7.36 pH Units (7.32-7.43)
[2023-01-11 11:22] LABS: HEMOGLOBIN 13.3 g/dL (11.4-15.5); MEAN CORPUSCULAR HEMOGLOBIN 28.4 pg (23.9-33.9); MEAN CORPUSCULAR HGB CONC 32.4 g/dL (31.9-34.8); MEAN CORPUSCULAR VOLUME 87.5 fL (76.7-100.5); RED BLOOD CELL COUNT 4.68 x10(6)uL (3.60-5.20); RED CELL DISTRIBUTION WIDTH 16.5 % (12.3-16.5); WHITE BLOOD CELL COUNT,WBC 6.5 x10-3/uL (3.0-10.3)
[2023-01-11 11:31] LABS: BLOOD UREA NITROGEN,BUN 16 mg/dL (7-18); BUN/CREATININE RATIO 17.8 (9-20); CALCIUM 9.1 mg/dL (8.6-10.2); CARBON DIOXIDE,CO2 26 mmol/L (21-32); CHLORIDE,CL 106 mmol/L (100-110); CREATININE 0.9 mg/dL (0.55-1.02); EST CRCL DRUG DOSING (CG) 59.89 mL/min; ESTIMATED GFR 72 mL/min (>60); GLUCOSE RANDOM 96 mg/dL (80-116); POTASSIUM,K 3.3 mmol/L (3.5-5.3); SODIUM,NA 140 mmol/L (135-145)
[2023-01-11 11:36] LABS: A/G RATIO 0.8; ALANINE AMINOTRANSFERASE,ALT 28 U/L (12-36); ALKALINE PHOSPHATASE 210 IU/L (56-112); ASPARTATE AMNIOTRANSFERASE,AST 19 IU/L (5-25); BILIRUBIN TOTAL 0.5 mg/dL (0.1-1.3); PROTEIN TOTAL,TP 6.8 g/dL (6.0-8.0)
[2023-01-11 11:38] LABS: TROPONIN I 14.5 pg/mL (4.0-60.3)
[2023-01-11] MEDS ORDERED: Potassium Chloride 20 MEQ Tab.ER PO ONE (11:46)
[2023-01-11] MEDS ORDERED: Metolazone 2.5 MG Tab PO ONE (11:49)
[2023-01-11] MEDS ORDERED: Furosemide 40 MG/4 ML VIAL IVPUSH ONE (11:51)
[2023-01-12] MEDS ORDERED: Furosemide 40 MG/4 ML VIAL IVPUSH SCH (09:00)
[2023-01-12] MEDS ORDERED: methylPREDNISolone Sodium Succinate 125 MG/2 ML SDV IVPUSH SCH (09:00)
== END 2023-01-11 14:00 ==
LOC: FB.ED 10:38
DX: J44.1 Chronic obstructive pulmonary disease with (acute) exacerbation (principal); I11.0 Hypertensive heart disease with heart failure; I50.9 Heart failure, unspecified; E78.00 Pure hypercholesterolemia, unspecified; E66.9 Obesity, unspecified; Z68.37 Body mass index [BMI] 37.0-37.9, adult; Z86.16 Personal history of COVID-19; Z79.899 Other long term (current) drug therapy; Z88.8 Allergy status to other drugs, medicaments and biological substances
CPT/HCPCS: 36415; 71045; 80053; 83880; 84484; 85027; 93005; 93010; 94640; 96374; 96375; 99284; 99285-25; A9270-GY; J1940; J2930; J3490; J7620

== ENCOUNTER 2023-02-15 10:51 | Emergency (ER) | payer MEDICARE, MEDICAID ==
[2023-02-15] MEDS ORDERED: Albuterol/Ipratropium 3.0-0.5 MG/3 ML Neb Soln NEB ONE (11:04)
[2023-02-15] MEDS ORDERED: methylPREDNISolone Sodium Succinate 125 MG/2 ML SDV IVPUSH ONE (11:05)
[2023-02-15] MEDS ORDERED: Nitroglycerin 0.4 MG Tab.SL SL PRN (11:13)
[2023-02-15 11:53] LABS: BASOPHILS ABSOLUTE AUTO 0.1 x10-3/uL (0.0-0.1); BASOPHILS PERCENT AUTO 0.7 % (0.2-1.5); EOSINOPHILS ABSOLUTE AUTO 0.2 x10-3/uL (0.0-0.8); EOSINOPHILS PERCENT AUTO 1.4 % (0.6-8.1); HEMATOCRIT 40.3 % (34.2-48.2); HEMOGLOBIN 13.2 g/dL (11.4-15.5); LYMPHOCYTES ABSOLUTE AUTO 1.5 x10-3/uL (1.0-4.4); LYMPHOCYTES PERCENT AUTO 13.6 % (18.4-52.1); MEAN CORPUSCULAR HEMOGLOBIN 28.3 pg (23.9-33.9); MEAN CORPUSCULAR HGB CONC 32.7 g/dL (31.9-34.8); MEAN CORPUSCULAR VOLUME 86.7 fL (76.7-100.5); MEAN PLATELET VOLUME 9.9 fL (7.1-12.4); MONOCYTES ABSOLUTE AUTO 1.4 x10-3/uL (0.3-1.0); MONOCYTES PERCENT AUTO 12.9 % (4.4-15.7); NEUTROPHILS PERCENT AUTO 71.4 % (30.8-76.2); PLATELET COUNT,PLT 152 x10(3)uL (151-488); RED BLOOD CELL COUNT 4.65 x10(6)uL (3.60-5.20); RED CELL DISTRIBUTION WIDTH 16.4 % (12.3-16.5); WHITE BLOOD CELL COUNT,WBC 11.2 x10-3/uL (3.0-10.3)
[2023-02-15 11:57] LABS: BLOOD UREA NITROGEN,BUN 11 mg/dL (7-18); BUN/CREATININE RATIO 13.8 (9-20); CALCIUM 9.4 mg/dL (8.6-10.2); CARBON DIOXIDE,CO2 29 mmol/L (21-32); CHLORIDE,CL 107 mmol/L (100-110); CREATININE 0.8 mg/dL (0.55-1.02); ESTIMATED GFR 83 mL/min (>60); GLUCOSE RANDOM 123 mg/dL (80-116); POTASSIUM,K 3.9 mmol/L (3.5-5.3); SODIUM,NA 140 mmol/L (135-145)
[2023-02-15 12:07] LABS: LACTIC ACID 0.7 mmol/L (0.4-2.0)
[2023-02-15 12:09] LABS: TROPONIN I 20.3 pg/mL (4.0-60.3)
[2023-02-15 12:09] LABS: BASE EXCESS VENOUS,POC -1 mmol/L (-2 - 3+); PCO2 VENOUS,POC 43 mmHg (41-51); PH VENOUS,POC 7.37 pH Units (7.32-7.43)
[2023-02-15 12:11] LABS: A/G RATIO 0.6; ALANINE AMINOTRANSFERASE,ALT 19 U/L (12-36); ALBUMIN 2.7 g/dL (3.2-4.6); ALKALINE PHOSPHATASE 212 IU/L (56-112); ASPARTATE AMNIOTRANSFERASE,AST 16 IU/L (5-25); BILIRUBIN TOTAL 0.5 mg/dL (0.1-1.3); PROTEIN TOTAL,TP 7.3 g/dL (6.0-8.0)
[2023-02-15] MEDS ORDERED: Furosemide 40 MG/4 ML VIAL IVPUSH ONE (12:31)
[2023-02-15] MEDS ORDERED: Metolazone 2.5 MG Tab PO ONE (12:31)
[2023-02-15] MEDS: Aspirin 81 MG Tab.Chew PO ONE ×2 (13:20→13:22)
== END 2023-02-15 14:30 ==
LOC: FB.ED 10:51
DX: J44.9 Chronic obstructive pulmonary disease, unspecified (principal); I11.0 Hypertensive heart disease with heart failure; I50.9 Heart failure, unspecified; E78.00 Pure hypercholesterolemia, unspecified; M19.90 Unspecified osteoarthritis, unspecified site; E66.9 Obesity, unspecified; Z68.36 Body mass index [BMI] 36.0-36.9, adult; Z86.16 Personal history of COVID-19; Z98.890 Other specified postprocedural states; Z88.8 Allergy status to other drugs, medicaments and biological substances; Z79.899 Other long term (current) drug therapy
CPT/HCPCS: 36415; 71045; 80053; 83605; 83880; 84484; 85025; 93005; 93010; 96374; 96375; 99284; 99285-25; A9270-GY; J1940; J2930; J7620

== ENCOUNTER 2023-02-22 10:20 | Emergency (ER) | payer MEDICARE, MEDICAID ==
[2023-02-22] MEDS ORDERED: Potassium Chloride 10 MEQ in Premix Bag 1 BAG IV ONE (10:32)
[2023-02-22] MEDS ORDERED: Potassium Chloride 20 MEQ Tab.ER PO ONE ×5 (11:00→18:00)
[2023-02-22 11:07] LABS: BLOOD UREA NITROGEN,BUN 30 mg/dL (7-18); CALCIUM 9.9 mg/dL (8.6-10.2); CARBON DIOXIDE,CO2 34 mmol/L (21-32); CHLORIDE,CL 98 mmol/L (100-110); EST CRCL DRUG DOSING (CG) 53.91 mL/min; ESTIMATED GFR 63 mL/min (>60); GLUCOSE RANDOM 90 mg/dL (80-116); MAGNESIUM 1.7 mg/dL (1.8-2.5); SODIUM,NA 141 mmol/L (135-145)
[2023-02-22 11:13] LABS: POTASSIUM,K 2.8 mmol/L (3.5-5.3)
[2023-02-22] MEDS ORDERED: Sodium Chloride 0.9% 1,000 ML IV SCH (11:45)
[2023-02-22 17:09] LABS: BLOOD UREA NITROGEN,BUN 33 mg/dL (7-18); CALCIUM 9.3 mg/dL (8.6-10.2); CARBON DIOXIDE,CO2 33 mmol/L (21-32); CHLORIDE,CL 100 mmol/L (100-110); CREATININE 1.1 mg/dL (0.55-1.02); ESTIMATED GFR 56 mL/min (>60); GLUCOSE RANDOM 123 mg/dL (80-116); POTASSIUM,K 4.1 mmol/L (3.5-5.3); SODIUM,NA 139 mmol/L (135-145)
== END 2023-02-22 17:20 ==
LOC: FB.ED 10:20
DX: E87.6 Hypokalemia (principal); E83.42 Hypomagnesemia; I10 Essential (primary) hypertension; J44.9 Chronic obstructive pulmonary disease, unspecified; E78.00 Pure hypercholesterolemia, unspecified; Z88.8 Allergy status to other drugs, medicaments and biological substances; Z79.899 Other long term (current) drug therapy; Z86.16 Personal history of COVID-19
CPT/HCPCS: 36415; 80048; 83735; 96361; 96365; 96366; 99283; 99284-25; A9270-GY; J3480; J7030

== ENCOUNTER 2023-04-21 23:39 | Inpatient (IN) | payer MEDICARE, MEDICAID ==
[2023-04-22 00:46] LABS: BLOOD UREA NITROGEN,BUN 16 mg/dL (7-18); CALCIUM 9.7 mg/dL (8.6-10.2); CARBON DIOXIDE,CO2 33 mmol/L (21-32); CHLORIDE,CL 104 mmol/L (100-110); EST CRCL DRUG DOSING (CG) 53.91 mL/min; ESTIMATED GFR 63 mL/min (>60); GLUCOSE RANDOM 104 mg/dL (80-116); POTASSIUM,K 3.7 mmol/L (3.5-5.3); SODIUM,NA 141 mmol/L (135-145)
[2023-04-22 00:48] LABS: BASOPHILS ABSOLUTE AUTO 0.1 x10-3/uL (0.0-0.1); BASOPHILS PERCENT AUTO 0.4 % (0.2-1.5); EOSINOPHILS ABSOLUTE AUTO 0.2 x10-3/uL (0.0-0.8); EOSINOPHILS PERCENT AUTO 1.3 % (0.6-8.1); HEMATOCRIT 44.8 % (34.2-48.2); HEMOGLOBIN 14.5 g/dL (11.4-15.5); LYMPHOCYTES ABSOLUTE AUTO 1.1 x10-3/uL (1.0-4.4); MEAN CORPUSCULAR HEMOGLOBIN 28.8 pg (23.9-33.9); MEAN CORPUSCULAR HGB CONC 32.4 g/dL (31.9-34.8); MEAN PLATELET VOLUME 9.8 fL (7.1-12.4); MONOCYTES PERCENT AUTO 7.7 % (4.4-15.7); NEUTROPHILS ABSOLUTE AUTO 10.9 x10-3/uL (1.5-6.3); NEUTROPHILS PERCENT AUTO 82.6 % (30.8-76.2); PLATELET COUNT,PLT 146 x10(3)uL (151-488); RED BLOOD CELL COUNT 5.04 x10(6)uL (3.60-5.20); RED CELL DISTRIBUTION WIDTH 17.2 % (12.3-16.5); WHITE BLOOD CELL COUNT,WBC 13.2 x10-3/uL (3.0-10.3)
[2023-04-22 00:52] LABS: A/G RATIO 0.9; ALANINE AMINOTRANSFERASE,ALT 32 U/L (12-36); ALBUMIN 3.4 g/dL (3.2-4.6); ALKALINE PHOSPHATASE 199 IU/L (56-112); ASPARTATE AMNIOTRANSFERASE,AST 18 IU/L (5-25); BILIRUBIN TOTAL 0.6 mg/dL (0.1-1.3); PROTEIN TOTAL,TP 7.4 g/dL (6.0-8.0)
[2023-04-22 01:01] LABS: C-REACTIVE PROTEIN 1.15 mg/dL (<0.50)
[2023-04-22 01:32] LABS: BILIRUBIN,URINE NEGATIVE (NEGATIVE); GLUCOSE,URINE NORMAL (NORMAL); KETONES,URINE NEGATIVE (NEGATIVE); LEUKOCYTE ESTERASE,URINE NEGATIVE (NEGATIVE); NITRITE,URINE NEGATIVE (NEGATIVE); OCCULT BLOOD,URINE NEGATIVE (NEGATIVE); PROTEIN,URINE NEGATIVE (NEGATIVE); UROBILINOGEN,URINE NORMAL (NEGATIVE)
[2023-04-22 01:41] LABS: APPEARANCE,URINE CLEAR (CLEAR); BACTERIA,URINE RARE (NS); COLOR,URINE YELLOW (YELLOW); RBC,URINE 0-5 (0-5); SQUAMOUS EPITHELIAL CELLS,UR OCCASIONAL (NS,R,O); WBC,URINE 0-5 (0-5)
[2023-04-22 02:25] LABS: BASE EXCESS VENOUS,POC 3 mmol/L (-2 - 3+); PCO2 VENOUS,POC 50 mmHg (41-51); PH VENOUS,POC 7.38 pH Units (7.32-7.43)
[2023-04-22] MEDS ORDERED: Iopamidol 755 Mg/ML 100 ML Bottle IV SCH (02:30)
[2023-04-22] MEDS ORDERED: Acetaminophen 325 MG Tab PO PRN (03:07)
[2023-04-22] MEDS ORDERED: Magnesium Sulfate/Water 2 GM in Premix Bag 1 BAG IV ONE (03:15)
[2023-04-22] MEDS: cefTRIAXone 1 GM in Sodium Chloride 0.9% 50 ML IV SCH (03:30)
[2023-04-22] MEDS: Azithromycin 500 MG in Sodium Chloride 0.9% 250 ML IV SCH (04:14)
[2023-04-22] MEDS: Sodium Chloride 0.9% 10 ML Syringe FLUSH PRN (04:20)
[2023-04-22] MEDS: Enoxaparin 40 MG/0.4 ML Syringe SUBCUT SCH (11:00)
[2023-04-22] MEDS ORDERED: guaiFENesin 100 MG/5 ML Soln 5 ML UD Cup PO PRN (11:28)
[2023-04-22] MEDS ORDERED: BALM TOP PRN (11:28)
[2023-04-22] MEDS ORDERED: Carboxymethylcellulose Sodium 0.5% Ophth Soln 15 ML Bottle EYEBOTH PRN (11:28)
[2023-04-22] MEDS ORDERED: Magnesium Hydroxide 400 MG/5 ML Susp 30 ML Cup PO PRN (11:28)
[2023-04-22] MEDS ORDERED: Sennosides 8.6 MG Tab PO PRN (11:28)
[2023-04-22] MEDS ORDERED: Albuterol/Ipratropium 3.0-0.5 MG/3 ML Neb Soln INH PRN (11:28)
[2023-04-22] MEDS ORDERED: Cocoa Butter/Phenylephrine Rectal Supp RECTAL PRN (11:28)
[2023-04-22] MEDS ORDERED: Bisacodyl 10 MG Supp RECTAL PRN (11:28)
[2023-04-22] MEDS ORDERED: Aluminum Hydroxide/Magnesium Hydroxide Susp 30 ML Cup PO PRN (11:28)
[2023-04-22] MEDS ORDERED: Acetaminophen 500 MG Tab PO PRN (11:28)
[2023-04-22] MEDS ORDERED: Non-Formulary Medication 1 Each (Ketoconazole [Nizoral 2% Shampoo] 120 ML Bottle) TOP SCH (11:30)
[2023-04-22] MEDS ORDERED: Baclofen 10 MG Tab PO SCH (12:00)
[2023-04-22] MEDS ORDERED: Methylphenidate 5 MG Tab PO SCH (12:30)
[2023-04-22] MEDS ORDERED: Pregabalin 100 MG Cap PO SCH (12:30)
[2023-04-22] MEDS ORDERED: Potassium Chloride 20 MEQ Tab.ER PO SCH (12:30)
[2023-04-22] MEDS: Acetaminophen 500 MG Tab PO SCH ×2 (13:08→20:52)
[2023-04-22] MEDS: Baclofen 10 MG Tab PO SCH ×2 (13:08→21:21)
[2023-04-22] MEDS: Potassium Chloride 20 MEQ Tab.ER PO SCH ×2 (13:08→21:21)
[2023-04-22] MEDS: Prenatal Multivitamin with Calcium/Folic Acid/Fe Fumarate Cap PO SCH (13:08)
[2023-04-22] MEDS: Pregabalin 100 MG Cap PO SCH ×2 (13:09→16:41)
[2023-04-22] MEDS: Methylphenidate 5 MG Tab PO SCH (13:09)
[2023-04-22] MEDS ORDERED: Bumetanide 2 MG Tab PO SCH (14:00)
[2023-04-22] MEDS: Amitriptyline 10 MG Tab PO SCH (20:52)
[2023-04-22] MEDS: Metoprolol Tartrate 25 MG Tab PO SCH (20:52)
[2023-04-22] MEDS: Cetirizine 10 MG Tab PO SCH (20:52)
[2023-04-22] MEDS: atorvaSTATin 40 MG Tab PO SCH (20:52)
[2023-04-22] MEDS: Magnesium Oxide 400 MG Tab PO SCH (20:52)
[2023-04-22] MEDS: Psyllium 0.52 GM Cap PO SCH (21:21)
[2023-04-23] MEDS: cefTRIAXone 1 GM in Sodium Chloride 0.9% 50 ML IV SCH (03:40)
[2023-04-23] MEDS: Azithromycin 500 MG in Sodium Chloride 0.9% 250 ML IV SCH (03:40)
[2023-04-23] MEDS: Sodium Chloride 0.9% 10 ML Syringe FLUSH PRN (03:41)
[2023-04-23 06:35] LABS: BASOPHILS ABSOLUTE AUTO 0.1 x10-3/uL (0.0-0.1); BASOPHILS PERCENT AUTO 0.8 % (0.2-1.5); EOSINOPHILS ABSOLUTE AUTO 0.4 x10-3/uL (0.0-0.8); EOSINOPHILS PERCENT AUTO 4.6 % (0.6-8.1); HEMATOCRIT 39.5 % (34.2-48.2); LYMPHOCYTES ABSOLUTE AUTO 1.5 x10-3/uL (1.0-4.4); LYMPHOCYTES PERCENT AUTO 19.2 % (18.4-52.1); MEAN CORPUSCULAR HEMOGLOBIN 29.3 pg (23.9-33.9); MEAN CORPUSCULAR VOLUME 88.8 fL (76.7-100.5); MEAN PLATELET VOLUME 9.6 fL (7.1-12.4); MONOCYTES ABSOLUTE AUTO 1.1 x10-3/uL (0.3-1.0); MONOCYTES PERCENT AUTO 13.8 % (4.4-15.7); NEUTROPHILS ABSOLUTE AUTO 4.8 x10-3/uL (1.5-6.3); NEUTROPHILS PERCENT AUTO 61.6 % (30.8-76.2); PLATELET COUNT,PLT 125 x10(3)uL (151-488); RED BLOOD CELL COUNT 4.45 x10(6)uL (3.60-5.20); RED CELL DISTRIBUTION WIDTH 16.5 % (12.3-16.5); WHITE BLOOD CELL COUNT,WBC 7.7 x10-3/uL (3.0-10.3)
[2023-04-23 06:49] LABS: A/G RATIO 0.8; ALANINE AMINOTRANSFERASE,ALT 22 U/L (12-36); ALBUMIN 2.8 g/dL (3.2-4.6); ALKALINE PHOSPHATASE 156 IU/L (56-112); ASPARTATE AMNIOTRANSFERASE,AST 21 IU/L (5-25); BILIRUBIN TOTAL 0.7 mg/dL (0.1-1.3); BLOOD UREA NITROGEN,BUN 13 mg/dL (7-18); BUN/CREATININE RATIO 16.3 (9-20); CALCIUM 9.1 mg/dL (8.6-10.2); CARBON DIOXIDE,CO2 31 mmol/L (21-32); CHLORIDE,CL 104 mmol/L (100-110); CREATININE 0.8 mg/dL (0.55-1.02); EST CRCL DRUG DOSING (CG) 67.38 mL/min; ESTIMATED GFR 83 mL/min (>60); GLUCOSE RANDOM 98 mg/dL (80-116); POTASSIUM,K 3.3 mmol/L (3.5-5.3); PROTEIN TOTAL,TP 6.3 g/dL (6.0-8.0); SODIUM,NA 142 mmol/L (135-145)
[2023-04-23] MEDS: Pregabalin 100 MG Cap PO SCH ×3 (08:26→16:13)
[2023-04-23] MEDS ORDERED: Non-Formulary Medication 1 Each (Fluticasone/Umeclidin/Vilanter [Trelegy Ellipta 100-62.5- INH SCH (09:00)
[2023-04-23] MEDS ORDERED: Bumetanide 1 MG Tab PO SCH ×2 (09:00→14:00)
[2023-04-23] MEDS ORDERED: Carboxymethylcellulose Sodium 0.5% Ophth Soln 15 ML Bottle EYEBOTH PRN (09:00)
[2023-04-23] MEDS: Baclofen 10 MG Tab PO SCH ×3 (09:04→20:42)
[2023-04-23] MEDS: Albuterol/Ipratropium 3.0-0.5 MG/3 ML Neb Soln NEB SCH ×4 (09:04→20:43)
[2023-04-23] MEDS: Potassium Chloride 20 MEQ Tab.ER PO SCH ×4 (09:06→21:35)
[2023-04-23] MEDS: Bumetanide 2 MG Tab PO SCH (09:07)
[2023-04-23] MEDS: Folic Acid 1 MG Tab PO SCH (09:07)
[2023-04-23] MEDS: DULoxetine 60 MG Cap PO SCH (09:07)
[2023-04-23] MEDS: Metoprolol Tartrate 25 MG Tab PO SCH ×2 (09:07→20:45)
[2023-04-23] MEDS: Psyllium 0.52 GM Cap PO SCH ×2 (09:08→20:52)
[2023-04-23] MEDS: Magnesium Oxide 400 MG Tab PO SCH ×2 (09:08→20:46)
[2023-04-23] MEDS: Acetaminophen 500 MG Tab PO SCH ×3 (09:09→20:53)
[2023-04-23] MEDS: Meloxicam 7.5 MG Tab PO SCH (09:09)
[2023-04-23] MEDS: Cholecalciferol (Vitamin D3) 5,000 UNIT Cap PO SCH (09:10)
[2023-04-23] MEDS: Methylphenidate 5 MG Tab PO SCH ×2 (09:20→12:49)
[2023-04-23] MEDS: predniSONE 20 MG Tab PO SCH (09:20)
[2023-04-23] MEDS: Formoterol/Mometasone 100-5 MCG 8.8 GM Inhaler IH SCH ×2 (11:35→20:42)
[2023-04-23] MEDS: Tiotropium Bromide 4 GM Inhalation Spray (2.5mcg/1 dose; 10 doses) INH SCH (11:35)
[2023-04-23] MEDS: Enoxaparin 40 MG/0.4 ML Syringe SUBCUT SCH (11:36)
[2023-04-23] MEDS: Prenatal Multivitamin with Calcium/Folic Acid/Fe Fumarate Cap PO SCH (12:49)
[2023-04-23] MEDS: Amitriptyline 10 MG Tab PO SCH (20:44)
[2023-04-23] MEDS: atorvaSTATin 40 MG Tab PO SCH (20:45)
[2023-04-23] MEDS: Cetirizine 10 MG Tab PO SCH (20:55)
[2023-04-23] MEDS: [UNRECOGNIZED DRUG - REMARK] TOP SCH (21:35)
[2023-04-23] MEDS: BALM TOP SCH (21:35)
[2023-04-24] MEDS: Azithromycin 500 MG in Sodium Chloride 0.9% 250 ML IV SCH (02:28)
[2023-04-24] MEDS: Sodium Chloride 0.9% 10 ML Syringe FLUSH PRN ×3 (02:30→07:44)
[2023-04-24] MEDS ORDERED: cefTRIAXone 1 GM Vial IVPUSH SCH (03:15)
[2023-04-24] MEDS: Albuterol/Ipratropium 3.0-0.5 MG/3 ML Neb Soln NEB SCH (06:43)
[2023-04-24 07:20] LABS: BLOOD UREA NITROGEN,BUN 16 mg/dL (7-18); CALCIUM 9.8 mg/dL (8.6-10.2); CARBON DIOXIDE,CO2 32 mmol/L (21-32); CHLORIDE,CL 105 mmol/L (100-110); CREATININE 0.8 mg/dL (0.55-1.02); EST CRCL DRUG DOSING (CG) 67.38 mL/min; ESTIMATED GFR 83 mL/min (>60); GLUCOSE RANDOM 115 mg/dL (80-116); POTASSIUM,K 4.3 mmol/L (3.5-5.3); SODIUM,NA 141 mmol/L (135-145)
[2023-04-24] MEDS: Potassium Chloride 20 MEQ Tab.ER PO SCH (07:54)
[2023-04-24] MEDS: Baclofen 10 MG Tab PO SCH (07:54)
[2023-04-24] MEDS: Methylphenidate 5 MG Tab PO SCH (07:55)
[2023-04-24] MEDS: Pregabalin 100 MG Cap PO SCH (07:55)
[2023-04-24] MEDS: predniSONE 20 MG Tab PO SCH (07:55)
[2023-04-24] MEDS: Bumetanide 2 MG Tab PO SCH (08:00)
[2023-04-24] MEDS: Formoterol/Mometasone 100-5 MCG 8.8 GM Inhaler IH SCH (08:00)
[2023-04-24] MEDS: DULoxetine 60 MG Cap PO SCH (08:00)
[2023-04-24] MEDS: Folic Acid 1 MG Tab PO SCH (08:00)
[2023-04-24] MEDS: Metoprolol Tartrate 25 MG Tab PO SCH (08:00)
[2023-04-24] MEDS: Magnesium Oxide 400 MG Tab PO SCH (08:01)
[2023-04-24] MEDS: Acetaminophen 500 MG Tab PO SCH (08:01)
[2023-04-24] MEDS: Tiotropium Bromide 4 GM Inhalation Spray (2.5mcg/1 dose; 10 doses) INH SCH (08:01)
[2023-04-24] MEDS: Meloxicam 7.5 MG Tab PO SCH (08:01)
[2023-04-24] MEDS: Psyllium 0.52 GM Cap PO SCH (08:01)
[2023-04-24] MEDS: Cholecalciferol (Vitamin D3) 5,000 UNIT Cap PO SCH (08:02)
[2023-04-24] MEDS: Enoxaparin 40 MG/0.4 ML Syringe SUBCUT SCH (10:28)
== END 2023-04-24 10:46 | DRG 194 ==
LOC: FB.ED 23:39 → FB.MS 04-22 03:07 → OBSVTOIN 04-22 16:58
PROVIDERS: ADMIT Family Medicine; ATTEND Family Medicine
DX: J18.9 Pneumonia, unspecified organism (principal); J44.1 Chronic obstructive pulmonary disease with (acute) exacerbation; D86.9 Sarcoidosis, unspecified; Z51.5 Encounter for palliative care; Z66 Do not resuscitate; J44.9 Chronic obstructive pulmonary disease, unspecified; I11.0 Hypertensive heart disease with heart failure; I50.9 Heart failure, unspecified; G35 Multiple sclerosis; M06.9 Rheumatoid arthritis, unspecified; G47.33 Obstructive sleep apnea (adult) (pediatric); E66.01 Morbid (severe) obesity due to excess calories; E78.00 Pure hypercholesterolemia, unspecified; K59.09 Other constipation; K21.9 Gastro-esophageal reflux disease without esophagitis; M19.90 Unspecified osteoarthritis, unspecified site; G62.9 Polyneuropathy, unspecified; F41.9 Anxiety disorder, unspecified; F32.A Depression, unspecified; E83.42 Hypomagnesemia; R91.8 Other nonspecific abnormal finding of lung field; E04.1 Nontoxic single thyroid nodule; Z68.37 Body mass index [BMI] 37.0-37.9, adult; Z88.8 Allergy status to other drugs, medicaments and biological substances; Z79.899 Other long term (current) drug therapy; Z87.81 Personal history of (healed) traumatic fracture; Z86.16 Personal history of COVID-19; Z98.51 Tubal ligation status; Z99.3 Dependence on wheelchair
CPT/HCPCS: 36415; 71045; 71275; 80048; 80053; 81001; 83605; 83735; 83880; 84484; 85025; 85379; 86140; 87230; 93005; 94640; 96365; 96368; 96372; 96374; 96375; 99285-25; A9270-GY; C1758; G0378; J0456; J0696; J1650; J3475; J3490; J7050; J7512; J7620; Q9967; U0002

== ENCOUNTER 2023-09-26 12:52 | Inpatient (IN) | payer MEDICARE, MEDICAID ==
[2023-09-26] MEDS: Albuterol/Ipratropium 3.0-0.5 MG/3 ML Neb Soln NEB ONE ×2 (13:09→16:29)
[2023-09-26] MEDS: methylPREDNISolone Sodium Succinate 125 MG/2 ML SDV IVPUSH ONE (13:10)
[2023-09-26] MEDS: Sodium Chloride 0.9% 10 ML Syringe FLUSH PRN (13:12)
[2023-09-26 13:31] LABS: BLOOD UREA NITROGEN,BUN 17 mg/dL (7-18); BUN/CREATININE RATIO 15.5 (9-20); CALCIUM 9.4 mg/dL (8.6-10.2); CARBON DIOXIDE,CO2 30 mmol/L (21-32); CHLORIDE,CL 107 mmol/L (100-110); CREATININE 1.1 mg/dL (0.55-1.02); ESTIMATED GFR 56 mL/min (>60); GLUCOSE RANDOM 95 mg/dL (80-116); HEMATOCRIT 53.9 % (34.2-48.2); HEMOGLOBIN 16.7 g/dL (11.4-15.5); MEAN CORPUSCULAR HEMOGLOBIN 28.1 pg (23.9-33.9); MEAN CORPUSCULAR VOLUME 90.7 fL (76.7-100.5); MEAN PLATELET VOLUME 10.2 fL (7.1-12.4); PLATELET COUNT,PLT 171 x10(3)uL (151-488); POTASSIUM,K 4.5 mmol/L (3.5-5.3); RED BLOOD CELL COUNT 5.94 x10(6)uL (3.60-5.20); RED CELL DISTRIBUTION WIDTH 17.7 % (12.3-16.5); SODIUM,NA 145 mmol/L (135-145); WHITE BLOOD CELL COUNT,WBC 18.7 x10-3/uL (3.0-10.3)
[2023-09-26 13:38] LABS: INR 1.04 (1.00-1.24); PROTHROMBIN TIME 10.8 sec (9.0-11.1); PTT,PARTIAL THROMBOPLSTIN TIME 28.6 SECONDS (24.4-33.2)
[2023-09-26 13:39] LABS: A/G RATIO 0.7; ALANINE AMINOTRANSFERASE,ALT 27 U/L (12-36); ALBUMIN 3.3 g/dL (3.2-4.6); ALKALINE PHOSPHATASE 288 IU/L (56-112); ASPARTATE AMNIOTRANSFERASE,AST 19 IU/L (5-25); BILIRUBIN TOTAL 0.7 mg/dL (0.1-1.3)
[2023-09-26 13:43] LABS: BASE EXCESS VENOUS,POC -6 mmol/L (-2 - 3+); PCO2 VENOUS,POC 42 mmHg (41-51)
[2023-09-26 13:44] LABS: TROPONIN I 25.8 pg/mL (4.0-60.3)
[2023-09-26 13:53] LABS: LACTIC ACID 3.2 mmol/L (0.4-2.0)
[2023-09-26 14:05] LABS: BAND PERCENT MAN 7 % (0-6); LYMPHOCYTES PERCENT MAN 8 % (13-37); MONOCYTES PERCENT MAN 6 % (4-12); SEG NEUTROPHILS PERCENT MAN 79 % (46-82)
[2023-09-26 14:06] LABS: ANISOCYTOSIS FEW
[2023-09-26] MEDS: Sodium Chloride 0.9% 1,000 ML IV SCH ×2 (14:31→18:19)
[2023-09-26] MEDS: Piperacillin/Tazobactam 4.5 GM in Sodium Chloride 0.9% 100 ML IV ONE (14:33)
[2023-09-26] MEDS: VANCOmycin 1.5 GM/300 ML 1.5 GM in Premix Bag 1 BAG IV ONE (15:14)
[2023-09-26 16:51] LABS: APPEARANCE,URINE CLEAR (CLEAR); BILIRUBIN,URINE NEGATIVE (NEGATIVE); COLOR,URINE YELLOW (YELLOW); GLUCOSE,URINE NORMAL (NORMAL); KETONES,URINE NEGATIVE (NEGATIVE); LEUKOCYTE ESTERASE,URINE SMALL (NEGATIVE); NITRITE,URINE NEGATIVE (NEGATIVE); OCCULT BLOOD,URINE NEGATIVE (NEGATIVE); PROTEIN,URINE NEGATIVE (NEGATIVE); UROBILINOGEN,URINE NORMAL (NEGATIVE)
[2023-09-26] MEDS ORDERED: Albuterol 0.083% 2.5 MG/3 ML Neb Soln NEB PRN (17:38)
[2023-09-26] MEDS ORDERED: Acetaminophen 325 MG Tab PO PRN ×2 (17:38→17:53)
[2023-09-26] MEDS ORDERED: Sennosides/Docusate Sodium 50-8.6 MG Tab PO PRN (17:38)
[2023-09-26] MEDS ORDERED: Magnesium Hydroxide 400 MG/5 ML Susp 30 ML Cup PO PRN (17:53)
[2023-09-26] MEDS ORDERED: Bisacodyl 10 MG Supp RECTAL PRN (17:53)
[2023-09-26] MEDS ORDERED: Cocoa Butter/Phenylephrine Rectal Supp RECTAL PRN (17:53)
[2023-09-26] MEDS ORDERED: Bisacodyl 5 MG Tab PO PRN (17:53)
[2023-09-26] MEDS ORDERED: Carboxymethylcellulose Sodium 0.5% Ophth Soln 15 ML Bottle EYEBOTH PRN (17:53)
[2023-09-26] MEDS ORDERED: BALM TOP PRN (17:53)
[2023-09-26] MEDS ORDERED: guaiFENesin 100 MG/5 ML Soln 5 ML UD Cup PO PRN (17:53)
[2023-09-26] MEDS ORDERED: Aluminum Hydroxide/Magnesium Hydroxide Susp 30 ML Cup PO PRN (17:53)
[2023-09-26] MEDS: Magnesium Sulfate/Water 50 ML IV ONE (18:30)
[2023-09-26 18:45] LABS: INFLUENZA A NAA NEGATIVE (NEGATIVE); INFLUENZA B NAA NEGATIVE (NEGATIVE); RESPIRATORY SYNCYTIAL VIR NAA NEGATIVE (NEGATIVE)
[2023-09-26 19:07] LABS: CORONAVIRUS COVID-19 NAA NEGATIVE (NEGATIVE)
[2023-09-26] MEDS ORDERED: BALM TOP SCH (21:00)
[2023-09-26] MEDS: Piperacillin/Tazobactam 4.5 GM in Sodium Chloride 0.9% 100 ML IV SCH (21:35)
[2023-09-26] MEDS: Potassium Chloride 20 MEQ Tab.ER PO SCH (21:39)
[2023-09-26] MEDS: Cetirizine 10 MG Tab PO SCH (21:40)
[2023-09-26] MEDS: Saccharomyces Boulardii (Probiotic) 250 MG Cap PO SCH (21:40)
[2023-09-26] MEDS: Acetaminophen 500 MG Tab PO SCH (21:40)
[2023-09-26] MEDS: Amitriptyline 10 MG Tab PO SCH (21:40)
[2023-09-26] MEDS: atorvaSTATin 40 MG Tab PO SCH (21:40)
[2023-09-26] MEDS: Metoprolol Tartrate 25 MG Tab PO SCH (21:41)
[2023-09-26] MEDS: Baclofen 10 MG Tab PO SCH (21:43)
[2023-09-26] MEDS: methylPREDNISolone Sodium Succinate 125 MG/2 ML SDV IVPUSH SCH (21:46)
[2023-09-26] MEDS: Albuterol/Ipratropium 3.0-0.5 MG/3 ML Neb Soln NEB SCH (21:59)
[2023-09-27] MEDS: VANCOmycin 1 GM/200 ML 1 GM in Premix Bag 1 BAG IV SCH (02:00)
[2023-09-27] MEDS: Albuterol/Ipratropium 3.0-0.5 MG/3 ML Neb Soln NEB SCH (02:07)
[2023-09-27 06:37] LABS: HEMATOCRIT 46.6 % (34.2-48.2); HEMOGLOBIN 14.6 g/dL (11.4-15.5); MEAN CORPUSCULAR HEMOGLOBIN 28.1 pg (23.9-33.9); MEAN CORPUSCULAR HGB CONC 31.4 g/dL (31.9-34.8); MEAN CORPUSCULAR VOLUME 89.5 fL (76.7-100.5); MEAN PLATELET VOLUME 10.1 fL (7.1-12.4); PLATELET COUNT,PLT 143 x10(3)uL (151-488); RED CELL DISTRIBUTION WIDTH 17.4 % (12.3-16.5); WHITE BLOOD CELL COUNT,WBC 16.4 x10-3/uL (3.0-10.3)
[2023-09-27 06:48] LABS: A/G RATIO 0.6; ALANINE AMINOTRANSFERASE,ALT 21 U/L (12-36); ALBUMIN 2.6 g/dL (3.2-4.6); ALKALINE PHOSPHATASE 205 IU/L (56-112); ASPARTATE AMNIOTRANSFERASE,AST 17 IU/L (5-25); BILIRUBIN TOTAL 0.7 mg/dL (0.1-1.3); BLOOD UREA NITROGEN,BUN 17 mg/dL (7-18); CALCIUM 8.5 mg/dL (8.6-10.2); CARBON DIOXIDE,CO2 26 mmol/L (21-32); CHLORIDE,CL 107 mmol/L (100-110); EST CRCL DRUG DOSING (CG) 53.91 mL/min; ESTIMATED GFR 63 mL/min (>60); GLUCOSE RANDOM 184 mg/dL (80-116); MAGNESIUM 1.8 mg/dL (1.8-2.5); PROTEIN TOTAL,TP 6.8 g/dL (6.0-8.0); SODIUM,NA 143 mmol/L (135-145)
[2023-09-27 06:52] LABS: BAND PERCENT MAN 7 % (0-6); LYMPHOCYTES PERCENT MAN 4 % (13-37); MONOCYTES PERCENT MAN 1 % (4-12); SEG NEUTROPHILS PERCENT MAN 88 % (46-82)
[2023-09-27] MEDS ORDERED: Sennosides/Docusate Sodium 50-8.6 MG Tab PO PRN (07:43)
[2023-09-27] MEDS: Pantoprazole 40 MG Tab.CR PO SCH (08:44)
[2023-09-27] MEDS ORDERED: Non-Formulary Medication 1 Each (Fluticasone/Umeclidin/Vilanter [Trelegy Ellipta 100-62.5- INH SCH (09:00)
[2023-09-27] MEDS ORDERED: Menthol 10%/Methyl Salicylate 30% 85 GM Tube TOP PRN (09:05)
[2023-09-27] MEDS: Folic Acid 1 MG Tab PO SCH (09:15)
[2023-09-27] MEDS: Formoterol/Mometasone 100-5 MCG 8.8 GM Inhaler INH SCH (09:16)
[2023-09-27] MEDS: Cholecalciferol (Vitamin D3) 5,000 UNIT Cap PO SCH (09:18)
[2023-09-27] MEDS: Simethicone 80 MG Tab.Chew PO SCH (09:19)
[2023-09-27] MEDS: Meloxicam 7.5 MG Tab PO SCH (09:23)
[2023-09-27] MEDS: Tiotropium Bromide 4 GM Inhalation Spray (2.5mcg/1 dose; 10 doses) INH SCH (09:24)
[2023-09-27] MEDS: Bumetanide 2 MG Tab PO SCH (09:28)
[2023-09-27] MEDS: DULoxetine 60 MG Cap PO SCH (09:29)
[2023-09-27] MEDS: Pregabalin 100 MG Cap PO SCH (09:33)
[2023-09-27] MEDS: Methylphenidate 5 MG Tab PO SCH (09:33)
[2023-09-27] MEDS: Sodium Chloride 0.9% 10 ML Syringe FLUSH PRN (10:43)
[2023-09-27] MEDS: Enoxaparin 40 MG/0.4 ML Syringe SUBCUT SCH (11:20)
[2023-09-27] MEDS: Iopamidol 755 Mg/ML 100 ML Bottle IV SCH (11:53)
[2023-09-27] MEDS: Prenatal Multivitamin with Calcium/Folic Acid/Fe Fumarate Cap PO SCH (12:03)
[2023-09-27] MEDS: Bumetanide 1 MG Tab PO SCH (13:30)
[2023-09-27] MEDS: Furosemide 40 MG/4 ML VIAL IVPUSH ONE (17:04)
[2023-09-27] MEDS ORDERED: Non-Formulary Medication 1 Each (Ketoconazole [Nizoral 2% Shampoo] 120 ML Bottle) TOP SCH (17:53)
[2023-09-27] MEDS: Ondansetron 4 MG/2 ML SDV IV PRN (23:48)
[2023-09-28] MEDS: Nitroglycerin/D5W 25 MG/250 ML BOTTLE IV SCH (00:26)
[2023-09-28] MEDS: Furosemide 40 MG/4 ML VIAL IVPUSH ONE ×2 (00:30→09:00)
[2023-09-28] MEDS: Nitroglycerin/D5W 25 MG/250 ML BOTTLE ONE (00:35)
[2023-09-28] MEDS: Morphine 2 MG/ML SYRINGE IVPUSH PRN ×2 (01:22→11:21)
[2023-09-28] MEDS: Sodium Chloride 0.9% 10 ML Syringe FLUSH PRN (03:58)
[2023-09-28 06:31] LABS: HEMATOCRIT 49.6 % (34.2-48.2); HEMOGLOBIN 15.7 g/dL (11.4-15.5); MEAN CORPUSCULAR HEMOGLOBIN 28.2 pg (23.9-33.9); MEAN CORPUSCULAR HGB CONC 31.6 g/dL (31.9-34.8); MEAN CORPUSCULAR VOLUME 89.4 fL (76.7-100.5); MEAN PLATELET VOLUME 10.2 fL (7.1-12.4); PLATELET COUNT,PLT 180 x10(3)uL (151-488); RED BLOOD CELL COUNT 5.55 x10(6)uL (3.60-5.20); RED CELL DISTRIBUTION WIDTH 18.2 % (12.3-16.5); WHITE BLOOD CELL COUNT,WBC 11.4 x10-3/uL (3.0-10.3)
[2023-09-28 06:41] LABS: A/G RATIO 0.7; ALANINE AMINOTRANSFERASE,ALT 24 U/L (12-36); ALKALINE PHOSPHATASE 183 IU/L (56-112); ASPARTATE AMNIOTRANSFERASE,AST 16 IU/L (5-25); BILIRUBIN TOTAL 0.6 mg/dL (0.1-1.3); BLOOD UREA NITROGEN,BUN 26 mg/dL (7-18); BUN/CREATININE RATIO 21.7 (9-20); CARBON DIOXIDE,CO2 26 mmol/L (21-32); CHLORIDE,CL 106 mmol/L (100-110); CREATININE 1.2 mg/dL (0.55-1.02); EST CRCL DRUG DOSING (CG) 44.92 mL/min; ESTIMATED GFR 51 mL/min (>60); GLUCOSE RANDOM 157 mg/dL (80-116); POTASSIUM,K 4.2 mmol/L (3.5-5.3); PROTEIN TOTAL,TP 7.5 g/dL (6.0-8.0); SODIUM,NA 143 mmol/L (135-145)
[2023-09-28 07:03] LABS: BAND PERCENT MAN 2 % (0-6); LYMPHOCYTES PERCENT MAN 1 % (13-37); MONOCYTES PERCENT MAN 2 % (4-12); SEG NEUTROPHILS PERCENT MAN 95 % (46-82)
[2023-09-28 07:04] LABS: ANISOCYTOSIS FEW; POIKILOCYTOSIS FEW; POLYCHROMASIA FEW
[2023-09-28] MEDS: Dextrose 5%-0.9% NaCl with KCl 1,000 ML IV SCH (10:08)
[2023-09-28] MEDS: VANCOmycin 1 GM/200 ML 1 GM in Premix Bag 1 BAG IV SCH (10:17)
[2023-09-28] MEDS: Scopalamine 1mg/3day Transdermal Patch TRDERM PRN (14:24)
== END 2023-09-28 22:10 | disposition expired | DRG 871 ==
LOC: FB.ED 12:52 → FB.MS 18:02
PROVIDERS: ADMIT Emergency Medicine; ATTEND Family Medicine
PROC: 3E03329 Introduction of Other Anti-infective into Peripheral Vein, Percutaneous Approach (ICD-10-PCS; principal; 2023-09-26)
PROC: 5A09357 Assistance with Respiratory Ventilation, Less than 24 Consecutive Hours, Continuous Positive Airway Pressure (ICD-10-PCS; 2023-09-26)
PROC: 5A0945A Assistance with Respiratory Ventilation, 24-96 Consecutive Hours, High Flow/Velocity Cannula (ICD-10-PCS; 2023-09-27)
DX: A41.9 Sepsis, unspecified organism (principal); I50.33 Acute on chronic diastolic (congestive) heart failure; J96.01 Acute respiratory failure with hypoxia; J18.9 Pneumonia, unspecified organism; K56.609 Unspecified intestinal obstruction, unspecified as to partial versus complete obstruction; J44.0 Chronic obstructive pulmonary disease with (acute) lower respiratory infection; J44.1 Chronic obstructive pulmonary disease with (acute) exacerbation; I50.9 Heart failure, unspecified; I11.0 Hypertensive heart disease with heart failure; Z66 Do not resuscitate; Z51.5 Encounter for palliative care; I27.20 Pulmonary hypertension, unspecified; G35 Multiple sclerosis; R65.20 Severe sepsis without septic shock; F41.9 Anxiety disorder, unspecified; E83.42 Hypomagnesemia; R26.2 Difficulty in walking, not elsewhere classified; G47.33 Obstructive sleep apnea (adult) (pediatric); R53.1 Weakness; D86.9 Sarcoidosis, unspecified; F32.A Depression, unspecified; R91.1 Solitary pulmonary nodule; E66.9 Obesity, unspecified; G62.9 Polyneuropathy, unspecified; E78.2 Mixed hyperlipidemia; Z98.51 Tubal ligation status; Z98.890 Other specified postprocedural states; M06.9 Rheumatoid arthritis, unspecified; Z88.8 Allergy status to other drugs, medicaments and biological substances; Z68.37 Body mass index [BMI] 37.0-37.9, adult; Z79.51 Long term (current) use of inhaled steroids; Z79.899 Other long term (current) drug therapy; Z86.16 Personal history of COVID-19; Z87.891 Personal history of nicotine dependence
CPT/HCPCS: 0241U; 36415; 71045; 71275; 74176; 80053; 81003; 82271; 83605; 83735; 83880; 84484; 85025; 85610; 85730; 93005; 94640; 94660; 96361; 96365; 96366; 96367; 96375; 99223; 99231; 99238; 99285; 74150; 93010; A9270-GY; J1650; J1940; J2270; J2305; J2405; J2543; J2919; J3370; J3475; J3480; J3490; J7030; J7620; Q9967